=== PATIENT | female | born 1955 | race Caucasian/White ===

== ENCOUNTER 2022-03-02 09:44 | Outpatient (REF) | payer MEDICARE, OTHER, SELFPAY ==
--- NOTE | ~2022-03-02 | FL_ITS ---
EXAMINATION: FL BARIUM SWALLOW CLINICAL INFORMATION: Dysphagia COMPARISON: None TECHNIQUE: Barium swallow examination is performed using fluoroscopic evaluation in addition to multiple fluoroscopic spot views. The patient is imaged both upright and prone and using both thick and thin sulfate along with effervescent granules. Barium tablet was also administered. Fluoroscopy time: 1.5 minutes DAP: 5.7 Gycm2 Images: 81 saved fluoroscopic images FINDINGS: The swallowing mechanism is normal. No aspiration or penetration is seen. The barium tablet got stock in the proximal cervical esophagus. On air contrast images there are small retained pockets of oral contrast suggestive of small ulcers or erosions. No mass or stricture is seen. No gastroesophageal reflux. No hernia. Normal esophageal motility. There is question of prominent folds in the stomach and duodenum. FL/FL barium swallow IMPRESSION: Barium tablet got stock in the proximal cervical esophagus. On the air-contrast images there are round foci of retained contrast suggestive of small ulcers or erosions. Findings are suggestive of esophagitis. Endoscopic correlation recommended. Prominent folds in the stomach and proximal duodenum questionable for hypertrophic gastritis or hyperacidity. 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
== END 2022-03-02 09:45 | disposition home or self-care (01) ==
LOC: HO.XRAY 09:44
PROVIDERS: PCP Nurse Practitioner Family; Visit Provider Internal Medicine Gastroenterology
DX: R13.10 Dysphagia, unspecified (principal)
CPT/HCPCS: 74220

== ENCOUNTER 2022-04-19 07:05 | Day surgery (SDC) | payer MEDICARE, OTHER, SELFPAY ==
--- NOTE | 2022-03-10 15:07 | HP_ITS ---
DATE OF SERVICE: 03/15/2022 HISTORY OF PRESENT ILLNESS: Dolores is a pleasant 66-year-old woman, who presents today for upper endoscopy because of an abnormal upper GI series and symptoms of hoarseness, as well as dysphagia to pills. She underwent a barium swallow on March 02, which showed a barium tablet impacted in the proximal cervical esophagus and abnormal imaging suggestive of esophagitis. Prominent folds were noted in the stomach and proximal duodenum, questionable for hypertrophic gastritis. She had her medication increased and presents for upper endoscopy. She has a prior history of Lares esophagus and last underwent upper endoscopy in August 2018, which showed no esophagitis and an irregular EG junction. Biopsies showed intestinal metaplasia, but no dysplasia. PAST MEDICAL HISTORY: 1. Gastroesophageal reflux disease with Lares's esophagus and dysphagia as above. 2. Irritable bowel syndrome. 3. Fibromyalgia. 4. Carotid aneurysm with endovascular therapy with coils. 5. Hypertension. 6. Migraines. 7. COPD. 8. Back pain. 9. Reflex sympathetic dystrophy. PAST SURGICAL HISTORY: Includes bowel obstruction, appendectomy, ankle surgery, deviated septum repair, and carpal tunnel surgery. CURRENT MEDICATIONS: Her current medication list is reviewed in the chart. ALLERGIES: CECLOR, PENICILLIN, AND BUSPAR. FAMILY HISTORY: Noncontributory. SOCIAL HISTORY: There is no current tobacco, alcohol, or substance abuse. REVIEW OF SYSTEMS: SKIN: No pruritus. HEENT: Negative. CARDIOPULMONARY: No shortness of breath or chest pain. GASTROINTESTINAL: As above. GENITOURINARY: Negative. NEUROPSYCHIATRIC: Negative. PHYSICAL EXAMINATION: GENERAL: Shows a pleasant female in no acute distress. VITAL SIGNS: Reviewed in electronic medical record and are stable. SKIN: Anicteric. HEENT: Shows no scleral icterus. NECK: Without lymphadenopathy or thyromegaly. LUNGS: Clear. HEART: Shows a regular rate and rhythm. S1, S2. No murmur. ABDOMEN: Soft without focal masses or tenderness. Bowel sounds are present. No organomegaly is noted. EXTREMITIES: Without edema. IMPRESSION: Abnormal barium swallow with dysphagia. PLAN: Upper endoscopy with balloon dilation and biopsy. Risks and benefits of the procedure have been discussed with the patient who understands and agrees to proceed. MD FLORY Pineda/ISIDORO / [id number]
--- NOTE | 2022-04-18 13:29 | P.CONAN_ITS ---
Documented by User: Yuli Oconnell NP 04/18/22 13:30 HPI - Anesthesia Eval Consult details Narrative: 66yo F for Upper Endoscopy [facility] Past Medical History Medical History (Updated 04/19/22 @ 08:43 by Shi Hercules MD) Back pain Lares esophagus Bowel obstruction Carotid artery aneurysm COPD (chronic obstructive pulmonary disease) Fibromyalgia GERD (gastroesophageal reflux disease) HTN (hypertension) IBS (irritable bowel syndrome) Migraine Reflex sympathetic dystrophy Surgical History Surgical History H/O carpal tunnel repair History of ankle surgery History of appendectomy S/P surgery on nasal septum Social History Social History Patient Tobacco Use Status: Former Tobacco user Use of substances other than those prescribed or required for medical reasons: No Are you DNR?: No Advance Directives: No Advance Directives Information Provided: Yes Meds Allergies Allergy/AdvReac Type Severity Reaction Status Date / Time cefaclor [From CECLOR] Allergy Severe RASH,THROAT Unverified 12/26/19 17:56 SWELLING Penicillins Allergy Mild MASSIVE Unverified 12/26/19 17:56 WHELTS From BuSpar Allergy Intermediate CONFUSION, Uncoded 12/26/19 17:56 HALLUCINATIONS Home Medications Medication Instructions Recorded Confirmed Last Taken Type metoprolol succinate 25 mg 1 tab PO DAILY 04/19/22 04/19/22 04/19/22 History tablet,extended release 24 hr oseltamivir 75 mg capsule mg 04/19/22 04/19/22 Unknown History pantoprazole 40 mg tablet,delayed 1 tab PO BID 04/19/22 04/19/22 04/19/22 History release spironolactone 25 mg tablet 25 mg PO DAILY 04/19/22 04/19/22 04/19/22 History Exam Exam Date and Time: April 18, [id number] Assessment and Plan Assessment Anesthesia Assessment: Chart Reviewed Documented by User: Shi Hercules MD 04/19/22 08:51 [facility] Active Problems Active Problems: Former smoker Past Medical History Medical History (Updated 04/19/22 @ 08:43 by Shi Hercules MD) Back pain Lares esophagus Bowel obstruction Carotid artery aneurysm COPD (chronic obstructive pulmonary disease) Fibromyalgia GERD (gastroesophageal reflux disease) HTN (hypertension) IBS (irritable bowel syndrome) Migraine Reflex sympathetic dystrophy Family History Family history of problems with anesthesia: Yes (PONV) Surgical History Surgical History H/O carpal tunnel repair History of ankle surgery History of appendectomy S/P surgery on nasal septum History of Problems with Anesthesia: Yes (PONV even with endoscopies) Social History Social History Patient Tobacco Use Status: Former Tobacco user Use of substances other than those prescribed or required for medical reasons: No Are you DNR?: No Advance Directives: No Advance Directives Information Provided: Yes Meds Allergies Allergy/AdvReac Type Severity Reaction Status Date / Time cefaclor [From CECLOR] Allergy Severe RASH,THROAT Unverified 12/26/19 17:56 SWELLING Penicillins Allergy Mild MASSIVE Unverified 12/26/19 17:56 WHELTS From BuSpar Allergy Intermediate CONFUSION, Uncoded 12/26/19 17:56 HALLUCINATIONS Home Medications Medication Instructions Recorded Confirmed Last Taken Type metoprolol succinate 25 mg 1 tab PO DAILY 04/19/22 04/19/22 04/19/22 History tablet,extended release 24 hr oseltamivir 75 mg capsule mg 04/19/22 04/19/22 Unknown History pantoprazole 40 mg tablet,delayed 1 tab PO BID 04/19/22 04/19/22 04/19/22 History release spironolactone 25 mg tablet 25 mg PO DAILY 04/19/22 04/19/22 04/19/22 History Exam Height,Weight and Vital Signs: Height 5 ft 6 in Weight 63.503 kg Vital Signs Temp Pulse Resp BP 04/19/22 07:36 98.2 F 81 18 147/85 H Airway Mallampati Class: II TM Dist: >3cm Neck ROM: Full Denture: Upper Partial: Lower Heart: RRR Lungs: CTAB Assessment and Plan Assessment Anesthesia Assessment: Anesthesia Plan Discussed Final Anesthetic Review Family History of Problems with Anesthesia: Yes (PONV) History of Problems with Anesthesia: Yes (PONV even with endoscopies) NPO: Yes ASA Class: II Final Preanesthetic Review: No Changes in Pt Med Stat, Meds/Allgs Chart Reviewed, Consent Obtained/Reviewed and Anes Risks/Benef Reviewed Patient Risk: Low Procedure Risk: Low Assessment/Block/Sedation in SS: Assess/Block/Sedation-SS Anesthetic Plan Anesthetic Plan: MAC: Disposition: Standard PACU
[2022-04-19 07:36] VITALS: BP 147/85; PULSE 81; RESP 18; TEMP 36.8
[2022-04-19] MEDS: Lactated Ringers 1,000 ML 100 ML IVCONT (07:55)
--- NOTE | 2022-04-19 08:22 | P.HPSUR_ITS ---
Pre-Procedural Eval Section A Date of Service: 04/19/22 Section B Chief Complaint: Dysphagia, abnormal findings Details of Present Illness: see H&P no changes Relevant Family History (Specify if Yes): No Relevant Social History: None Present Medications: see Short Stay [facility] assessment Medical History: No relevant PMH History of Previous Operations: No relevant previous surgery Allergies: Allergies Allergy/AdvReac Type Severity Reaction Status Date / Time cefaclor [From CECLOR] Allergy Severe RASH,THROAT Unverified 12/26/19 17:56 SWELLING Penicillins Allergy Mild MASSIVE Unverified 12/26/19 17:56 WHELTS From BuSpar Allergy Intermediate CONFUSION, Uncoded 12/26/19 17:56 HALLUCINATIONS Review of Systems Sugical H&P ROS: Negative: Constitution, Cardiovascular, Respiratory, Neurological, Psychiatric, Hem-Onc, Allergic/Immunologic, Gastrointestinal, Genitourinary, Musculoskeletal, Integumentary, Endocrine and Eyes/Ears/Nose/Throat Exam Surgical H&P Exam: Normal: HEENT, Normal: Heart, Normal: Lungs, Normal: Extremities, Normal: Abdomen, Normal: Skin and Normal: Neurological Plan Diagnosis/Plan: Unchanged I have reviewed the history and physical and performed a pertinent physical examination on my patient. No changes have occurred unless specified. Time Spent With Patient Time: Total time managing care of this patient today ____ minutes.
--- NOTE | 2022-04-19 08:51 | P.BOP_ITS ---
Brief Operative Note Date of Service: 04/19/22 Pre-op diagnosis: dysphagia Post-op diagnosis: same Procedure: egd Surgeon: Lonnie Arenas Anesthesia: MAC Was an Dispatcher Clerk used for this Procedure?: No Estimated blood loss (mL): 2 Pathology: other Condition: stable Disposition: PACU
[2022-04-19 08:57] VITALS: BP 124/64; PULSE 67; RESP 18; TEMP 36.8; O2SAT 98
[2022-04-19 09:15] VITALS: BP 132/72; PULSE 63; RESP 18; TEMP 36.8; O2SAT 96
--- NOTE | 2022-04-19 09:44 | OP_ITS ---
SURGEON: Lonnie Arenas MD INDICATIONS: Dysphagia and abnormal barium swallow. PREOPERATIVE DIAGNOSIS: POSTOPERATIVE DIAGNOSIS: PROCEDURE PERFORMED: ESTIMATED BLOOD LOSS: COMPLICATIONS: ANESTHESIA: ASSISTANTS: SPECIMENS: PROCEDURE: Upper endoscopy with balloon dilation and biopsy. MEDICATIONS: Monitored anesthesia care. DESCRIPTION OF PROCEDURE: History and physical performed. The risks and benefits of the procedure were explained to the patient. Informed consent was obtained. The patient was placed in the left lateral decubitus position. The Olympus video gastroscope was introduced into the esophagus, stomach, and duodenum. Examination was performed. The scope was removed. She tolerated the procedure well and was taken to recovery in stable condition. FINDINGS: 1. Esophagus: The esophagus showed no stricture. There was an irregular EG junction with no raised lesions or ulcerated areas. Balloon dilation of the upper esophageal sphincter to 18 mm was performed with a balloon passed through the scope and inflated to its recommended pressure for 60 seconds. Following dilation, there was mild minor superficial mucosal laceration consistent with therapeutic dilation. Biopsies were obtained from the EG junction because of the patient's history of Lares esophagus. 2. Stomach: The stomach showed no evidence of masses or ulcers. There was focal gastritis in the body. Multiple benign-appearing less than 10 mm gastric polyps were identified in the fundus and body consistent with fundic gland polyps. Antral biopsies were obtained. 3. Duodenum: The bulb and second portion were normal. IMPRESSION: 1. Lares esophagus. 2. Dysphagia. 3. Gastric polyps/gastritis. RECOMMENDATION: Follow up the biopsy results. MD FLORY Pineda/ISIDORO / [id number]
== END 2022-04-19 09:40 | disposition home or self-care (01) ==
PROVIDERS: PCP Nurse Practitioner Family; Visit Provider Internal Medicine Gastroenterology
PROC: 0DJ08ZZ Inspection of Upper Intestinal Tract, Via Natural or Artificial Opening Endoscopic (ICD-10-PCS; CPT 43235; principal; 2022-04-19 08:00)
DX: R13.10 Dysphagia, unspecified (principal); R49.0 Dysphonia; K22.70 Barrett's esophagus without dysplasia; K29.50 Unspecified chronic gastritis without bleeding; K31.7 Polyp of stomach and duodenum; I10 Essential (primary) hypertension; G90.50 Complex regional pain syndrome I, unspecified; M79.7 Fibromyalgia; G43.909 Migraine, unspecified, not intractable, without status migrainosus; J44.9 Chronic obstructive pulmonary disease, unspecified; Z88.0 Allergy status to penicillin; Z88.8 Allergy status to other drugs, medicaments and biological substances
CPT/HCPCS: 43249; 43239; 88305; 88342; C1726; J1100; J2405

== ENCOUNTER 2023-03-01 08:47 | Outpatient (AMB) | payer MEDICARE, OTHER, SELFPAY ==
--- NOTE | 2023-03-01 09:09 | A.SPINEOV_ITS ---
Intake Intake Visit Reasons: Disorder of sacrum Intake Note: Mrs. Pham is here today c/o left-sided low back pain. MRI done @ [facility]/brought disc. Allergies cefaclor [From CECLOR] Allergy (Severe, Unverified 12/26/19 17:56) RASH,THROAT SWELLING Penicillins Allergy (Mild, Unverified 12/26/19 17:56) MASSIVE WHELTS From BuSpar Allergy (Intermediate, Uncoded 12/26/19 17:56) CONFUSION, HALLUCINATIONS Assessment & Plan Assessment & Plan (1) SI (sacroiliac) joint dysfunction: Code(s): M53.3 - Sacrococcygeal disorders, not elsewhere classified (2) Spondylolisthesis of lumbar region: Code(s): M43.16 - Spondylolisthesis, lumbar region Plan Dear colleague Thank you for referring Dolores Pham to the office today with a chief complaint of predominantly left SI joint pain. HPI: This 67-year-old female developed gradually, progressive, severe pain in the left SI joint area and to a lesser extent on the right side. She denies significant pain down her legs. She does have occasional numbness of her whole left leg. The pain increases with prolonged sitting. Getting in and out of a car is very painful. She can not sleep on her side. Bending forward is very painful. The pain is varying between 7 and 10/10 depending on the activity. A left SI joint injection provided more than 70% relief. An SI joint belt also relieves her symptoms. Oxycodone p.r.n. is not alleviating the pain. In the past she was also diagnosed with an L5-S1 spondylolisthesis for which she was offered surgery. The following conservative treatment options were tried without success antiinflammatories, tylenol, physical therapy, chiropractic therapy and cortisone shots PMH: Hypertension, Lares's syndrome, migraine, C6-C7 fusion, coiling of 2 carotid aneurysms in 1994, LASIK surgery Medications: Oxycodone p.r.n., amlodipine, spironolactone, pantoprazole, aspirin 81 mg, ipratropium p.r.n. Allergies: NKDA Social history: . Physical Exam: Pleasant female who is in obvious agony. She prefers standing in the office due to pain in the left SI joint area. This pain on palpation. Provocative SI joint tests are positive. Straight leg raise produces pain in the SI joint area. No motor or sensory deficits. Radiological Studies: MRI of the lumbar spine done at [facility] on 01/21/2022 shows a grade 2 L5-S1 spondylolisthesis with severe bilateral L5 foraminal stenosis. In addition there is degenerative disc disease L2-3, L3-4, L4-5 . Impression/Plan: This 67-year-old female is suffering from left SI joint pathology based on the clinical findings and response to an SI joint injection. I discussed an SI joint with the patient. I discussed a lateral approach and a medial to lateral approach. We decided on the medial to lateral approach which will was leaves the option open for a lateral approach if there is a nonfusion. There is a remote possibility that the L5-S1 spondylolisthesis is involved in her symptomatology. She is scheduled to undergo a left SI joint fusion on 05/09/2022 Thank you for allowing me to participate in your patients care. total time spent was 50 minutes in counseling ,coordination of plan, personal review of imaging, surgical decision making and subsequent plan Rufus Kent MD, PhD Spine Fellowship Trained Neurosurgeon Director, [facility] Coding Level of Care Code New Pt Level 4 (04273) Diagnoses SI (sacroiliac) joint dysfunction M53.3 Spondylolisthesis of lumbar region M43.16
== END 2023-03-01 10:11 | disposition home or self-care (01) ==
PROVIDERS: PCP Nurse Practitioner Family; Referring Provider Physical Medicine & Rehabilitation; Visit Provider Neurological Surgery
DX: M53.3 Sacrococcygeal disorders, not elsewhere classified (principal); M43.16 Spondylolisthesis, lumbar region
CPT/HCPCS: 99204

== ENCOUNTER → 2023-03-01 08:47 | Outpatient (BNVA) | payer MEDICARE, OTHER, SELFPAY | PROVIDERS: PCP Nurse Practitioner Family; Referring Provider Physical Medicine & Rehabilitation; Visit Provider Neurological Surgery | DX: M53.3 Sacrococcygeal disorders, not elsewhere classified (principal); M43.16 Spondylolisthesis, lumbar region | CPT/HCPCS: 99202 ==

== ENCOUNTER 2023-05-09 08:03 | Day surgery (SDC) | payer MEDICARE, OTHER, SELFPAY ==
[2023-05-09] VITALS (9 sets, daily range): BP systolic 122–153; BP diastolic 63–79; PULSE 67–84; RESP 12–17; TEMP 36.2–37.1; O2SAT 98–100; BMI 21.8
--- NOTE | ~2023-05-09 | FL_ITS ---
CLINICAL INDICATION: SI joint fusion. FINDINGS: Technical assistance and equipment were provided by the Department of Radiology during intraoperative fluoroscopy for reported SI joint fusion. 3, limited fluoroscopic spot images are submitted. A radiologist was not present during the procedure. Initial lateral image demonstrates grade 1 anterolisthesis and moderate to severe disc degenerative change with possible spondylolysis at L5-S1. The aorta is atherosclerotic. Hardware projects over the upper sacrum. Subsequent images demonstrate the left SI joint. One of these images demonstrates a metallic screw to project over the iliac side of the SI joint. The images are available for review on PACS. TOTAL FLUOROSCOPY TIME: 0.4 minutes. DOSE AREA PRODUCT: 4.9 Gy-cm2 (pa-centimeter squared) FL/FL guidance in OR IMPRESSION: Technical assistance and equipment provided by the Department of Radiology during intraoperative fluoroscopy, as above. Please see operative report for further details.
--- NOTE | 2023-05-09 07:13 | P.HPSUR_ITS ---
Pre-Procedural Eval Section A - 24 Hr Update-Section A only Date of Service: 05/09/23 The patient is an INPATIENT: No Changes since office visit: No Cold of Flu in the past 2 weeks, No New Medical Problems, No Changes in Medication and No Patient answered all questions The patient has been examined within 24 hours of the surgical procedure. The History & Physical has been completed within 30 days and I have reviewed it.: No Section B - Complete if H&P > 30 days Chief Complaint: Sacrococcygeal disorders,Spondylolisthesis, lumbar Allergies: Allergies Allergy/AdvReac Type Severity Reaction Status Date / Time cefaclor [From CECLOR] Allergy Severe RASH,THROAT Unverified 12/26/19 17:56 SWELLING Penicillins Allergy Mild MASSIVE Unverified 12/26/19 17:56 WHELTS From BuSpar Allergy Intermediate CONFUSION, Uncoded 12/26/19 17:56 HALLUCINATIONS Review of Systems Sugical H&P ROS: Negative: Constitution, Cardiovascular, Respiratory, Neurological, Psychiatric, Hem-Onc, Allergic/Immunologic, Gastrointestinal, Genitourinary, Musculoskeletal, Integumentary, Endocrine and Eyes/Ears/Nose/T hroat Exam Surgical H&P Exam: Not Evaluated: HEENT, Not Evaluated: Heart, Not Evaluated: Lungs, Not Evaluated: Extremities, Not Evaluated: Abdomen, Not Evaluated: Skin and Not Evaluated: Neurological Plan Diagnosis/Plan: Unchanged left SI joint fusion Time Spent With Patient Time: Total time managing care of this patient today _5___ minutes.
[2023-05-09] MEDS: vancomycin HCL 1,000 MG in 0.9 % Sodium Chloride 250 ML 270 MG IV (09:11)
[2023-05-09] MEDS: methocarbamoL 750 MG TABLET PO (09:12)
[2023-05-09] MEDS: Gabapentin 300 MG CAPSULE PO (09:12)
--- NOTE | 2023-05-09 10:25 | P.CONAN_ITS ---
HPI - Anesthesia Eval Consult details Narrative: 67 yo female patient for Left Sacroiliac Joint fusion PMFSH Active Problems Active Problems: All Active Problems (Updated 05/05/23 @ 08:03 by Gely Power RN) Spondylolisthesis of lumbar region (Acute) SI (sacroiliac) joint dysfunction (Acute) Cerebral aneurysms- 2 coiled in 1994. 1 behind Right eye - being watched. Yearly scans/ MRI in [place]. Last 2022 COPD. Does not use inhalers PONV HTN GERD Past Medical History Medical History Bowel obstruction Reflex sympathetic dystrophy Back pain COPD (chronic obstructive pulmonary disease) Migraine HTN (hypertension) Carotid artery aneurysm Fibromyalgia IBS (irritable bowel syndrome) Lares esophagus GERD (gastroesophageal reflux disease) Family History Family history of problems with anesthesia: Yes (PONV) Surgical History Surgical History Hx of fusion of cervical spine H/O carpal tunnel repair S/P surgery on nasal septum History of ankle surgery History of appendectomy History of Problems with Anesthesia: Yes (PONV even with endoscopies) Social History Social History Patient Tobacco Use Status: Former Tobacco user Use of substances other than those prescribed or required for medical reasons: No Are you DNR?: No Advance Directives: No Advance Directives Information Provided: Yes Meds Allergies Allergy/AdvReac Type Severity Reaction Status Date / Time cefaclor [From CECLOR] Allergy Severe RASH,THROAT Verified 05/09/23 08:21 SWELLING Penicillins Allergy Mild MASSIVE Verified 05/09/23 08:21 WHELTS From BuSpar Allergy Intermediate CONFUSION, Uncoded 12/26/19 17:56 HALLUCINATIONS Home Medications Medication Instructions Recorded Confirmed Last Taken Type pantoprazole 40 mg tablet,delayed 1 tab PO BID 04/19/22 05/09/23 04/19/22 History release spironolactone 25 mg tablet 25 mg PO DAILY 04/19/22 05/09/23 05/08/23 History amlodipine 2.5 mg tablet 2.5 mg PO DAILY 05/09/23 05/09/23 05/09/23 History Exam Height,Weight and Vital Signs: Height 5 ft 6 in Weight 61.235 kg Last Vital Signs Temp 98.7 F 05/09/23 08:48 Pulse 80 05/09/23 08:48 Resp 16 05/09/23 08:48 BP 130/75 05/09/23 08:48 Pulse Ox 98 05/09/23 08:48 O2 Del Method Room Air 05/09/23 08:48 Airway Mallampati Class: Patient Non-Cooperative TM Dist: >3cm Neck ROM: Full Denture: Upper Partial: Lower Loose/Missing/Broken Teeth: Yes (Denies broken or loose teeth) Heart: RRR Lungs: CTAB Assessment and Plan Assessment Anesthesia Assessment: Anesthesia Plan Discussed and Chart Reviewed Final Anesthetic Review Family History of Problems with Anesthesia: Yes (PONV) History of Problems with Anesthesia: Yes (PONV even with endoscopies) NPO: Yes ASA Class: III Final Preanesthetic Review: No Changes in Pt Med Stat, Meds/Allgs Chart Reviewed, Consent Obtained/Reviewed and Anes Risks/Benef Reviewed Patient Risk: Intermediate Procedure Risk: Intermediate Assessment/Block/Sedation in SS: Assess/Block/Sedation-SS Anesthetic Plan Anesthetic Plan: GA Disposition: Standard PACU
--- NOTE | 2023-05-09 11:36 | PM.DS ---
DS: Providers Provider Date of Service: 05/09/23 Date of discharge: 05/09/23 Primary care physician: Claudia Gamez NP Admitting clinician: Rufus Kent DS: Diagnosis Discharge Diagnosis (1) SI (sacroiliac) joint dysfunction: Status: Acute DS: Summary Time Attestation Discharge coordination time: Less than 30 minutes Quality: Safe Use of Opioids Does Pt have an Active Cancer Diagnosis on the Problem List?: No Quality: Stroke Does the patient have a stroke diagnosis?: No Physical Exam Vital Signs: Vital Signs: Last Vital Signs Temp 98.7 F 05/09/23 08:48 Pulse 80 05/09/23 08:48 Resp 16 05/09/23 08:48 BP 130/75 05/09/23 08:48 Pulse Ox 98 05/09/23 08:48 O2 Del Method Room Air 05/09/23 08:48 BMI result Body Mass Index 21.8 Discharge Plan Discharge Patient Disposition: Home, Self-Care Referrals: Claudia Gamez NP [Primary Care Provider] - 1 Week Discharge Medications: New oxycodone 5 mg tablet 5 mg PO Q4H PRN (Reason: pain) Qty: 20 0RF Rx Instructions: Partial Fill upon patient request. Continued pantoprazole 40 mg tablet,delayed release (DR/EC) 1 tab PO BID spironolactone 25 mg Tablet 25 mg PO DAILY amlodipine 2.5 mg tablet 2.5 mg PO DAILY Discharge Orders: Discharge Order (Routine); Ordered 05/09/23 Ordered By: Rhett Greene Diet: Advance to usual diet Activity on Discharge: As tolerated Activity Restrictions/Additional Instructions: After your SI joint fusion surgery we ask you to observe the following restrictions/guidelines: Activity: It is normal to feel some discomfort as you increase your activity, but that will improve with time. We ask you avoid heavy lifting or acitivities that cause pain. As a general rule, 8lbs is a safe limit for lifting right after surgery. We ask you to stay off your left leg after surgery in order to help the SI joint fuse. Please use crutches or walker. You may return to driving when you are off narcotics (such as vicodin, oxycodone, dilaudid, etc), and you are back to normal functional capacity. If you have any concerns please check with office before driving. Return to work is specific to each patient and each surgery, so please speak with your doctor/PA at first follow up. Please bring paperwork such as FMLA at that time if you need it filled out. Follow up: Please call the office, , after surgery to arrange a 3 week follow up for wound check. Wound Care: Your wound was closed with glue, there are no sutures to remove. You may shower on post op day # 1. We ask that you do not let the water soak the wound. If it does get wet, just towel dry lightly. Please do not scrub your incision or place any type of chemical/ointment on the wound. No tub baths, pools or jacuzzis for one month. If you have any leaking or redness from your wound, or fevers, please call office Medications: We will give you a short supply of narcotics after surgery (usually one weeks worth). If you need more please call the office but do not use more than prescribed. You will need to give our office 48 hours notice if you need narcotics refilled and we do not fill narcotics on weekends or evenings. If you are on a narcotic, it is a good idea to take a stool softener such as colace or senna to avoid constipation If you take blood thinner such as aspirin, Plavix, Coumadin, Effient, Eliquis etc for conditions such as Afib, DVT, Pulmonary embolus, coronary disease, stents etc please speak with your surgeon about specific details as to when you can resume these medications. You can resume NSAIDs on post op day 1 (eg: Motrin, Naproxen, etc).
--- NOTE | 2023-05-09 11:43 | P.OP_ITS ---
Operative Note Operative Note Date of Service: 05/09/23 Narrative: Preoperative diagnosis: Bilateral sacroiliac joint dysfunction Postoperative diagnosis: Same Operative procedure: Left sacroiliac joint fusion with 1 allograft implant Surgeon: Rufus Kent MD, PhD Manager Of Creative Services: Rhett Greene PA-C Anesthesia: General Description of procedure: The patient is suffering from bilateral SI joint dysfunction refractory to nonoperative management. The patient has tried and fa iled all forms of conservative manage med except for an excellent short-term response to a sacroiliac joint injection. The sacroiliac joint was confirmed to be the pain generator after repeated pain blocks. The patient was offered surgical treatment with fixation and arthrodesis of the left SI joint. The patient was brought to the operating room and endotracheally intubated. The patient was turned in a prone position on Raghu spine table. Prepping and draping was done followed by a time-out. A C-arm was alternately positioned for lateral, oblique oblique and pelvic inlet and outlet projections througout the procedure. Skin markings were made for the anticipated position of the implant. A 2.5 cm longitudinal skin incision was made. A guide pin was inserted in an outlet oblique image for guidance follow-up insertion of dilator and working cannula. This was secured by placing an anchor pin into the ilium. Consideration was taken to cut channels utilizing a series of drills for decortication and internal fixation device placement. The implant was inserted such that it passed through the ilium, across the sacroiliac joint and into the sacrum, thus transfixing the sacroiliac joint. Proper positioning was confirmed on lateral fluoroscopy. The implant was packed with autologous bone collected from remain of the sacrum and ilium. Additional graft material was inserted into the channel void following the implant. The instruments were withdrawn. Upon completion, final images were obtained that showed a satisfactory position of the implant. Hemostasis was done. The incision was closed with an 0 Vicryl to fashion a 3-0 Vicryl subdermal layer after injecting Marcaine. Dermabond was used to approximate the surgeon. All sponge and needle counts were correct. Patient was extubated and transported in a stable condition to recovery room. Estimated blood loss: 10 Complications: None Disposition: Discharge to home
[2023-05-09] MEDS: fentaNYL citrate/PF 100 MCG/2 ML VIAL 50 MCG IVPUSH (12:22)
[2023-05-09] MEDS: oxyCODONE HCl Immed Release 5 MG TABLET PO (13:12)
== END 2023-05-09 13:41 | disposition home or self-care (01) ==
PROVIDERS: PCP Nurse Practitioner Family; Visit Provider Neurological Surgery
PROC: (CPT 27278; principal; 2023-05-09 10:10)
DX: M53.3 Sacrococcygeal disorders, not elsewhere classified (principal); M43.16 Spondylolisthesis, lumbar region; R20.0 Anesthesia of skin; Z98.1 Arthrodesis status; I10 Essential (primary) hypertension; G43.909 Migraine, unspecified, not intractable, without status migrainosus; Z79.82 Long term (current) use of aspirin; Z79.899 Other long term (current) drug therapy; Z88.0 Allergy status to penicillin; Z88.1 Allergy status to other antibiotic agents; Z87.891 Personal history of nicotine dependence
CPT/HCPCS: 27278; C1713; J0131; J1100; J1200; J1885; J2250; J2405; J2704; J3010; J3370; L8699

== ENCOUNTER → 2023-05-09 08:03 | Outpatient (BNV) | payer MEDICARE, OTHER, SELFPAY | PROVIDERS: PCP Nurse Practitioner Family; Visit Provider Physician Assistant | DX: M53.3 Sacrococcygeal disorders, not elsewhere classified (principal) | CPT/HCPCS: 27278; 99499 ==

== ENCOUNTER 2023-06-01 10:57 | Outpatient (REF) | payer MEDICARE, OTHER, SELFPAY | END 2023-06-01 10:58 | disposition home or self-care (01) | LOC: HO.HOSX 10:57 | PROVIDERS: PCP Physician Assistant Medical; Visit Provider Physician Assistant | DX: Z09 Encounter for follow-up examination after completed treatment for conditions other than malignant neoplasm (principal); M53.3 Sacrococcygeal disorders, not elsewhere classified | CPT/HCPCS: 99212 ==

== ENCOUNTER 2023-06-01 10:57 | Outpatient (AMB) | payer MEDICARE, OTHER, SELFPAY ==
--- NOTE | 2023-06-01 11:04 | HO.SPINEOV ---
Intake Intake Visit Reasons: 1st post-op visit Intake Note: Ms redd is here today for 1st post op visit. Computed Tomography Technician Required: No Allergies cefaclor [From CECLOR] Allergy (Severe, Verified 05/09/23 08:21) RASH,THROAT SWELLING Penicillins Allergy (Mild, Verified 05/09/23 08:21) MASSIVE WHELTS From BuSpar Allergy (Intermediate, Uncoded 12/26/19 17:56) CONFUSION, HALLUCINATIONS Assessment & Plan Assessment & Plan (1) SI (sacroiliac) joint dysfunction: Code(s): M53.3 - Sacrococcygeal disorders, not elsewhere classified Plan Procedure: Left SI joint fusion Crystal comes in today for her 1st postoperative visit. She reports she is very satisfied with the surgery and feels much better than she did preoperatively. The patient reports she is up walking around with her crutches and completing the majority of her ADLs. She inquired about returning to activity without the use of crutches. She is encouraged to begin ambulating without her crutches but informed that she will need to be conservative regarding weight-bearing. No neurological deficits. Patient is able to ambulate well, rises from a seated position without difficulty. Incision site is closed, well healing, with no signs of drainage. We will follow-up with the patient in 6 weeks for her 2nd postoperative visit. At that time we will get x-rays to review with the patient. Kirby Kent MD,PhD [facility] Orders: Orders XR hip LT min 2V Today Coding Level of Care Code Global (08718) Diagnoses SI (sacroiliac) joint dysfunction M53.3
== END 2023-06-01 11:23 | disposition home or self-care (01) ==
PROVIDERS: PCP Physician Assistant Medical; Visit Provider Physician Assistant
DX: M53.3 Sacrococcygeal disorders, not elsewhere classified (principal)
CPT/HCPCS: 99024

== ENCOUNTER 2023-07-13 10:16 | Outpatient (AMB) | payer MEDICARE, OTHER, SELFPAY ==
--- NOTE | 2023-07-13 10:39 | HO.SPINEOV ---
Intake Intake Visit Reasons: 2nd post op with xrays Intake Note: is here for 2nd post-op with xrays Maintenance Leader Required: No Allergies cefaclor [From CECLOR] Allergy (Severe, Verified 05/09/23 08:21) RASH,THROAT SWELLING Penicillins Allergy (Mild, Verified 05/09/23 08:21) MASSIVE WHELTS From BuSpar Allergy (Intermediate, Uncoded 12/26/19 17:56) CONFUSION, HALLUCINATIONS Assessment & Plan Assessment & Plan (1) SI (sacroiliac) joint dysfunction: Code(s): M53.3 - Sacrococcygeal disorders, not elsewhere classified Plan Procedure: Left SI joint fusion Dolores comes in today for her 2nd postoperative visit. She reports she is very satisfied with the surgery and feels much better than she did pre-operatively. She reports she has been successfully ambulating around her home without the use of crutches. She has no significant pain with ambulation, and has been returning to regular activities. She discussed the possibility of addressing a ?slipped disc? in her low back that she had discussed with Dr. Kent during their initial consult visit. She does feel her symptoms are better but not all of her back pain has been resolved. No neurological deficits. Patient is able to ambulate well, rises from a seated position without difficulty. Incision site is closed, well healing, with no signs of drainage. There is no need for continued routine follow-up with Dolores. She may make an established patient new complaint appointment with Dr. Kent to follow-up regarding her subsequent issues. Kirby Kent MD,PhD [facility] Coding Level of Care Code Global (73808) Diagnoses SI (sacroiliac) joint dysfunction M53.3
== END 2023-07-13 11:16 | disposition home or self-care (01) ==
PROVIDERS: PCP Physician Assistant Medical; Visit Provider Physician Assistant
DX: M53.3 Sacrococcygeal disorders, not elsewhere classified (principal)
CPT/HCPCS: 99024

== ENCOUNTER 2023-07-13 10:16 | Outpatient (REF) | payer MEDICARE, OTHER, SELFPAY | END 2023-07-13 10:17 | disposition home or self-care (01) | LOC: CF 10:16 | PROVIDERS: PCP Physician Assistant Medical; Visit Provider Physician Assistant | DX: Z13.89 Encounter for screening for other disorder (principal) | CPT/HCPCS: 99212 ==

== ENCOUNTER 2023-07-13 11:17 | Outpatient (REF) | payer MEDICARE, OTHER, SELFPAY ==
--- NOTE | ~2023-07-13 | XR_ITS ---
EXAMINATION: XR HIP, LEFT CLINICAL INFORMATION: Evaluate left sacroiliac joint COMPARISON: None available. TECHNIQUE: Two views of the left hip. FINDINGS: No acute fracture or dislocation. Mild osteoarthritis of left hip with small collar osteophytes. Calcified phleboliths in the pelvis. This could stool in the rectum. Sclerosis along the left aspect of the sacroiliac joint which may represent sequelae of degenerative change, sacroiliitis or osteitis condensans ilii and could be better assessed with sacroiliac radiograph. XR/XR hip LT min 2V IMPRESSION: 1. Mild osteoarthritis of the left hip. 2. Sclerosis along the left aspect of the sacroiliac joint which may represent sequelae of degenerative change, sacroiliitis or osteitis condensans ilii and could be better assessed with sacroiliac radiograph.
== END 2023-07-13 11:18 | disposition home or self-care (01) ==
LOC: HO.HOSX 11:17
PROVIDERS: Visit Provider Physician Assistant
DX: M53.3 Sacrococcygeal disorders, not elsewhere classified (principal)
CPT/HCPCS: 73502; 99212

== ENCOUNTER 2023-08-04 08:54 | Outpatient (AMB) | payer MEDICARE, OTHER, SELFPAY ==
--- NOTE | 2023-08-04 08:54 | MHC.PC.OV ---
Vital Signs 08/04/23 09:08 08/04/23 09:15 Height 5 ft 6 in Weight 134 lb 6 oz BMI 21.7 BP 150/76 H 118/70 Blood Pressure Location Rt brachial Lt brachial Position Sitting Sitting Respiration 14 Pulse 64 Pulse Source Pulse Oximeter Temp 98.4 F Temp Source Oral Pulse Oximetry (%) 98 Oxygen Delivery Method Room Air Intake Visit Reasons: Est. Care Intake Note: New patient visit. Worsening muscle cramps Rat Exterminator Required: No Allergies cefaclor [From CECLOR] Allergy (Severe, Verified 08/04/23 08:59) RASH,THROAT SWELLING Penicillins Allergy (Mild, Verified 08/04/23 08:59) MASSIVE WHELTS From BuSpar Allergy (Intermediate, Uncoded 08/04/23 08:59) CONFUSION, HALLUCINATIONS Tobacco use date assessed: 08/04/23 Fall risk assessment: 2 + Falls in past year Last assessed Fall Risk: 08/04/23 Dental Screening Dental Screen Date: 08/04/23 Did you have a dental visit in the last 12 months?: Yes Did you have a dental problem in the last 6 months where you did not have access to dental care?: No Was dental information given to patient?: Patient has dentist HPI HPI Comments History of Present Illness Details This is a 67 year old female with a past medical history of chronic low back pain, hypertension, GERD, barretts, migraines presenting to [facility] CV: on amlodipine, spironolactone. BP 118/17. Following with nephrology for BP management. Denies chest pain, exertional dyspnea. MSK: On oxycodone, xtampza. s/p SI joint fusion with Dr Kent 04/2023. Active caring for her grandchild. Over the past 6 months to a year has been having considerable muscle cramping. Says labs so far normal. Neuro: Follows with Dr Elder, neurology for migraines. On ubrelvy. stable GI: Follows with Dr Arenas. Danii. UTD with upper and lower endoscopy Mammo: due October DXA is scheduled [facility] Medical History (Updated 08/04/23 @ 09:48 by Jacey Lora MD) Bowel obstruction Reflex sympathetic dystrophy Back pain COPD (chronic obstructive pulmonary disease) Migraine HTN (hypertension) Carotid artery aneurysm Fibromyalgia IBS (irritable bowel syndrome) Lares esophagus GERD (gastroesophageal reflux disease) Surgical History Hx of fusion of cervical spine H/O carpal tunnel repair S/P surgery on nasal septum History of ankle surgery History of appendectomy Family History (Updated 08/04/23 @ 09:42 by Dolores Tyler CMA) Sister Alcoholism Mother Breast cancer HTN (hypertension) Hypercholesteremia Maternal Aunt Breast cancer Maternal Uncle Colon cancer Father HTN (hypertension) Asthma Hypercholesteremia Maternal Grandfather Pacemaker Other Substance use Social History Housing: House Patient Tobacco Use Status: Never used Tobacco Tobacco use type: Cigarette Cigarettes Per Day: 10 Years Smoked: 50 e-Cigarette/Vaping Use: Never Used Second Hand Smoke Exposure: No service: No Current occupational status: retired Cognitive needs: No Hearing needs: No Vision needs: Yes (floater in eyes, and possible glaucoma) Questionnaire PHQ-9 Over the last 2 weeks, how often have you been bothered by any of the following problems? 1. Little interest or pleasure in doing things: not at all 2. Feeling down, depressed, or hopeless: not at all 3. Trouble falling or staying asleep, or sleeping too much: nearly every day 4. Feeling tired or having little energy: more than half the days 5. Poor appetite or overeating: not at all 6. Feeling bad about yourself - or that you are a failure or have let yourself or your family down: not at all 7. Trouble concentrating on things, such as reading the newspaper or watching television: not at all 8. Moving or speaking so slowly that other people could have noticed. Or the opposite - being so fidgety or restless that you have been moving around a lot more than usual: not at all 9. Thoughts that you would be better off or of hurting yourself in some way: not at all Total score: 5 Depression Screening Interpretation: Positive Depression Screening Follow-up: Declines treatment Depression Screening Done: Yes 97489 - PHQ-9 Billing: Yes Source: Developed by Drs. Gabriel Amaya, Anni Campbell, Franco Solano and colleagues, with an educational alyce from [employer]. Thrive Questionnaire Date Thrive assessed: 08/04/23 I am a: Patient What is your living situation today?: I have a steady place to live Within the past 12 months, did the food you bought not last and you didn't have the money to get more?: Never true Within the past 12 months, did you worry whether your food would run out before you got money to buy more?: Never true Do you have trouble paying for medicines?: No Do you have trouble getting transportation to medical appointments?: No Do you have trouble paying your heating and electricity bill?: No Do you have trouble taking care of your child, family member or friend?: No Do you have trouble with day-to-day activities such as bathing, preparing meals, shopping, managing finances, etc.?: No Are you currently unemployed and looking for a job?: No Are you interested in more education?: No Please select the resources that you would like help with: None Currently or been in a relationship where the following occur: no concerns reported THRIVE Score: 0 AUDIT C Alcohol Use Questionnaire (AUDIT-C) 1. How often do you have a drink containing alcohol?: Never 3. How often do you have six or more drinks on one occasion?: Never Total Score: 0 SISSY-7 AMB Questionnaire SISSY-7 Date SISSY - 7 assessed: 08/04/23 Feeling nervous, anxious, or on edge: 0 = Not at all Not being able to stop or control worryin = Not at all Worrying too much about different things: 1 = Several days Trouble relaxin = Several days Being so restless that it is hard to sit still: 1 = Several days Becoming easily annoyed or irritable: 0 = Not at all Feeling afraid as if something awful might happen: 0 = Not at all Total SISSY-7 score (0-4 normal; 5-9 mild; 10-14 moderate; 15-21 severe): 3 Source: Developed by Drs. Gabriel Amaya, Anni Campbell, Franco Solano and colleagues, with an educational alyce from [employer]. SISSY-7 Assessment Billing SISSY-7 Assessment Tool: SISSY-7 Assessment 81593 Review of Systems Const Details: ROS CONSTITUTIONAL: Denies weight loss, fever and chills. HEENT: Denies changes in vision and hearing. RESPIRATORY: Denies SOB and cough. CV: Denies palpitations and CP GI: Denies abdominal pain, nausea, vomiting and diarrhea. : Denies dysuria and urinary frequency. MSK: see HPI SKIN: Denies rash and pruritus. NEUROLOGICAL: Denies headache PSYCHIATRIC: Denies recent changes in mood. Physical exam (Primary Care) Vital Signs: Last Vital Signs Temp 98.4 F 08/04/23 09:08 Pulse 64 08/04/23 09:08 Resp 14 08/04/23 09:08 BP 118/70 08/04/23 09:15 Pulse Ox 98 08/04/23 09:08 Oxygen Delivery Method Room Air 08/04/23 09:08 BMI result Body Mass Index 21.7 Tobacco/Smoking Status: Tobacco use Status Tobacco use date assessed 08/04/23 08/04/23 09:10 Patient Tobacco Use Status Never used Tobacco 08/04/23 09:11 Tobacco use type Cigarette 08/04/23 09:11 e-Cigarette/Vaping Use Never Used 08/04/23 09:11 PHQ-9: PHQ-9 Score PHQ-9: Total score 5 08/04/23 09:17 Depression Screening Interpretation: Positive Depression Screening Follow-up: Declines treatment Thrive Assessment: Date of Thrive Assessment Date Thrive assessed 08/04/23 08/04/23 09:17 Currently or been in a relationship where the following occur: no concerns reported Const Other: PHYSICAL EXAM: GENERAL: Alert and oriented x 3. NAD EYES: EOMI. Anicteric. HENT: Moist mucous membranes. No scleral icterus. No cervical lymphadenopathy. LUNGS: Clear to auscultation bilaterally. CARDIOVASCULAR: Regular rate and rhythm. No murmur. No JVD. ABDOMEN: Soft, non-tender +bs EXTREMITIES: No edema. Non-tender. SKIN: No rashes or lesions. Warm. NEUROLOGIC: No focal neurological deficits. CN II-XII grossly intact PSYCHIATRIC: Cooperative. Appropriate mood and affect Assessment and Plan Assessment & Plan (1) Encounter to establish care: Comment: 67 y/o female to establish care. past medical, surgical, social and family history reviewed. Code(s): Z76.89 - Persons encountering health services in other specified circumstances (2) HTN (hypertension): Comment: controlled on current medication Code(s): I10 - Essential (primary) hypertension Qualifiers: Hypertension type: primary hypertension Qualified Code(s): I10 - Essential (primary) hypertension (3) COPD (chronic obstructive pulmonary disease): Code(s): J44.9 - Chronic obstructive pulmonary disease, unspecified Qualifiers: COPD type: unspecified COPD Qualified Code(s): J44.9 - Chronic obstructive pulmonary disease, unspecified (4) Lares esophagus: Comment: Follows with GI Code(s): K22.70 - Lares's esophagus without dysplasia Qualifiers: Lares's esophagus type: without dysplasia Qualified Code(s): K22.70 - Lares's esophagus without dysplasia (5) GERD (gastroesophageal reflux disease): Code(s): K21.9 - Gastro-esophageal reflux disease without esophagitis Qualifiers: Esophagitis presence: esophagitis presence not specified Qualified Code(s): K21.9 - Gastro-esophageal reflux disease without esophagitis (6) SI (sacroiliac) joint dysfunction: Comment: continue f/up neurosurgery. stable on opioid therapy Code(s): M53.3 - Sacrococcygeal disorders, not elsewhere classified (7) Muscle cramps: Code(s): R25.2 - Cramp and spasm Orders: Orders Comprehensive Met. Panel Today I10 - Essential (primary) hypertension, K21.9 - Gastro-esophageal reflux disease without esophagitis, R25.2 - Cramp and spasm CK, Total+Isoenzymes, Serum Today I10 - Essential (primary) hypertension, K21.9 - Gastro-esophageal reflux disease without esophagitis, R25.2 - Cramp and spasm Lactic Acid Today I10 - Essential (primary) hypertension, K21.9 - Gastro-esophageal reflux disease without esophagitis, R25.2 - Cramp and spasm Erythrocyte Sedimentation Rate Today I10 - Essential (primary) hypertension, K21.9 - Gastro-esophageal reflux disease without esophagitis, R25.2 - Cramp and spasm IRON PROFILE Today K21.9 - Gastro-esophageal reflux disease without esophagitis, R25.2 - Cramp and spasm Magnesium Today I10 - Essential (primary) hypertension, K21.9 - Gastro-esophageal reflux disease without esophagitis, R25.2 - Cramp and spasm Lyme IgG/IgM w/reflex to WB Today I10 - Essential (primary) hypertension, K21.9 - Gastro-esophageal reflux disease without esophagitis, R25.2 - Cramp and spasm Cyclic Citrullinated Peptide Today I10 - Essential (primary) hypertension, K21.9 - Gastro-esophageal reflux disease without esophagitis, R25.2 - Cramp and spasm Complete Blood Count Auto Diff Today K21.9 - Gastro-esophageal reflux disease without esophagitis, R25.2 - Cramp and spasm FREDY Reflex Titer and Pattern Today R25.2 - Cramp and spasm Rheumatoid Factor Today R25.2 - Cramp and spasm Medications: New baclofen 10 mg PO BEDTIME 90 tabs 3RF Discontinued oxycodone Partial Fill upon patient request. Discontinued Reason: Patient no longer taking 5 mg PO Q4H PRN 20 tabs 0RF pain Coding Level of Care Code Est Pt Level 5 (46461) Complex EM visit Add On G2211 Diagnoses Encounter to establish care Z76.89 Primary hypertension I10 Hypertension type: primary hypertension Chronic obstructive pulmonary disease, unspecified COPD type J44.9 COPD type: unspecified COPD Lares's esophagus without dysplasia K22.70 Lares's esophagus type: without dysplasia Gastroesophageal reflux disease, unspecified whether esophagitis present K21.9 Esophagitis presence: esophagitis presence not specified SI (sacroiliac) joint dysfunction M53.3 Muscle cramps R25.2 Additional Codes SISSY-7 Assessment Billing - SISSY-7 Assessment Tool: SISSY-7 Assessment 15761 ([id number]) Time Spent (min) 47
[2023-08-04 09:08] VITALS: BP 150/76; PULSE 64; RESP 14; TEMP 36.9; O2SAT 98; BMI 21.7
[2023-08-04 09:15] VITALS: BP 118/70
== END 2023-08-04 11:00 | disposition home or self-care (01) ==
PROVIDERS: PCP Physician Assistant Medical; Visit Provider Internal Medicine
DX: Z76.89 Persons encountering health services in other specified circumstances (principal); I10 Essential (primary) hypertension; J44.9 Chronic obstructive pulmonary disease, unspecified; K22.70 Barrett's esophagus without dysplasia; K21.9 Gastro-esophageal reflux disease without esophagitis; M53.3 Sacrococcygeal disorders, not elsewhere classified; R25.2 Cramp and spasm
CPT/HCPCS: 99215; G2211

== ENCOUNTER 2023-08-18 11:42 | Outpatient (AMB) | payer MEDICARE, OTHER, SELFPAY ==
--- NOTE | 2023-08-18 11:52 | HO.SPINEOV ---
Intake Visit Reasons: Discuss slip disc Intake Note: Ms. Pham is here today to discuss slip disc. 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 stable on opioid therapy Code(s): M53.3 - Sacrococcygeal disorders, not elsewhere classified Category: Medical Plan Dear colleague, On 08/18/2023, I saw for follow-up Dolores Pham. She is status post left SI joint fusion from which she had a good recovery. She wants to discuss her slipped disc. I explained to the patient that she has an L5-S1 grade 2 spondylolisthesis that causes a bilateral L5 foraminal stenosis. However, she denies painful radiation down her legs in an L5 distribution. She does have ongoing back pain particularly with repetitive movements. This could be related to the L5-S1 spondylolisthesis. I would not recommend a surgical correction of the spondylolisthesis SI can absolutely not guarantee an improvement in her symptoms. In fact, I may make her symptoms worse. I recommended to return to my clinic if bilateral or unilateral radicular symptoms occur related to the spondylolisthesis. I spent 25 minutes in this consult answering questions. Rufus Kent MD, PhD Spine Fellowship Trained Neurosurgeon Director, [facility] Coding Level of Care Code Est Pt Level 2 (49458) Diagnoses Spondylolisthesis of lumbar region M43.16 SI (sacroiliac) joint dysfunction M53.3
== END 2023-08-18 12:45 | disposition home or self-care (01) ==
PROVIDERS: PCP Physician Assistant Medical; Visit Provider Neurological Surgery
DX: M43.16 Spondylolisthesis, lumbar region (principal); M53.3 Sacrococcygeal disorders, not elsewhere classified
CPT/HCPCS: 99212

== ENCOUNTER → 2023-08-18 11:42 | Outpatient (BNVA) | payer MEDICARE, OTHER, SELFPAY | PROVIDERS: PCP Physician Assistant Medical; Visit Provider Neurological Surgery | DX: M43.16 Spondylolisthesis, lumbar region (principal); M53.3 Sacrococcygeal disorders, not elsewhere classified; Z98.1 Arthrodesis status | CPT/HCPCS: 99212 ==

== ENCOUNTER 2023-08-23 08:55 | Outpatient (AMB) | payer MEDICARE, OTHER, SELFPAY ==
--- NOTE | 2023-08-23 08:59 | MHC.PC.OV ---
Vital Signs 08/23/23 09:01 Height 5 ft 6 in Weight 136 lb 2 oz BMI 22.0 BP 138/80 Blood Pressure Location Lt brachial Position Sitting Respiration 16 Pulse 75 Pulse Source Pulse Oximeter Pulse Oximetry (%) 97 Oxygen Delivery Method Room Air Intake Visit Reasons: 2 Week follow up Intake Note: Follow up, lab results. Experience Design Director Required: No Allergies cefaclor [From CECLOR] Allergy (Severe, Verified 08/23/23 08:59) RASH,THROAT SWELLING Penicillins Allergy (Mild, Verified 08/04/23 08:59) MASSIVE WHELTS From BuSpar Allergy (Intermediate, Uncoded 08/04/23 08:59) CONFUSION, HALLUCINATIONS Medication List - Last Reconciled 08/23/23 by Jacey Lora MD amlodipine 2.5 mg PO BID baclofen 20 mg PO BEDTIME 90 days oxycodone 10 mg PO TID PRN oxycodone myristate CR-ER (Xtampza ER) 9 mg PO BID pantoprazole 1 tab PO BID spironolactone 50 mg PO DAILY trazodone 50 mg PO BEDTIME ubrogepant (Ubrelvy) mg PO Tobacco use date assessed: 08/04/23 Dental Screening Dental Screen Date: 08/04/23 HPI HPI Comments History of Present Illness Details This is a 67 year old female with a past medical history of chronic low back pain, hypertension, GERD, barretts, migraines presenting to establish care Here recently with c/o continued myalgia-diffuse. Has flares at times. Baclofen has helped at night. Lab results went to [facility]. She was called and told her CK and CCP were abnormal. She was referred to rheumatology CV: on amlodipine, spironolactone. BP 118/17. Following with nephrology for BP management. Denies chest pain, exertional dyspnea. MSK: On oxycodone, xtampza. s/p SI joint fusion with Dr Kent 04/2023. Active caring for her grandchild. Over the past 6 months to a year has been having considerable muscle cramping. Neuro: Follows with Dr Elder, neurology for migraines. On ubrelvy. stable GI: Follows with Dr Arenas. Danii. UTD with upper and lower endoscopy Mammo: due October [facility] is scheduled [facility] Medical History (Updated 08/23/23 @ 14:02 by Jacey Lora MD) Bowel obstruction Reflex sympathetic dystrophy Back pain COPD (chronic obstructive pulmonary disease) Migraine HTN (hypertension) Carotid artery aneurysm Fibromyalgia IBS (irritable bowel syndrome) Lares esophagus GERD (gastroesophageal reflux disease) Surgical History Hx of fusion of cervical spine H/O carpal tunnel repair S/P surgery on nasal septum History of ankle surgery History of appendectomy Family History (Updated 08/04/23 @ 09:42 by Dolores Tyler CMA) Sister Alcoholism Mother Breast cancer HTN (hypertension) Hypercholesteremia Maternal Aunt Breast cancer Maternal Uncle Colon cancer Father HTN (hypertension) Asthma Hypercholesteremia Maternal Grandfather Pacemaker Other Substance use Social History (Updated 08/04/23 @ 09:11 by Dolores Tyler CMA) Housing: House Patient Tobacco Use Status: Never used Tobacco Tobacco use type: Cigarette Cigarettes Per Day: 10 Years Smoked: 50 e-Cigarette/Vaping Use: Never Used Second Hand Smoke Exposure: No service: No Current occupational status: retired Cognitive needs: No Hearing needs: No Vision needs: Yes (floater in eyes, and possible glaucoma) Questionnaire Thrive Questionnaire Date Thrive assessed: 08/04/23 SISSY-7 AMB Questionnaire SISSY-7 Date SISSY - 7 assessed: 08/04/23 Source: Developed by Drs. Gabriel Amaya, Anni Campbell, Franco Solano and colleagues, with an educational alyce from [employer] Review of Systems Const Details: see HPI Physical exam (Primary Care) Vital Signs: Last Vital Signs Pulse 75 08/23/23 09:01 Resp 16 08/23/23 09:01 BP 138/80 08/23/23 09:01 Pulse Ox 97 08/23/23 09:01 Oxygen Delivery Method Room Air 08/23/23 09:01 BMI result Body Mass Index 22.0 Tobacco/Smoking Status: Tobacco use Status Tobacco use date assessed 08/04/23 08/23/23 09:03 Patient Tobacco Use Status Never used Tobacco 08/23/23 09:03 Tobacco use type Cigarette 08/23/23 09:03 e-Cigarette/Vaping Use Never Used 08/23/23 09:03 PHYSICAL EXAM: GENERAL: Alert and oriented x 3. NAD EYES: EOMI. Anicteric. HENT: Moist mucous membranes. LUNGS: Clear to auscultation bilaterally. CARDIOVASCULAR: Regular rate and rhythm. ABDOMEN: Soft, non-tender +bs EXTREMITIES: No edema. Non-tender. SKIN: No rashes or lesions. Warm. NEUROLOGIC: No focal neurological deficits. PSYCHIATRIC: Cooperative. Appropriate mood and affect Thrive Assessment: Date of Thrive Assessment Date Thrive assessed 08/04/23 08/23/23 09:03 Assessment and Plan Assessment & Plan (1) Muscle cramps: Comment: increase baclofen to 20mg before bed. can try 10mg in am. Declines steroid therapy. Pending rheumatology appt. labs requested Code(s): R25.2 - Cramp and spasm (2) Elevated CK: Code(s): R74.8 - Abnormal levels of other serum enzymes (3) SI (sacroiliac) joint dysfunction: Comment: continue f/up neurosurgery. stable on opioid therapy Code(s): M53.3 - Sacrococcygeal disorders, not elsewhere classified (4) Spondylolisthesis of lumbar region: Code(s): M43.16 - Spondylolisthesis, lumbar region Medications: New oxycodone myristate CR-ER (Xtampza ER) must administer with a meal/food; Partial Fill upon patient request. 18 mg PO BID 60 caps 0RF baclofen 20 mg PO BEDTIME 90 days 90 tabs 3RF Changed From oxycodone 10 mg PO TID PRN 0RF To oxycodone 10 mg PO TID 30 days PRN 90 tabs 0RF pain Discontinued baclofen Discontinued Reason: Doctor's Order 10 mg PO BEDTIME 90 tabs 3RF Coding Level of Care Code Est Pt Level 4 (69876) Complex EM visit Add On G2211 Diagnoses Muscle cramps R25.2 Elevated CK R74.8 SI (sacroiliac) joint dysfunction M53.3 Spondylolisthesis of lumbar region M43.16
[2023-08-23 09:01] VITALS: BP 138/80; PULSE 75; RESP 16; O2SAT 97; BMI 22.0
== END 2023-08-23 09:35 | disposition home or self-care (01) ==
PROVIDERS: PCP Physician Assistant Medical; Visit Provider Internal Medicine
DX: R25.2 Cramp and spasm (principal); R74.8 Abnormal levels of other serum enzymes; M53.3 Sacrococcygeal disorders, not elsewhere classified; M43.16 Spondylolisthesis, lumbar region
CPT/HCPCS: 99214; G2211

== ENCOUNTER 2023-09-01 09:14 | Outpatient (REF) | payer MEDICARE, OTHER, SELFPAY ==
--- NOTE | ~2023-09-01 | US_ITS ---
EXAMINATION: US ABDOMEN COMPLETE CLINICAL INFORMATION: Nausea. COMPARISON: Abdominal ultrasound 02/22/2011 CT scan abdomen and pelvis 03/24/2011 TECHNIQUE: Real-time imaging of the abdominal viscera. Technically limited study due to overlying bowel gas. Patient has history of IBS. FINDINGS: PANCREAS: Normal head and body, the tail is obscured by bowel gas. ABDOMINAL AORTA: The proximal, mid, and distal segments are normal in caliber. Atherosclerotic calcification is seen within the mid and distal abdominal aorta. INFERIOR VENA CAVA: Visualized portions are normal. LIVER: The liver is normal in size. The liver contour is normal. There is mild diffuse increased liver parenchymal echogenicity, consistent with mild hepatic steatosis. 0.7 x 1.2 x 1.0 cm septated cyst is seen in the left lobe. There is no intrahepatic biliary duct dilatation seen. GALLBLADDER: 0.3 x 0.2 x 0.2 cm polyp is noted. The gallbladder is physiologically distended without evidence of stones, sludge, polyps, wall thickening or pericholecystic fluid. COMMON BILE DUCT: Normal in caliber measuring 0.7 cm in diameter. RIGHT KIDNEY: Normal. No hydronephrosis. No renal calculi or focal parenchymal lesions. The kidney measures 9.3 cm in maximum dimension. LEFT KIDNEY: 2.7 x 3.2 x 2.6 cm cyst with a thin septum is seen within the mid kidney, no imaging follow-up recommended. No hydronephrosis. No renal calculi. The kidney measures 9.5 cm in maximum dimension. SPLEEN: Not seen. FREE FLUID: None. US/US abdomen complete IMPRESSION: 1. Mild hepatic steatosis. 2. 1.2 cm septated cyst in the left lobe of the liver. 3. 0.3 cm gallbladder polyp.
== END 2023-09-01 09:15 | disposition home or self-care (01) ==
LOC: HO.US 09:14
PROVIDERS: PCP Internal Medicine; Visit Provider Internal Medicine Gastroenterology
DX: R11.0 Nausea (principal)
CPT/HCPCS: 76700

== ENCOUNTER 2023-09-15 13:37 | Outpatient (AMB) | payer MEDICARE, OTHER, SELFPAY ==
--- NOTE | 2023-09-15 13:42 | A.OFFPC_ITS ---
Vital Signs 09/15/23 13:45 Height 5 ft 6 in Weight 136 lb 2 oz BMI 22.0 BP 144/66 H Blood Pressure Location Lt brachial Position Sitting Respiration 14 Pulse 74 Pulse Source Pulse Oximeter Temp 98.3 F Temp Source Oral Pulse Oximetry (%) 97 Oxygen Delivery Method Room Air Intake Visit Reasons: Test results follow up from other 2 doctors & naus Intake Note: F/U on test results. Allergies cefaclor [From CECLOR] Allergy (Severe, Verified 09/15/23 13:43) RASH,THROAT SWELLING Penicillins Allergy (Mild, Verified 09/15/23 13:43) MASSIVE WHELTS From BuSpar Allergy (Intermediate, Uncoded 08/04/23 08:59) CONFUSION, HALLUCINATIONS Tobacco use date assessed: 09/15/23 Fall risk assessment: No Falls in past year Dental Screening Dental Screen Date: 09/15/23 Did you have a dental visit in the last 12 months?: Yes Did you have a dental problem in the last 6 months where you did not have access to dental care?: No Was dental information given to patient?: Patient has dentist HPI HPI Comments History of Present Illness Details This is a 67 year old female with a past medical history of chronic low back pain, hypertension, GERD, barretts, migraines presenting for follow up Chronic polymyalgia, polyarthralgia-diffuse. Performed labs at [facility]. CCP elevated. CK slight elevation. Has flares at times. Baclofen has helped at night.Referral placed to rheumatology-she has not heard. CV: on amlodipine, spironolactone. BP 118/17. Following with nephrology for BP management. Denies chest pain, exertional dyspnea. MSK: On oxycodone, xtampza. s/p SI joint fusion with Dr Kent 04/2023. Active caring for her grandchild. Over the past 6 months to a year has been having considerable muscle cramping. Neuro: Follows with Dr Elder, neurology for migraines. On ubrelvy. stable GI: Follows with Dr Arenas. Danii. UTD with upper and lower endoscopy She was seen by Dr Mcgovern-lucia for multidrug resistant UTI Mammo: due October DXA is scheduled [facility] Medical History (Updated 09/17/23 @ 10:16 by Jacey Lora MD) Bowel obstruction Reflex sympathetic dystrophy Back pain COPD (chronic obstructive pulmonary disease) Migraine HTN (hypertension) Carotid artery aneurysm Fibromyalgia IBS (irritable bowel syndrome) Lares esophagus GERD (gastroesophageal reflux disease) Surgical History Hx of fusion of cervical spine H/O carpal tunnel repair S/P surgery on nasal septum History of ankle surgery History of appendectomy Family History (Updated 08/04/23 @ 09:42 by Dolores Tyler CMA) Sister Alcoholism Mother Breast cancer HTN (hypertension) Hypercholesteremia Maternal Aunt Breast cancer Maternal Uncle Colon cancer Father HTN (hypertension) Asthma Hypercholesteremia Maternal Grandfather Pacemaker Other Substance use Social History (Updated 08/04/23 @ 09:11 by Dolores Tyler CMA) Housing: House Patient Tobacco Use Status: Former Tobacco user Tobacco use type: Cigarette Cigarettes Per Day: 10 Years Smoked: 50 Packs per year/per ci.00 e-Cigarette/Vaping Use: Never Used Second Hand Smoke Exposure: No service: No Current occupational status: retired Cognitive needs: No Hearing needs: No Vision needs: Yes (floater in eyes, and possible glaucoma) Questionnaire Thrive Questionnaire Date Thrive assessed: 08/04/23 AUDIT C Alcohol Use Questionnaire (AUDIT-C) 1. How often do you have a drink containing alcohol?: Never 3. How often do you have six or more drinks on one occasion?: Never Total Score: 0 SISSY-7 AMB Questionnaire SISSY-7 Date SISSY - 7 assessed: 08/04/23 Source: Developed by Drs. Gabriel Amaya, Anni Campbell, Franco Solano and colleagues, with an educational alyce from [employer]. Review of Systems Const Details: see HPI Physical exam (Primary Care) Vital Signs: Last Vital Signs Temp 98.3 F 09/15/23 13:45 Pulse 74 09/15/23 13:45 Resp 14 09/15/23 13:45 BP 144/66 H 09/15/23 13:45 Pulse Ox 97 09/15/23 13:45 Oxygen Delivery Method Room Air 09/15/23 13:45 PHYSICAL EXAM: GENERAL: Alert and oriented x 3. NAD EYES: EOMI. Anicteric. HENT: Moist mucous membranes. No scleral icterus. No cervical lymphadenopathy. LUNGS: Clear to auscultation bilaterally. CARDIOVASCULAR: Regular rate and rhythm. ABDOMEN: Soft, non-tender +bs EXTREMITIES: No edema. Non-tender. MSK: Inflammation of small and large hand joints SKIN: Wrinkled NEUROLOGIC: No focal neurological deficits. CN II-XII grossly intact PSYCHIATRIC: Cooperative. Appropriate mood and affect BMI result Body Mass Index 22.0 Tobacco/Smoking Status: Tobacco use Status Tobacco use date assessed 09/15/23 09/15/23 13:48 Patient Tobacco Use Status Former Tobacco user 09/15/23 13:48 Tobacco use type Cigarette 09/15/23 13:43 e-Cigarette/Vaping Use Never Used 09/15/23 13:43 Thrive Assessment: Date of Thrive Assessment Date Thrive assessed 08/04/23 09/15/23 13:43 Assessment and Plan Assessment & Plan (1) Elevated CK: Code(s): R74.8 - Abnormal levels of other serum enzymes (2) Positive anti-CCP test: Comment: with polyarthralgia, myalgia. referred to rheumatology. additional labs ordered Code(s): R76.8 - Other specified abnormal immunological findings in serum (3) Polyarthralgia: Code(s): M25.50 - Pain in unspecified joint (4) Elevated CK: Code(s): R74.8 - Abnormal levels of other serum enzymes (5) Positive anti-CCP test: Comment: with polyarthralgia, myalgia. referred to rheumatology. additional labs ordered Code(s): R76.8 - Other specified abnormal immunological findings in serum (6) Muscle cramps: Code(s): R25.2 - Cramp and spasm Orders: Orders Myositis Assess JO1 Ab 09/15/23 M25.50 - Pain in unspecified joint, R25.2 - Cramp and spasm, R74.8 - Abnormal levels of other serum enzymes, R76.8 - Other specified abnormal immunological findings in serum Anti DNA DS Antibody 09/15/23 M25.50 - Pain in unspecified joint, R25.2 - Cramp and spasm, R74.8 - Abnormal levels of other serum enzymes, R76.8 - Other specified abnormal immunological findings in serum Scleroderma 70 Antibody 09/15/23 M25.50 - Pain in unspecified joint, R25.2 - Cramp and spasm, R74.8 - Abnormal levels of other serum enzymes, R76.8 - Other specified abnormal immunological findings in serum ANCA Vasculitides 09/15/23 M25.50 - Pain in unspecified joint, R25.2 - Cramp and spasm, R74.8 - Abnormal levels of other serum enzymes, R76.8 - Other specified abnormal immunological findings in serum Sjogren's Antibodies 09/15/23 M25.50 - Pain in unspecified joint, R25.2 - Cramp and spasm, R74.8 - Abnormal levels of other serum enzymes, R76.8 - Other specified abnormal immunological findings in serum Referrals Rheumatology Referral M25.50 - Pain in unspecified joint, R74.8 - Abnormal levels of other serum enzymes, R76.8 - Other specified abnormal immunological findings in serum Medications: New metoclopramide HCl (Reglan) 5 mg PO QIDACHS PRN 60 tabs 0RF nausea and vomiting 30 days Coding Level of Care Code Tele Est Pt Level 5 (22914) Diagnoses Elevated CK R74.8 Positive anti-CCP test R76.8 Polyarthralgia M25.50 Muscle cramps R25.2
[2023-09-15 13:45] VITALS: BP 144/66; PULSE 74; RESP 14; TEMP 36.8; O2SAT 97; BMI 22.0
== END 2023-09-15 15:07 | disposition home or self-care (01) ==
PROVIDERS: PCP Internal Medicine; Visit Provider Internal Medicine
DX: R74.8 Abnormal levels of other serum enzymes (principal); R76.8 Other specified abnormal immunological findings in serum; M25.50 Pain in unspecified joint; R25.2 Cramp and spasm
CPT/HCPCS: 99214

== ENCOUNTER 2023-09-18 10:12 | Outpatient (REF) | payer MEDICARE, OTHER, SELFPAY ==
[2023-09-18 11:31] LABS: MANUAL DIFF FLAG NO
[2023-09-18 11:34] LABS: Basophils Absolute Auto 0.1 X10*3/uL (0.0-0.2); Basophils Percent Auto 1.5 % (0-2); Eosinophils Absolute Auto 0.1 X10*3/uL (0.0-0.4); Eosinophils Percent Auto 2.2 % (0-4); Hemoglobin 14.2 g/dl (12.0-16.0); Imm Gran Abs Auto 0.06 X10*3/uL (0.00-0.03); Imm Gran Pct Auto 0.9 % (0.0-0.4); Lymphocytes Absolute Auto 2.1 X10*3/uL (1.2-4.9); Mean Corpuscular Hemoglobin 31.6 pg (27.0-33.0); Mean Corpuscular Volume 95.6 fL (80.0-98.0); Mean Platelet Volume 9.5 fL (9.4-12.3); Monocytes Absolute Auto 0.6 X10*3/uL (0.1-1.2); Monocytes Percent Auto 8.8 % (2-11); Neutrophils Absolute Auto 3.5 x10*3/uL (2.0-8.3); Neutrophils Percent Auto 53.6 % (45-73); Platelet Count 356 X10*3/uL (160-400); Red Cell Distribution Width 13.6 % (11.0-16.0); White Blood Count 6.5 X10*3/uL (4.8-10.8)
[2023-09-18 12:16] LABS: Erythrocyte Sedimentation Rate 20 MM/HR (0-20)
[2023-09-18 12:19] LABS: Alanine Aminotransferase 18 U/L (0-31); Albumin Level 4.2 g/dL (3.5-5.0); Alkaline Phosphatase 82 U/L (39-117); Anion Gap 12 (12-20); Aspartate Amino Transferase 24 U/L (5-31); Bilirubin Total 0.4 mg/dL (0.0-1.0); Blood Urea Nitrogen 5 mg/dL (9-16); Carbon Dioxide 26 mmol/L (22-29); Chloride 106 mmol/L (96-108); Estimated Glomerular Filt Rate > 60; Glucose Random 100 mg/dL (60-115); Iron 90 mcg/dL (30-160); Magnesium 1.9 mg/dL (1.6-2.6); Percent Iron Saturation 33 % (15-50); Potassium 3.8 mmol/L (3.3-5.1); Sodium 140 mmol/L (135-145); Total Iron Binding Capacity 272 mcg/dL (228-428); Total Protein 7.5 g/dL (6.5-8.0); Unsaturated Iron Binding 182 ug/dL
[2023-09-18 12:20] LABS: Rheumatoid Factor < 13.0 IU/mL (<15.0)
[2023-09-21 12:33] LABS: ANA Titer 2 1:40 titer; Anti Nuclear Antibody Pattern Nuclear, Homogeneous; Anti Nuclear Antibody Screen POSITIVE (NEGATIVE)
[2023-09-21 17:07] LABS: Anti DNA DS Antibody <1 IU/mL; Antibody to SS-A Antigen <1.0 NEG AI (<1.0 NEG); Antibody to SS-B Antigen <1.0 NEG AI (<1.0 NEG); Myeloperoxidase Antibody <1.0 AI; Proteinase 3 PR3 Antibodies <1.0 AI; Scleroderma 70 Antibody <1.0 NEG AI (<1.0 NEG)
== END 2023-09-18 10:13 | disposition home or self-care (01) ==
LOC: HO.WFDLDS 10:12
PROVIDERS: Visit Provider Internal Medicine
DX: R25.2 Cramp and spasm (principal); K21.9 Gastro-esophageal reflux disease without esophagitis; I10 Essential (primary) hypertension; R76.8 Other specified abnormal immunological findings in serum; R74.8 Abnormal levels of other serum enzymes; M25.50 Pain in unspecified joint
CPT/HCPCS: 36415; 80053; 83540; 83735; 85025; 85652; 86021; 86038; 86039; 86225; 86235; 86431

== ENCOUNTER 2023-10-17 08:56 | Outpatient (AMB) | payer MEDICARE, OTHER, SELFPAY ==
--- NOTE | 2023-10-17 08:59 | MHC.PC.OV ---
Vital Signs 10/17/23 09:02 Height 5 ft 6 in Weight 136 lb BMI 21.9 BP 136/64 Blood Pressure Location Lt brachial Position Sitting Pulse 82 Pulse Source Pulse Oximeter Pulse Oximetry (%) 96 Oxygen Delivery Method Room Air Intake Visit Reasons: Clearance for eye surgery Intake Note: Patient is here to have a pre-op completed prior to eye surgery. Patient states she is having the floaters taken out of her right eye. Patient reports she is having this procedure done a [facility]. Fly Raiser Lockstitch Required: No Accompanied by: Self / Same As Patient Allergies cefaclor [From CECLOR] Allergy (Severe, Verified 10/17/23 09:08) RASH,THROAT SWELLING Penicillins Allergy (Mild, Verified 10/17/23 09:08) MASSIVE WHELTS From BuSpar Allergy (Intermediate, Uncoded 10/17/23 09:08) CONFUSION, HALLUCINATIONS Tobacco use date assessed: 09/15/23 Fall risk assessment: No Falls in past year Last assessed Fall Risk: 10/17/23 Dental Screening Dental Screen Date: 09/15/23 HPI HPI Comments History of Present Illness Details This is a 67 year old female with a past medical history of chronic low back pain, hypertension, GERD, barretts, migraines presenting for preoperative cardiac assessment regarding upcoming eye surgery Patient has no known CAD, no asthma/copd or known MARIANA, no diabetes and no CKD. Blood pressure is adequately controlled. She has no chest pain, no exertional dyspnea. Chronic polymyalgia, polyarthralgia-diffuse. Performed labs at [facility]. CCP elevated. CK slight elevation. Has flares at times. Baclofen has helped at night.Referral placed to rheumatology-she has not heard. CV: on amlodipine, spironolactone. Following with nephrology for BP management. Denies chest pain, exertional dyspnea. MSK: On oxycodone, xtampza. s/p SI joint fusion with Dr Kent 04/2023. Active caring for her grandchild. Over the past 6 months to a year has been having considerable muscle cramping. Neuro: Follows with Dr Elder, neurology for migraines. On ubrelvy. stable GI: Follows with Dr Arenas. Danii. UTD with upper and lower endoscopy She was seen by Dr Mcgovern-uroadenike for multidrug resistant UTI Mammo: due October DXA is scheduled ROS CONSTITUTIONAL: Denies weight loss, fever and chills. HEENT: Denies changes in vision and hearing. RESPIRATORY: Denies SOB and cough. CV: Denies palpitations and CP GI: Denies abdominal pain, nausea, vomiting and diarrhea. : Denies dysuria and urinary frequency. MSK: Chronic myalgia, polyarthralgia SKIN: Denies rash and pruritus. NEUROLOGICAL: Denies headache PSYCHIATRIC: Denies recent changes in mood. PHYSICAL EXAM: GENERAL: Alert and oriented x 3. NAD EYES: EOMI. Anicteric. HENT: Moist mucous membranes. No scleral icterus. No cervical lymphadenopathy. LUNGS: Clear to auscultation bilaterally. CARDIOVASCULAR: Regular rate and rhythm. No murmur. No JVD. ABDOMEN: Soft, non-tender +bs EXTREMITIES: No edema. Non-tender. SKIN: No rashes or lesions. Warm. NEUROLOGIC: No focal neurological deficits. CN II-XII grossly intact PSYCHIATRIC: Cooperative. Appropriate mood and affect [facility] Medical History (Updated 10/17/23 @ 09:39 by Jacey Lora MD) Bowel obstruction Reflex sympathetic dystrophy Back pain COPD (chronic obstructive pulmonary disease) Migraine HTN (hypertension) Carotid artery aneurysm Fibromyalgia IBS (irritable bowel syndrome) Lares esophagus GERD (gastroesophageal reflux disease) Surgical History Hx of fusion of cervical spine H/O carpal tunnel repair S/P surgery on nasal septum History of ankle surgery History of appendectomy Family History (Updated 08/04/23 @ 09:42 by Dolores Tyler CMA) Sister Alcoholism Mother Breast cancer HTN (hypertension) Hypercholesteremia Maternal Aunt Breast cancer Maternal Uncle Colon cancer Father HTN (hypertension) Asthma Hypercholesteremia Maternal Grandfather Pacemaker Other Substance use Social History (Updated 08/04/23 @ 09:11 by Dolores Tyler CMA) Housing: House Patient Tobacco Use Status: Former Tobacco user Tobacco use type: Cigarette Cigarettes Per Day: 10 Years Smoked: 50 Packs per year/per ci.00 e-Cigarette/Vaping Use: Never Used Second Hand Smoke Exposure: No service: No Current occupational status: retired Cognitive needs: No Hearing needs: No Vision needs: Yes (floater in eyes, and possible glaucoma) Questionnaire Thrive Questionnaire Date Thrive assessed: 08/04/23 SISSY-7 AMB Questionnaire SISSY-7 Date SISSY - 7 assessed: 08/04/23 Source: Developed by Drs. Gabriel Amaya, Anni Campbell, Franco Solano and colleagues, with an educational alyce from [employer]. Physical exam (Primary Care) Vital Signs: Last Vital Signs Pulse 82 10/17/23 09:02 BP 136/64 10/17/23 09:02 Pulse Ox 96 10/17/23 09:02 Oxygen Delivery Method Room Air 10/17/23 09:02 BMI result Body Mass Index 21.9 Tobacco/Smoking Status: Tobacco use Status Tobacco use date assessed 09/15/23 10/17/23 09:01 Patient Tobacco Use Status Former Tobacco user 10/17/23 09:01 Tobacco use type Cigarette 10/17/23 09:01 e-Cigarette/Vaping Use Never Used 10/17/23 09:01 Thrive Assessment: Date of Thrive Assessment Date Thrive assessed 08/04/23 10/17/23 09:01 Assessment and Plan Assessment & Plan (1) Preop examination: Code(s): Z01.818 - Encounter for other preprocedural examination Plan: 68 y/o with pmhx noted above for preop cardiac risk assessment Patient without shortness of breath, chest pain. No issues with anesthesia in the pass. Allergies as listed EKG without relevant ischemic changes or LBBB She is average risk patient for low risk surgery, no further cardiac work up recommended She may continue medications as prescribed unless otherwise instructed by performed physician (2) Polyarthralgia: Code(s): M25.50 - Pain in unspecified joint (3) Floaters: Code(s): H43.399 - Other vitreous opacities, unspecified eye Orders: Orders AMB EKG-In Office 10/17/23 Z01.818 - Encounter for other preprocedural examination, M25.50 - Pain in unspecified joint, H43.399 - Other vitreous opacities, unspecified eye Medications: New duloxetine 20 mg PO DAILY 90 caps 3RF Coding Level of Care Code Est Pt Level 5 (40612) Diagnoses Preop examination Z01.818 Polyarthralgia M25.50 Floaters H43.399
[2023-10-17 09:02] VITALS: BP 136/64; PULSE 82; O2SAT 96; BMI 21.9
== END 2023-10-17 10:37 | disposition home or self-care (01) ==
PROVIDERS: PCP Internal Medicine; Visit Provider Internal Medicine
DX: M25.50 Pain in unspecified joint (principal); Z01.818 Encounter for other preprocedural examination; H43.391 Other vitreous opacities, right eye
CPT/HCPCS: 93000; 99214

== ENCOUNTER 2023-11-13 09:03 | Outpatient (AMB) | payer MEDICARE, OTHER, SELFPAY ==
--- NOTE | 2023-11-13 09:08 | A.OFFPC_ITS ---
Vital Signs 11/13/23 09:09 Height 5 ft 6 in Weight 139 lb BMI 22.4 BP 138/64 Blood Pressure Location Lt brachial Position Sitting Pulse 66 Pulse Source Pulse Oximeter Pulse Oximetry (%) 99 Oxygen Delivery Method Room Air Intake Visit Reasons: follow up Intake Note: Patient reports she would like to discuss pain medicine and possible memory concerns. 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 Accompanied by: Self / Same As Patient Allergies cefaclor [From CECLOR] Allergy (Severe, Verified 11/13/23 09:13) RASH,THROAT SWELLING Penicillins Allergy (Mild, Verified 11/13/23 09:13) MASSIVE WHELTS From BuSpar Allergy (Intermediate, Uncoded 11/13/23 09:13) CONFUSION, HALLUCINATIONS Tobacco use date assessed: 09/15/23 Dental Screening Dental Screen Date: 09/15/23 HPI HPI Comments History of Present Illness Details This is a 68 year old female with a past medical history of chronic low back pain, hypertension, GERD, barretts, migraines presenting for follow up Recently underwent uncomplicated eye surgery Chronic polymyalgia, polyarthralgia-diffuse. Rheumatology scheduled for Dec. Performed labs at [facility]. CCP elevated. CK slight elevation. Has flares at times. Baclofen has helped at night but sometimes makes her groggy in the morning. CV: on amlodipine, spironolactone. Following with nephrology for BP management. Denies chest pain, exertional dyspnea. MSK: On oxycodone, xtampza. s/p SI joint fusion with Dr Kent 04/2023. Active caring for her grandchild.Her oxycodone causes frequent nausea Neuro: Follows with Dr Elder, neurology for migraines. On ubrelvy. stable. Reports worsening memory issues over the past 1-2 years. Takes her up to 10 minutes to remember a name etc. GI: Follows with Dr Arenas. Danii. UTD with upper and lower endoscopy She was seen by Dr Mcgovern-uroadenike for multidrug resistant UTI Mammo: due October DXA is scheduled ROS see HPI PHYSICAL EXAM: GENERAL: Alert and oriented x 3. NAD EYES: EOMI. Anicteric. HENT: Moist mucous membranes. No scleral icterus. No cervical lymphadenopathy. LUNGS: Clear to auscultation bilaterally. CARDIOVASCULAR: Regular rate and rhythm. No murmur. No JVD. ABDOMEN: Soft, non-tender +bs EXTREMITIES: No edema. Non-tender. SKIN: No rashes or lesions. Warm. NEUROLOGIC: No focal neurological deficits. CN II-XII grossly intact PSYCHIATRIC: Cooperative. Appropriate mood and affect [facility] Medical History Bowel obstruction Reflex sympathetic dystrophy Back pain COPD (chronic obstructive pulmonary disease) Migraine HTN (hypertension) Carotid artery aneurysm Fibromyalgia IBS (irritable bowel syndrome) Lares esophagus GERD (gastroesophageal reflux disease) Surgical History Hx of fusion of cervical spine H/O carpal tunnel repair S/P surgery on nasal septum History of ankle surgery History of appendectomy Family History Sister Alcoholism Mother Breast cancer HTN (hypertension) Hypercholesteremia Maternal Aunt Breast cancer Maternal Uncle Colon cancer Father HTN (hypertension) Asthma Hypercholesteremia Maternal Grandfather Pacemaker Other Substance use Social History Housing: House Patient Tobacco Use Status: Former Tobacco user Tobacco use type: Cigarette Cigarettes Per Day: 10 Years Smoked: 50 e-Cigarette/Vaping Use: Never Used Second Hand Smoke Exposure: No service: No Current occupational status: retired Cognitive needs: No Hearing needs: No Vision needs: Yes (floater in eyes, and possible glaucoma) Questionnaire Thrive Questionnaire Date Thrive assessed: 08/04/23 SISSY-7 AMB Questionnaire SISSY-7 Date SISSY - 7 assessed: 08/04/23 Source: Developed by Drs. Gabriel Amaya, Anni Campbell, Franco Solano and colleagues, with an educational alyce from [employer]. Physical exam (Primary Care) Vital Signs: Last Vital Signs Pulse 66 11/13/23 09:09 BP 138/64 11/13/23 09:09 Pulse Ox 99 11/13/23 09:09 Oxygen Delivery Method Room Air 11/13/23 09:09 BMI result Body Mass Index 22.4 Tobacco/Smoking Status: Tobacco use Status Tobacco use date assessed 09/15/23 11/13/23 09:13 Patient Tobacco Use Status Former Tobacco user 11/13/23 09:13 Tobacco use type Cigarette 11/13/23 09:13 e-Cigarette/Vaping Use Never Used 11/13/23 09:13 Thrive Assessment: Date of Thrive Assessment Date Thrive assessed 08/04/23 11/13/23 09:13 Assessment and Plan Assessment & Plan (1) Polyarthralgia: Code(s): M25.50 - Pain in unspecified joint Plan: pending rheumatology consult (2) Positive anti-CCP test: Code(s): R76.8 - Other specified abnormal immunological findings in serum (3) SI (sacroiliac) joint dysfunction: Code(s): M53.3 - Sacrococcygeal disorders, not elsewhere classified Plan: stable continue current medications (4) Memory loss: Code(s): R41.3 - Other amnesia Plan: Memory loss-check labs. referral to memory clinic for evaluation Orders: Orders TSH reflex Free T4 Today R41.3 - Other amnesia Vitamin B12 and Folate Today R41.3 - Other amnesia Referrals Psychiatry Referral R41.3 - Other amnesia Medications: New ondansetron HCl 8 mg PO Q8H PRN 90 tabs 3RF nausea and vomiting Changed From amlodipine 2.5 mg PO ONCE To amlodipine and take one additional tab as needed for blood pressure >150/90 2.5 mg PO DAILY 120 tabs 3RF 90 days Coding Level of Care Code Est Pt Level 4 (25426) Diagnoses Polyarthralgia M25.50 Positive anti-CCP test R76.8 SI (sacroiliac) joint dysfunction M53.3 Memory loss R41.3
[2023-11-13 09:09] VITALS: BP 138/64; PULSE 66; O2SAT 99; BMI 22.4
== END 2023-11-13 10:11 | disposition home or self-care (01) ==
PROVIDERS: PCP Physician Assistant Medical; Visit Provider Internal Medicine
DX: M25.50 Pain in unspecified joint (principal); R76.8 Other specified abnormal immunological findings in serum; M53.3 Sacrococcygeal disorders, not elsewhere classified; R41.3 Other amnesia
CPT/HCPCS: 99214

== ENCOUNTER 2023-11-13 10:14 | Outpatient (REF) | payer MEDICARE, OTHER, SELFPAY ==
[2023-11-13 12:14] LABS: TSH reflex Free T4 3.15 uIU/mL (0.32-4.0)
[2023-11-13 12:30] LABS: Folate > 20.0 ng/mL (> or = 4.0); Vitamin B12 524 pg/mL (200-900)
== END 2023-11-13 10:15 | disposition home or self-care (01) ==
LOC: HO.WFDLDS 10:14
PROVIDERS: Visit Provider Internal Medicine
DX: R41.3 Other amnesia (principal); R76.8 Other specified abnormal immunological findings in serum; R74.8 Abnormal levels of other serum enzymes; M25.50 Pain in unspecified joint; R25.2 Cramp and spasm
CPT/HCPCS: 36415; 82607; 82746; 84443

== ENCOUNTER 2023-12-20 10:53 | Outpatient (AMB) | payer MEDICARE, OTHER, SELFPAY ==
[2023-12-20 10:55] VITALS: BP 124/78; PULSE 64; O2SAT 98; BMI 22.4
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
== END 2023-12-20 11:52 | disposition home or self-care (01) ==
PROVIDERS: PCP Internal Medicine; Visit Provider Student in an Organized Health Care Education/Training Program
DX: R76.8 Other specified abnormal immunological findings in serum (principal)
CPT/HCPCS: 99204

== ENCOUNTER → 2023-12-20 10:53 | Outpatient (BNVA) | payer MEDICARE, OTHER, SELFPAY | PROVIDERS: PCP Internal Medicine; Visit Provider Student in an Organized Health Care Education/Training Program | DX: R76.8 Other specified abnormal immunological findings in serum (principal) | CPT/HCPCS: 99202 ==

== ENCOUNTER 2024-01-01 10:39 | Outpatient (AMB) | payer MEDICARE, OTHER, SELFPAY ==
--- NOTE | 2024-01-01 10:35 | A.OFFPC_ITS ---
Intake Visit Reasons: Med Review Intake Note: Patient is requesting a medication discussion. Patient has rheumatology questions. 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 Specialist Required: No Accompanied by: Self / Same As Patient Allergies cefaclor [From CECLOR] Allergy (Severe, Verified 01/01/24 10:37) RASH,THROAT SWELLING Penicillins Allergy (Mild, Verified 01/01/24 10:37) MASSIVE WHELTS From BuSpar Allergy (Intermediate, Uncoded 01/01/24 10:37) CONFUSION, HALLUCINATIONS Tobacco use date assessed: 09/15/23 Dental Screening Dental Screen Date: 09/15/23 HPI HPI Comments History of Present Illness Details This is a 68 year old female with a past medical history of OA, chronic low back pain, muscle pain, hypertension, GERD, barretts, migraines presenting for follow up Chronic pain - CCP elevated. CK slight elevation. Has severe flares of deep muscle and bone pain every 2-3 months, lasts 1-3 weeks. Says severe flare starting last week some interval decrease in pain levels. Feet, Legs, arms, hands, tips of the fingers. Says joints themselves not hurting. Saw rheumatology recently-clinical exam with osteoarthritic changes without evidence of autoimmune rheumatologic disease -OA: On oxycodone, xtampza. s/p SI joint fusion with Dr Kent 04/2023. Active caring for her grandchild.Her oxycodone causes frequent nausea. Insurance will no longer be covering xtampza CV: on amlodipine, spironolactone. Following with nephrology for BP management. Denies chest pain, exertional dyspnea. MSK: On oxycodone, xtampza. s/p SI joint fusion with Dr Kent 04/2023. Active caring for her grandchild.Her oxycodone causes frequent nausea. Insurance will no longer be covering xtampza Neuro: Follows with Dr Elder, neurology for migraines. On ubrelvy. stable. Reports worsening memory issues over the past 1-2 years. Takes her up to 10 minutes to remember a name etc. GI: Follows with Dr Clifford. Foy. UTD with upper and lower endoscopy She was seen by Dr Mcgovern-lucia for multidrug resistant UTI ROS see HPI PHYSICAL EXAM: Telehealth [facility] Medical History Bowel obstruction Reflex sympathetic dystrophy Back pain COPD (chronic obstructive pulmonary disease) Migraine HTN (hypertension) Carotid artery aneurysm Fibromyalgia IBS (irritable bowel syndrome) Lares esophagus GERD (gastroesophageal reflux disease) Surgical History Hx of fusion of cervical spine H/O carpal tunnel repair S/P surgery on nasal septum History of ankle surgery History of appendectomy Family History Sister Alcoholism Mother Breast cancer HTN (hypertension) Hypercholesteremia Maternal Aunt Breast cancer Maternal Uncle Colon cancer Father HTN (hypertension) Asthma Hypercholesteremia Maternal Grandfather Pacemaker Other Substance use Social History Housing: House Patient Tobacco Use Status: Former Tobacco user Tobacco use type: Cigarette Cigarettes Per Day: 10 Years Smoked: 50 Packs per year/per ci.00 e-Cigarette/Vaping Use: Never Used Second Hand Smoke Exposure: No service: No Current occupational status: retired Cognitive needs: No Hearing needs: No Vision needs: Yes (floater in eyes, and possible glaucoma) Questionnaire Thrive Questionnaire Date Thrive assessed: 08/04/23 AUDIT C Alcohol Use Questionnaire (AUDIT-C) 3. How often do you have six or more drinks on one occasion?: Never Total Score: 0 SISSY-7 AMB Questionnaire SISSY-7 Date SISSY - 7 assessed: 08/04/23 Source: Developed by Drs. Gabriel Amaya, Anni Campbell, Franco Solano and colleagues, with an educational alyce from [employer]. Physical exam (Primary Care) Tobacco/Smoking Status: Tobacco use Status Tobacco use date assessed 09/15/23 01/01/24 10:37 Patient Tobacco Use Status Former Tobacco user 01/01/24 10:37 Tobacco use type Cigarette 01/01/24 10:37 e-Cigarette/Vaping Use Never Used 01/01/24 10:37 Thrive Assessment: Date of Thrive Assessment Date Thrive assessed 08/04/23 01/01/24 10:37 Telehealth Telehealth Telehealth Platform: [facility] Location of provider rendering services: practice address Location of patient: address on file Patient Identification confirmed using: Name, : Yes Telehealth method: voice only Patient verbally consented to treatment: Yes Patient verbally consented to billing insurance company: Yes Patient informed of any privacy concerns related to visit: Yes Minutes spent on Phone/Video with Pt.: 35 Coding Level of Care Code Tele Est Pt Level 4 (63754) Complex EM visit Add On G2211 Diagnoses Polymyalgia M35.3 Elevated CK R74.8
== END 2024-01-01 17:03 | disposition home or self-care (01) ==
LOC: HO.HMCFM 10:39
PROVIDERS: PCP Internal Medicine; Visit Provider Internal Medicine
DX: M35.3 Polymyalgia rheumatica (principal); R74.8 Abnormal levels of other serum enzymes

== ENCOUNTER → 2024-01-01 10:39 | Outpatient (BNVA) | payer MEDICARE, OTHER, SELFPAY | PROVIDERS: PCP Internal Medicine; Visit Provider Internal Medicine ==

== ENCOUNTER 2024-02-13 09:12 | Outpatient (AMB) | payer MEDICARE, OTHER, SELFPAY ==
--- NOTE | 2024-02-13 09:32 | A.OFFPC_ITS ---
Vital Signs 02/13/24 09:35 Height 5 ft 6 in Weight 140 lb 6 oz BMI 22.7 BP 126/76 Blood Pressure Location Lt brachial Position Sitting Pulse 89 Pulse Source Pulse Oximeter Pulse Oximetry (%) 96 Oxygen Delivery Method Room Air Intake Visit Reasons: f/up meds Intake Note: Follow up Allergies cefaclor [From CECLOR] Allergy (Severe, Verified 02/13/24 09:32) RASH,THROAT SWELLING Penicillins Allergy (Mild, Verified 02/13/24 09:32) MASSIVE WHELTS From BuSpar Allergy (Intermediate, Uncoded 02/13/24 09:32) CONFUSION, HALLUCINATIONS Tobacco use date assessed: 09/15/23 Dental Screening Dental Screen Date: 09/15/23 HPI HPI Comments History of Present Illness Details This is a 68 year old female with a past medical history of OA, chronic low back pain, muscle pain, hypertension, GERD, barretts, migraines presenting for follow up Chronic pain - CCP elevated. CK slight elevation. Has severe flares of deep muscle and bone p ain every 2-3 months, lasts 1-3 weeks. Says severe flare starting last week some interval decrease in pain levels. Feet, Legs, arms, hands, tips of the fingers. Says joints themselves not hurting. Saw rheumatology recently-clinical exam with osteoarthritic changes without evidence of autoimmune rheumatologic disease -OA: On oxycodone, xtampza. s/p SI joint fusion with Dr Kent 04/2023. Active caring for her grandchild.Her oxycodone causes frequent nausea. Insurance will no longer be covering xtampza CV: on amlodipine, spironolactone. Following with nephrology for BP management. Denies chest pain, exertional dyspnea. MSK: On oxycodone, xtampza. s/p SI joint fusion with Dr Kent 04/2023. Active caring for her grandchild.Her oxycodone causes frequent nausea. Insurance will no longer be covering xtampza Neuro: Follows with Dr Elder, neurology for migraines. On ubrelvy. stable. Reports worsening memory issues over the past 1-2 years. Takes her up to 10 minutes to remember a name etc. GI: Follows with Dr Arenas. Danii. UTD with upper and lower endoscopy She was seen by Dr Mcgovern-urogyn for multidrug resistant UTI. She recently had another UTI last week. Was treated with fosfomycin ROS see HPI PHYSICAL EXAM: Telehealth [facility] Medical History Bowel obstruction Reflex sympathetic dystrophy Back pain COPD (chronic obstructive pulmonary disease) Migraine HTN (hypertension) Carotid artery aneurysm Fibromyalgia IBS (irritable bowel syndrome) Lares esophagus GERD (gastroesophageal reflux disease) Surgical History Hx of fusion of cervical spine H/O carpal tunnel repair S/P surgery on nasal septum History of ankle surgery History of appendectomy Family History Sister Alcoholism Mother Breast cancer HTN (hypertension) Hypercholesteremia Maternal Aunt Breast cancer Maternal Uncle Colon cancer Father HTN (hypertension) Asthma Hypercholesteremia Maternal Grandfather Pacemaker Other Substance use Social History Housing: House Patient Tobacco Use Status: Former Tobacco user Tobacco use type: Cigarette Cigarettes Per Day: 10 Years Smoked: 50 e-Cigarette/Vaping Use: Never Used Second Hand Smoke Exposure: No service: No Current occupational status: retired Cognitive needs: No Hearing needs: No Vision needs: Yes (floater in eyes, and possible glaucoma) Questionnaire PHQ-9 Over the last 2 weeks, how often have you been bothered by any of the following problems? 1. Little interest or pleasure in doing things: not at all 2. Feeling down, depressed, or hopeless: not at all 3. Trouble falling or staying asleep, or sleeping too much: nearly every day 4. Feeling tired or having little energy: not at all 5. Poor appetite or overeating: not at all 6. Feeling bad about yourself - or that you are a failure or have let yourself or your family down: not at all 7. Trouble concentrating on things, such as reading the newspaper or watching television: not at all 8. Moving or speaking so slowly that other people could have noticed. Or the opposite - being so fidgety or restless that you have been moving around a lot more than usual: not at all 9. Thoughts that you would be better off or of hurting yourself in some way: not at all Total score: 3 Depression Screening Interpretation: Negative (neg) Depression Screening Done: Yes 09282 - PHQ-9 Billing: Yes Source: Developed by Drs. Gabriel Amaya, Anni Campbell, Franco Solano and colleagues, with an educational alyce from [employer]. Thrive Questionnaire Date Thrive assessed: 02/06/24 I am a: Patient What is your living situation today?: I have a steady place to live Within the past 12 months, did the food you bought not last and you didn't have the money to get more?: Never true Within the past 12 months, did you worry whether your food would run out before you got money to buy more?: Never true Do you have trouble paying for medicines?: No Do you have trouble getting transportation to medical appointments?: No Do you have trouble paying your heating and electricity bill?: No Do you have trouble taking care of your child, family member or friend?: No Do you have trouble with day-to-day activities such as bathing, preparing meals, shopping, managing finances, etc.?: No Are you currently unemployed and looking for a job?: No Are you interested in more education?: No Please select the resources that you would like help with: None Currently or been in a relationship where the following occur: No concerns reported THRIVE Score: 0 AUDIT C Alcohol Use Questionnaire (AUDIT-C) 1. How often do you have a drink containing alcohol?: Never 2. How many drinks containing alcohol do you have on a typical day when you are drinking?: 1 or 2 Total Score: 0 SISSY-7 AMB Questionnaire SISSY-7 Date SISSY - 7 assessed: 08/04/23 Feeling nervous, anxious, or on edge: 0 = Not at all Not being able to stop or control worryin = Not at all Worrying too much about different things: 0 = Not at all Trouble relaxin = Not at all Being so restless that it is hard to sit still: 0 = Not at all Becoming easily annoyed or irritable: 0 = Not at all Feeling afraid as if something awful might happen: 0 = Not at all Total SISSY-7 score (0-4 normal; 5-9 mild; 10-14 moderate; 15-21 severe): 0 Source: Developed by Drs. Gabriel Amaya, Anni Campbell, Franco Solano and colleagues, with an educational alyce from [employer]. Physical exam (Primary Care) Vital Signs: Last Vital Signs Pulse 89 02/13/24 09:35 BP 126/76 02/13/24 09:35 Pulse Ox 96 02/13/24 09:35 Oxygen Delivery Method Room Air 02/13/24 09:35 BMI result Body Mass Index 22.7 Tobacco/Smoking Status: Tobacco use Status Tobacco use date assessed 09/15/23 02/13/24 09:38 Patient Tobacco Use Status Former Tobacco user 02/13/24 09:38 Tobacco use type Cigarette 02/13/24 09:38 e-Cigarette/Vaping Use Never Used 02/13/24 09:38 PHQ-9: PHQ-9 Score PHQ-9: Total score 3 02/13/24 09:53 Depression Screening Interpretation: Negative (neg) Thrive Assessment: Date of Thrive Assessment Date Thrive assessed 02/06/24 02/13/24 09:38 Currently or been in a relationship where the following occur: No concerns reported Coding Level of Care Code Est Pt Level 4 (48590) Diagnoses Polymyalgia M35.3 Lares's esophagus without dysplasia K22.70 Lares's esophagus type: without dysplasia Primary hypertension I10 Hypertension type: primary hypertension Assessment & Plan Assessment & Plan (1) Polymyalgia: Code(s): M35.3 - Polymyalgia rheumatica Category: Medical Plan: Stable on current medications (2) Lares esophagus: Comment: Follows with GI Code(s): K22.70 - Lares's esophagus without dysplasia Category: Medical Qualifiers: Lares's esophagus type: without dysplasia Qualified Code(s): K22.70 - Lares's esophagus without dysplasia Plan: Continue GI follow up (3) HTN (hypertension): Comment: controlled on current medication Code(s): I10 - Essential (primary) hypertension Category: Medical Qualifiers: Hypertension type: primary hypertension Qualified Code(s): I10 - Essential (primary) hypertension Plan: controlled on current medications Orders: Orders Urine Culture Today N39.0 - Urinary tract infection, site not specified Medications: Refilled oxycodone 10 mg PO TID PRN 90 tabs 0RF pain 30 days morphine ER Partial Fill upon patient request. Patients insurance no longer covering xtampza 30 mg PO Q12H 60 tabs 0RF 30 days
[2024-02-13 09:35] VITALS: BP 126/76; PULSE 89; O2SAT 96; BMI 22.7
== END 2024-02-13 10:21 | disposition home or self-care (01) ==
LOC: HO.HMCFM 09:12
PROVIDERS: PCP Internal Medicine; Visit Provider Internal Medicine
DX: M35.3 Polymyalgia rheumatica (principal); K22.70 Barrett's esophagus without dysplasia; I10 Essential (primary) hypertension

== ENCOUNTER → 2024-02-13 09:12 | Outpatient (BNVA) | payer MEDICARE, OTHER, SELFPAY | PROVIDERS: PCP Internal Medicine; Visit Provider Internal Medicine ==

== ENCOUNTER 2024-02-13 10:14 | Outpatient (REF) | payer MEDICARE, OTHER, SELFPAY | END 2024-02-13 10:15 | disposition home or self-care (01) | LOC: HO.WFDLDS 10:14 | PROVIDERS: Visit Provider Internal Medicine | DX: I10 Essential (primary) hypertension (principal); M35.3 Polymyalgia rheumatica; K22.70 Barrett's esophagus without dysplasia; G89.29 Other chronic pain; M54.50 Low back pain, unspecified; Z79.891 Long term (current) use of opiate analgesic; N39.0 Urinary tract infection, site not specified | CPT/HCPCS: 87086; 96127; 99212 ==

== ENCOUNTER 2024-04-05 08:52 | Outpatient (AMB) | payer MEDICARE, OTHER, SELFPAY ==
--- NOTE | 2024-04-05 08:56 | MHC.PC.OV ---
Vital Signs 04/05/24 09:02 Height 5 ft 6 in Weight 142 lb BMI 22.9 BP 124/70 Blood Pressure Location Lt brachial Position Sitting Respiration 12 Pulse 68 Pulse Source Pulse Oximeter Pulse Oximetry (%) 98 Oxygen Delivery Method Room Air Intake Visit Reasons: F/U derm and right ear check Intake Note: follow up on right ear Train Operations Manager Required: No Allergies cefaclor [From CECLOR] Allergy (Severe, Verified 04/05/24 08:58) RASH,THROAT SWELLING Penicillins Allergy (Mild, Verified 04/05/24 08:58) MASSIVE WHELTS From BuSpar Allergy (Intermediate, Uncoded 02/13/24 09:32) CONFUSION, HALLUCINATIONS Tobacco use date assessed: 09/15/23 Dental Screening Dental Screen Date: 09/15/23 HPI HPI Comments History of Present Illness Details This is a 68 year old female with a past medical history of OA, chronic low back pain, muscle pain, hypertension, GERD, barretts, migraines presenting for follow up Chronic pain - CCP elevated. CK slight elevation. Has severe flares of deep muscle and bone pain every 2-3 months, lasts 1-3 weeks. Says severe flare starting last week some interval decrease in pain levels. Feet, Legs, arms, hands, tips of the fingers. Says joints themselves not hurting. Saw rheumatology recently-clinical exam with osteoarthritic changes without evidence of autoimmune rheumatologic disease -OA: On oxycodone, xtampza. s/p SI joint fusion with Dr Kent 04/2023. Active caring for her grandchild.Her oxycodone causes frequent nausea. CV: on amlodipine, spironolactone. Following with nephrology for BP management. Denies chest pain, exertional dyspnea. MSK: On oxycodone, xtampza. s/p SI joint fusion with Dr Kent 04/2023. Active caring for her grandchild.Her oxycodone causes frequent nausea. Insurance will no longer be covering xtampza Neuro: Follows with Dr Elder, neurology for migraines. On ubrelvy. stable. Reports worsening memory issues over the past 1-2 years. Takes her up to 10 minutes to remember a name etc. GI: Follows with Dr Arenas. Danii. UTD with upper and lower endoscopy She was seen by Dr Mcgovern-urogyn for multidrug resistant UTI. ROS see HPI PHYSICAL EXAM: GENERAL: Alert and oriented x 3. NAD EYES: EOMI. Anicteric. HENT: Moist mucous membranes. No scleral icterus. No cervical lymphadenopathy. LUNGS: Clear to auscultation bilaterally. CARDIOVASCULAR: Regular rate and rhythm. No murmur. No JVD. ABDOMEN: Soft, non-tender +bs EXTREMITIES: No edema. Non-tender. SKIN: No rashes or lesions. Warm. NEUROLOGIC: No focal neurological deficits. CN II-XII grossly intact PSYCHIATRIC: Cooperative. Appropriate mood and affect [facility] Medical History Bowel obstruction Reflex sympathetic dystrophy Back pain COPD (chronic obstructive pulmonary disease) Migraine HTN (hypertension) Carotid artery aneurysm Fibromyalgia IBS (irritable bowel syndrome) Lares esophagus GERD (gastroesophageal reflux disease) Surgical History Hx of fusion of cervical spine H/O carpal tunnel repair S/P surgery on nasal septum History of ankle surgery History of appendectomy Family History Sister Alcoholism Mother Breast cancer HTN (hypertension) Hypercholesteremia Maternal Aunt Breast cancer Maternal Uncle Colon cancer Father HTN (hypertension) Asthma Hypercholesteremia Maternal Grandfather Pacemaker Other Substance use Social History Housing: House Patient Tobacco Use Status: Former Tobacco user Tobacco use type: Cigarette Cigarettes Per Day: 10 Years Smoked: 50 Packs per year/per ci.00 e-Cigarette/Vaping Use: Never Used Second Hand Smoke Exposure: No service: No Current occupational status: retired Cognitive needs: No Hearing needs: No Vision needs: Yes (floater in eyes, and possible glaucoma) Questionnaire PHQ-9 Over the last 2 weeks, how often have you been bothered by any of the following problems? 06013 - PHQ-9 Billing: Patient declined-do not bill Source: Developed by Drs. Gabriel Amaya, Anni Campbell, Franco Solano and colleagues, with an educational alyce from [employer]. Thrive Questionnaire Date Thrive assessed: 04/05/24 I am a: Patient What is your living situation today?: I have a steady place to live Within the past 12 months, did the food you bought not last and you didn't have the money to get more?: Never true Within the past 12 months, did you worry whether your food would run out before you got money to buy more?: Never true Do you have trouble paying for medicines?: No Do you have trouble getting transportation to medical appointments?: No Do you have trouble paying your heating and electricity bill?: No Do you have trouble taking care of your child, family member or friend?: No Do you have trouble with day-to-day activities such as bathing, preparing meals, shopping, managing finances, etc.?: No Are you currently unemployed and looking for a job?: No Are you interested in more education?: No Please select the resources that you would like help with: None Currently or been in a relationship where the following occur: No concerns reported THRIVE Score: 0 SISSY-7 AMB Questionnaire SISSY-7 Date SISSY - 7 assessed: 08/04/23 Source: Developed by Drs. Gabriel Amaya, Anni Campbell, Franco Solano and colleagues, with an educational alyce from [employer]. Physical exam (Primary Care) Vital Signs: Last Vital Signs Pulse 68 04/05/24 09:02 Resp 12 04/05/24 09:02 BP 124/70 04/05/24 09:02 Pulse Ox 98 04/05/24 09:02 Oxygen Delivery Method Room Air 04/05/24 09:02 BMI result Body Mass Index 22.9 Tobacco/Smoking Status: Tobacco use Status Tobacco use date assessed 09/15/23 04/05/24 08:57 Patient Tobacco Use Status Former Tobacco user 04/05/24 08:57 Tobacco use type Cigarette 04/05/24 08:57 e-Cigarette/Vaping Use Never Used 04/05/24 08:57 Thrive Assessment: Date of Thrive Assessment Date Thrive assessed 04/05/24 04/05/24 09:00 Currently or been in a relationship where the following occur: No concerns reported Coding Level of Care Code Est Pt Level 4 (17483) Diagnoses Polymyalgia M35.3 Chronic obstructive pulmonary disease, unspecified COPD type J44.9 COPD type: unspecified COPD Assessment & Plan Assessment & Plan (1) Polymyalgia: Code(s): M35.3 - Polymyalgia rheumatica Category: Medical Plan: continue follow up rheumatology (2) COPD (chronic obstructive pulmonary disease): Code(s): J44.9 - Chronic obstructive pulmonary disease, unspecified Category: Medical Qualifiers: COPD type: unspecified COPD Qualified Code(s): J44.9 - Chronic obstructive pulmonary disease, unspecified Plan: stable on current medication.
[2024-04-05 09:02] VITALS: BP 124/70; PULSE 68; RESP 12; O2SAT 98; BMI 22.9
--- OUTSIDE RECORDS SUMMARY | 2024-04-05 09:07 | XMS_ITS ---
Author Organization [facility] Address [address] [place] [id number] Care Team Providers Care Marketing Teacher Name Role Phone Jacey Lora M.D. Primary Care Provider iDonte Arenas Jr, Lonnie Blake [phone] REASON FOR VISIT refills MEDICATIONS Medication SIG (Take, Route, Frequency, Duration) Notes Start Date End Date Status Linzess 290 MCG 1 capsule at least 3 0 minutes before the first meal of the day on an empty stomach Orally Once a day for 90 days 02/07/2023 Active Pantoprazole Sodium 40 MG TAKE 1 TABLET BY MOUTH EVERY DAY for 90 days Active Encounters Encounter Location Date Provider Diagnosis [facility] [address] [place] [id number] 10/09/2023 Lonnie Arenas Jr PLAN OF TREATMENT Medication Medication Name Sig Start Date Stop Date Notes Linzess 290 MCG 1 capsule at least 3 0 minutes before the first meal of the day on an empty stomach Orally Once a day for 90 days 02/07/2023 Pantoprazole Sodium 40 MG TAKE 1 TABLET BY MOUTH EVERY DAY for 90 days Next Appt Details Provider Name:Lonnie rossi Jr, 07/17/2024 09:20:00 AM, [address] [place] [address], [address], [place], [address],
--- OUTSIDE RECORDS SUMMARY | 2024-04-05 09:08 | XMS_ITS ---
Author Organization [facility] Address [address] [place] [address] Care Team Providers Care Vascular Specialists Name Role Phone Jacey Lora M.D. Primary Care Provider Dionte Arenas Jr, Lonnie Blake [phone] REASON FOR VISIT Pt had labs order faxed to [facility] Encounters Encounter Location Date Provider Diagnosis [facility] [address] [place] [address] 08/24/2023 Lonnie Arenas Jr PLAN OF TREATMENT Next Appt Details Provider Name:Lonnie rossi Jr, 07/17/2024 09:20:00 AM, [address] [place] [address], [address], [place], [phone],
--- OUTSIDE RECORDS SUMMARY | 2024-04-05 09:08 | XMS_ITS | Patient Health Record ---
Author Organization [facility] Address [address] [place] [address] Care Team Providers Care Steel Finisher Name Role Phone Jacey Lora M.D. Primary Care Provider Unavail able Lonnie Arenas Jr Unavailable [phone] ALLERGIES Allergen (clinical drug ingredient) Drug/Non Drug Allergy documented on EMR Reaction Allergy Type Onset Date Status Penicillin Unknown Drug Allergy Active diphenhydramine Benadryl Unknown Drug Allergy A ctive cefaclor ceclor (uncoded) Unknown Allergy Act louis RESULTS Component Value Reference Range Notes US abdomen complete Reviewed date:09/14/2023 10:10:19 AM Interpretation: Performing Lab: Notes/Report: [address] [address] Ultrasound Report Signed Patient: Dolores Pham MR#: [id number] : 1955 Acct:[id number] Age/Sex: 67 / F ADM Date: 09/01/23 Loc: HO.US Attending Dr: Lonnie Arenas MD Ordering Physician: Lonnie Arenas MD Date of Service: 09/01/23 Procedure(s): US abdomen complete Accession Number(s): [id number] cc: Lonnie Arenas MD; Jacey Lora MD EXAMINATION: US ABDOMEN COMPLETE CLINICAL INFORMATION: Nausea. COMPARISON: Abdominal ultrasound 02/22/2011 CT scan abdomen and pelvis 03/24/2011 TECHNIQUE: Real-time imaging of the abdominal viscera. Technically limited study due to overlying bowel gas. Patient has history of IBS. FINDINGS: PANCREAS: Normal head and body, the tail is obscured by bowel gas. ABDOMINAL AORTA: The proximal, mid, and distal segments are normal in caliber. Atherosclerotic calcification is seen within the mid and distal abdominal aorta. INFERIOR VENA CAVA: Visualized portions are normal. LIVER: The liver is normal in size. The liver contour is normal. There is mild diffuse increased liver parenchymal echogenicity, consistent with mild hepatic steatosis. 0.7 x 1.2 x 1.0 cm septated cyst is seen in the left lobe. There is no intrahepatic biliary duct dilatation seen. GALLBLADDER: 0.3 x 0.2 x 0.2 cm polyp is noted. The gallbladder is physiologically distended without evidence of stones, sludge, polyps, wall thickening or pericholecystic fluid. COMMON BILE DUCT: Normal in caliber measuring 0.7 cm in diameter. RIGHT KIDNEY: Normal. No hydronephrosis. No renal calculi or focal parenchymal lesions. The kidney measures 9.3 cm in maximum dimension. LEFT KIDNEY: 2.7 x 3.2 x 2.6 cm cyst with a thin septum is seen within the mid kidney, no imaging follow-up recommended. No hydronephrosis. No renal calculi. The kidney measures 9.5 cm in maximum dimension. SPLEEN: Not seen. FREE FLUID: None. US/US abdomen complete IMPRESSION: 1. Mild hepatic steatosis. 2. 1.2 cm septated cyst in the left lobe of the liver. 3. 0.3 cm gallbladder polyp. Dictated By: Nicole Hinton MD Signed By: <Electronically signed by Nicole Hinton MD in OV> 09/14/23 0933 DD/ 1015 TD/TT: Neurosurgery Physician: REASON FOR REFERRAL No Information MEDICATIONS Medication SIG (Take, Route, Frequency, Duration) Notes Start Date End Date Status oxyCODONE HCl 15 MG 1 tablet Orally 2-3 times a day/prn Active Methocarbamol 500 MG TAKE 1 TABLET BY MOUTH AT BEDTIME Oral for 30 Unknown Amphetamine-Dextroamphetamin e 30 MG 1 tablet Orally once a day Active Osphena 60 MG TAKE 1 TABLET BY MOUTH DAILY WITH FOOD Oral Once a day Active Linzess 290 MCG 1 capsule at least 3 0 minutes before the first meal of the day on an empty stomach Orally Once a day for 90 days 02/07/2023 Active Linzess 145 MCG TAKE 1 CAPSULE BY MOUTH AT LEAST 30 MIN BEFORE THE FIRST MEAL OF THE DAY ON AN EMPTY STOMACH. for 30 Active Nitroglycerin 0.3 MG as directed Sublingual for cjest pain, may repeat X1 in 5 min if no relief for 30 days 06/07/2019 Active Levsin 0.125 MG 1 tablet as needed Orally three x a day 08/10/2016 Active Pantoprazole Sodium 40 MG TAKE 1 TABLET BY MOUTH EVERY DAY for 90 days Active hydroCHLOROthiazide 50 MG TAKE 1 TABLET BY MOUTH EVERY DAY Oral Once a day Active OsmoPrep 1.102-0.398 GM 32 tablets Orall y over two days as directed for 2 day(s) 05/25/2018 Active Multi Vitamin/Minerals - as directed Ora lly once a day Active IMMUNIZATIONS Vaccine Route Administration Date Status Comme nts Influenza Unknown 01/23/2018 Administered Influenza Unknown 01/31/2023 Administered SOCIAL HISTORY Tobacco Use: Social History Observation Description Date Details (start date - stop date) Former Smoker NA - NA Sex Assigned At : Social History Observation Description Sex Assigned At Unknown Tobacco Use/Smoking Question Answer Notes Patient is a former smoker PROBLEMS Problem Type ICD Code Onset Dates Problem Status W/U Status Risk SNOMED Code Notes Problem Lares's esophagus without dysplasia (K22.70) Active confirmed 186320266 Problem Nausea (R11.0) Active confirmed 0898645 07 Problem Dysphagia (R13.10) Active confirmed Dys phagia (92257310) Problem Diverticulitis (K57.92) Active confirmed 665889435 Problem Esophageal spasm (K22.4) Active confirmed 278100509 Problem Dysphagia, unspecified type (R13.10) Active confirmed 21413954 Problem Lares esophagus (K22.70) Active confirmed Lares esophagus (776827062) Problem Abnormal barium swallow (R93.3) Active confirmed 240161943 Problem Irritable bowel syndrome with constipation (K58.1) Active confirmed 352343248 VITAL SIGNS Temperature 98.0 degrees Fahrenheit 07/17/2023 Blood pressure diastolic 00 mm Hg 07/17/2023 Height 65.5 in 07/17/2023 Blood pressure systolic 000 mm Hg 07/17/2023 Weight 137 lb 4 oz lbs 07/17/2023 BMI 22.49 kg/m2 07/17/2023 Encounters Encounter Location Date Provider Diagnosis [facility] [address] [place] [address] 07/17/2023 Lonnie Arenas Jr Dysphagia, unspecified type R13.10 ; Lares esophagus K22.70 and Irritable bowel syndrome with constipation K58.1 [facility] [address] [place] [address] 08/17/2023 Lonnie Arenas Jr Nausea R11.0 [facility] [address] [place] [phone] 08/24/2023 Lonnie Arenas Jr [facility] [address] [place] [phone] 09/14/2023 Lonnie Arenas Jr [facility] [address] [place] [phone] 10/09/2023 Lonnie Arenas Jr ASSESSMENTS Encounter Date Diagnosis Assessment Notes Treatment Notes Treatment Clinical Notes 07/17/2023 Dysphagia, unspecified type (ICD-10 - R13.10) 07/17/2023 Lares esophagus (ICD-10 - K22.70) Lares esophagus material was printed 08/17/2023 Nausea (ICD-10 - R11.0) 07/17/2023 Irritable bowel syndrome with constipation (ICD-10 - K58.1) PLAN OF TREATMENT Pending Test Test Name Order Date LIVER PROFILE 08/17/2023 LIPASE 08/17/2023 CBC w/o DIFF 08/17/2023 XR BARIUM SWALLOW-ESOPHAGUS 02/14/2022 US ABD 08/17/2023 Future Test Test Name Order Date UPPER GI ENDOSCOPY 12/28/2012 UPPER GI ENDOSCOPY BALLOOON DILATION OF ESOPH 08/10/2016 COLONOSCOPY 05/25/2018 UPPER GI ENDOSCOPY 03/02/2022 Next Appt Details Provider Name:Lonnie rossi Jr, 07/17/2024 09:20:00 AM, [address] [place] [address], [address], [place], [address], Insurance Providers Payer Name Payer Address Payer Phone Subscriber Number Group Number Insured Name Patient Relationship to Insured Coverage Start Date Coverage End Date MEDICARE OF [place] [address] [place] [address] [place] [id number] JUDD, CRYSTAL Self - patient is the insured [facility] [address] [place] [address] [id number] DOLORES PHAM Self - patient is the insured MEDICAL (GENERAL) HISTORY Medical History History ICD Code Colonoscopy 09/07/18, normal, ten-year fo llowup EGD 04/19/22, Lares's esophagus, stable , three-year recall. irritable bowel syndrome fibromyalgia (unspecified autoimmune dis order per patient) carotid aneurysm status post treatment w ith coils hypertension migraine COPD chronic back pain, and history of RSD Surgical History Surgery Date(Month/Year) bowel obstruction at age 17 requiring resection of some small intestine appendectomy ankle surgery x2 deviated septum repair carpal tunnel surgery SI joint on left side.
--- OUTSIDE RECORDS SUMMARY | 2024-04-05 09:08 | XMS_ITS ---
Author Organization [facility] Address [address] [place] [address] [address] [place] [address] Care Team Providers Care Publications Inspector Name Role Phone Jacey Lora M.D. Primary Care Provider Dionte Arenas Jr, Lonnie Blake [phone] REASON FOR VISIT ultrasound Encounters Encounter Location Date Provider Diagnosis [facility] [address] [place] [address] [address] [place] [address] 09/14/2023 Lonnie Arenas Jr PLAN OF TREATMENT Next Appt Details Provider Name:Lonnie rossi Jr, 07/17/2024 09:20:00 AM, [address] [place] [address], [address], [place], [address],
== END 2024-04-05 11:13 | disposition home or self-care (01) ==
PROVIDERS: PCP Internal Medicine; Visit Provider Internal Medicine
DX: M35.3 Polymyalgia rheumatica (principal); J44.9 Chronic obstructive pulmonary disease, unspecified

== ENCOUNTER → 2024-04-05 08:52 | Outpatient (BNVA) | payer MEDICARE, OTHER, SELFPAY | PROVIDERS: PCP Internal Medicine; Visit Provider Internal Medicine | DX: M35.3 Polymyalgia rheumatica (principal); J44.9 Chronic obstructive pulmonary disease, unspecified; M19.90 Unspecified osteoarthritis, unspecified site; G89.29 Other chronic pain; M54.50 Low back pain, unspecified; I10 Essential (primary) hypertension; Z79.891 Long term (current) use of opiate analgesic; Z79.899 Other long term (current) drug therapy | CPT/HCPCS: 99212 ==

== ENCOUNTER 2024-06-04 11:09 | Outpatient (AMB) | payer MEDICARE, OTHER, SELFPAY ==
--- NOTE | 2024-06-04 11:27 | MHC.PC.OV ---
Vital Signs 06/04/24 11:29 Height 5 ft 6 in Weight 138 lb 4 oz BMI 22.3 BP 130/74 Blood Pressure Location Lt brachial Position Sitting Pulse 59 Pulse Source Pulse Oximeter Pulse Oximetry (%) 97 Oxygen Delivery Method Room Air Intake Visit Reasons: Pre op cataract right eye Intake Note: Preop for cataracts right eye. [facility] in [place]. Allergies cefaclor [From CECLOR] Allergy (Severe, Verified 06/04/24 11:29) RASH,THROAT SWELLING Penicillins Allergy (Mild, Verified 06/04/24 11:29) MASSIVE WHELTS From BuSpar Allergy (Intermediate, Uncoded 06/04/24 11:29) CONFUSION, HALLUCINATIONS Tobacco use date assessed: 09/15/23 Dental Screening Dental Screen Date: 09/15/23 HPI HPI Comments History of Present Illness Details This is a 68 year old female with a past medical history of OA, chronic low back pain, muscle pain, hypertension, GERD, barretts, migraines presenting for preoperative cardiac assessment. She has right cataract surgery scheduled with Dr Baker for June 14 Patient denies CP, dyspnea. No DM. Gets nauseous with anesthesia but otherwise no h/o issues. EKG normal today. Chronic pain - CCP elevated. CK slight elevation. Has severe flares of deep muscle and bone pain every 2-3 months, lasts 1-3 weeks. Says severe flare starting last week some interval decrease in pain levels. Feet, Legs, arms, hands, tips of the fingers. Says joints themselves not hurting. Saw rheumatology -clinical exam with osteoarthritic changes without evidence of autoimmune rheumatologic disease -OA: On oxycodone, morphine ER. s/p SI joint fusion with Dr Kent 04/2023. Active caring for her grandchild. CV: on amlodipine, spironolactone. Following with nephrology for BP management. Denies chest pain, exertional dyspnea. MSK: On oxycodone, morphine ER-transitioned from xtampza. s/p SI joint fusion with Dr Kent 04/2023. Active caring for her grandchild.Her oxycodone causes frequent nausea. Neuro: Follows with Dr Elder, neurology for migraines. On ubrelvy. stable. History of aneurysm repair. Upcoming MRA head/neck GI: Follows with Dr Arenas. Danii. UTD with upper and lower endoscopy She was seen by Dr Bass for multidrug resistant UTI. ROS see HPI PHYSICAL EXAM: GENERAL: Alert and oriented x 3. NAD EYES: EOMI. Anicteric. HENT: Moist mucous membranes. No scleral icterus. No cervical lymphadenopathy. LUNGS: Clear to auscultation bilaterally. CARDIOVASCULAR: Regular rate and rhythm. No murmur. No JVD. ABDOMEN: Soft, non-tender +bs EXTREMITIES: No edema. Non-tender. SKIN: No rashes or lesions. Warm. NEUROLOGIC: No focal neurological deficits. CN II-XII grossly intact PSYCHIATRIC: Cooperative. Appropriate mood and affect [facility] Medical History Bowel obstruction Reflex sympathetic dystrophy Back pain COPD (chronic obstructive pulmonary disease) Migraine HTN (hypertension) Carotid artery aneurysm Fibromyalgia IBS (irritable bowel syndrome) Lares esophagus GERD (gastroesophageal reflux disease) Surgical History Hx of fusion of cervical spine H/O carpal tunnel repair S/P surgery on nasal septum History of ankle surgery History of appendectomy Family History Sister Alcoholism Mother Breast cancer HTN (hypertension) Hypercholesteremia Maternal Aunt Breast cancer Maternal Uncle Colon cancer Father HTN (hypertension) Asthma Hypercholesteremia Maternal Grandfather Pacemaker Other Substance use Social History Housing: House Alcohol intake: current Patient Tobacco Use Status: Former Tobacco user Tobacco use type: Cigarette Cigarettes Per Day: 10 Years Smoked: 50 e-Cigarette/Vaping Use: Never Used Second Hand Smoke Exposure: No service: No Current occupational status: retired Cognitive needs: No Hearing needs: No Vision needs: Yes (floater in eyes, and possible glaucoma) Questionnaire PHQ-9 Over the last 2 weeks, how often have you been bothered by any of the following problems? 1. Little interest or pleasure in doing things: not at all 2. Feeling down, depressed, or hopeless: not at all 3. Trouble falling or staying asleep, or sleeping too much: not at all 4. Feeling tired or having little energy: not at all 5. Poor appetite or overeating: not at all 6. Feeling bad about yourself - or that you are a failure or have let yourself or your family down: not at all 7. Trouble concentrating on things, such as reading the newspaper or watching television: not at all 8. Moving or speaking so slowly that other people could have noticed. Or the opposite - being so fidgety or restless that you have been moving around a lot more than usual: not at all 9. Thoughts that you would be better off or of hurting yourself in some way: not at all Total score: 0 Depression Screening Interpretation: Negative Depression Screening Done: Yes 67926 - PHQ-9 Billing: Yes Source: Developed by Drs. Gabriel Amaya, Anni Campbell, Franco Solano and colleagues, with an educational alyce from [employer]. Thrive Questionnaire Date Thrive assessed: 06/04/24 I am a: Patient What is your living situation today?: I have a steady place to live Within the past 12 months, did the food you bought not last and you didn't have the money to get more?: Never true Within the past 12 months, did you worry whether your food would run out before you got money to buy more?: Never true Do you have trouble paying for medicines?: No Do you have trouble getting transportation to medical appointments?: No Do you have trouble paying your heating and electricity bill?: No Do you have trouble taking care of your child, family member or friend?: No Do you have trouble with day-to-day activities such as bathing, preparing meals, shopping, managing finances, etc.?: No Are you currently unemployed and looking for a job?: No Are you interested in more education?: No Please select the resources that you would like help with: None Currently or been in a relationship where the following occur: No concerns reported THRIVE Score: 0 AUDIT C Alcohol Use Questionnaire (AUDIT-C) 3. How often do you have six or more drinks on one occasion?: Never Total Score: 0 SISSY-7 AMB Questionnaire SISSY-7 Date SISSY - 7 assessed: 06/04/24 Feeling nervous, anxious, or on edge: 0 = Not at all Not being able to stop or control worryin = Not at all Worrying too much about different things: 0 = Not at all Trouble relaxin = Not at all Being so restless that it is hard to sit still: 0 = Not at all Becoming easily annoyed or irritable: 0 = Not at all Feeling afraid as if something awful might happen: 0 = Not at all Total SISSY-7 score (0-4 normal; 5-9 mild; 10-14 moderate; 15-21 severe): 0 Source: Developed by Drs. Gabriel Amaya, Anni Campbell, Franco Solano and colleagues, with an educational alyce from [employer]. SISSY-7 Assessment Billing SISSY-7 Assessment Tool: SISSY-7 Assessment 90968 Physical exam (Primary Care) Vital Signs: Last Vital Signs Pulse 59 06/04/24 11:29 BP 130/74 06/04/24 11:29 Pulse Ox 97 06/04/24 11:29 Oxygen Delivery Method Room Air 06/04/24 11:29 BMI result Body Mass Index 22.3 Tobacco/Smoking Status: Tobacco use Status Tobacco use date assessed 09/15/23 06/04/24 11:28 Patient Tobacco Use Status Former Tobacco user 06/04/24 11:32 Tobacco use type Cigarette 06/04/24 11:32 e-Cigarette/Vaping Use Never Used 06/04/24 11:32 PHQ-9: PHQ-9 Score PHQ-9: Total score 0 06/04/24 11:32 Depression Screening Interpretation: Negative Thrive Assessment: Date of Thrive Assessment Date Thrive assessed 06/04/24 06/04/24 11:32 Currently or been in a relationship where the following occur: No concerns reported Coding Level of Care Code Est Pt Level 4 (78273) Diagnoses Preop examination Z01.818 Cataract of right eye, unspecified cataract type H26.9 Cataract type: unspecified Laterality: right Additional Codes SISSY-7 Assessment Billing - SISSY-7 Assessment Tool: SISSY-7 Assessment 28982 ([id number]) PHQ-9 - 31915 - PHQ-9 Billing: Yes ([id number]) Assessment & Plan Assessment & Plan (1) Preop examination: Code(s): Z01.818 - Encounter for other preprocedural examination Category: Medical Plan: She is average risk for low risk surgery EKG reviewed. METS>/= 4 She is able to proceed with planned procedure without further cardiac testing (2) Cataract: Code(s): H26.9 - Unspecified cataract Category: Medical Qualifiers: Cataract type: unspecified Laterality: right Qualified Code(s): H26.9 - Unspecified cataract Plan: proceed with planned procedure Orders: Orders Comprehensive Met. Panel Today M35.3 - Polymyalgia rheumatica UA CC w/rflx Micro + Cult Today N39.0 - Urinary tract infection, site not specified Referrals Oral Surgery Referal K13.70 - Unspecified lesions of oral mucosa Medications: New metoclopramide HCl (Reglan) 5 mg PO QIDACHS 120 tabs 3RF lidocaine HCl 2% (Lidocaine Viscous) 1 appl mucous membrane TID PRN 300 mL 3RF pain Refilled morphine ER Partial Fill upon patient request. Patients insurance no longer covering xtampza 30 mg PO Q12H 30 days 60 tabs 0RF oxycodone 10 mg PO TID 30 days PRN 90 tabs 0RF pain
[2024-06-04 11:29] VITALS: BP 130/74; PULSE 59; O2SAT 97; BMI 22.3
--- OUTSIDE RECORDS SUMMARY | 2024-06-04 13:37 | XMS_ITS | Clinical Summary ---
Author Organization [facility] Address [address] [place] [address] Care Team Providers Care Division Superintendent Name Role Phone Vitor Angel MD Primary Care Provider [phone] Allergies Active Allergy Reactions Criticality Noted Date Comments Buspirone Unknown/Patient and Family Unable to Define Medium 02/15/2022 Cefaclor Hives Medium 01/05/2018 Codeine GI Intolerance/Nausea/Vomiting Low 05/16 Diphenhydramine Itching Medium 01/07/2013 Penicillins Hives,Itching High 01/07/2013 Medications Medication Sig Dispensed Refills Start Date End Date Status Calcium Carbonate-Vitamin D (CALCIUM 500/D PO) Take by mouth. Active Ascorbic Acid (VITAMIN C) 1000 MG tablet Active b complex vitamins tablet Active butalbital-acetami nophen-caffeine (FioriCET) 50-300-40 mg Cap capsule as needed. Active Cholecalciferol 25 MCG (1000 UT) tablet Take 1,000 Units by mouth. Active clobetasol (TEMOVATE) 0.05 % ointment Apply topically. Active eletriptan (RELPAX) 20 MG tablet Take 20 mg by mouth Once before discharge. Activ e medroxyPROGESTERon e (PROVERA) 10 MG tablet Take 10 mg by mouth daily. 3 11/09/2018 Active metoPROLOL SUCCINATE (TOPROL-XL) 25 MG 24 hr tablet Take 25 mg by mouth. Ac tive OSPHENA 60 MG Tab Take 1 tablet by mouth daily. with food 0 12/30/2018 Active oxyCODONE (OxyCONTIN) 20 MG ER (extended release) tablet Take 20 mg by mouth 2 times daily (every 12 hours) as needed. Active PANTOprazole (PROTONIX) 40 MG EC tablet Take 40 mg by mouth daily. 1 12/06/2018 Active proMETHAZINE (PHENERGAN) 25 MG tablet Take 25 mg by mouth 2 (two) times a day as needed. 2 01/16/2019 Active traZODone (DESYREL) 50 MG tablet Take 50 mg by mouth nightly as needed. 1 12/24/2018 Active vitamin E 1000 UNIT capsule Active chlorthalidone (HYGROTON) 25 MG tablet Take 25 mg by mouth daily. Active ubrogepant (Ubrelvy) 100 MG tablet Ubrelvy 100 mg tablet PLEASE SEE ATTACHED FOR DETAILED DIRECTIONS Active estradiol-norethin drone (CombiPatch) 0.05-0.14 MG/DAY external patch CombiPatch 0.05 mg-0.14 mg/24 hr transdermal PLEASE SEE ATTACHED FOR DETAILED DIRECTIONS Active albuterol (PROVENTIL HFA; VENTOLIN HFA) 108 (90 Base) MCG/ACT inhaler albuterol sulfate HFA 90 mcg/actuation aerosol inhaler INHALE 2 PUFFS EVERY 6 HOURS Active aspirin 81 MG chewable tablet aspirin 81 mg chewable tablet TAKE 1 TABLET BY MOUTH EVERY DAY Active Azelastine HCl 137 MCG/SPRAY nasal spray 1 SPRAY TO EACH NOSTRIL TWICE A DAY 11/10/2021 Active fluocinonide (LIDEX) 0.05 % gel fluocinonide 0.05 % topical gel PLEASE SEE ATTACHED FOR DETAILED DIRECTIONS Active fluticasone (FloNASE) 50 mcg/spray nasal spray INHALE 1 SPRAY IN EACH NOSTRIL TWICE DAILY 11/10/2021 Active latanoprost (XALATAN) 0.005 % ophthalmic solution latanoprost 0.005 % eye drops INSTILL 1 DROP INTO BOTH EYES EVERY DAY AT NIGHT Active meclizine (ANTIVERT) 25 MG tablet meclizine 25 mg tablet TAKE 1 TABLET BY MOUTH EVERY 8 HOURS NEEDED Active spironolactone (ALDACTONE) 25 MG tablet spironolactone 25 mg tablet TAKE 1 TABLET BY MOUTH EVERY DAY Active Family History Medical History Relation Name Comments Cancer Father Heart disease Father Hypertension Father Lung disease Father Heart disease Maternal Grandmother Cancer Mother Hypertension Mother Relation Name Status Comments Father Maternal Grandmother Mother Social History Tobacco Use Types Packs/Day Years Used Date Smoking Tobacco: Some Days Smokeless Tobacco: Never Tobacco Cessation:Ready to Q uit: Not Asked; Counseling Given: Not Answered Alcohol Use Standard Drinks/Week Comments Never 0 (1 standard drink = 0.6 oz pur e alcohol) AUDIT-C Answer Date Recorded Frequency of Alcohol Consumption Never 01/24/2019 Average Number of Drinks Not on file 019 Frequency of Binge Drinking Not on file 01/08 Sex and Gender Information Value Date Recorded Sex Assigned at Not on file Gender Identity Not on file Sexual Orientation Not on file Last Filed Vital Signs Vital Sign Reading Time Taken Comments Blood Pressure 160/94 02/15/2022 12:53 PM EST Pulse 61 02/15/2022 12:53 PM EST Temperature 36.4 ??C (97.5 ??F) 02/15/2022 12:[address] Respiratory Rate - - Oxygen Saturation 98% 02/15/2022 12:53 PM EST Inhaled Oxygen Concentration - - Weight 58.1 kg (128 lb) 01/24/2019 11:01 AM EDT Height 167.6 cm (5' 6 ) 01/24/2019 11:01 AM EDT Body Mass Index 20.66 01/24/2019 11:01 AM EDT Plan of Treatment Health Maintenance Due Date Last Done Comments Hepatitis C Virus Screening 1955 DTaP/Tdap/Td Vaccines (1 - Tdap) 1973 Pneumococcal Vaccines 50+ (1 of 2 - PCV) 1973 Mammogram 1994 Colonoscopy 09/26/1999 Zoster (Shingles) Vaccine (1 of 2) 2004 DXA Bone Density (Females,Ages 65 and older) 09/26/2019 Influenza Vaccine 11/09/2023 01/14/2019, 01/23/2018 COVID-19 Vaccine ( - 2023-2 5 season) 2023 RSV Vaccine 60 years and older and Patients (1 - 1-dose 75+ series) 2029 Hepatitis B Vaccines Aged Out No long er eligible based on patient's age to complete this topic Care Teams Division Superintendent Relationship Specialty Start Date End Date Vitor Angel MD [address] [place] [address] [phone] PCP - General Psychiatry, General 12/26/18
--- OUTSIDE RECORDS SUMMARY | 2024-06-04 13:37 | XMS_ITS | Encounter Summary ---
Author Organization [facility] Address [address] [place] [address] Care Team Providers Care Instructional Services Librarian Name Role Phone Vitor Angel MD Primary Care Provider [phone] Encounter Details Date Type Department Care Team (Late st Contact Info) Description 12/17/2021 Telephone [facility] Neurosurgery [address] [phone] Trino Humphrey MD [address] [place] [address] [address] [place] [address] Social History Tobacco Use Types Packs/Day Years Used Date Smoking Tobacco: Some Days Smokeless Tobacco: Never Alcohol Use Standard Drinks/Week Comments Never 0 [...] on file Sexual Orientation Not on file documented as of this encounter Miscellaneous Notes * Telephone Encounter - Ayde Mendez MA - 12/17/2021 3:57 PM EDT Do you need me to put in an order for an MRI of the lumbar or cervical? documented in this encounter Plan of Treatment Not on file documented as of this encounter Visit Diagnoses Not on filedocumented in this encounter Care Teams Instructional Services Librarian Relationship Specialty Start Date End Date Vitor Angel MD [address] [place], [place] [id number] PCP - General Psychiatry, General 12/26/18 documented as of this encounter
--- OUTSIDE RECORDS SUMMARY | 2024-06-04 13:37 | XMS_ITS | Encounter Summary ---
Author Organization [facility] Address [address] [place] [address] Care Team Providers Care Project Development Director Name Role Phone Vitor Angel MD Primary Care Provider [phone] Encounter Details Date Type Department Care Team (Late st Contact Info) Description 04/13/2022 Scanned Document [facility] Neurosurgery [address] [phone] Neurosurgery, Scan Social History Tobacco Use Types Packs/Day Years [...] on file documented as of this encounter Plan of Treatment Not on file documented as of this encounter Visit Diagnoses Not on filedocumented in this encounter Care Teams Project Development Director Relationship Specialty Start Date End Date Vitor Angel MD [address] [place] [address] PCP - General Psychiatry, General 12/26/18 documented as of this encounter
--- OUTSIDE RECORDS SUMMARY | 2024-06-04 13:37 | XMS_ITS | Encounter Summary ---
Author Organization [facility] Address [address] [place] [address] Care Team Providers Care Assurance Assistant Name Role Phone Vitor Angel MD Primary Care Provider [phone] Encounter Details Date Type Department Care Team (Late st Contact Info) Description 02/15/2022 Scanned Document [facility] Neurosurgery [address] [phone] Neurosurgery, Scan Social History Tobacco Use Types [...] on file Sexual Orientation Not on file COVID-19 Exposure Response Date Recorded In the last 10 days, have yo u been in contact with someone who was confirmed or suspected to have Coronavirus/COVID-19? No / Unsure 02/15/2022 12:42 PM EST documented as of this encounter Plan of Treatment Not on file documented as of this encounter Visit Diagnoses Not on filedocumented in this encounter Care Teams Assurance Assistant Relationship Specialty Start Date End Date Vitor Angel MD [address] [place] [address] PCP - General Psychiatry, General 12/26/18 documented as of this encounter
--- OUTSIDE RECORDS SUMMARY | 2024-06-04 13:37 | XMS_ITS | Encounter Summary ---
Author Organization [facility] Address [address] [place] [address] Care Team Providers Care Clinical Data Management Director Name Role Phone Vitor Angel MD Primary Care Provider [phone] Encounter Details Date Type Department Care Team (Late st Contact Info) Description 01/21/2022 Scanned Document [facility] Neurosurgery [address] [phone] Social History Tobacco Use Types Packs/Day Years [...] on filedocumented in this encounter Care Teams Clinical Data Management Director Relationship Specialty Start Date End Date Vitor Angel MD [address] [place] [address] PCP - General Psychiatry, General 12/26/18 documented as of this encounter
--- OUTSIDE RECORDS SUMMARY | 2024-06-04 13:37 | XMS_ITS | Encounter Summary ---
Author Organization [employer] [facility] Address [address] [place] [address] 7 [place] [address] Care Team Providers Care Car Dumper Name Role Phone Lucila Cannon LCSW Unavailable [phone] Claudia Gamez CNP Primary Care Provider [phone] Encounter Details Date Type Department Care Team (Late st Contact Info) Description 04/27/2022 Abstract [place] [facility] MEDICAL [address] [place] [address] Claudia Gamez CNP [address] [place] [address] Social History Tobacco Use Types Packs/Day Years Used Date Smoking Tobacco: Never Assessed Comments Unknown Sex and Gender Information Value Date Recorded Sex Assigned at Female 03/14/2022 8:57 AM EST Legal Sex Female 8:34 PM EDT Gender Identity Female 03/14/2022 8:57 AM EST Sexual Orientation Straight 04/15/2022 10 :01 AM EST documented as of this encounter Plan of Treatment Not on file documented as of this encounter Visit Diagnoses Not on filedocumented in this encounter Care Teams Car Dumper Relationship Specialty Start Date End Date Claudia Gamez CNP [address] [place] [address] PCP - General Family Medicine 05/03/22 02/01/23 Lucila Cannon LCSW [address] [place] [address] Photographic Equipment Inspector Behavioral Health 03/14/22 provider unknown Primary Care Provider 02/02/23 documented as of this encounter
--- OUTSIDE RECORDS SUMMARY | 2024-06-04 13:37 | XMS_ITS | Encounter Summary ---
Author Organization [employer] Address [address] [place] [address] 7 [place] [address] Care Team Providers Care Light Bulb Assembler Name Role Phone Lucila Cannon CONVALESCENT SITTER Unavailable [phone] Claudia Gamez CNP Primary Care Provider [phone] Reason for Visit * Reason Comments Med Refill Encounter Details Date Type Department Care Team (Late st Contact Info) Description 09/07/2022 Refill [facility] MEDICAL [address] [place], [place] [phone] Cassandra Long FNP [address] [place] [address] Primary insomnia Social History Tobacco Use Types Packs/Day Years Used Date Smoking Tobacco: Never Assessed Comments Unknown Sex and Gender Information Value Date Recorded Sex Assigned at Female 03/14/2022 8:57 AM EST Legal Sex Female 8:34 PM EDT Gender Identity Female 03/14/2022 8:57 AM EST Sexual Orientation Straight 04/15/2022 10 :01 AM EST documented as of this encounter Miscellaneous Notes * Telephone Encounter - Claudia Gamez CNP - 09/07/2022 2:52 PM EDT Denied I believe she is seeing anew PCP in [place] documented in this encounter Plan of Treatment Not on file documented as of this encounter Visit Diagnoses Diagnosis Primary insomnia Persistent disorder of initiating or maintaining sleep documented in this encounter Care Teams Light Bulb Assembler Relationship Specialty Start Date End Date Claudia Gamez CNP [address] [place] [address] PCP - General Family Medicine 05/03/22 02/01/23 Lucila Cannon LCSW [address] [place] [address] Labor Contractor Behavioral Health 03/14/22 provider unknown Primary Care Provider 02/02/23 documented as of this encounter
--- OUTSIDE RECORDS SUMMARY | 2024-06-04 13:37 | XMS_ITS | Encounter Summary ---
Author Organization [facility] Address [address] [place] [address] Care Team Providers Care Desktop Specialist Name Role Phone Vitor Angel MD Primary Care Provider [phone] Reason for Visit * Reason Comments Advice Only Encounter Details Date Type Department Care Team (Late st Contact Info) Description 05/11/2022 Telephone [facility] Neurosurgery [address] [phone] Nestor Cummings PA-C [address] [place] [address] Advice Only Social History Tobacco Use Types Packs/Day Years [...] encounter Miscellaneous Notes * Telephone Encounter - Nestor Cummings PA-C - 05/11/2022 11:51 AM EST I appreciate the patient letting us know. documented in this encounter Plan of Treatment Not on file documented as of this encounter Visit Diagnoses Not on filedocumented in this encounter Care Teams Desktop Specialist Relationship Specialty Start Date End Date Vitor Angel MD [address] [place], [place] [id number] PCP - General Psychiatry, General 12/26/18 documented as of this encounter
--- OUTSIDE RECORDS SUMMARY | 2024-06-04 13:37 | XMS_ITS | Clinical Summary ---
Author Organization [employer] Address [address] [facility] 7t [place] [address] Care Team Providers Care Senior Auditor Name Role Phone Lucila Cannon CHIEF RISK OFFICER Unavailable [phone] Allergies Active Allergy Reactions Criticality Noted Date Comments Aripiprazole 05/03/2022 Other reaction(s): mood disorder Bupropion 05/03/2022 Other reaction(s): mood disorder Buspirone Medium 02/15/2022 Other reaction(s): hives, Unknown/Patient and Family Unable to Define Cefaclor Hives Medium 01/05/2018 Other reaction(s): hives Clarithromycin 05/03/2022 Other reaction(s): diarrhea GI issues Clindamycin 05/03/2022 Other reaction(s): burned inside of mouth, Burning mouth syndrome Codeine Nausea And Vomiting Low 05/16/2018 Other reaction(s): palpitations, nausea Diphenhydramine Itching Medium 01/07/2013 Other reaction(s): itching and rash Doxycycline Diarrhea 05/03/2022 Duloxetine Hcl 05/03/2022 Other reaction(s): nausea diarrhea insomnia weird feeling in head Hydrocodone-Acetaminoph en 05/03/2022 Other reaction(s): dizziness, oversedation Morphine 05/03/2022 Other reaction(s): dizzyness, hallucinations Nifedipine 05/03/2022 Other reaction(s): swelling Nortriptyline 05/03/2022 Other reaction(s): mood disorder Paroxetine 05/03/2022 Other reaction(s): vertigo Penicillins Hives,Itching High 01/07/2013 Other reaction(s): hives Sertraline 05/03/2022 Other reaction(s): oversedation Topiramate 05/03/2022 Other reaction(s): abdominal pain Tramadol 05/03/2022 Other reaction(s): HAUSER, sweating, nasuea Medications * This document contains information received from the source organization and may not represent a complete record from that organization. cetirizine-pseudo ephedrine (ZyrTEC-D ALLERGY & CONGESTION) 5-120 MG 12 hr tablet 1 tablet in the morning. 1 Active fluticasone (Flonase) 50 MCG/ACT nasal spray INHALE 1 SPRAY IN EACH NOSTRIL TWICE DAILY 9 Active docusate sodium (Colace) 100 MG tablet 1 tablet. Active betamethasone dipropionate 0.05 % cream 1 application. 0 Active diclofenac (Voltaren) 75 MG EC tablet 1 tablet. Active alpha tocopherol (Vitamin E) 400 units capsule Orally Active beta carotene (vitamin A) 3 MG (85497 UT) capsule daily. Active Specialty Vitamins Products (ADVANCED COLLAGEN PO) Advanced Collagen Active cyanocobalamin (Vitamin B-12) 1000 MCG tablet 1 tablet in the morning. Active Apoaequorin (Prevagen Extra Strength) 20 MG capsule Prevagen Extra Strength Active Magnesium 500 MG capsule 1 tablet in the morning. Active ipratropium (Atrovent) 0.03 % nasal spray 2 sprays. Active Calcium Carb-Cholecalcife rol (Calcium+D3) 500-10 MG-MCG tablet Calcium + D3 Active ascorbic acid (Vitamin C) 1000 MG tablet Active Bacillus Coagulans-Inulin (Probiotic) 1-250 BILLION-MG capsule daily. 2 Active pantoprazole (ProtoNix) 40 MG EC tablet Take 40 mg by mouth in the morning. 2 Active butalbital-acetam inophen-caffeine (Fioricet) 50-300-40 MG capsule as needed. Active meclizine (Antivert) 25 MG tablet Take 25 mg by mouth every 8 (eight) hours if needed. 2 Active Multiple Vitamins-Minerals (Womens Multi Gummies) chewable tablet as directed Orally Active metoprolol succinate XL (Toprol-XL) 25 MG 24 hr tablet Take 25 mg by mouth in the morning. 2 Active promethazine (Phenergan) 25 MG tablet Take 25 mg by mouth if needed in the morning and at bedtime. 2 Active clobetasol (Temovate) 0.05 % ointment APPLY TO AFFECTED AREA EXTERNALLY TWICE A DAY NEEDED 2 Active spironolactone (Aldactone) 25 MG tablet 2 Active albuterol 108 (90 Base) MCG/ACT inhaler Inhale 2 puffs every 6 (six) hours. 2 Active Aspirin Low Dose 81 MG chewable tablet Chew 81 mg in the morning. 2 Active Azelastine HCl 137 MCG/SPRAY solution 1 SPRAY TO EACH NOSTRIL TWICE A DAY 2 Active estradiol (Vivelle-DOT) 0.05 MG/24HR APPLY 1 PATCH TOPICALLY EVERY MONDAY AND Monday 2 Active CombiPatch 0.05-0.14 MG/DAY APPLY 1 PATCH TOPICALLY EVERY MONDAY AND MONDAY. STOP MEDICATION IF SMOKING STARTS 2 Active latanoprost (Xalatan) 0.005 % ophthalmic solution INSTILL 1 DROP INTO BOTH EYES EVERY DAY AT NIGHT 3 Active Linzess 145 MCG capsule TAKE 1 CAPSULE BY MOUTH AT LEAST 30 MIN BEFORE THE FIRST MEAL OF THE DAY ON AN EMPTY STOMACH. 3 Active megestrol (Megace) 20 MG tablet Take 40 mg by mouth in the morning. 2 Active medroxyPROGESTERo ne (Provera) 10 MG tablet Take 10 mg by mouth 2 times daily. 2 Active Ospemifene (Osphena) 60 MG tablet Take 1 tablet by mouth in the morning. 9 Active Ubrelvy 100 MG tablet PLEASE SEE ATTACHED FOR DETAILED DIRECTIONS 2 Active varenicline (Chantix CINDY) 0.5 MG X 11 & 1 MG X 42 tablet TAKE DIRECTED 2 Active nystatin-triamcin olone (Mycolog II) ointment APPLY TWICE DAILY TO CORNER OF MOUTH UP TO 2 WEEKS ON, 1 WEEK OFF USE VASELINE DURING WEEK OFF 2 Active chlorthalidone (Hygroton) 25 MG tablet TAKE 1 TABLET BY MOUTH EVERY DAY IN THE MORNING WITH FOOD 2 Active cholecalciferol (Vitamin D-3) 25 MCG (1000 UT) tablet Take 1,000 Units by mouth. 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 84 tablet 3 Active ondansetron (Zofran) 4 MG tabletIndications :Nausea TAKE 1 TABLET BY MOUTH EVERY DAY NEEDED FOR NAUSEA 30 tablet 3 Active traZODone (Desyrel) 50 MG tabletIndications :Primary insomnia Take 1 tablet (50 mg) by mouth if needed at bedtime for sleep. 30 tablet 3 Active Active Problems Problem Noted Date Diagnosed Date PTSD (post-traumatic stress disorder) 10/10/2022 Primary insomnia 05/16/2022 Nausea 05/16/2022 Resolved Problems Problem Noted Date Diagnosed Date Resolved Date Moderate episode of recurren t major depressive disorder 03/14/2022 10/10/2022 Immunizations Name Administration Dates Next Due Influenza Quadrivalent Adjuvanted 03/09/2022 Influenza injectable quadriv alent preservative free 01/14/2019,01/23/2018 Influenza, IIV3, injectable 01/04/2021,1 ,01/18/2017,03/10,03/07/2014 Influenza, Split (incl. elenita fied surface antigen) 02/16/2015,01/17/2013,02/01/2012,01/24,12/09/2010,01/25/2010,02/08/2008 MMR 02/12/2007 Moderna Covid-19 Vaccine 12+ 10/22/2021 Moderna Covid-19 Vaccine 6+ Bivalent 10/22/2021 Pfizer Covid-19 Vaccine 12+ Bivalent 04/12/2022 Pneumococcal Polysaccharide PPSV23 03/09/2022,,03/10/2016 TD (adult), 2 Lf tetanus tox oid, preservative free, adsorbed 04/21/2021,04/22/2003 Tdap 04/15/2011 Zoster, Recombinant 12/06/2017,07/28/2017 Social History Tobacco Use Types Packs/Day Years Used Date Smoking Tobacco: Never Assessed Comments Unknown Sex and Gender Information Value Date Recorded Sex Assigned at Female 03/14/2022 8:57 AM EST Legal Sex Female 8:34 PM EDT Gender Identity Female 03/14/2022 8:57 AM EST Sexual Orientation Straight 04/15/2022 10 :01 AM EST Last Filed Vital Signs Vital Sign Reading Time Taken Comments Blood Pressure 142/102 12/22/2021 10:00 AM EDT Pulse 80 12/22/2021 10:00 AM EDT Temperature - - Respiratory Rate - - Oxygen Saturation 99% 12/22/2021 10:00 AM EDT Inhaled Oxygen Concentration - - Weight 60.1 kg (132 lb 9.6 oz) 12/22/2021 10:00 AM EDT Height 168.9 cm (5' 6.5 ) 12/22/2021 10:00 AM ED T Body Mass Index 21.08 12/22/2021 10:00 AM EDT Plan of Treatment Health Maintenance Due Date Last Done Comments CT Colonography 1954 Depression Screening 1954 FIT DNA/Cologuard 1954 FIT 1954 FOBT 1954 SDOH Screening 1954 Sigmoidoscopy 1954 Alcohol/Substance Use Screening 1966 Tobacco Screening 1966 Hepatitis C Screening 1972 RSV Patients and Patients Aged 60 years or older (1 - Risk 60-74 years 1-dose series) 2014 Colonoscopy 10/15/2019 10/14/2009 Colorectal Cancer Screening 10/15/2019 Mammogram 01/19/2023 01/19/2021, 01/08, 01/11/2021, Additional history exists COVID-19 Vaccine ( season) 2023 03/17/2023, 04/12/2022, 10/22/2021, Additional history exists Lipid Panel 07/23/2026 07/23/2021, 04/10, 01/31/2020 DTaP/Tdap/Td Vaccines (4 - Td or Tdap) 10/12/2032 10/12/2022, 04/21/2021, 04/21/2021, Additional history exists Zoster Vaccines Completed 12/06/2017, 07/28/2017 Influenza Vaccine Completed 01/01/2024, , 12/14/2022, Additional history exists Pneumococcal Vaccine: 50+ Years Completed 01/19/2024, 03/09/2022, 01/04/2021, Additional history exists HIB Vaccines Aged Out No longer eligi ble based on patient's age to complete this topic HPV Vaccines Aged Out No longer eligi ble based on patient's age to complete this topic Hepatitis A Vaccines Aged Out No long er eligible based on patient's age to complete this topic Hepatitis B Vaccines Aged Out No long er eligible based on patient's age to complete this topic IPV Vaccines Aged Out No longer eligi ble based on patient's age to complete this topic Meningococcal Vaccine Aged Out No ena ambar eligible based on patient's age to complete this topic RSV under 20 months Aged Out No longe r eligible based on patient's age to complete this topic Rotavirus Vaccines Aged Out No longer eligible based on patient's age to complete this topic Procedures Procedure Name Priority Date/Time Associated Diagnosis Comments LIPID PANEL, STANDARD Routine 07/23/2021 9:06 AM EDT MAMMOGRAPHY Routine 01/19/2021 COLONOSCOPY Routine 10/14/2009 from Last 3 Months or Most Recently Relevant to Health Maintenance Results * -Lipid Panel (07/23/2021 9:06 AM EDT) LDL CHOLESTEROL, CALCULATED 112 (0-130) MG/DL [facility] CHOLESTEROL, TOTAL 186 (<200) MG/DL [facility] HDL CHOL 63 (>39) MG/DL [facility] NON HDL CHOLESTEROL (CALC) 123 (<160) MG/DL [facility] TRIGLYCERIDE 54 (<150) MG/DL [facility] 07/23/2021 9:06 AM EDT us Claudia Gamez DENTAL TREATMENT COORDINATOR LAB BLOOD ORDERABLES Final Re sult [facility] [address] * Mammography (01/19/2021) Mammogram BI RADS one negative Anatomical Region Laterality Modality Other us Historical Provider HEALTH MAINTENANCE Final Result * Colonoscopy (10/14/2009) Colonoscopy Diverticulosis of the sigmoid colon, internal and external hemrrhoids. follow up the biopsy results us Historical Provider HEALTH MAINTENANCE Final Result from Last 3 Months or Most Recently Relevant to Health Maintenance Insurance MEDICARE UNICARE MEDICARE EXTENSION Care Teams Senior Auditor Relationship Specialty Start Date End Date Lucila Cannon LCSW [address] [place] [address] Tank Charger Behavioral Health 03/14/22 provider unknown Primary Care Provider 02/02/23
--- OUTSIDE RECORDS SUMMARY | 2024-06-04 13:37 | XMS_ITS | Encounter Summary ---
Author Organization [employer] [facility] Address [address] [place] [address] 7 [place] [address] Care Team Providers Care Loop Puller Name Role Phone Lucila Cannon LCSW Unavailable [phone] Claudia Gamez CNP Primary Care Provider [phone] Encounter Details Date Type Department Care Team (Late st Contact Info) Description 04/28/2022 Abstract [place] [facility] MED[facility] [address] [place] [address] Provider, Chris, Social History Tobacco Use Types Packs/Day Years [...] on filedocumented in this encounter Care Teams Loop Puller Relationship Specialty Start Date End Date Claudia Gamez CNP [address] [place] [address] PCP - General Family Medicine 05/03/22 02/01/23 Lucila Cannon LCSW [address] [place] [address] Drywall Worker Behavioral Health 03/14/22 provider unknown Primary Care Provider 02/02/23 documented as of this encounter
--- OUTSIDE RECORDS SUMMARY | 2024-06-04 13:37 | XMS_ITS | Encounter Summary ---
Author Organization [employer] Address [address] [place] [address] 7 [place] [address] Care Team Providers Care Brand Planner Name Role Phone Lucila Cannon ADVANCED NURSING PROFESSOR Unavailable [phone] Claudia Gamez CNP Primary Care Provider [phone] Reason for Visit * Reason Comments Med Refill Encounter Details Date Type Department Care Team (Late st Contact Info) Description 05/16/2022 Refill [facility] MEDICAL [address] [place] [address] Claudia Gamez CNP [address] [place] [address] Primary insomnia (Primary Dx) Social History Tobacco Use Types Packs/Day Years Used Date Smoking Tobacco: Never Assessed Comments Unknown Sex and Gender Information Value Date Recorded Sex Assigned at Female 03/14/2022 8:57 AM EST Legal Sex Female 8:34 PM EDT Gender Identity Female 03/14/2022 8:57 AM EST Sexual Orientation Straight 04/15/2022 10 :01 AM EST documented as of this encounter Miscellaneous Notes * Telephone Encounter - Milli Larson - 05/19/2022 2:45 PM EST Scheduled [id number] w/BC OV * Telephone Encounter - Claudia Gamez CNP - 05/16/2022 4:28 PM EST Due OV; please coordinate with pt; thanks documented in this encounter Plan of Treatment Not on file documented as of this encounter Visit Diagnoses Diagnosis Primary insomnia- Primary Persistent disorder of initiating or maintaining sleep documented in this encounter Care Teams Brand Planner Relationship Specialty Start Date End Date Claudia Gamez CNP [address] [facility] [place] [address] PCP - General Family Medicine 05/03/22 02/01/23 Lucila Cannon LCSW 9 [facility] [place] [address] Line Maintainer Behavioral Health 03/14/22 provider unknown Primary Care Provider 02/02/23 documented as of this encounter
--- OUTSIDE RECORDS SUMMARY | 2024-06-04 13:37 | XMS_ITS | Encounter Summary ---
Author Organization [facility] Address [address] [place] [address] Care Team Providers Care Recruiting Specialist Name Role Phone Vitor Angel MD Primary Care Provider [phone] Reason for Visit * Reason Comments Referral Pain Management Encounter Details Date Type Department Care Team (Late st Contact Info) Description 04/05/2022 Telephone [facility] Neurosurgery [address] [phone] Nestor Cummings PA-C [address] [place] [address] Referral (Pain Management) Social History Tobacco Use Types Packs/Day Years [...] Telephone Encounter - Nestor Cummings PA-C - 04/06/2022 8:11 AM EST Referral placed in patient chart. documented in this encounter Plan of Treatment Not on file documented as of this encounter Visit Diagnoses Not on filedocumented in this encounter Care Teams Recruiting Specialist Relationship Specialty Start Date End Date Vitor Angel MD [address] [place], [place] [id number] PCP - General Psychiatry, General 12/26/18 documented as of this encounter
--- OUTSIDE RECORDS SUMMARY | 2024-06-04 13:38 | XMS_ITS | Clinical Summary ---
Author Organization [facility] Address [address] [facility] [address] [place] [address] Phone Care Team Providers Care Optoelectronics Engineer Name Role Phone Jacey Lora MD Primary Care Provider [phone] Allergies Active Allergy Reactions Criticality Noted Date Comments Aripiprazole 05/03/2022 Other reaction(s): mood disorder Bupropion 05/03/2022 Other reaction(s): mood disorder Buspirone Other (see comments) Medium 02/15/2022 Other reaction(s): hives, Unknown/Patient and Family Unable to Define Cefaclor Hives,Other (see comments) Medium 01/05/2018 Other reaction(s): hives Clarithromycin 05/03/2022 Other reaction(s): diarrhea GI issues Clindamycin Other (see comments) 05/03/2022 Other reaction(s): burned inside of mouth, Burning mouth syndrome Codeine Nausea And Vomiting Low 05/16/2018 Other reaction(s): palpitations, nausea Diphenhydramine Itching,Other (see comments) Medium 01/07/2013 Other reaction(s): itching and rash Doxycycline Diarrhea 05/03/2022 Duloxetine Hcl 05/03/2022 Other reaction(s): nausea diarrhea insomnia weird feeling in head Hydrocodone-Acetaminoph en 05/03/2022 Other reaction(s): dizziness, oversedation Morphine 05/03/2022 Other reaction(s): dizzyness, hallucinations Nifedipine 05/03/2022 Other reaction(s): swelling Nortriptyline 05/03/2022 Other reaction(s): mood disorder Paroxetine 05/03/2022 Other reaction(s): vertigo Penicillins Hives,Itching,Oth er (see comments) High 01/07/2013 Other reaction(s): hives Sertraline 05/03/2022 Other reaction(s): oversedation Topiramate 05/03/2022 Other reaction(s): abdominal pain Tramadol 05/03/2022 Other reaction(s): HAUSER, sweating, nasuea Medications amLODIPine (NORVASC) 5 MG tablet Take 5 mg by mouth 1 (one) time each day 3 Active Apoaequorin (Prevagen Extra Strength) 20 MG capsule Take 20 mg by mouth if needed Active ascorbic acid (VITAMIN C) 1000 MG tablet Take 1,000 mg by mouth 1 (one) time each day Active Azelastine HCl 137 MCG/SPRAY solution Administer 1 spray into each nostril in the morning and 1 spray in the evening. 2 Active Bacillus Coagulans-Inuli n (Probiotic) 1-250 BILLION-MG capsule Take 1 capsule by mouth in the morning. 2 Active baclofen (LIORESAL) 20 MG tablet Take 20 mg by mouth at bed time 4 Active baclofen (LIORESAL) 10 MG tablet Take 10 mg by mouth at bed time 4 Active clobetasol (TEMOVATE) 0.05 % ointment Apply 1 application. topically in the morning and 1 application. in the evening. Active cyanocobalamin (VITAMIN B-12) 1000 MCG tablet Take 1,000 mcg by mouth 1 (one) time each day Active estradiol (ESTRACE) 0.1 MG/GM vaginal cream Insert 1 g into the vagina every 7 (seven) days Active latanoprost (XALATAN) 0.005 % ophthalmic solution Administer 1 drop into both eyes at bed time Active Ubrelvy 100 MG tablet 1 (one) time each day if needed (migraine) Active spironolactone (ALDACTONE) 25 MG tablet Take 25 mg by mouth 1 (one) time each day Active Xtampza ER 18 MG capsule extended-releas e 12 hour Take 18 mg by mouth in the morning and 18 mg in the evening. Active Multiple Vitamins-Minera ls (Womens Multi Gummies) chewable tablet Chew 1 (one) time each day Active methocarbamol (ROBAXIN) 500 MG tablet Take 500 mg by mouth every night Active oxyCODONE (ROXICODONE) 10 MG immediate release tablet Take 10 mg by mouth every 6 (six) hours if needed Active oxyCODONE (OxyCONTIN) 20 MG 12 hr abuse-deterrent tablet Take 20 mg by mouth every 12 (twelve) hours if needed Active Active Problems Problem Noted Date Diagnosed Date Complex regional pain syndrome type I 10/03/2023 Hypertension 10/03/2023 Labile hypertension due to being in a clinical e nvironment 10/03/2023 Chronic pain 10/03/2023 Anxiety, not otherwise specified 10/03/2023 Endometriosis 09/21/2018 Overview (10/03/2023): 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 Family History Medical History Relation Comments Emphysema Father Hypertension Father Cancer Mother Breast Hypertension Mother Relation Status Comments Father Mother Social History Tobacco Use Types Packs/Day Years Used Date Smoking Tobacco: Former Cigarettes Q uit: 12/2022 Smokeless Tobacco: Never Comments Unknown Sex and Gender Information Value Date Recorded Sex Assigned at Not on file Legal Sex Female 10:31 AM EST Gender Identity Not on file Sexual Orientation Not on file Last Filed Vital Signs Vital Sign Reading Time Taken Comments Blood Pressure 143/83 10/03/2023 9:41 AM EDT Pulse 70 10/03/2023 9:41 AM EDT Temperature - - Respiratory Rate - - Oxygen Saturation 99% 10/03/2023 9:41 AM EDT Inhaled Oxygen Concentration - - Weight 60.9 kg (134 lb 3.2 oz) 10/03/2023 9:41 A M EDT Height 167.6 cm (5' 6 ) 10/03/2023 9:41 AM EDT Body Mass Index 21.66 10/03/2023 9:41 AM EDT Plan of Treatment Health Maintenance Due Date Last Done Comments Breast Cancer Screening 1955 Colorectal Cancer Screening: Annual FOBT 09/26/2003 Colorectal Cancer Screening: Colonoscopy 09/26/2003 Colorectal Cancer Screening: Sigmoidoscopy 09/26/2003 Pneumococcal Vaccine: 65+ Years (2 of 2 - PCV) 03/09/2023 03/09/2022, 01/04/2021, 03/10/2016 Influenza Vaccine (#1) 2023 , 01/14/2019, 01/23/2018, Additional history exists Hepatitis B Vaccine Aged Out No longe r eligible based on patient's age to complete this topic Insurance MEDICARE [facility] MEDICARE UN[employer]ARE Care Teams Optoelectronics Engineer Relationship Specialty Start Date End Date Jacey Lora MD [address] [place] [address], [address] [place] [address] PCP - General Internal Medicine 10/03/23
--- OUTSIDE RECORDS SUMMARY | 2024-06-04 13:38 | XMS_ITS | Encounter Summary ---
Author Organization [facility] Address [address] [place] [address] Care Team Providers Care Insurance Customer Service Specialist Name Role Phone Vitor Angel MD Primary Care Provider [phone] Encounter Details Date Type Department Care Team (Late st Contact Info) Description 05/21/2019 Scanned Document [facility] Neurosurgery [address] [phone] Social History Tobacco Use Types Packs/Day Years [...] on filedocumented in this encounter Care Teams Insurance Customer Service Specialist Relationship Specialty Start Date End Date Vitor Angel MD [address] [place] [address] PCP - General Psychiatry, General 12/26/18 documented as of this encounter
== END 2024-06-04 12:26 | disposition home or self-care (01) ==
PROVIDERS: PCP Internal Medicine; Visit Provider Internal Medicine
DX: Z01.818 Encounter for other preprocedural examination (principal); H26.9 Unspecified cataract

== ENCOUNTER → 2024-06-04 11:09 | Outpatient (BNVA) | payer MEDICARE, OTHER, SELFPAY | PROVIDERS: PCP Internal Medicine; Visit Provider Internal Medicine | DX: Z01.810 Encounter for preprocedural cardiovascular examination (principal); I10 Essential (primary) hypertension; H26.9 Unspecified cataract; N39.0 Urinary tract infection, site not specified; K13.70 Unspecified lesions of oral mucosa; M35.3 Polymyalgia rheumatica; Z87.891 Personal history of nicotine dependence | CPT/HCPCS: 96127; 99212 ==

== ENCOUNTER 2024-06-07 11:31 | Outpatient (REF) | payer MEDICARE, OTHER, SELFPAY ==
--- OUTSIDE RECORDS SUMMARY | 2024-06-07 13:48 | XMS_ITS | Continuity of Care Document ---
Author Organization [facility] Address [address] [facility], [address] d Floor, [address] [place] [address]- Care Team Providers Care Metal Coater Name Role Phone Not on Staff, PCP Primary Care Physician Unavail able Encounter [facility] Date(s): 05/07/24 - 06/06/24 [facility] [address], [address] [place] [id number] Encounter Type: Triage Allergies, Adverse Reactions, Alerts Substance Criticality Severity Reaction Reaction Severity Status codeine Active doxycycline Diarrhea Active clindamycin Burning mouth syndrome Active penicillins Active Zoloft Active Wellbutrin Active Ultram Active Topamax Active Ceclor Active Benadryl Active BuSpar Active Immunizations Given and Recorded Vaccine Date Status Refusal Reason SARS-CoV-2(COVID-19)mRNA-LNP vac([id number]) 03/17/23 Recorded RSV vaccine preF3, recombinant 12/14/22 Recorded influenza virus vaccine, inactivated 12/14/22 Homar rded influenza virus vaccine, inactivated 03/09/22 Homar rded influenza virus vaccine, inactivated 01/04/21 Homar rded influenza virus vaccine, inactivated 01/28/20 Homar rded influenza virus vaccine, inactivated 01/14/19 Homar rded influenza virus vaccine, inactivated 01/23/18 Homar rded tetanus/diphtheria/pertussis, acel(Tdap) 10/12/22 Recorded tetanus/diphtheria/pertussis, acel(Tdap) 04/15/11 Recorded [id number] 12y+ bivalent booster vax 04/12/22 Recorded pneumococcal 23-valent vaccine 03/09/22 Recorded pneumococcal 23-valent vaccine 01/04/21 Recorded pneumococcal 23-valent vaccine 03/10/16 Recorded SARS-CoV-2 (COVID-19) mRNA-1273 vaccine 10/22/21 R ecorded SARS-CoV-2 (COVID-19) mRNA-1273 vaccine 07/09/20 R ecorded SARS-CoV-2 (COVID-19) mRNA-1273 vaccine 06/11/20 R ecorded tetanus-diphtheria toxoids (Td) 04/21/21 Recorded tetanus-diphtheria toxoids (Td) 04/22/03 Recorded SARS-CoV-2 (COVID-19) mRNA BNT-162b2 vac 02/04/21 Recorded zoster vaccine, inactivated 12/06/17 Recorded zoster vaccine, inactivated 07/28/17 Recorded Measles/Mumps/Rubella Virus Vaccine 02/12/07 Recor ded Medications amLODIPine 5 mg oral tablet 1 tablet, By Mouth, Daily, # 90 tablet, 1 Refills, Maintenance, 08/14/23 2:42:00 AM EDT, [facility], 165, cm, 06/21/23 12:27:00 EDT, Height, 62, kg, 02/28/23 9:04:00 EST, Dry Weight Start Date: 08/14/23 Status: Ordered Quantity: 90.0 Unit: tablet Repeat number: 2 BACLOFEN 10MG TAB BACLOFEN 10MG TAB, 0 Refills, Maintenance, 08/07/23 8:22:00 AM EDT Start Date: 08/07/23 Status: Ordered Repeat number: 1 calcium (as carbonate)-vitamin D 500 mg-400 intl units oral tablet 1 tablet, By Mouth, 2 times a day, # 300 tablet, 3 Refills, Maintenance, 10/09/23 7:16:00 AM EDT, Tablet, [facility], Partial fill upon patient request if the prescription is for a schedule II opioid drug., 1 tablet By Mouth 2 times a day, 168, cm, 09/07/23 22:51:00 EDT, Height, 60, kg, 09/07/23 22:51:00 EDT, Dry Weight Start Date: 10/09/23 Status: Ordered Quantity: 300.0 Unit: tablet Repeat number: 4 clobetasol 0.05% topical ointment 1 application, Topically, 2 times a day, # 30 Gm, 0 Refills, Maintenance, 07/10/23 8:35:00 AM EDT, [facility], 30, APPLY 1 APPLICATION TOPICALLY 2 TIMES A DAY FOR 10 DAYS, 165, cm, 06/21/23 12:27:00 EDT, Height, 62, kg, 02/28/23 9:04:00 EST, Dry Weight Start Date: 07/10/23 Stop Date: 07/20/23 Status: Ordered Quantity: 30.0 Unit: g Repeat number: 1 cyclobenzaprine 5 mg oral tablet 1 tablet, By Mouth, Every 8 hours, PRN NEEDED FOR PAIN/SPASM X, # 90 tablet, 0 Refills, Maintenance, 05/30/23 8:29:00 AM EST, [id number], 165, cm, 04/06/23 14:54:00 EST, Height, 62, kg, 02/28/23 9:04:00 EST, Dry Weight Start Date: 05/30/23 Stop Date: 06/29/23 Status: Ordered Quantity: 90.0 Unit: tablet Repeat number: 1 estradiol 0.1 mg/g vaginal cream See Instructions, USE 1 GM VAGINALLY DAILY AT BEDTIME TAKE EVERY NIGHT FOR TWO WEEKS THEN TWICE WEEKLY, # 42.5 Gm, 11 Refills, Maintenance, 04/02/24 8:54:00 AM EST, [facility], 168, cm, 02/06/2411:35:00 EDT, Height, 63.5, kg, 02/07/24 11:04:00 EDT, Dry Weight Start Date: 04/02/24 Status: Ordered Quantity: 42.5 Unit: g Repeat number: 1 fosfomycin 3 g oral granule for reconstitution 1 each = 3 Gm, By Mouth, Once, # 1 pack/packet, 0 Refills, Soft Stop, 02/08/24 10:03:00 AM EDT, Granule, [facility]1234, Partial fill upon patient request if the prescription is for a schedule IIopioid drug., 168, cm, 02/07/24 11:35:00 EDT, Height, 63.5, kg, 02/07/24 11:04:00 EDT, Dry Weight Start Date: 02/08/24 Status: Ordered Quantity: 1.0 Unit: pack/packet Repeat number: 1 Ipratropium 2, sprays, Nares, Both, 2 times a day, Refills 0, Maintenance, 06/03/22 9:48:00 AM EST Start Date: 06/03/22 Status: Ordered Repeat number: 1 latanoprost 0.005% ophthalmic solution 1 drops, Eyes, Both, Daily at bedtime, # 3 mL, 0 Refills, Maintenance, 06/03/22 10:10:00 PM EST, [facility], Partial fill upon patient request if the prescription is for a schedule II opioid drug. Start Date: 06/03/22 Status: Ordered Quantity: 3.0 Unit: mL Repeat number: 1 Linzess 145 mcg oral capsule 1 capsule = 145 mcg, By Mouth, Daily, 0 Refills, Maintenance, 06/03/22 9:48:00 AM EST, Partial fill upon patient request if the prescription is for a schedule II opioid drug. Start Date: 06/03/22 Status: Ordered Repeat number: 1 morphine sulfate morphine sulfate, Refills 0, Maintenance, 01/16/24 2:05:00 PM EDT, Supply Start Date: 01/16/24 Status: Ordered Repeat number: 1 Narcan 4 mg/0.1 mL nasal spray = 4 mg, Naris, Right, Once, PRN overdose, may repeat every 2 to 3 minutes until patient responds, #2 each, 0 Refills, Soft Stop, 11/17/22 9:50:00 AM EDT, [facility]1234, Partial fill upon patientrequest if the prescription is for a schedule II opioid drug., 168, cm, 11/15/22 14:33:00 EDT, Height, 61, kg, 08/31/22 18:14:00 EDT, Dry Weight Start Date: 11/17/22 Status: Ordered Quantity: 2.0 Unit: each Repeat number: 1 ondansetron 4 mg oral tablet 1 tablet, By Mouth, Every 8 hours, PRN NEEDED FOR NAUSEA AND VOMITING, # 60 tablet, 1 Refills, Maintenance, 06/14/23 4:00:00 PM EST, [facility], 165, cm, 04/06/23 14:54:00 EST, Height, 62, kg, 02/28/23 9:04:00 EST, Dry Weight Start Date: 06/14/23 Status: Ordered Quantity: 60.0 Unit: tablet Repeat number: 1 oxyCODONE 10 mg oral tablet See Instructions, TAKE 1 TABLET BY MOUTH EVERY 8 HOURS NEEDED FOR SEVERE PAIN FOR 28 DAYS, # 84 tablet, 0 Refills, Maintenance, 07/24/23 10:13:00 AM EDT, [facility]1234, 165, cm, 06/21/23 12:27:00 EDT, Height, 62, kg, 02/28/23 9:04:00 EST, Dry Weight Start Date: 07/24/23 Status: Ordered Quantity: 84.0 Unit: tablet Repeat number: 1 pantoprazole 40 mg oral delayed release tablet 1 tablet = 40 mg, By Mouth, 2 times a day, # 30 tablet, 0 Refills, Maintenance, 08/17/17 11:01:53 AMEDT, [facility] Tablet Start Date: 08/17/17 Status: Ordered Quantity: 30.0 Unit: tablet Repeat number: 1 spironolactone 50 mg oral tablet 1 tablet, By Mouth, Daily, # 90 tablet, 1 Refills, Maintenance, 12/09/22 11:02:00 AM EDT, [facility], 168, cm, 11/23/22 10:58:00 EDT, Height, 61, kg, 08/31/22 18:14:00 EDT, Dry Weight Start Date: 12/09/22 Status: Ordered Quantity: 90.0 Unit: tablet Repeat number: 1 Ubrelvy 100 mg oral tablet 1 tablet, By Mouth, Daily, PRN NEEDED FOR MIGRAINE MAY REPEAT IN 2 HOURS, MAX 2 DOSES IN, # 10 tablet, 5 Refills, Maintenance, 04/02/24 10:44:00 AM EST, [facility], 168, cm, 02/07/24 11:35:00EDT, Height, 63.5, kg, 02/07/24 11:04:00 EDT, Dry Weight Start Date: 04/02/24 Stop Date: 04/03/24 Status: Ordered Quantity: 10.0 Unit: tablet Repeat number: 1 vitamin d vitamin d, Refills 0, Maintenance, 01/16/24 2:06:00 PM EDT, Supply Start Date: 01/16/24 Status: Ordered Repeat number: 1 Xtampza ER 9 mg oral capsule, extended release 1 capsule = 9 mg, By Mouth, Every 12 hours, with food, # 56 capsule, 0 Refills, Maintenance, 07/21/23 12:56:00 PM EDT, ER Capsule, [facility], Partial fill upon patient request if the prescription is for a schedule II opioid drug., 165, cm, 06/21/23 12:27:00 EDT, Height, 62, kg, 02/28/23 9:04:00 EST, Dry Weight Start Date: 07/21/23 Stop Date: 08/18/23 Status: Ordered Quantity: 56.0 Unit: capsule Repeat number: 1 Problem List Condition Confirmation Course Effective Dates Status H ealth Status Informant Atrophic vaginitis Confirmed Active Lares's esophagus Confirmed Active Bradycardia Confirmed Active Last pap smear 02/04/2020 negative with negative HPV. Patient denies any history of abnormal paps. Age > 65 years. No further paps needed Confirmed Active Back pain, chronic Confirmed Active Chronic SI joint pain Confirmed Active RSD (reflex sympathetic dystrophy) Confirmed Active Muscle cramps Confirmed Active Dizziness Confirmed Active History of endometriosis Confirmed Active Family history of colon cancer in maternal uncle Confirmed Active Family history of breast cancer in her mother and maternal aunt Confirmed Active GERD (gastroesophageal reflux disease) Confirmed Active Preglaucoma Confirmed Active Hypertension Confirmed Active Colonization with drug-resistant bacteria Confirmed Active History of cerebral aneurysms Confirmed Active IBS (irritable bowel syndrome) Confirmed Active Lichen sclerosus et atrophicus of the vulva - uses clobetasol Confirmed Active Lumbosacral radiculopathy Confirmed Active Menopausal state Confirmed Active Migraines (WITH aura per her neurologist Dr. Elder) Confirmed Active COPD, mild Confirmed Active Near syncope Confirmed Active Night sweats Confirmed Active Osteoporosis Confirmed Active Dyspareunia, female - thought to be secondary to atrophic vaginitis Confirmed Active Palpitations Confirmed Active Screening for cardiovascular condition Confirmed Active Well woman exam Confirmed Active Emphysema of lung Confirmed Active Former smoker, quit December 2021 Confirmed Active History of tobacco use Confirmed Active Vertigo Confirmed Active Social History Social History Type Response Smoking Status Former smoker, quit more than 30 days ago; Other: quit smoking 8/1/23; entered on: 02/28/23 Sex Sex Representation Female (finding) Patient Care team information Care Team Personnel Name: Chris Glover MD Position: [facility] Renal MD Member Role: Lifetime Consulting Physician Address: [address] [facility] [address] [facility] [address] Telecom: Name: Orlando Walter Position: [facility] Outreach Member Role: Lifetime Consulting Physician Name: Delon Martel Position: [facility] Outreach Member Role: Lifetime Consulting Physician Name: Not on Staff, PCP Position: [facility] Physician (General Medicine) Member Role: PCP Name: Cholo Rosales MA Position: [facility] Outreach Member Role: Lifetime Consulting Physician Name: Radha Glynn Position: [facility] KIM Office Staff Member Role: Lifetime Consulting Physician Care Team Related Persons Name: AMRITA WHALEY Name: MANDO WHALEY Name: AMRITA OWUSU Name: YAW LYNN Insurance Providers Guarantor name: RAMON WHALEY Health Plan Information #: 1 Payer: MEDICARE PART B OUTPT Member Number: NA Policy Number: NA Group Number: NA Health Plan Information #: 2 [facility] Member Number: NA Policy Number: NA Group Number: NA
--- OUTSIDE RECORDS SUMMARY | 2024-06-07 13:48 | XMS_ITS ---
Author Organization [facility] Address [address] [place] [address] Care Team Providers Care Commercial Lending Assistant Name Role Phone Jacey Lora M.D. Primary Care Provider Dionte Arenas Jr, Lonnie Blake [phone] REASON FOR VISIT Pt had labs order faxed to [facility] Encounters Encounter Location Date Provider Diagnosis [facility] [address] [place] [address] 08/24/2023 Lonnie Arenas Jr PLAN OF TREATMENT Next Appt Details Provider Name:Lonnie rossi Jr, 07/17/2024 09:20:00 AM, [address] [place] [address], [address], [place], [address],
--- OUTSIDE RECORDS SUMMARY | 2024-06-07 13:48 | XMS_ITS | Patient Health Record ---
Author Organization [facility] Address [address] [place] [address] Care Team Providers Care Chain Sales Consultant Name Role Phone Jacey Lora M.D. Primary Care Provider Unavail able Lonnie Arenas Jr Unavailable ALLERGIES Allergen (clinical drug ingredient) Drug/Non Drug Allergy documented on EMR Reaction Allergy Type Onset Date Status Penicillin Unknown Drug Allergy Active diphenhydramine Benadryl Unknown Drug Allergy A ctive cefaclor ceclor (uncoded) Unknown Allergy Act louis RESULTS Component Value Reference Range Notes US abdomen complete Reviewed date:09/14/2023 10:10:19 AM Interpretation: Performing Lab: Notes/Report: [address] [address] Ultrasound Report Signed Patient: Dolores Pham MR#: [id number] : 1955 Acct:[id number] Age/Sex: 67 / F ADM Date: 09/01/23 Loc: HO.US Attending Dr: Lonnie Arenas MD Ordering Physician: Lonnie Arenas MD Date of Service: 09/01/23 Procedure(s): US abdomen complete Accession Number(s): [id number] cc: Lonnie Arenas MD; Jacey Lora MD [...] in OV> 09/14/23 0933 DD/ 1015 TD/TT: Sales Promotion Representative: REASON FOR REFERRAL No Information MEDICATIONS Medication [...] Lares's esophagus without dysplasia (K22.70) Active confirmed 592946073 Problem Nausea (R11.0) Active confirmed 8218737 07 Problem Dysphagia (R13.10) Active confirmed Dys phagia (33701751) Problem Diverticulitis (K57.92) Active confirmed 893769758 Problem Esophageal spasm (K22.4) Active confirmed 665195100 Problem Dysphagia, unspecified type (R13.10) Active confirmed 74402294 Problem Lares esophagus (K22.70) Active confirmed Lares esophagus (990936877) Problem Abnormal barium swallow (R93.3) Active confirmed 390858225 Problem Irritable bowel syndrome with constipation (K58.1) Active confirmed 406537304 VITAL SIGNS Temperature 98.0 degrees Fahrenheit 07/17/2023 Blood pressure diastolic 00 mm Hg 07/17/2023 Height 65.5 in 07/17/2023 Blood pressure systolic 000 mm Hg 07/17/2023 Weight 137 lb 4 oz lbs 07/17/2023 BMI 22.49 kg/m2 07/17/2023 Encounters Encounter Location Date Provider [facility] [address] [place] [address] 07/17/2023 Lonnie Arenas Jr Dysphagia, unspecified type R13.10 ; Lares esophagus K22.70 and Irritable bowel syndrome with constipation K58.1 [facility] [address] [place] [address] 08/17/2023 Lonnie Arenas Jr Nausea R11.0 [facility] [address] [place] [phone] 08/24/2023 Lonnie Arenas Jr [facility] [address] [place] [phone] 09/14/2023 Lonnie Arenas Jr [facility] [address] [place] [phone] 10/09/2023 Lonnie Arenas Jr ASSESSMENTS Encounter Date [...] Provider Name:Lonnie rossi Jr, 07/17/2024 09:20:00 AM, [address] [place] [address], [address], [place], [address], Insurance Providers Payer Name Payer Address Payer Phone Subscriber Number Group Number Insured Name Patient Relationship to Insured Coverage Start Date Coverage End Date MEDICARE OF [place] [address] [place] [address] [place] [address] [id number] JUDD, CRYSTAL Self - patient is the insured PENDING SALE TO [facility] [employer] [address] [place] [address] [id number] DOLORES PHAM Self - patient is [...]
--- OUTSIDE RECORDS SUMMARY | 2024-06-07 13:49 | XMS_ITS | Encounter Summary ---
Author Organization [facility] Address [address] [place] [address] Care Team Providers Care Director Of Orthopedics Name Role Phone Vitor Angel MD Primary Care Provider [phone] Encounter Details Date Type Department Care Team (Late st Contact Info) Description 01/21/2022 Scanned Document [facility] Neurosurgery [address] [phone] Social History Tobacco Use Types Packs/Day Years [...] on filedocumented in this encounter Care Teams Director Of Orthopedics Relationship Specialty Start Date End Date Vitor Angel MD [address] [place] [id number] PCP - General Psychiatry, General 12/26/18 documented as of this encounter
--- OUTSIDE RECORDS SUMMARY | 2024-06-07 13:49 | XMS_ITS ---
Author Organization [facility] Address [address] [facility] [address] [place] [address] Care Team Providers Care Chief Of Internal Medicine Name Role Phone Jacey Lora M.D. Primary Care Provider Dionte Arenas Jr, Lonnie Blake REASON FOR VISIT refills MEDICATIONS Medication SIG [...] Active Encounters Encounter Location Date Provider Diagnosis [facility] [address] [place] [phone] 10/09/2023 Lonnie Arenas Jr PLAN OF TREATMENT [...] Provider Name:Lonnie rossi Jr, 07/17/2024 09:20:00 AM, [address] [place] [address], [address], [place], [address],
--- OUTSIDE RECORDS SUMMARY | 2024-06-07 13:49 | XMS_ITS | Encounter Summary ---
Author Organization [employer] [facility] Address [address] [place] [address] 7 [place] [address] Care Team Providers Care Public Relations Specialist Name Role Phone Lucila Cannon LCSW Unavailable Claudia Gamez CNP Primary Care Provider [phone] Encounter Details Date Type Department Care Team (Late st Contact Info) Description 04/27/2022 Abstract [place] [facility] MEDICAL [address] [place] [address] Claudia Gamez CNP 73 [place] [address] Social History Tobacco Use Types Packs/Day Years [...] on filedocumented in this encounter Care Teams Public Relations Specialist Relationship Specialty Start Date End Date Claudia Gamez CNP 73 [place] [address] PCP - General Family Medicine 05/03/22 02/01/23 Lucila Cannon LCSW 9 [place] [address] [employer] Teammate Behavioral Health 03/14/22 provider unknown Primary Care Provider 02/02/23 documented as of this encounter
--- OUTSIDE RECORDS SUMMARY | 2024-06-07 13:49 | XMS_ITS | Encounter Summary ---
Author Organization [employer] [facility] Address [address] [place] [address] 7 [place] [address] Care Team Providers Care Pourer Off Name Role Phone Lucila Cannon LCSW Unavailable [phone] Claudia Gamez CNP Primary Care Provider [phone] Encounter Details Date Type Department Care Team (Late st Contact Info) Description 04/28/2022 Abstract [place] [facility] MED[facility] 73 [place] [address] Provider, Chris, Social History Tobacco Use Types [...] on filedocumented in this encounter Care Teams Pourer Off Relationship Specialty Start Date End Date Claudia Gamez CNP 73 [place] [address] PCP - General Family Medicine 05/03/22 02/01/23 Lucila Cannon LCSW 9 [place] [address] Summer School Coordinator Behavioral Health 03/14/22 provider unknown Primary Care Provider 02/02/23 documented as of this encounter
--- OUTSIDE RECORDS SUMMARY | 2024-06-07 13:49 | XMS_ITS | Clinical Summary ---
Author Organization [employer] Address 75 [facility] 7t [place] [address] Care Team Providers Care Trade Sales Assistant Name Role Phone Lucila Cannon WAITER/WAITRESS COUNTER Unavailable [phone] Allergies Active Allergy Reactions Criticality Noted Date [...] Active beta carotene (vitamin A) 3 MG (31292 UT) capsule daily. Active Specialty Vitamins Products [...] LAB SYSTEM CHOLESTEROL, TOTAL 186 (<200) MG/DL [facility] HDL CHOL 63 (>39) MG/DL [facility] NON HDL CHOLESTEROL (CALC) 123 (<160) MG/DL [facility] TRIGLYCERIDE 54 (<150) MG/DL [facility] 07/23/2021 9:06 AM EDT us Claudia Gamez CORPORATE TRAVEL COORDINATOR LAB BLOOD ORDERABLES Final Re sult [facility] [address] * Mammography (01/19/2021) Mammogram BI RADS [...] Insurance MEDICARE UNICARE MEDICARE EXTENSION Care Teams Trade Sales Assistant Relationship Specialty Start Date End Date Lucila Cannon LCSW 9 [place] [address] Diet Counselor Behavioral Health 03/14/22 provider unknown Primary Care Provider 02/02/23
--- OUTSIDE RECORDS SUMMARY | 2024-06-07 13:49 | XMS_ITS | Encounter Summary ---
Author Organization [facility] Address [address] [place] [address] Care Team Providers Care Partner Manager Name Role Phone Vitor Angel MD Primary Care Provider Reason for Visit * Reason Comments Referral Pain Management Encounter Details Date Type Department Care Team (Late st Contact Info) Description 04/05/2022 Telephone [facility] Neurosurgery [address] [phone] Nestor Cummings PA-C [address] [place] [address] Referral (Pain Management) Social History Tobacco [...] on filedocumented in this encounter Care Teams Partner Manager Relationship Specialty Start Date End Date Vitor Angel MD [address] [place], [place] [phone] PCP - General Psychiatry, General 12/26/18 documented as of this encounter
--- OUTSIDE RECORDS SUMMARY | 2024-06-07 13:49 | XMS_ITS | Clinical Summary ---
Author Organization [facility] Address 100 [facility] 20 0 [place] [address] Phone Care Team Providers Care Booster Operator Name Role Phone Jacey Lora MD Primary Care Provider Allergies Active Allergy Reactions Criticality Noted Date [...] otherwise specified 10/03/2023 Endometriosis 09/21/2018 Overview (10/03/2023): SPRING COILER HAND: DR Ceasar Hutchison rx- Adderall for endometriosis... [...] age to complete this topic Insurance MEDICARE [facility] MEDICARE UNICARE Care Teams Booster Operator Relationship Specialty Start Date End Date Jacey Lora MD [address] [place] [address], [address] [place] [address] PCP - General Internal Medicine 10/03/23
--- OUTSIDE RECORDS SUMMARY | 2024-06-07 13:49 | XMS_ITS | Encounter Summary ---
Author Organization [facility] Address [address] [place] [address] Care Team Providers Care Sports Betting Manager Name Role Phone Vitor Angel MD Primary Care Provider [phone] Encounter Details Date Type Department Care Team (Late st Contact Info) Description 04/13/[address] [facility] Neurosurgery [address] [address] Neurosurgery, Scan Social History Tobacco Use Types [...] on filedocumented in this encounter Care Teams Sports Betting Manager Relationship Specialty Start Date End Date Vitor Angel MD [address] [place] [address] PCP - General Psychiatry, General 12/26/18 documented as of this encounter
--- OUTSIDE RECORDS SUMMARY | 2024-06-07 13:49 | XMS_ITS | Clinical Summary ---
Author Organization [facility] Address [address] [place] [address] Care Team Providers Care Enterprise Account Executive Name Role Phone Vitor Angel MD Primary Care Provider [phone] Allergies Active Allergy Reactions Criticality Noted Date [...] age to complete this topic Care Teams Enterprise Account Executive Relationship Specialty Start Date End Date Vitor Angel MD [address] [place] [id number] PCP - General Psychiatry, General 12/26/18
--- OUTSIDE RECORDS SUMMARY | 2024-06-07 13:49 | XMS_ITS | Encounter Summary ---
Author Organization [facility] Address [address] [place] [address] Care Team Providers Care Medical Laboratory Technologist Name Role Phone Vitor Angel MD Primary Care Provider [phone] Encounter Details Date Type Department Care Team (Late st Contact Info) Description 12/17/2021 Telephone [facility] Neurosurgery [address] [address] Trino Humphrey MD [address] [place] [address] 5 [place] [address] Social History Tobacco Use Types Packs/Day Years [...] on filedocumented in this encounter Care Teams Medical Laboratory Technologist Relationship Specialty Start Date End Date Vitor Angel MD [address] [place], [place] [phone] PCP - General Psychiatry, General 12/26/18 documented as of this encounter
--- OUTSIDE RECORDS SUMMARY | 2024-06-07 13:49 | XMS_ITS | Encounter Summary ---
Author Organization [employer] Address [address] [place] [address] 7 [place] [address] Care Team Providers Care Cook Starch Name Role Phone Lucila Cannon INSOLE DEPARTMENT WORKER Unavailable [phone] Claudia Gamez CNP Primary Care Provider [phone] Reason for Visit * Reason Comments Med Refill Encounter Details Date Type Department Care Team (Late st Contact Info) Description 05/16/2022 Refill [facility] MEDICAL [address] [place] [address] Claudia Gamez CNP 73 [place] [address] Primary insomnia (Primary Dx) Social History Tobacco [...] Larson - 05/19/2022 2:45 PM EST Scheduled [id number] w/BC OV * Telephone Encounter - Claudia Gamez CNP - 05/16/2022 4:28 PM EST Due OV; please coordinate with pt; thanks documented in this encounter Plan of Treatment Not on file documented as of this encounter Visit Diagnoses Diagnosis Primary insomnia- Primary Persistent disorder of initiating or maintaining sleep documented in this encounter Care Teams Cook Starch Relationship Specialty Start Date End Date Claudia Gamez CNP 73 [facility] [place] [address] PCP - General Family Medicine 05/03/22 02/01/23 Lucila Cannon LCSW 9 [facility] [place] [address] Offset Duplicating Machine Operator Behavioral Health 03/14/22 provider unknown Primary Care Provider 02/02/23 documented as of this encounter
--- OUTSIDE RECORDS SUMMARY | 2024-06-07 13:49 | XMS_ITS ---
Author Organization [facility] Address [address] [place] [address] [address] [place] [address] Care Team Providers Care Restaurant Management Internship Name Role Phone Jacey Lora M.D. Primary Care Provider Dionte Arenas Jr, Lonnie Blake REASON FOR VISIT ultrasound Encounters Encounter Location Date Provider Diagnosis [facility] [address] [place] [address] [address] [place] [address] 09/14/2023 Lonnie Arenas Jr PLAN OF TREATMENT Next Appt Details Provider Name:Lonnie rossi Jr, 07/17/2024 09:20:00 AM, [address] [place] [address], [address], [place], [address],
--- OUTSIDE RECORDS SUMMARY | 2024-06-07 13:49 | XMS_ITS | Encounter Summary ---
Author Organization [facility] Address [address] [place] [address] Care Team Providers Care Blasting Worker Name Role Phone Vitor Angel MD Primary Care Provider [phone] Encounter Details Date Type Department Care Team (Late st Contact Info) Description 05/21/2019 Scanned Document [facility] Neurosurgery [address] [phone] Social History Tobacco Use Types Packs/Day Years [...] on filedocumented in this encounter Care Teams Blasting Worker Relationship Specialty Start Date End Date Vitor Angel MD [address] [place] [address] PCP - General Psychiatry, General 12/26/18 documented as of this encounter
--- OUTSIDE RECORDS SUMMARY | 2024-06-07 13:49 | XMS_ITS | Encounter Summary ---
Author Organization [employer] Address [address] [place] [address] 7 [place] [address] Care Team Providers Care Decision Unit Rn Name Role Phone Lucila Cannon ALLIANCES CONSULTANT Unavailable [phone] Claudia Gamez CNP Primary Care Provider [phone] Reason for Visit * Reason Comments Med Refill Encounter Details Date Type Department Care Team (Late st Contact Info) Description 09/07/2022 Refill [place] [facility] [address] [place], [place] [phone] Cassandra Long FNP [address] [place] [address] Primary insomnia Social History Tobacco Use Types [...] believe she is seeing anew PCP in [place] documented in this encounter Plan of Treatment Not on file documented as of this encounter Visit Diagnoses Diagnosis Primary insomnia Persistent disorder of initiating or maintaining sleep documented in this encounter Care Teams Decision Unit Rn Relationship Specialty Start Date End Date Claudia Gamez CNP [address] [place] [address] PCP - General Family Medicine 05/03/22 02/01/23 Lucila Cannon LCSW 9 [place] [address] Superintendent Warehouse Behavioral Health 03/14/22 provider unknown Primary Care Provider 02/02/23 documented as of this encounter
--- OUTSIDE RECORDS SUMMARY | 2024-06-07 13:49 | XMS_ITS | Encounter Summary ---
Author Organization [facility] Address [address] [place] [address] Care Team Providers Care Sustainability Manager Name Role Phone Vitor Angel MD Primary Care Provider Encounter Details Date Type Department Care Team (Late st Contact Info) Description 02/15/2022 Scanned Document [facility] Neurosurgery [address] [phone] Neurosurgery, Scan Social History Tobacco Use Types [...] on filedocumented in this encounter Care Teams Sustainability Manager Relationship Specialty Start Date End Date Vitor Angel MD [address] [place] [address] PCP - General Psychiatry, General 12/26/18 documented as of this encounter
--- OUTSIDE RECORDS SUMMARY | 2024-06-07 13:49 | XMS_ITS | Encounter Summary ---
Author Organization [facility] Address [address] [place] [address] Care Team Providers Care Strip Stamp Straightener Name Role Phone Vitor Angel MD Primary Care Provider [phone] Reason for Visit * Reason Comments Advice Only Encounter Details Date Type Department Care Team (Late st Contact Info) Description 05/11/2022 Telephone [facility] Neurosurgery [address] [phone] Nsetor Cummings PA-C [address] [place] [address] Advice Only Social History Tobacco Use [...] on filedocumented in this encounter Care Teams Strip Stamp Straightener Relationship Specialty Start Date End Date Vitor Angel MD [address] [place], [place] [phone] PCP - General Psychiatry, General 12/26/18 documented as of this encounter
[2024-06-07 14:44] LABS: Appearance Urine Turbid; Color Urine Dark Yellow; Glucose Urine UA Negative (Negative); Leukocyte Esterase Urine Negative (Negative); Nitrite Urine Negative (Negative); PH 5.5 (5.0-9.0); Urine Blood Negative (Negative); Urine Ketones Negative (Negative); Urine Protein Negative (Neg-Trace)
[2024-06-07 15:29] LABS: Erythrocyte Sedimentation Rate 10 MM/HR (0-20)
[2024-06-07 16:32] LABS: Alanine Aminotransferase 22 U/L (0-31); Albumin Level 3.8 g/dL (3.5-5.0); Anion Gap 12 (12-20); Aspartate Amino Transferase 27 U/L (5-31); Bilirubin Total 0.3 mg/dL (0.0-1.0); Blood Urea Nitrogen 8 mg/dL (9-16); Calcium 9.2 mg/dL (8.4-10.2); Carbon Dioxide 25 mmol/L (22-29); Chloride 107 mmol/L (96-108); Estimated Glomerular Filt Rate > 60; Glucose Random 106 mg/dL (60-115); Potassium 3.9 mmol/L (3.3-5.1); Sodium 140 mmol/L (135-145); Total Protein 7.2 g/dL (6.5-8.0)
[2024-06-07 17:53] LABS: Alkaline Phosphatase 60 U/L (39-117)
[2024-06-10 08:14] LABS: CRP High Sensitivity 5.1 mg/L
== END 2024-06-07 11:32 | disposition home or self-care (01) ==
LOC: HO.WFDLDS 11:31
PROVIDERS: Visit Provider Internal Medicine
DX: R25.2 Cramp and spasm (principal); R76.8 Other specified abnormal immunological findings in serum; R74.8 Abnormal levels of other serum enzymes; M25.50 Pain in unspecified joint; N39.0 Urinary tract infection, site not specified; M35.3 Polymyalgia rheumatica
CPT/HCPCS: 36415; 80053; 81003; 82550; 85652; 86141

== ENCOUNTER → 2024-06-14 09:49 | Outpatient (BNV) | payer MEDICARE, OTHER, SELFPAY | PROVIDERS: PCP Internal Medicine; Referring Provider Psychiatry & Neurology Neurology; Visit Provider Radiology Diagnostic Radiology | DX: G43.909 Migraine, unspecified, not intractable, without status migrainosus (principal) | CPT/HCPCS: 70551 ==

== ENCOUNTER 2024-06-14 09:51 | Outpatient (REF) | payer MEDICARE, OTHER, SELFPAY ==
--- NOTE | ~2024-06-14 | MR_ITS ---
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 COMPARISON: None available. TECHNIQUE: MRA of the neck was obtained using routine sequences without and with contrast. Intravenous contrast: (Gadavist) 10.0 mL. 3-D [id number]. 2-D euvb-[id number]-gqwygj. Maximum intensity projections. Coronal 3-D post images. Degree of stenosis determined by criteria similar to NASCET. No reported immediate complications. FINDINGS: Thoracic aortic arch demonstrates normal diameter enhancement pattern without intimal flap or focal stenosis. Right CCA: Normal patency. No focal stenosis. No intimal flap. Right ICA: Normal patency. No focal stenosis. No intimal flap. Left CCA: Normal patency. Coordinates with a common trunk with the brachiocephalic trunk. No focal stenosis. No intimal flap. Left ICA: Normal patency. No focal stenosis. No intimal flap. V1/V2 segments are patent and originates from the subclavian arteries without focal stenosis or intimal flap. Codominant vertebral arteries.. MR/MR angio neck wo/w con IMPRESSION: No high degree stenosis or dissection. Electronically signed by: Bryant Bonilla MD 06/17/2024 02:46 PM EDT
--- NOTE | ~2024-06-14 | MR_ITS ---
EXAMINATION: MR BRAIN WITHOUT CONTRAST CLINICAL INFORMATION: Migraines. Cerebral aneurysm. COMPARISON: Correlated to outside examination dated April 24, 2021. TECHNIQUE: MRI of the brain was obtained using routine sequences without contrast. FINDINGS: No restricted diffusion. No acute intracranial hemorrhage, mass effect, midline shift, hydrocephalus or herniation. Perez-white matter differentiation is normal. Bilateral multifocal patchy and punctate deep periventricular white matter and subcortical white matter hyperintense T2 FLAIR signal involving mostly centrum semiovale and holm radiata both hemispheres. Posterior cranial fossa contents demonstrated no acute hemorrhage or mass effect. Probably prominent perivascular spaces in the midbrain. Flow-void signal within the main cerebral vessels is normal demonstrated a robust posterior communicating arteries bilaterally. The cerebral aneurysm in the right ICA is not fully depicted on this examination. Sellar/suprasellar region demonstrated no gross masses or signal abnormality. Craniocervical junction is intact and normal. MR/MR head/brain wo con IMPRESSION: No acute stroke/nonhemorrhagic ischemia. White matter disease likely related to small vessel occlusive disease. Please refer to the MRA brain report and exam. Electronically signed by: Bryant Bonilla MD 06/17/2024 02:14 PM EDT
[2024-06-14] MEDS: gadobutroL 10 ML VIAL IVPUSH (11:08)
--- OUTSIDE RECORDS SUMMARY | 2024-06-14 11:08 | XMS_ITS | Encounter Summary ---
Author Organization [employer] Address [address] [place] [address] 7 [place] [address] Care Team Providers Care Metal Weigher Name Role Phone Lucila Cannon PULLER MACHINE Unavailable [phone] Claudia Gamez CNP Primary Care Provider [phone] Reason for Visit * Reason Comments Med Refill Encounter Details Date Type Department Care Team (Late st Contact Info) Description 05/16/2022 Refill [facility] MEDICAL [address] [place] [address] Claudia Gamez CNP 73 [place] [address] Primary insomnia (Primary Dx) Social History Tobacco [...] Larson - 05/19/2022 2:45 PM EST Scheduled [id number] w/BC OV * Telephone Encounter - Claudia Gamez CNP - 05/16/2022 4:28 PM EST Due OV; please coordinate with pt; thanks documented in this encounter Plan of Treatment Not on file documented as of this encounter Visit Diagnoses Diagnosis Primary insomnia- Primary Persistent disorder of initiating or maintaining sleep documented in this encounter Care Teams Metal Weigher Relationship Specialty Start Date End Date Claudia Gamez CNP 73 [facility] [place] [address] PCP - General Family Medicine 05/03/22 02/01/23 Lucila Cannon LCSW 9 [facility] [place] [address] Physically Impaired Teacher Behavioral Health 03/14/22 provider unknown Primary Care Provider 02/02/23 documented as of this encounter
--- OUTSIDE RECORDS SUMMARY | 2024-06-14 11:08 | XMS_ITS ---
Author Organization [facility] Address [address] [facility] [address] [place] [address] Care Team Providers Care Vulcanizer Operator Name Role Phone Jacey Lora M.D. Primary Care Provider Dionte Arenas Jr, Lonnie Blake REASON FOR VISIT Pt had labs order faxed to [place] Encounters Encounter Location Date Provider Diagnosis [facility] [address] [facility] [address] [place] [address] 08/24/2023 Lonnie Arenas Jr Plan Of Treatment Next Appt Details Provider Name:Lonnie rossi Jr, 07/17/2024 09:20:00 AM, [address] [place] [address], [address], [place], [address], Progress Notes * RAMON WHALEYDOB:[birth year] (67 yo F)Acc No.[id number]:08/24/2023 Patient:?RAMON WHALEY :1955???Age:67 Y???Sex:Female Address:[address] [place] [address] * true * Date:? Generated for Printi ng/Faolegg/eTransmitting on:?06/14/2024 11:08 AM EST
--- OUTSIDE RECORDS SUMMARY | 2024-06-14 11:08 | XMS_ITS ---
Author Organization [facility] Address [address] [place] [address] [address] [place] [address] Care Team Providers Care Junior Buyer Name Role Phone Jacey Lora M.D. Primary Care Provider Dionte Arenas Jr, Lonnie Blake REASON FOR VISIT ultrasound Encounters Encounter Location Date Provider Diagnosis [facility] [address] [place] [address] [place] [phone] 09/14/2023 Lonnie Arenas Jr Plan Of Treatment Next Appt Details Provider Name:Lonnie rossi Jr, 07/17/2024 09:20:00 AM, [address] [place] [address], [address], [place], [address], Progress Notes * RAMON WHALEYDOB:[birth year] (67 yo F)Acc No.[id number]:09/14/2023 Patient:?RAMON WHALEY :1955???Age:67 Y???Sex:Female Address:[address] [place] [address] * true * Date:? Generated for Matthew kendrick/Josh/eTransmitting on:?06/14/2024 11:08 AM EST
--- OUTSIDE RECORDS SUMMARY | 2024-06-14 11:08 | XMS_ITS | Patient Health Record ---
Author Organization [facility] Address [address] [place] [address] Care Team Providers Care House Steward/Stewardess Name Role Phone Jacey Lora M.D. Primary Care Provider Unavail able Lonnie Arenas Jr Unavailable Allergies Allergen (clinical drug ingredient) Drug/Non Drug Allergy documented on EMR Reaction Allergy Type Onset Date Status Penicillin Unknown Drug Allergy Active diphenhydramine Benadryl Unknown Drug Allergy A ctive cefaclor ceclor (uncoded) Unknown Allergy Act louis Results Component Value Reference Range Notes US abdomen complete Reviewed date:09/14/2023 10:10:19 AM Interpretation: Performing Lab: Notes/Report: [address] [address] Ultrasound Report Signed Patient: Dolores Pham MR#: [id number] : 1955 Acct:[id number] Age/Sex: 67 / F ADM Date: 09/01/23 Loc: HO.US Attending Dr: Lonnie Arenas MD Ordering Physician: Lonnie Arenas MD Date of Service: 09/01/23 Procedure(s): US abdomen complete Accession Number(s): [id number] cc: Lonnie Arenas MD; Jacey Lora MD [...] in OV> 09/14/23 0933 DD/ 1015 TD/TT: Acetylene Torch Solderer: [address] [address] Ultrasound Report Signed Patient: Sara Pham MR#: [id number] : 1955 Acct:[id number] Age/Sex: 67 / F ADM Date: 09/01/23 Loc: HO.US Attending Dr: Edilma Arenas MD Ordering Physician: Lonnie Arenas MD Date of Service: 09/01/23 Procedure(s): US abd omen complete Accession Number(s): [id number] cc: Lonnie Arenas MD; Jacey Lora MD EXAMINATION: US ABDOMEN COMPLETE CLINICAL INFORMATION: Nausea. COMPARISON: Abdominal ultrasound 02/22/2011 CT scan abdomen and pelvis 03/24/2011 TECHNIQUE: Real-time imaging of the abdominal viscera. Technically limited study due to overlying bow el gas. Patient has history of IBS. FINDINGS: PANCREAS: Normal hea d and body, the tail is obscured by bowel gas. ABDOMINAL AORTA: The proximal, mid, and distal segments are normal in caliber. Atheroscler otic calcification is seen within the mid and distal abdominal aorta. INFERIOR VENA CAVA: Visualized portions are normal. LIVER: The liver is normal in size. The liver contour is normal. There is mild diffuse incr eased liver parenchymal echogenicity, consistent with mild hepatic st eatosis. 0.7 x 1.2 x 1.0 cm septated cyst is seen in the left lobe. Th ere is no intrahepatic biliary duct dilatation seen. GALLBLADDER: 0.3 x 0 .2 x 0.2 cm polyp is noted. The gallbladder is physiologically dist ended without evidence of stones, sludge, polyps, wall thickening or pericholecystic fluid. COMMON BILE DUCT: No rmal in caliber measuring 0.7 cm in diameter. RIGHT KIDNEY: Normal . No hydronephrosis. No renal calculi or focal parenchymal lesions. The kidney measures 9.3 cm in maximum dimension. LEFT KIDNEY: 2.7 x 3 .2 x 2.6 cm cyst with a thin septum is seen within the mid kidney, no i maging follow-up recommended. No hydronephrosis. No renal calculi. The k idney measures 9.5 cm in maximum dimension. SPLEEN: Not seen. FREE FLUID: None. U S/US abdomen complete IMPRESSION: 1. Mild hepatic steatosis. 2. 1.2 cm septated c yst in the left lobe of the liver. 3. 0.3 cm gallbladder polyp. Dictated By: Nicole Hinton MD Signed By: <Electro nically signed by Nicole Hinton MD in OV> 09/14/23 0933 DD/ 1015 TD/TT: Acetylene Torch Solderer: Reason For Referral No Information Medications Medication SIG (Take, Route, Frequency, Duration) Notes [...] directed Ora lly once a day Active Immunizations Vaccine Route Administration Date Status Comme nts Influenza Unknown 01/23/2018 Administered Influenza Unknown 01/31/2023 Administered Social History Tobacco Use: Social History Observation Description Date Details (start date - stop date) Former Smoker NA - NA Tobacco Use/Smoking Question Answer Notes Patient is a former smoker Problems Problem Type SNOMED Code ICD Code Onset Dates Problem Status W/U Status Risk Notes Problem 173550585 Lares's esophagus without dysplasia (K22.70) Active confirmed Problem 067383287 Nausea (R11.0) Active confirmed Problem Dysphagia (03659619) Dysphagia (R13.10) Active confirmed Problem 819998433 Diverticulitis (K57.92) Active confirmed Problem 689669097 Esophageal spasm (K22.4) Active confirmed Problem 66473748 Dysphagia, unspecified type (R13.10) Active confirmed Problem Lares esophagus (362891693) Lares esophagus (K22.70) Active confirmed Problem 270797122 Abnormal barium swallow (R93.3) Active confirmed Problem 046387435 Irritable bowel syndrome with constipation (K58.1) Active confirmed Vital Signs Temperature 98.0 degrees Fahrenheit 07/17/2023 Blood pressure diastolic 00 mm Hg 07/17/2023 Height 65.5 in 07/17/2023 Blood pressure systolic 000 mm Hg 07/17/2023 Weight 137 lb 4 oz lbs 07/17/2023 BMI 22.49 kg/m2 07/17/2023 Encounters Encounter Location Date Provider Diagnosis [facility] [address] [place] [phone] 07/17/2023 Lonnie Arenas Jr Dysphagia, unspecified type R13.10 ; Lares esophagus K22.70 and Irritable bowel syndrome with constipation K58.1 [facility] [address] [place] [address], [place] [address] 08/17/2023 Lonnie Arenas Jr Nausea R11.0 [facility] [address] [place] [address], [place] [address] 08/24/2023 Lonnie Arenas Jr [facility] [address] [place] [phone] 09/14/2023 Lonnie Arenas Jr [facility] [address] [place] [phone] 10/09/2023 Lonnie Arenas Jr Assessments Encounter Date Diagnosis (ICD Code) Assessment Notes Treatment Notes Treatment Clinical Notes Section Notes 07/17/2023 Dysphagia, unspecified type (ICD-10 - R13.10) Overall, Callie is doing well. We discussed diet, lifestyle modifications, and weight management regarding the treatment of reflux. She will continue pantoprazole. Larse's esophagus is stable, and she is up-to-date on surveillance. We discussed using Benefiber to increase amount of fiber in her diet. Followup will be in one year. 07/17/2023 Lares esophagus (ICD-10 - K22.70) Lares esophagus material was printed Overall, Callie is doing well. We discussed diet, lifestyle modifications, and weight management regarding the treatment of reflux. She will continue pantoprazole. Lares's esophagus is stable, and she is up-to-date on surveillance. We discussed using Benefiber to increase amount of fiber in her diet. Followup will be in one year. 08/17/2023 Nausea (ICD-10 - R11.0) 07/17/2023 Irritable bowel syndrome with constipation (ICD-10 - K58.1) Overall, Callie is doing well. We discussed diet, lifestyle modifications, and weight management regarding the treatment of reflux. She will continue pantoprazole. Laers's esophagus is stable, and she is up-to-date on surveillance. We discussed using Benefiber to increase amount of fiber in her diet. Followup will be in one year. Plan Of Treatment Pending Test Test Name Order Date LIVER PROFILE 08/17/2023 LIPASE 08/17/2023 CBC w/o DIFF 08/17/2023 XR BARIUM SWALLOW-ESOPHAGUS 02/14/2022 US ABD 08/17/2023 Future Test Test Name Order Date UPPER GI ENDOSCOPY 12/28/2012 UPPER GI ENDOSCOPY BALLOOON DILATION OF ESOPH 08/10/2016 COLONOSCOPY 05/25/2018 UPPER GI ENDOSCOPY 03/02/2022 Next Appt Details Provider Name:Lonnie rossi Jr, 07/17/2024 09:20:00 AM, [address] [facility], [address], [place], [address], Insurance Providers Payer Name Payer Address Payer Phone Subscriber Number Group Number Insured Name Patient Relationship to Insured Coverage Start Date Coverage End Date MEDICARE OF [place] [address] [place] [address] [id number] DOLORES PHAM Self - patient is the insured [employer] [address] [place] [address] [id number] DOLORES PHAM Self - patient is the insured Medical (General) History Medical History History ICD Code Colonoscopy 09/07/18, [...]
--- OUTSIDE RECORDS SUMMARY | 2024-06-14 11:09 | XMS_ITS | Encounter Summary ---
Author Organization [facility] Address [address] [place] [address] Care Team Providers Care Light Rail Transit Operator Name Role Phone Vitor Angel MD Primary Care Provider [phone] Encounter Details Date Type Department Care Team (Late st Contact Info) Description 05/21/2019 Scanned Document [facility] Neurosurgery [address] [phone] Social History Tobacco Use Types Packs/Day Years [...] on filedocumented in this encounter Care Teams Light Rail Transit Operator Relationship Specialty Start Date End Date Vitor Angel MD [address] [place] [address] PCP - General Psychiatry, General 12/26/18 documented as of this encounter
--- OUTSIDE RECORDS SUMMARY | 2024-06-14 11:09 | XMS_ITS | Encounter Summary ---
Author Organization [facility] Address [address] [place] [address] Care Team Providers Care Pharmacist Manager Name Role Phone Vitor Angel MD Primary Care Provider [phone] Reason for Visit * Reason Comments Advice Only Encounter Details Date Type Department Care Team (Late st Contact Info) Description 05/11/2022 Telephone [facility] Neurosurgery [address] [phone] Nestor Cummings PA-C [address] [place] [address] Advice Only Social History Tobacco Use [...] on filedocumented in this encounter Care Teams Pharmacist Manager Relationship Specialty Start Date End Date Vitor Angel MD [address] [place], [place] [id number] PCP - General Psychiatry, General 12/26/18 documented as of this encounter
--- OUTSIDE RECORDS SUMMARY | 2024-06-14 11:09 | XMS_ITS | Encounter Summary ---
Author Organization [facility] Address [address] [place] [address] Care Team Providers Care Food And Beverage Outlets Manager Name Role Phone Vitor Angel MD Primary Care Provider [phone] Encounter Details Date Type Department Care Team (Late st Contact Info) Description 01/21/2022 Scanned Document [facility] Neurosurgery [address] [phone] Social History Tobacco Use Types Packs/Day Years [...] on filedocumented in this encounter Care Teams Food And Beverage Outlets Manager Relationship Specialty Start Date End Date Vitor Angel MD [address] [place] [address] PCP - General Psychiatry, General 12/26/18 documented as of this encounter
--- OUTSIDE RECORDS SUMMARY | 2024-06-14 11:09 | XMS_ITS | Encounter Summary ---
Author Organization [employer] [facility] Address [address] [place] [address] 7 [place] [address] Care Team Providers Care Hide Sorter Name Role Phone Lucila Cannon LCSW Unavailable [phone] Claudia Gamez CNP Primary Care Provider [phone] Encounter Details Date Type Department Care Team (Late st Contact Info) Description 04/27/2022 Abstract [place] [facility] MED[facility] [address] [place] [address] Claudia Gamez CNP [address] [place] [address] Social History Tobacco Use Types Packs/Day Years [...] on filedocumented in this encounter Care Teams Hide Sorter Relationship Specialty Start Date End Date Claudia Gamez CNP [address] [place] [address] PCP - General Family Medicine 05/03/22 02/01/23 Lucila Cannon LCSW [address] [place] [address] Unload Associate Behavioral Health 03/14/22 provider unknown Primary Care Provider 02/02/23 documented as of this encounter
--- OUTSIDE RECORDS SUMMARY | 2024-06-14 11:09 | XMS_ITS | Encounter Summary ---
Author Organization [employer] Address [address] [place] [address] 7 [place] [address] Care Team Providers Care Die Stamper Name Role Phone Lucila Cannon SEAT TRIMMER Unavailable [phone] Claudia Gamez CNP Primary Care Provider [phone] Reason for Visit * Reason Comments Med Refill Encounter Details Date Type Department Care Team (Late st Contact Info) Description 09/07/2022 Refill [place] [facility] [address] [place], [place] [phone] Cassandra Long FNP [address] [place] [address] Primary insomnia Social History Tobacco Use Types [...] believe she is seeing anew PCP in [place] documented in this encounter Plan of Treatment Not on file documented as of this encounter Visit Diagnoses Diagnosis Primary insomnia Persistent disorder of initiating or maintaining sleep documented in this encounter Care Teams Die Stamper Relationship Specialty Start Date End Date Claudia Gamez CNP [address] [place] [address] PCP - General Family Medicine 05/03/22 02/01/23 Lucila Cannon LCSW [address] [place] [address] Chair Mechanic Behavioral Health 03/14/22 provider unknown Primary Care Provider 02/02/23 documented as of this encounter
--- OUTSIDE RECORDS SUMMARY | 2024-06-14 11:09 | XMS_ITS | Encounter Summary ---
Author Organization [employer] [facility] Address [address] [place] [address] 7 [place] [address] Care Team Providers Care Core Cutter Name Role Phone Lucila Cannon LCSW Unavailable [phone] Claudia Gamez CNP Primary Care Provider [phone] Encounter Details Date Type Department Care Team (Late st Contact Info) Description 04/28/2022 Abstract [place] [facility] [address] [place] [address] Provider, Chris, Social History Tobacco Use Types [...] on filedocumented in this encounter Care Teams Core Cutter Relationship Specialty Start Date End Date Claudia Gamez CNP [address] [place] [address] PCP - General Family Medicine 05/03/22 02/01/23 Lucila Cannon LCSW [address] [place] [address] [facility] 03/14/22 provider unknown Primary Care Provider 02/02/23 documented as of this encounter
--- OUTSIDE RECORDS SUMMARY | 2024-06-14 11:09 | XMS_ITS | Encounter Summary ---
Author Organization [facility] Address [address] [place] [address] Care Team Providers Care Manager Licensing Name Role Phone Vitor Angel MD Primary Care Provider [phone] Reason for Visit * Reason Comments Referral Pain Management Encounter Details Date Type Department Care Team (Late st Contact Info) Description 04/05/2022 Telephone [facility] Neurosurgery [address] [phone] Nestor Cummings PA-C [address] [place] [address] Referral (Pain Management) Social History Tobacco [...] on filedocumented in this encounter Care Teams Manager Licensing Relationship Specialty Start Date End Date Vitor Angel MD [address] [place], [place] [phone] PCP - General Psychiatry, General 12/26/18 documented as of this encounter
--- OUTSIDE RECORDS SUMMARY | 2024-06-14 11:09 | XMS_ITS | Encounter Summary ---
Author Organization [facility] Address [address] [place] [address] Care Team Providers Care Telecom Manager Name Role Phone Vitor Angel MD Primary Care Provider [phone] Encounter Details Date Type Department Care Team (Late st Contact Info) Description 02/15/2022 Scanned Document [facility] Neurosurgery [address] [phone] Neurosurgery, Scan Social History Tobacco Use Types [...] on filedocumented in this encounter Care Teams Telecom Manager Relationship Specialty Start Date End Date Vitor Angel MD [address] [place] [address] PCP - General Psychiatry, General 12/26/18 documented as of this encounter
--- OUTSIDE RECORDS SUMMARY | 2024-06-14 11:09 | XMS_ITS | Encounter Summary ---
Author Organization [facility] Address [address] [place] [address] Care Team Providers Care Superintendent Quarry Name Role Phone Vitor Angel MD Primary Care Provider [phone] Encounter Details Date Type Department Care Team (Late st Contact Info) Description 12/17/2021 Telephone [facility] Neurosurgery [address] [phone] Trino Humphrey MD [address] [place] [address] [address] [place] [address] Social History Tobacco Use Types Packs/Day Years [...] on filedocumented in this encounter Care Teams Superintendent Quarry Relationship Specialty Start Date End Date Vitor Angel MD [address] [place], [place] [phone] PCP - General Psychiatry, General 12/26/18 documented as of this encounter
--- OUTSIDE RECORDS SUMMARY | 2024-06-14 11:09 | XMS_ITS | Clinical Summary ---
Author Organization [facility] Address [address] [place] [address] Care Team Providers Care Egg Grader Name Role Phone Vitor Angel MD Primary Care Provider [phone] Allergies Active Allergy Reactions Criticality Noted Date [...] age to complete this topic Care Teams Egg Grader Relationship Specialty Start Date End Date Vitor Angel MD [address] [place] [phone] PCP - General Psychiatry, General 12/26/18
--- OUTSIDE RECORDS SUMMARY | 2024-06-14 11:09 | XMS_ITS ---
Author Organization [facility] Address [address] [facility] [address] [place] [address] Care Team Providers Care Cardiac Care Nurse Name Role Phone Jacey Lora M.D. Primary Care Provider Dionte Arenas Jr, Lonnie Blake [phone] REASON FOR VISIT refills Medications Medication SIG (Take, Route, Frequency, Duration) [...] Active Encounters Encounter Location Date Provider Diagnosis [facility] [address] [facility] [address] [place] [phone] 10/09/2023 Lonnie Arenas Jr Plan Of Treatment Medication Medication Name Sig Start Date Stop Date Notes Linzess 290 MCG 1 capsule at least 3 0 minutes before the first meal of the day on an empty stomach Orally Once a day for 90 days 02/07/2023 Pantoprazole Sodium 40 MG TAKE 1 TABLET BY MOUTH EVERY DAY for 90 days Next Appt Details Provider Name:Lonnie rossi Jr, 07/17/2024 09:20:00 AM, [address] [facility] [address], [address], [place], [address], Progress Notes * RAMON WHALEYDOB:[birth year] (68 yo F)Acc No.[id number]:10/09/2023 Patient:?RAMON WHALEY :1955???Age:68 Y???Sex:Female Address:[address] [place] [address] * Refills? Refill Linzess Capsule, 290 MCG, Orally, 90, 1 capsule at least 30 minutes before the first meal of the day on an empty stomach, Once a day, 90 days, Refills=3 Refill Pantoprazole Sodium Tablet Delayed Release, 40 MG, 90 Tablet, TAKE 1 TABLET BY MOUTH EVERY DAY, 90 days, Refills=3 * true * Date:? Generated for Matthew kendrick/Josh/eTransmitting on:?06/14/2024 11:08 AM EST
--- OUTSIDE RECORDS SUMMARY | 2024-06-14 11:09 | XMS_ITS | Clinical Summary ---
Author Organization [facility] Address [address] [facility] [address] [place] [address] Phone Care Team Providers Care Roofing Subcontractor Name Role Phone Jacey Lora MD Primary Care Provider [phone] Allergies Active Allergy Reactions Criticality Noted Date [...] otherwise specified 10/03/2023 Endometriosis 09/21/2018 Overview (10/03/2023): ROLLER ENGRAVER: DR Ceasar Hutchison rx- Adderall for endometriosis... [...] age to complete this topic Insurance MEDICARE [facility] MEDICARE UNICARE Care Teams Roofing Subcontractor Relationship Specialty Start Date End Date Jacey Lora MD [address] [place] [address], [address] [place] [address] PCP - General Internal Medicine 10/03/23
--- OUTSIDE RECORDS SUMMARY | 2024-06-14 11:09 | XMS_ITS | Clinical Summary ---
Author Organization [employer] Address [address] [facility] 7t [place] [address] Care Team Providers Care Research Animal Attendant Name Role Phone Lucila Cannon SUBEDITOR Unavailable Allergies Active Allergy Reactions Criticality Noted Date [...] Active beta carotene (vitamin A) 3 MG (19485 UT) capsule daily. Active Specialty Vitamins Products [...] 01/19/2023 01/19/2021, 01/08, 01/11/2021, Additional history exists Lipid Panel 07/23/2026 07/23/2021, 04/10, 01/31/2020 DTaP/Tdap/Td Vaccines (4 - Td or Tdap) 10/12/2032 10/12/2022, 04/21/2021, 04/21/2021, Additional history exists Zoster Vaccines Completed 12/06/2017, 07/28/2017 Influenza Vaccine Completed 01/01/2024, , 12/14/2022, Additional history exists Pneumococcal Vaccine: 50+ Years Completed 01/19/2024, 03/09/2022, 01/04/2021, Additional history exists COVID-19 Vaccine Completed 05/30/2024, 11/2022, 04/12/2022, Additional history exists HIB Vaccines Aged Out [...] EDT) LDL CHOLESTEROL, CALCULATED 112 (0-130) MG/DL [facility] CHOLESTEROL, TOTAL 186 (<200) MG/DL [facility] HDL CHOL 63 (>39) MG/DL [facility] NON HDL CHOLESTEROL (CALC) 123 (<160) MG/DL [facility] TRIGLYCERIDE 54 (<150) MG/DL [facility] 07/23/2021 9:06 AM EDT us Claudia Gamez PHLEBOTOMY TECHNOLOGIST LAB BLOOD ORDERABLES Final Re sult [facility] [address] * Mammography (01/19/2021) Mammogram BI RADS one negative Anatomical Region Laterality Modality Other us Historical Provider HEALTH MAINTENANCE Final Result * Colonoscopy (10/14/2009) Colonoscopy Diverticulosis of the sigmoid colon, internal and external hemrrhoids. follow up the biopsy results us Historical Provider HEALTH MAINTENANCE Final Result from Last 3 Months or Most Recently Relevant to Health Maintenance Insurance [place] [id number] [employer] [place] [id number] Care Teams Research Animal Attendant Relationship Specialty Start Date End Date Lucila Cannon LCSW [address] [place] [address] Press Washer Behavioral Health 03/14/22 provider unknown Primary Care Provider 02/02/23
--- OUTSIDE RECORDS SUMMARY | 2024-06-14 11:09 | XMS_ITS | Encounter Summary ---
Author Organization [facility] Address [address] [place] [address] Care Team Providers Care Gang Mower Operator Name Role Phone Vitor Angel MD Primary Care Provider [phone] Encounter Details Date Type Department Care Team (Late st Contact Info) Description 04/13/2022 Scanned Document [facility] Neurosurgery [address] [phone] Neurosurgery, Scan Social History Tobacco Use Types [...] on filedocumented in this encounter Care Teams Gang Mower Operator Relationship Specialty Start Date End Date Vitor Angel MD [address] [place] [address] PCP - General Psychiatry, General 12/26/18 documented as of this encounter
== END 2024-06-14 09:52 | disposition home or self-care (01) ==
LOC: HO.MRI 09:51
PROVIDERS: PCP Internal Medicine; Referring Provider Psychiatry & Neurology Neurology; Visit Provider Internal Medicine
DX: G43.909 Migraine, unspecified, not intractable, without status migrainosus (principal); R41.3 Other amnesia; I72.0 Aneurysm of carotid artery
CPT/HCPCS: 70549; 70551; A9585

== ENCOUNTER 2024-09-03 16:30 | Outpatient (AMB) | payer MEDICARE, OTHER, SELFPAY ==
--- NOTE | 2024-09-03 16:25 | MHC.PC.OV ---
Intake Visit Reasons: med f/up phone Intake Note: Medication follow up Civil Transportation Engineer Required: No Allergies cefaclor [From CECLOR] Allergy (Severe, Verified 06/04/24 11:29) RASH,THROAT SWELLING Penicillins Allergy (Mild, Verified 06/04/24 11:29) MASSIVE WHELTS From BuSpar Allergy (Intermediate, Uncoded 06/04/24 11:29) CONFUSION, HALLUCINATIONS Medication List - Last Reconciled 09/03/24 by Jacey Lora MD amlodipine 2.5 mg PO DAILY 90 days baclofen 20 mg PO BEDTIME 90 days metoclopramide HCl (Reglan) 10 mg PO QIDACHS morphine ER 30 mg PO Q12H 30 days oxycodone 10 mg PO TID PRN 30 days pantoprazole 1 tab PO BID spironolactone 25 mg PO DAILY trazodone 50 mg PO BEDTIME ubrogepant (Ubrelvy) mg PO Tobacco use date assessed: 09/03/24 Fall risk assessment: No Falls in past year Last assessed Fall Risk: 09/03/24 Dental Screening Dental Screen Date: 09/03/24 Did you have a dental visit in the last 12 months?: Yes Did you have a dental problem in the last 6 months where you did not have access to dental care?: No Was dental information given to patient?: Patient has dentist HPI HPI Comments History of Present Illness Details This is a 68 year old female with a past medical history of OA, chronic low back pain, muscle pain, hypertension, GERD, barretts, migraines presenting for follow up Patient denies CP, dyspnea. No DM. Gets nauseous with anesthesia but otherwise no h/o issues. EKG normal today. Chronic pain - CCP elevated. CK slight elevation. Has severe flares of deep muscle and bone pain every 2-3 months, lasts 1-3 weeks. Says severe flare starting last week some interval decrease in pain levels. Feet, Legs, arms, hands, tips of the fingers. Says joints themselves not hurting. Saw rheumatology -clinical exam with osteoarthritic changes without evidence of autoimmune rheumatologic disease -OA: On oxycodone, morphine ER. s/p SI joint fusion with Dr Kent 04/2023. Active caring for her grandchild. CV: on amlodipine, spironolactone. Following with nephrology for BP management. Denies chest pain, exertional dyspnea. MSK: On oxycodone, morphine ER-transitioned from xtampza. s/p SI joint fusion with Dr Kent 04/2023. Active caring for her grandchild.Her oxycodone causes frequent nausea. Neuro: Follows with Dr Elder, neurology for migraines. On ubrelvy. stable. History of aneurysm repair. Upcoming MRA head/neck GI: Follows with Dr Arenas. Danii. UTD with upper and lower endoscopy She was seen by Dr Melendezuroadenike for multidrug resistant UTI. ROS see HPI PHYSICAL EXAM: Telehealth [facility] Medical History Bowel obstruction Reflex sympathetic dystrophy Back pain COPD (chronic obstructive pulmonary disease) Migraine HTN (hypertension) Carotid artery aneurysm Fibromyalgia IBS (irritable bowel syndrome) Lares esophagus GERD (gastroesophageal reflux disease) Surgical History Hx of fusion of cervical spine H/O carpal tunnel repair S/P surgery on nasal septum History of ankle surgery History of appendectomy Family History Sister Alcoholism Mother Breast cancer HTN (hypertension) Hypercholesteremia Maternal Aunt Breast cancer Maternal Uncle Colon cancer Father HTN (hypertension) Asthma Hypercholesteremia Maternal Grandfather Pacemaker Other Substance use Social History Housing: House Alcohol intake: current Patient Tobacco Use Status: Former Tobacco user Tobacco use type: Cigarette Cigarettes Per Day: 10 Years Smoked: 50 e-Cigarette/Vaping Use: Never Used Second Hand Smoke Exposure: No service: No Current occupational status: retired Cognitive needs: No Hearing needs: No Vision needs: Yes (floater in eyes, and possible glaucoma) Questionnaire Thrive Questionnaire Date Thrive assessed: 05/29/24 I am a: Patient What is your living situation today?: I have a steady place to live Within the past 12 months, did the food you bought not last and you didn't have the money to get more?: Never true Within the past 12 months, did you worry whether your food would run out before you got money to buy more?: Never true Do you have trouble paying for medicines?: No Do you have trouble getting transportation to medical appointments?: No Do you have trouble paying your heating and electricity bill?: No Do you have trouble taking care of your child, family member or friend?: No Do you have trouble with day-to-day activities such as bathing, preparing meals, shopping, managing finances, etc.?: No Are you currently unemployed and looking for a job?: No Are you interested in more education?: No Please select the resources that you would like help with: None Currently or been in a relationship where the following occur: No concerns reported THRIVE Score: 0 SISSY-7 AMB Questionnaire SISSY-7 Date SISSY - 7 assessed: 06/04/24 Source: Developed by Drs. Gabriel Amaya, Anni Campbell, Franco Solano and colleagues, with an educational alyce from [employer]. Physical exam (Primary Care) Tobacco/Smoking Status: Tobacco use Status Tobacco use date assessed 09/03/24 09/03/24 16:29 Patient Tobacco Use Status Former Tobacco user 09/03/24 16:29 Tobacco use type Cigarette 09/03/24 16:29 e-Cigarette/Vaping Use Never Used 09/03/24 16:29 Thrive Assessment: Date of Thrive Assessment Date Thrive assessed 05/29/24 09/03/24 16:29 Currently or been in a relationship where the following occur: No concerns reported Telehealth Telehealth Telehealth Platform: [facility] Location of provider rendering services: practice address Location of patient: address on file Patient Identification confirmed using: Name, : Yes Telehealth method: voice only Patient verbally consented to treatment: Yes Patient verbally consented to billing insurance company: Yes Patient informed of any privacy concerns related to visit: Yes Minutes spent on Phone/Video with Pt.: 32 Coding Level of Care Code Tele Est Pt Level 3 (98807) Diagnoses Nausea R11.0 Polyarthralgia M25.50 Primary hypertension I10 Hypertension type: primary hypertension Spondylolisthesis of lumbar region M43.16 Assessment & Plan Assessment & Plan (1) Nausea: Code(s): R11.0 - Nausea Category: Medical (2) Polyarthralgia: Code(s): M25.50 - Pain in unspecified joint Category: Medical (3) HTN (hypertension): Comment: controlled on current medication Code(s): I10 - Essential (primary) hypertension Category: Medical Qualifiers: Hypertension type: primary hypertension Qualified Code(s): I10 - Essential (primary) hypertension (4) Spondylolisthesis of lumbar region: Code(s): M43.16 - Spondylolisthesis, lumbar region Category: Medical Plan Chronic pain generally adequately controlled, unfortunately all narcotics cause her fairly signficant nausea Insomnia-continue trazodone, increase dosing Metoclopramide for medication induced nausea Medications: New metoclopramide HCl (Reglan) 10 mg PO Q6H PRN 360 tabs 3RF nausea and vomiting Changed From trazodone 50 mg PO BEDTIME To trazodone 50 - 100 mg (1 - 2 x 50 mg) PO BEDTIME 180 tabs 3RF Refilled morphine ER Partial Fill upon patient request. Patients insurance no longer covering xtampza 30 mg PO Q12H 60 tabs 0RF 30 days oxycodone 10 mg PO TID PRN 90 tabs 0RF pain 30 days
== END 2024-09-03 17:05 | disposition home or self-care (01) ==
LOC: HO.HMCFM 16:30
PROVIDERS: PCP Internal Medicine; Visit Provider Internal Medicine
DX: R11.0 Nausea (principal); M25.50 Pain in unspecified joint; I10 Essential (primary) hypertension; M43.16 Spondylolisthesis, lumbar region

== ENCOUNTER → 2024-09-03 16:30 | Outpatient (BNVA) | payer MEDICARE, OTHER, SELFPAY | PROVIDERS: PCP Internal Medicine; Visit Provider Internal Medicine ==

== ENCOUNTER 2024-10-29 15:21 | Outpatient (AMB) | payer MEDICARE, OTHER, SELFPAY ==
--- NOTE | 2024-10-29 15:28 | A.OFFPC_ITS ---
Vital Signs 10/29/24 15:29 10/29/24 15:38 Height 5 ft 6 in Weight 143 lb 4 oz BMI 23.1 BP 162/94 H 144/84 H Blood Pressure Location Lt brachial Lt brachial Position Sitting Sitting Pulse 64 Pulse Source Pulse Oximeter Temp 98.5 F Temp Source Oral Pulse Oximetry (%) 98 Intake Visit Reasons: low heart rate, leg cramps Intake Note: Low heart and bilateral leg cramps and swelling both sides. Symptoms for a few months. Agricultural Mechanic Required: No Allergies cefaclor (From CECLOR) Allergy (Severe, Verified 10/29/24 15:29) RASH,THROAT SWELLING Penicillins Allergy (Mild, Verified 10/29/24 15:29) MASSIVE WHELTS From BuSpar Allergy (Intermediate, Uncoded 10/29/24 15:29) CONFUSION, HALLUCINATIONS Tobacco use date assessed: 09/03/24 Dental Screening Dental Screen Date: 09/03/24 HPI HPI Comments History of Present Illness Details This is a 68 year old female with a past medical history of OA, chronic low back pain, muscle pain, hypertension, GERD, barretts, migraines presenting for follow up First new concern is that she has noticed that her heart rate has been dropping low recently. It will drop down to 40s 50s mostly while sleeping and she will awaken startled with then fluttering/palpitations. Patient is not sleeping well. She has more fatigue. Trouble maintaining sleep. She had a flare of her muscular cramps for the past 3 weeks which has returned to baseline in the last few days. Chronic pain - CCP elevated. CK slight elevation. Has severe flares of deep muscle and bone pain every 2-3 months, lasts 1-3 weeks. Says severe flare starting last week some interval decrease in pain levels. Feet, Legs, arms, hands, tips of the fingers. Says joints themselves not hurting. Saw rheumatology -clinical exam with osteoarthritic changes without evidence of autoimmune rheumatologic disease -OA: On oxycodone, morphine ER. s/p SI j oint fusion with Dr Kent 04/2023. Active caring for her grandchild. CV: on amlodipine, spironolactone. Following with nephrology for BP management. Denies chest pain, exertional dyspnea. MSK: On oxycodone, morphine ER-transitioned from xtampza. s/p SI joint fusion with Dr Kent 04/2023. Active caring for her grandchild.Her oxycodone causes frequent nausea. Neuro: Follows with Dr Elder, neurology for migraines. On ubrelvy. stable. History of aneurysm repair. Had MRA head/neck GI: Follows with Dr Arenas. Danii. UTD with upper and lower endoscopy She was seen by Dr Mcgovern-uroadenike for multidrug resistant UTI. ROS see HPI PHYSICAL EXAM: GENERAL: Alert and oriented x 3. NAD EYES: EOMI. Anicteric. HENT: Moist mucous membranes. No scleral icterus. No cervical lymphadenopathy. LUNGS: Clear to auscultation bilaterally. CARDIOVASCULAR: Regular rate and rhythm. No murmur. No JVD. ABDOMEN: Soft, non-tender +bs EXTREMITIES: No edema. Non-tender. SKIN: No rashes or lesions. Warm. NEUROLOGIC: No focal neurological deficits. CN II-XII grossly intact PSYCHIATRIC: Cooperative. Appropriate mood and affect COUNTS INCLUDE 234 BEDS AT [facility] Medical History Bowel obstruction Reflex sympathetic dystrophy Back pain COPD (chronic obstructive pulmonary disease) Migraine HTN (hypertension) Carotid artery aneurysm Fibromyalgia IBS (irritable bowel syndrome) Lares esophagus GERD (gastroesophageal reflux disease) Surgical History Hx of fusion of cervical spine H/O carpal tunnel repair S/P surgery on nasal septum History of ankle surgery History of appendectomy Family History Sister Alcoholism Mother Breast cancer HTN (hypertension) Hypercholesteremia Maternal Aunt Breast cancer Maternal Uncle Colon cancer Father HTN (hypertension) Asthma Hypercholesteremia Maternal Grandfather Pacemaker Other Substance use Social History Housing: House Alcohol intake: current Patient Tobacco Use Status: Former Tobacco user Tobacco use type: Cigarette Cigarettes Per Day: 10 Years Smoked: 50 e-Cigarette/Vaping Use: Never Used Second Hand Smoke Exposure: No service: No Current occupational status: retired Cognitive needs: No Hearing needs: No Vision needs: Yes (floater in eyes, and possible glaucoma) Questionnaire Thrive Questionnaire Date Thrive assessed: 05/29/24 I am a: Patient What is your living situation today?: I have a steady place to live Within the past 12 months, did the food you bought not last and you didn't have the money to get more?: Never true Within the past 12 months, did you worry whether your food would run out before you got money to buy more?: Never true Do you have trouble paying for medicines?: No Do you have trouble getting transportation to medical appointments?: No Do you have trouble paying your heating and electricity bill?: No Do you have trouble taking care of your child, family member or friend?: No Do you have trouble with day-to-day activities such as bathing, preparing meals, shopping, managing finances, etc.?: No Are you currently unemployed and looking for a job?: No Are you interested in more education?: No Please select the resources that you would like help with: None Currently or been in a relationship where the following occur: No concerns reported THRIVE Score: 0 SISSY-7 AMB Questionnaire SISSY-7 Date SISSY - 7 assessed: 06/04/24 Source: Developed by Drs. Gabriel Amaya, Anni Campbell, Franco Solano and colleagues, with an educational alyce from [employer]. Physical exam (Primary Care) Vital Signs: Last Vital Signs Temp 98.5 F 10/29/24 15:29 Pulse 64 10/29/24 15:29 BP 144/84 H 10/29/24 15:38 Pulse Ox 98 10/29/24 15:29 BMI result Body Mass Index 23.1 Tobacco/Smoking Status: Tobacco use Status Tobacco use date assessed 09/03/24 10/29/24 15:34 Patient Tobacco Use Status Former Tobacco user 10/29/24 15:34 Tobacco use type Cigarette 10/29/24 15:34 e-Cigarette/Vaping Use Never Used 10/29/24 15:34 Thrive Assessment: Date of Thrive Assessment Date Thrive assessed 05/29/24 10/29/24 15:34 Currently or been in a relationship where the following occur: No concerns reported Coding Level of Care Code Est Pt Level 4 (41193) Complex EM visit Add On G2211 Diagnoses Bradycardia R00.1 Palpitations R00.2 Primary hypertension I10 Hypertension type: primary hypertension Polymyalgia M35.3 Assessment & Plan Assessment & Plan (1) Bradycardia: Code(s): R00.1 - Bradycardia, unspecified Category: Medical (2) Palpitations: Code(s): R00.2 - Palpitations Category: Medical (3) HTN (hypertension): Comment: controlled on current medication Code(s): I10 - Essential (primary) hypertension Category: Medical Qualifiers: Hypertension type: primary hypertension Qualified Code(s): I10 - Essential (primary) hypertension (4) Polymyalgia: Code(s): M35.3 - Polymyalgia rheumatica Category: Medical Plan Bradycardia, palpitations-patients apple watch has picked up bradycardia, she has noted bradycardia which is followed by palpitations and shortness of breath. EKG is normal. Will have her see cardiology, get heart monitor. Labs ordered. Patient continues to have flares of polymyalgia. robaxin ordered. She can call for prednisone as needed Orders: Orders Magnesium Today R25.2 - Cramp and spasm IRON PROFILE Today R25.2 - Cramp and spasm Lyme IgG/IgM w/reflex to WB Today R00.1 - Bradycardia, unspecified Comprehensive Met. Panel Today R25.2 - Cramp and spasm ECG 14 day holter monitor 10/29/24 R00.1 - Bradycardia, unspecified Referrals Cardiology Referral R00.1 - Bradycardia, unspecified, R00.2 - Palpitations Medications: New zolpidem (Ambien) 5 mg PO BEDTIME PRN 30 tabs 3RF sleep methocarbamol 500 mg PO TID PRN 90 tabs 0RF muscle cramp
[2024-10-29 15:29] VITALS: BP 162/94; PULSE 64; TEMP 36.9; O2SAT 98; BMI 23.1
[2024-10-29 15:38] VITALS: BP 144/84
--- OUTSIDE RECORDS SUMMARY | 2024-10-29 16:16 | XMS_ITS | Encounter Summary ---
Author Organization [employer] Address [address] [facility] [address] [place] [address] Care Team Providers Care Morning Nanny Name Role Phone Lucila CannonSW Unavailable [phone] Claudia Gamez CNP Primary Care Provider [phone] Reason for Visit * Reason Comments Med Refill Encounter Details Date Type Department Care Team (Late st Contact Info) Description 05/16/2022 Refill [facility] MEDICAL [address] [place] [address] Claudia Gamez CNP [address] [place] [address] Primary insomnia (Primary Dx) Social History Tobacco [...] Larson - 05/19/2022 2:45 PM EST Scheduled [id number] w/BC OV * Telephone Encounter - Claudia Gamez CNP - 05/16/2022 4:28 PM EST Due OV; please coordinate with pt; thanks documented in this encounter Plan of Treatment Not on file documented as of this encounter Visit Diagnoses Diagnosis Primary insomnia- Primary Persistent disorder of initiating or maintaining sleep documented in this encounter Care Teams Morning Nanny Relationship Specialty Start Date End Date Claudia Gamez CNP [address] [place] [address] PCP - General Family Medicine 05/03/22 02/01/23 Lucila Cannon LICSW [address] [place] [address] [facility] 03/14/22 provider unknown Primary Care Provider 02/02/23 documented as of this encounter
--- OUTSIDE RECORDS SUMMARY | 2024-10-29 16:16 | XMS_ITS | Patient Health Record ---
Author Organization [facility] Address [address] [place] [id number] Care Team Providers Care Insurance Risk Analyst Name Role Phone Jacey Lora M.D. Primary Care Provider Unavail Lonnie Treviño Jr Unavailable Allergies Allergen (clinical drug ingredient) Drug/Non Drug Allergy documented on EMR Reaction Allergy Type Onset Date Status Penicillin Unknown Drug Allergy Active diphenhydramine Benadryl Unknown Drug Allergy A ctive cefaclor ceclor (uncoded) Unknown Allergy Act [place] Reason For Referral No Information Medications Medication SIG (Take, Route, Frequency, Duration) Notes Start Date End Date Status Methocarbamol 500 MG TAKE 1 TABLET BY MOUTH AT BEDTIME Oral for 30 Unknown Pantoprazole Sodium 40 MG TAKE 1 TABLET BY MOUTH EVERY DAY for 90 days Active amLODIPine Besylate 5 MG TAKE 1 TABLET B Y MOUTH EVERY DAY Oral for 90 Days Active Linzess 290 MCG 1 capsule at least 3 0 minutes before the first meal of the day on an empty stomach Orally Once a day for 90 days 02/07/2023 Active Baclofen 20 MG Oral for 90 Days Active Spironolactone 25 MG TAKE 1 TABLET BY MOUTH EVERY DAY Oral for 90 Days Active Chlorhexidine Gluconate 0.12 % RINSE CALISTA TH WITH 1/2 OUNCE TWICE A DAY SPIT DO NOT SWALLOW Mouth/Throat for 30 Days Active hydroCHLOROthiazide 50 MG TAKE 1 TABLET BY MOUTH EVERY DAY Oral Once a day Active Metoclopramide HCl 5 MG TAKE 1 TABLET BY MOUTH FOUR TIMES A DAY BEFORE EACH MEAL AND BED Oral for 30 Days Active Morphine Sulfate ER 30 MG Oral for 30 Days Active oxyCODONE HCl 10 MG Oral for 30 Days Active Latanoprost 0.005 % INSTILL 1 DROP INTO BOTH EYES AT BEDTIME Ophthalmic for 90 Days Active Estradiol 0.1 MG/GM Vaginal for 90 Days Active Multi Vitamin/Minerals - as directed Ora lly once a day Active Albuterol Sulfate HFA 108 (9 0 Base) MCG/ACT INHALE 2 PUFFS BY MOUTH EVERY 4 HOURS NEEDED Inhalation for 25 Days Active Immunizations Vaccine Route Administration Date Status Comme nts Influenza Unknown 01/23/2018 Administered Influenza Unknown 01/31/2023 Administered Influenza Unknown 01/24/2024 Administered Social History Tobacco Use: Social History Observation Description Date Details (start date - stop date) Former Smoker NA - NA Tobacco Use/Smoking Question Answer Notes Patient is a former smoker Problems Problem Type SNOMED Code ICD Code Onset Dates Problem Status W/U Status Risk Notes Problem 626190684 Colon cancer screening (Z12.11) Active confirmed Problem 802997621 Lares's esophagus without dysplasia (K22.70) Active confirmed Problem 672530889 Nausea (R11.0) Active confirmed Problem Dysphagia (04306132) Dysphagia (R13.10) Active confirmed Problem 779725135 Diverticulitis (K57.92) Active confirmed Problem 515803153 Esophageal spasm (K22.4) Active confirmed Problem 90134022 Dysphagia, unspecified type (R13.10) Active confirmed Problem Lares esophagus (207629431) Lares esophagus (K22.70) Active confirmed Problem 797862426 Abnormal barium swallow (R93.3) Active confirmed Problem 113247221 Irritable bowel syndrome with constipation (K58.1) Active confirmed Vital Signs Temperature 97.5 degrees Fahrenheit 07/17/2024 Blood pressure diastolic 01 mm Hg 07/17/2024 Height 65.5 in 07/17/2024 Blood pressure systolic 001 mm Hg 07/17/2024 Weight 138.2 lbs 07/17/2024 BMI 22.65 kg/m2 07/17/2024 Encounters Encounter Location Date Provider Diagnosis [facility] [address] [place] [address] 07/17/2024 Lonnie Arenas Jr Lares's esophagus without dysplasia K22.70 and Colon cancer screening Z12.11 Assessments Encounter Date Diagnosis (ICD Code) Assessment Notes Treatment Notes Treatment Clinical Notes Section Notes 07/17/2024 Colon cancer screening (ICD-10 - Z12.11) Endoscopy material was printed We discussed her symptoms today. We discussed further evaluation with upper endoscopy because of her persistent upper GI symptoms and her history of Lares's esophagus. We discussed risks and benefits of endoscopy today. She understands these and agrees to proceed. This will be scheduled at her convenience. 07/17/2024 Lares's esophagus without dysplasia (ICD-10 - K22.70) We discussed her symptoms today. We discussed further evaluation with upper endoscopy because of her persistent upper GI symptoms and her history of Lares's esophagus. We discussed risks and benefits of endoscopy today. She understands these and agrees to proceed. This will be scheduled at her convenience. Plan Of Treatment Pending Test Test Name Order Date LIVER PROFILE 08/17/2023 LIPASE 08/17/2023 CBC w/o DIFF 08/17/2023 XR BARIUM SWALLOW-ESOPHAGUS 02/14/2022 US ABD 08/17/2023 Future Test Test Name Order Date UPPER GI ENDOSCOPY 12/28/2012 UPPER GI ENDOSCOPY [place] DILATION OF ESOPH 08/10/2016 COLONOSCOPY 05/25/2018 UPPER GI ENDOSCOPY 03/02/2022 UPPER GI ENDOSCOPY 07/17/2024 Insurance Providers Payer Name Payer Address Payer Phone Subscriber Number Group Number Insured Name Patient Relationship to Insured Coverage Start Date Coverage End Date MEDICARE OF [place] [address] [place] [address] [id number] RAMON WHALEY Self - patient is the insured [employer] ([employer]) [address] [place] [address] [id number] RAMON WHALEY Self - patient is the insured Medical (General) History Medical History History ICD Code Colonoscopy 09/07/18, normal, ten-year fo llowup EGD 04/19/22, Lares's esophagus, stable , three-year recall. irritable bowel syndrome fibromyalgia (unspecified autoimmune dis order per patient) carotid aneurysm status post treatment w ith coils hypertension migraine COPD chronic back pain, and history of RSD Surgical History Surgery Date(Month/Year) SI joint on left side. carpal tunnel surgery deviated septum repair ankle surgery x2 appendectomy bowel obstruction at age 17 requiring resection of some small intestine
--- OUTSIDE RECORDS SUMMARY | 2024-10-29 16:16 | XMS_ITS | Encounter Summary ---
Author Organization [facility] Address [address] [place] [address] Phone Care Team Providers Care Clinical Document Improvement Educator Name Role Phone Dorene June MD Unavailable [phone] Vitor Angel MD Unavailable [phone] Enrike Vela MD Unavailable Deysi Nuñez MD Unavailable + [phone] Luz Osman Primary Care Provider [phone] Jeremy Torres MD Primary Care Provider [phone] Victoria Alvarado Primary Care Provider [phone] Carolina Garcia MD Primary Care Provider [phone] Lisa Padilla Primary Care Provide r Encounter Details Date Type Department Care Team (Late st Contact Info) Description 05/16/2018 Procedure Pass [facility], [address] [address] Social History Tobacco Use Types Packs/Day Years Used Date Smoking Tobacco: Some Days Cigarettes Smokeless Tobacco: Never Comments:started when she wa s 13 Alcohol Use Standard Drinks/Week Comments No 0 (1 standard drink = 0.6 oz pur e alcohol) Comments Unknown Sex and Gender Information Value Date Recorded Sex Assigned at Female 09/30/2018 4:40 PM EDT Legal Sex Female 7:19 PM EST Gender Identity Female 09/30/2018 4:40 PM EDT Sexual Orientation Not on file documented as of this encounter Plan of Treatment Not on file documented as of this encounter Visit Diagnoses Not on filedocumented in this encounter Care Teams Clinical Document Improvement Educator Relationship Specialty Start Date End Date Luz Osman PA [address] [place] [address] [place] [address] PCP - General Unknown Provider Specialty 01/08/18 09/20/18 Jeremy Torres MD [address] [place] [address], [address] [place] [address] PCP - General Internal Medicine 09/21/18 09/30/[address] [address] PCP - General 10/01/18 04/24/19 Carolina Garcai MD [address] [place] [address] PCP - General Internal Medicine 04/25/19 12/18/22 Lisa Padilla PA [address] [place] [address] PCP - General Physician Service Desk Specialist 12/19/22 Dorene June MD [address] [place] [address] Historical LMR Provider 01/23/1709/20 Vitor Angel MD [address] [place] [address] Historical LMR Provider 01/23/17 Enrike Vela MD [address] [place] [address], [facility] [address] [place] [address] [email or web address] Historical LMR Provider 01/23/17 04/17/21 Deysi Nuñez MD [address] [place] [address] [email or web address] Historical LMR Provider 01/23/1704/17 documented as of this encounter Additional Source Comments The information contained in this document represents components of the legal health record. It is not the complete legal health record.[facility]
--- OUTSIDE RECORDS SUMMARY | 2024-10-29 16:16 | XMS_ITS | Clinical Summary ---
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 [...] Colorectal Cancer Screening: Sigmoidoscopy 09/26/2003 Pneumococcal Vaccine: 50+ Years (2 of 2 - PCV) 03/09/2023 03/09/2022, 01/04/2021, 03/10/2016 Influenza Vaccine (#1) 2024 , 01/14/2019, 01/23/2018, Additional history exists Hepatitis B Vaccine Aged Out No longe r eligible based on patient's age to complete this topic Insurance Medicare [facility] Medicare Unicare Care Teams Oil And Gas Drafter Relationship Specialty Start Date End Date Jacey Lora MD [address] [place] [address], [address] [place] [address] PCP - General Internal Medicine 10/03/23
--- OUTSIDE RECORDS SUMMARY | 2024-10-29 16:16 | XMS_ITS | Encounter Summary ---
Author Organization [facility] Address [address] [place] [address] Care Team Providers Care Construction Sales Representative Name Role Phone Vitor Angel MD Primary Care Provider [phone] Encounter Details Date Type Department Care Team (Late st Contact Info) Description 12/17/2021 Telephone [facility] Medical [facility] Neurosurgery [address] [address] Trino Humphrey MD [address] [place] [address] 5 [place] [address] Social History Tobacco Use Types Packs/Day Years Used Date Smoking Tobacco: Some Days Smokeless Tobacco: Never Alcohol Use Standard Drinks/Week Comments Never 0 (1 standard drink = 0.6 oz pur e alcohol) AUDIT-C Answer Date Recorded Frequency of Alcohol Consumption Never 01/24/2019 Average Number of Drinks Not on file 019 Frequency of Binge Drinking Not on file 01/08 Comments Unknown Sex and Gender Information Value Date Recorded Sex Assigned at Not on file Legal Sex Female 7:09 PM EST Gender Identity Not on file Sexual [...] on filedocumented in this encounter Care Teams Construction Sales Representative Relationship Specialty Start Date End Date Vitor Angel MD [address] [place] [address] PCP - General Psychiatry, General 12/26/18 documented as of this encounter
--- OUTSIDE RECORDS SUMMARY | 2024-10-29 16:16 | XMS_ITS ---
Author Name [facility] ([place] [place]) Organization Unknown History of Medication Use Medication Directions Dispensed Refills Start Date End Date Stat us fluticasone (FloNASE) 50 mcg/spray nasal spray INHALE 1 SPRAY IN EACH NOSTRIL TWICE DAILY 11/10/2021 active proMETHAZINE (PHENERGAN) 25 MG tablet Take 25 mg by mouth 2 (two) times a day as needed. 01/16/2019 active traZODone (DESYREL) 50 MG tablet Take 50 mg by mouth nightly as needed. 12/24/2018 active medroxyPROGESTERone (PROVERA) 10 MG tablet Take 10 mg by mouth daily. 11/09/2018 active Ascorbic Acid (VITAMIN C) 1000 MG tablet active butalbital-acetaminophen -caffeine (FioriCET) 50-300-40 mg Cap capsule as needed. active chlorthalidone (HYGROTON) 25 MG tablet Take 25 mg by mouth daily. active Cholecalciferol 25 MCG (1000 UT) tablet Take 1,000 Units by mouth. active clobetasol (TEMOVATE) 0.05 % ointment Apply topically. act louis fluocinonide (LIDEX) 0.05 % gel fluocinonide 0.05 % topical gel PLEASE SEE ATTACHED FOR DETAILED DIRECTIONS active metoPROLOL SUCCINATE (TOPROL-XL) 25 MG 24 hr tablet Take 25 mg by mouth. active oxyCODONE (OxyCONTIN) 20 MG ER (extended release) tablet Take 20 mg by mouth 2 times daily (every 12 hours) as needed. active ubrogepant (Ubrelvy) 100 MG tablet Ubrelvy 100 mg tablet PLEASE SEE ATTACHED FOR DETAILED DIRECTIONS active Allergies Allergen Reaction Severity Comment Documented Date Source Statu s BUSPIRONE UNKNOWN/PATIENT AND FAMILY UNABLE TO DEFINE Moderate 02/15/2022 [facility] active CODEINE GI INTOLERANCE/NAUSEA/VOM ITING Mild 05/16/2018 [facility] active CEFACLOR HIVES Moderate 01/05/2018 [facility] active PENICILLINS ITCHING Severe 01/07/2013 [facility] active DIPHENHYDRAMINE ITCHING Moderate [facility] Encounters Encounter Type Encounter Reason Primary Diagnosis Location Date Ambulatory [facility] 02/15/2022 Ambulatory [facility] 02/15/2022 Ambulatory Spinal stenosis, lumbar region with neurogenic claudication [facility] 02/15/2022 Care Team Organization Name Specialty Phone Email Start Date End Da te [facility] Primary Care 02/15/2022 022 [facility] Primary Care 02/15/2022
== END 2024-10-29 15:51 | disposition home or self-care (01) ==
LOC: HO.HMCFM 15:21
PROVIDERS: PCP Internal Medicine; Visit Provider Internal Medicine
DX: R00.1 Bradycardia, unspecified (principal); R00.2 Palpitations; I10 Essential (primary) hypertension; M35.3 Polymyalgia rheumatica

== ENCOUNTER → 2024-10-29 15:21 | Outpatient (BNVA) | payer MEDICARE, OTHER, SELFPAY | PROVIDERS: PCP Internal Medicine; Visit Provider Internal Medicine | DX: R00.1 Bradycardia, unspecified (principal); R00.2 Palpitations; I10 Essential (primary) hypertension; M35.3 Polymyalgia rheumatica | CPT/HCPCS: 99212 ==

== ENCOUNTER 2024-10-30 09:06 | Outpatient (REF) | payer MEDICARE, OTHER, SELFPAY ==
--- OUTSIDE RECORDS SUMMARY | 2024-10-30 09:35 | XMS_ITS | Encounter Summary ---
Author Organization [facility] Address [address] [place] [address] Care Team Providers Care Professor Of Latin American Studies Name Role Phone Vitor Angel MD Primary Care Provider Encounter Details Date Type Department Care Team (Late st Contact Info) Description 12/17/2021 Telephone [facility] Medical [facility] Neurosurgery [address] [address] Trino Humphrey MD [address] [place] [address] 5 [place] [address] Social History Tobacco Use Types Packs/Day Years [...] on filedocumented in this encounter Care Teams Professor Of Latin American Studies Relationship Specialty Start Date End Date Vitor Angel MD [address] [place] [address] PCP - General Psychiatry, General 12/26/18 documented as of this encounter
--- OUTSIDE RECORDS SUMMARY | 2024-10-30 09:35 | XMS_ITS | Encounter Summary ---
Author Organization [facility] Address [address] [place] [address] Phone Care Team Providers Care Metal Cutter Name Role Phone Dorene June MD Unavailable [phone] Vitor Angel MD Unavailable [phone] Enrike Vela MD Unavailable Deysi Nuñez MD Unavailable + [phone] Luz Osman Primary Care Provider Jeremy Torres MD Primary Care Provider [phone] Victoria Alvarado Primary Care Provider Carolina Garcia MD Primary Care Provider [phone] Lisa Padilla Primary Care Provide r Encounter Details Date Type Department Care Team (Late st Contact Info) Description 05/16/2018 Procedure Pass [facility], [address] [address] Social History Tobacco Use Types Packs/Day Years [...] on filedocumented in this encounter Care Teams Metal Cutter Relationship Specialty Start Date End Date Luz Osman PA [address] [place] [address] [place] [address] PCP - General Unknown Provider Specialty 01/08/18 09/20/18 Jeremy Torres MD [address] [place] [address], [address] [place] [address] PCP - General Internal Medicine 09/21/18 09/30/[address] [address] PCP - General 10/01/18 04/24/19 Carolina Garcia MD [address] [place] [address] PCP - General Internal Medicine 04/25/19 12/18/22 Lisa Padilla PA [address] [place] [address] PCP - General Physician Air Crew Member 12/19/22 Dorene June MD [address] [place] [address] Historical LMR Provider 01/23/1709/20 Vitor Angel MD [address] [place] [address] Historical LMR Provider 01/23/17 Enrike Vela MD [address] [place] [address], [facility] [address] [place] [address] [email or web address] Historical LMR Provider 01/23/17 04/17/21 Deysi Nuñez MD [address] [place] [address] [email or web address] Historical LMR Provider 01/23/1704/17 documented as of this encounter Additional Source Comments The information contained in this document represents components of the legal health record. It is not the complete legal health record.[facility]
--- OUTSIDE RECORDS SUMMARY | 2024-10-30 09:35 | XMS_ITS | Clinical Summary ---
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 [...] age to complete this topic Insurance Medicare [facility] Medicare Unicare Care Teams Business Systems Advisor Relationship Specialty Start Date End Date Jacey Lora MD [address] [place] [address], [address] [place] [address] PCP - General Internal Medicine 10/03/23
--- OUTSIDE RECORDS SUMMARY | 2024-10-30 09:35 | XMS_ITS | Encounter Summary ---
Author Organization [employer] Address [address] [facility] 7 [place] [address] Care Team Providers Care Sleeping Bag Filler Name Role Phone Lucila CannonSW Unavailable [phone] Claudia Gamez CNP Primary Care Provider [phone] Reason for Visit * Reason Comments Med Refill Encounter Details Date Type Department Care Team (Late st Contact Info) Description 05/16/2022 Refill [facility] MEDICAL [address] [place] [address] Claudia Gamez CNP [address] [place] [address] Primary insomnia (Primary Dx) Social History Tobacco [...] Larson - 05/19/2022 2:45 PM EST Scheduled [id number] w/BC OV * Telephone Encounter - Claudia Gamez CNP - 05/16/2022 4:28 PM EST Due OV; please coordinate with pt; thanks documented in this encounter Plan of Treatment Not on file documented as of this encounter Visit Diagnoses Diagnosis Primary insomnia- Primary Persistent disorder of initiating or maintaining sleep documented in this encounter Care Teams Sleeping Bag Filler Relationship Specialty Start Date End Date Claudia Gamez CNP [address] [place] [address] PCP - General Family Medicine 05/03/22 02/01/23 Lucila Cannon LICSW 9 [place] [address] Zoology Teacher Behavioral Health 03/14/22 provider unknown Primary Care Provider 02/02/23 documented as of this encounter
--- OUTSIDE RECORDS SUMMARY | 2024-10-30 09:36 | XMS_ITS | Patient Health Record ---
Author Organization [facility] Address [address] [place] [address] Care Team Providers Care Media Services Director Name Role Phone Jacey Lora M.D. Primary [...] Problem Status W/U Status Risk Notes Problem 458868016 Colon cancer screening (Z12.11) Active confirmed Problem 084088341 Lares's esophagus without dysplasia (K22.70) Active confirmed Problem 182170866 Nausea (R11.0) Active confirmed Problem Dysphagia (46761845) Dysphagia (R13.10) Active confirmed Problem 999514217 Diverticulitis (K57.92) Active confirmed Problem 190849022 Esophageal spasm (K22.4) Active confirmed Problem 78679388 Dysphagia, unspecified type (R13.10) Active confirmed Problem Lares esophagus (413716623) Lares esophagus (K22.70) Active confirmed Problem 773727563 Abnormal barium swallow (R93.3) Active confirmed Problem 361178270 Irritable bowel syndrome with constipation (K58.1) Active confirmed Vital Signs Temperature 97.5 degrees Fahrenheit 07/17/2024 Blood pressure diastolic 01 mm Hg 07/17/2024 Height 65.5 in 07/17/2024 Blood pressure systolic 001 mm Hg 07/17/2024 Weight 138.2 lbs 07/17/2024 BMI 22.65 kg/m2 07/17/2024 Encounters Encounter Location Date Provider Diagnosis [facility] [address] [place] [address] 07/17/2024 Lonnie Arenas Jr Lares's esophagus without [...] Date MEDICARE OF [place] [address] [place] [address] [id number] RAMON WHALEY Self - patient is the insured [employer] ([employer]) [address] [place] [address] [phone] [id number] RAMON WHALEY Self - patient is [...]
[2024-10-30 11:47] LABS: Alanine Aminotransferase 22 U/L (0-31); Albumin Level 4.3 g/dL (3.5-5.0); Alkaline Phosphatase 53 U/L (39-117); Anion Gap 12 (12-20); Aspartate Amino Transferase 30 U/L (5-31); Blood Urea Nitrogen 7 mg/dL (9-16); Calcium 9.3 mg/dL (8.4-10.2); Carbon Dioxide 25 mmol/L (22-29); Chloride 107 mmol/L (96-108); Estimated Glomerular Filt Rate > 60; Iron 123 mcg/dL (30-160); Magnesium 1.9 mg/dL (1.6-2.6); Percent Iron Saturation 46 % (15-50); Potassium 3.9 mmol/L (3.3-5.1); Sodium 140 mmol/L (135-145); Total Iron Binding Capacity 267 mcg/dL (228-428); Total Protein 7.0 g/dL (6.5-8.0); Unsaturated Iron Binding 144 ug/dL
[2024-10-31 09:19] LABS: Lyme Abs Screen <0.90 index
== END 2024-10-30 09:07 | disposition home or self-care (01) ==
LOC: HO.WFDLDS 09:06
PROVIDERS: Visit Provider Internal Medicine
DX: R25.2 Cramp and spasm (principal); R00.1 Bradycardia, unspecified
CPT/HCPCS: 36415; 80053; 83540; 83735; 86617; 86618

== ENCOUNTER → 2024-11-15 10:54 | Outpatient (REF) | payer MEDICARE, OTHER, SELFPAY ==
--- NOTE | 2024-11-15 10:56 | HM_ITS ---
* Total monitoring time 14 days. * Underlying rhythm is sinus with an average rate of 70/Min. * Rare supraventricular ectopy. * Frequent ventricular ectopy with a burden of 3.4%. Rare couplets, triplets. No prolonged runs. * No significant pauses or high-grade AV blocks. * Patient markers correlate with ventricular ectopy. * No diary events. MTDD
--- OUTSIDE RECORDS SUMMARY | 2024-11-15 10:57 | XMS_ITS | Patient Health Record ---
Author Organization [facility] Address [address] [place] [address] Care Team Providers Care Asbestos Removal Worker Name Role Phone Jacey Lora M.D. Primary Care Provider Unavail Lonnie Treviño Jr Unavailable [phone] Allergies Allergen (clinical drug ingredient) Drug/Non Drug [...] Problem Status W/U Status Risk Notes Problem 022729320 Colon cancer screening (Z12.11) Active confirmed Problem 488517474 Lares's esophagus without dysplasia (K22.70) Active confirmed Problem 237388790 Nausea (R11.0) Active confirmed Problem Dysphagia (70514722) Dysphagia (R13.10) Active confirmed Problem 172845845 Diverticulitis (K57.92) Active confirmed Problem 502902725 Esophageal spasm (K22.4) Active confirmed Problem 88287379 Dysphagia, unspecified type (R13.10) Active confirmed Problem Lares esophagus (041641378) Lares esophagus (K22.70) Active confirmed Problem 266838462 Abnormal barium swallow (R93.3) Active confirmed Problem 766213230 Irritable bowel syndrome with constipation (K58.1) Active confirmed Vital Signs Temperature 97.5 degrees Fahrenheit 07/17/2024 Blood pressure diastolic 01 mm Hg 07/17/2024 Height 65.5 in 07/17/2024 Blood pressure systolic 001 mm Hg 07/17/2024 Weight 138.2 lbs 07/17/2024 BMI 22.65 kg/m2 07/17/2024 Encounters Encounter Location Date Provider Diagnosis [facility] [address] [place] [address] 07/17/2024 Lonnie Arenas Jr Lares's esophagus without [...] Date MEDICARE OF [place] [address] [place] [address] [id number] RAMON WHALEY Self - patient is the insured [employer] Insurance ([employer]) [address] [place] [address] [id number] RAMON WHALEY Self - patient is [...]
--- OUTSIDE RECORDS SUMMARY | 2024-11-15 10:57 | XMS_ITS | Clinical Summary ---
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 [...] age to complete this topic Insurance Medicare [facility] Medicare Unicare Care Teams Package Center Supervisor Relationship Specialty Start Date End Date Jacey Lora MD [address] [place] [address], [address] [place] [address] PCP - General Internal Medicine 10/03/23
--- OUTSIDE RECORDS SUMMARY | 2024-11-15 10:57 | XMS_ITS | Encounter Summary ---
Author Organization [facility] Address [address] [place] [address] Care Team Providers Care Manager Mortgage Name Role Phone Vitor Angel MD Primary Care Provider [phone] Encounter Details Date Type Department Care Team (Late st Contact Info) Description 12/17/2021 Telephone [facility] Medical [facility] Neurosurgery [address] [address] Trino Humphrey MD [address] [place] [address] 5 [place] [address] Social History Tobacco Use Types Packs/Day Years [...] filedocumented in this encounter Care Teams Manager Mortgage Relationship Specialty Start Date End Date Vitor Angel MD [address] [place] [address] PCP - General Psychiatry, General 12/26/18 documented as of this encounter
--- OUTSIDE RECORDS SUMMARY | 2024-11-15 10:57 | XMS_ITS | Clinical Summary ---
Author Organization [facility] Address [address] [place] [address] Phone Care Team Providers Care Printing Machine Operator Tape Rules Name Role Phone Vitor Angel MD Unavailable [phone] Lisa Padilla Primary Care Provide r Allergies Active Allergy Reactions Criticality Noted Date Comments Diphenhydramine Hcl 01/05/2018 Cefaclor 01/05/2018 Codeine 05/16/2018 Diphenhydramine Itching Medium 01/07/2013 Penicillins Hives,Itching High 01/07/2013 Medications ascorbic acid-vitamin E-biotin (HAIR, SKIN, NAILS WITH BIOTIN) 7.5-7.5-1,250 mg-unit-mcg Chew Active pantoprazole (PROTONIX) 40 MG tablet Active docusate (COLACE) 100 mg tablet Active b complex vitamins (VITAMINS B COMPLEX) tablet Active ascorbic acid, vitamin C, (VITAMIN C) 1000 MG tablet Activ e vitamin E 1000 UNIT capsuleIndicat ions:pt not taking Active promethazine (PHENERGAN) 25 MG tablet Take 1 tablet (25 mg total) by mouth every 8 (eight) hours as needed for nausea. 90 tablet 3 9 Active calcium carb,gluc/mag ox,gluc (CALCIUM MAGNESIUM ORAL) Take by mouth. Activ e traZODone (DESYREL) 50 MG tablet Take 50 mg by mouth nightly at bedtime as needed. 1 9 Active amLODIPine (NORVASC) 2.5 MG tablet Take 1 tablet by mouth every morning. 3 Active ondansetron (ZOFRAN) 4 MG tablet 3 Active oxyCODONE HCl 10 mg Tab TAKE 1 TABLET BY MOUTH EVERY 8 HOURS NEEDED FOR SEVERE PAIN 3 Active spironolactone (ALDACTONE) 50 MG tablet TAKE 1 TABLET BY MOUTH DAILY,X90 DAYS REPLACES SPIRONOLACTONE 25 MG DAILY. 3 Active UBRELVY 100 mg tablet PLEASE SEE ATTACHED FOR DETAILED DIRECTIONS 3 Active XTAMPZA ER 9 mg sprinkle ER 12 hr capsule TAKE 1 CAPSULE BY MOUTH EVERY 12 HOURS,X28 DAYS,INSTR:WITH FOOD 3 Active Active Problems Problem Noted Date Diagnosed Date Lumbar radiculopathy 05/02/2019 Trochanteric bursitis of left hip 10/04/2018 Sacroiliitis, not elsewhere classified 9 Cervical arthritis 09/21/2018 Lateral epicondylitis 09/21/2018 Neuropathy 09/21/2018 Carpal tunnel syndrome 09/21/2018 Breast mass 09/21/2018 Overview (09/21/2018): Followed at [facility] Rads Endometriosis 09/21/2018 Overview (09/21/2018): 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 Tobacco dependence 09/21/2018 Overview (09/21/2018): 1/2 ppd, no recent attempts to quit. The patient was counseled regarding tobacco cessation strategies. Medication management was also discussed, as well as risks of continued use. She feels she is not ready to consider quitting. Counseling time: 3 min Ophthalmoplegic migraine, not intractable 2018 Overview (09/21/2018): Worst in allergy season. Saw neuro at [facility]. She reports triptans and antidepressants had side effects. Sprain of sacroiliac ligament 07/23/2018 Myalgia 07/23/2018 Lumbosacral spondylosis without myelopathy 07/12 Overview (09/21/2018): Difficult management scenario, she's on Oxycodone, Gabapentin, and yet still smokes. Acquired trigger finger 10/30/2017 Immunizations Immunization Administration Dates Next Due Influenza Quadrivalent Preservative Free IM 10/2018,01/23/2018 Zoster recombinant 12/06/2017,07/28/2017 Family History Medical History Relation Comments Hypertension Father 2 Cancer Maternal Grandfather 2 Cancer Mother 2 Hypertension Mother 2 Stroke Mother 2 Relation Status Comments Father 1 Father 2 Maternal Grandfather 1 Maternal Grandfather 2 Mother 1 Mother 2 Social History Tobacco Use Types Packs/Day Years Used Date Smoking Tobacco: Some Days Cigarettes Smokeless Tobacco: Never Tobacco Cessation:Ready to Q uit: No; Counseling Given: No Comments:started when she was 13 Alcohol Use Standard Drinks/Week Comments No 0 (1 standard drink = 0.6 oz pur e alcohol) Education Answer Date Recorded Are you interested in more education? Not on demario e 08/04/2022 Are you concerned about learning? Not on file 08/04/2022 No 08/04/2022 No 08/04/2022 Digital Access Answer Date Recorded No 09/05/2022 No 09/05/2022 Reliable internet access at home? Not on file 09/05/2022 Device with a working camera? Not on file Comments Unknown Sex and Gender Information Value Date Recorded Sex Assigned at Female 09/30/2018 4:40 PM EDT Legal Sex Female 7:19 PM EST Gender Identity Female 09/30/2018 4:40 PM EDT Sexual Orientation Not on file Last Filed Vital Signs Vital Sign Reading Time Taken Comments Blood Pressure 152/84 11/09/2022 11:04 AM EDT Pulse 73 11/09/2022 11:04 AM EDT Temperature 36.8 C (98.3 F) 11/09/2022 11:04 AM EDT Respiratory Rate 20 09/30/2018 10:50 PM EDT Oxygen Saturation 99% 11/09/2022 11:04 AM EDT Inhaled Oxygen Concentration - - Weight 61.2 kg (135 lb) 05/07/2019 8:58 AM EST Height 167.6 cm (5' 5.98 ) 05/07/2019 8:58 AM ES T Body Mass Index 21.8 05/07/2019 8:58 AM EST Plan of Treatment Health Maintenance Due Date Last Done Comments LIPID PANEL 1955 SMOKING Hx and SMOKELESS TOBACCO SCREENING 09/26/1967 HEPATITIS C SCREENING 1972 COLOGUARD 09/26/1999 FIT TEST 09/26/1999 FOBT 09/26/1999 SIGMOIDOSCOPY 09/26/1999 VIRTUAL COLONOSCOPY 09/26/1999 DEPRESSION SCREENING 09/22/2019 09/21/2018 OSTEOPOROSIS SCREENING INITIAL (ONE-TIME) 09/26/2019 POTASSIUM LEVEL 10/01/2019 09/30/2018 MAMMOGRAM 12/29/2019 12/28/2017 PNEUMOCOCCAL VACCINES (50+ years) (2 of 2 - PCV) 03/09/2023 03/09/2022, 01/04/2021, 03/10/2016 COVID-19 VACCINE ( season) 2023 03/17/2023, 04/12/2022, 10/22/2021, Additional history exists COLONOSCOPY 09/07/2028 09/07/2018 COLORECTAL CANCER SCREENING 09/07/2028 Adult Td,Tdap Booster 10/12/2032 10/12/2022 , 04/21/2021, 04/21/2021, Additional history exists ZOSTER VACCINES Completed 12/06/2017, 07/28/2017 RSV VACCINE Completed 12/14/2022 HEPATITIS A VACCINES Aged Out No long er eligible based on patient's age to complete this topic HIB VACCINES Aged Out No longer eligi ble based on patient's age to complete this topic MENINGOCOCCAL VACCINES (ACWY) Aged Out No longer eligible based on patient's age to complete this topic MENINGOCOCCAL VACCINES (B) Aged Out N o longer eligible based on patient's age to complete this topic Medical Devices Not on file Procedures Procedure Name Priority Date/Time Associated Diagnosis Comments BASIC METABOLIC PANEL STAT 09/30/2018 6:28 PM EDT COLONOSCOPY FOR RESULT ENTRY ONLY Routine 09/07/2018 MAMMOGRAPHY Routine 12/28/2017 from Last 3 Months or Most Recently Relevant to Health Maintenance Results * (ABNORMAL) Basic metabolic panel (09/30/2018 6:28 PM EDT) SODIUM 140 133 - 146 mmol/L [facility] CHLORIDE 103 96 - 108 mmol/L [facility] POTASSIUM 3.3 3.3 - 5.1 mmol/L [facility] CO2 22 21 - 35 mmol/L [facility] BUN 9 6 - 19 mg/dL [facility] CREATININE 0.50 0.5 - 1.5 mg/dL [facility] GLUCOSE 100(H) 70 - 99 mg/dL [facility] CALCIUM 9.4 8.4 - 10.3 mg/dL [facility] EGFR 102 >59 mL/min/1.7 3m2 [facility] Comment:If patient is black, multiply result by 1.159. Estimated glomerular filtration rate calculated using the CKD-EPI equation. ANION GAP 18 10 - 20 mmol/L [facility] Blood 09/30/2018 6:28 PM EDT 09/30/2018 6:35 PM EDT [facility] BLOOD ORDERABLES Final Result Performing Organization Address City/State/[facility] Co de Phone Number [address] [address] * COLONOSCOPY FOR RESULT ENTRY ONLY (09/07/2018) [facility] Colonoscopy ..... Historical Provider HEALTH MAINTENANCE Final Result * MAMMOGRAPHY FOR RESULT ENTRY ONLY (12/28/2017) [facility] Mammogram .... Historical Provider HEALTH MAINTENANCE Final Result from Last 3 Months or Most Recently Relevant to Health Maintenance Insurance [facility] MEDICARE SUPPLEMENT MEDICARE PART A & B [facility] MEDICARE SUPPLEMENT MEDICARE PART A & B [facility] MEDICARE SUPPLEMENT [facility] MEDICARE SUPPLEMENT [facility] MEDICARE SUPPLEMENT MEDICARE PART A & B [facility] MEDICARE SUPPLEMENT MEDICARE PART A & B [employer] MEDICARE SUPPLEMENT MEDICARE PART A & B [employer] EXTENSION MEDICARE SUPPLEMENT [facility] [employer] MEDICARE SUPPLEMENT MEDICARE PART A & B Care Teams Printing Machine Operator Tape Rules Relationship Specialty Start Date End Date Lisa Padilla PA [address] [address] PCP - General Physician Acid Concentrator 12/19/22 Vitor Angel MD [address] [place] [address] Historical LMR Provider 01/23/17 Additional Source Comments The information contained in this document represents components of the legal health record. It is not the complete legal health record.[facility]
--- OUTSIDE RECORDS SUMMARY | 2024-11-15 10:57 | XMS_ITS | Encounter Summary ---
Author Organization [employer] Address [address] [facility] [address] [place] [address] Care Team Providers Care Safety Spec Name Role Phone Lucila CannonSW Unavailable [phone] Claudia Gamez CNP Primary Care Provider [phone] Reason for Visit * Reason Comments Med Refill Encounter Details Date Type Department Care Team (Late st Contact Info) Description 05/16/2022 Refill [facility] MEDICAL [address] [place] [address] Claudia Gamez CNP [address] [place] [address] Primary insomnia (Primary Dx) Social History Tobacco [...] Larson - 05/19/2022 2:45 PM EST Scheduled [id number] w/BC OV * Telephone Encounter - Claudia Gamez CNP - 05/16/2022 4:28 PM EST Due OV; please coordinate with pt; thanks documented in this encounter Plan of Treatment Not on file documented as of this encounter Visit Diagnoses Diagnosis Primary insomnia- Primary Persistent disorder of initiating or maintaining sleep documented in this encounter Care Teams Safety Spec Relationship Specialty Start Date End Date Claudia Gamez CNP [address] [place] [address] PCP - General Family Medicine 05/03/22 02/01/23 Lucila Cannon LICSW [address] [place] [address] [facility] [employer] 03/14/22 provider unknown Primary Care Provider 02/02/23 documented as of this encounter
== END ==
LOC: HO.CARD 10:54
PROVIDERS: Visit Provider Internal Medicine
DX: R00.1 Bradycardia, unspecified (principal)
CPT/HCPCS: 93246

== ENCOUNTER → 2024-11-15 10:56 | Outpatient (BNV) | payer MEDICARE, OTHER, SELFPAY | PROVIDERS: Visit Provider Internal Medicine | DX: I49.3 Ventricular premature depolarization (principal); I47.10 Supraventricular tachycardia, unspecified | CPT/HCPCS: 93248 ==

== ENCOUNTER 2024-11-29 09:57 | Outpatient (AMB) | payer MEDICARE, OTHER, SELFPAY ==
--- OUTSIDE RECORDS SUMMARY | 2024-11-27 23:59 | XMS_ITS | Continuity of Care Document ---
Author Organization [facility] Address [address] [place] [address]- Care Team Providers Care Liquor Store Manager Name Role Phone Geno POST, Jacey Phillips Primary Care Physician Encounter [facility] Date(s): 11/20/24 - 11/27/24 [facility] [address] [place] [address] Attending Physician: Enrike Cruz NP Referring Physician: Jacey Lora MD Encounter Type: Office Visit Allergies, Adverse Reactions, Alerts Substance Criticality Severity Reaction Reaction Severity Status codeine Active doxycycline Diarrhea Active clindamycin Burning mouth syndrome Active penicillins Active Zoloft Active Wellbutrin Active Ultram Active Topamax Active Ceclor Active Benadryl Active BuSpar Active Immunizations Given and Recorded Vaccine Date Status Refusal Reason SARS-CoV-2(COVID-19)mRNA-LNP vac([id number]) 03/17/23 Recorded RSV vaccine preF3, recombinant 12/14/22 Recorded influenza virus vaccine, inactivated 12/14/22 Homar rded influenza virus vaccine, inactivated 03/09/22 Homar rded influenza virus vaccine, inactivated 01/04/21 Homar rded influenza virus vaccine, inactivated 01/28/20 Homar rded influenza virus vaccine, inactivated 01/14/19 Hoamr rded influenza virus vaccine, inactivated 01/23/18 Homar rded tetanus/diphtheria/pertussis, acel(Tdap) 10/12/22 Recorded tetanus/diphtheria/pertussis, acel(Tdap) 04/15/11 Recorded [id number] 12y+ bivalent booster vax 04/12/22 Recorded pneumococcal [...] 0 Refills, Maintenance, 07/10/23 8:35:00 AM EDT, [id number], 30, APPLY 1 APPLICATION TOPICALLY 2 TIMES [...] 0 Refills, Maintenance, 05/30/23 8:29:00 AM EST, [facility], 165, cm, 04/06/23 14:54:00 EST, Height, 62, kg, 02/28/23 9:04:00 EST, Dry Weight Start Date: 05/30/23 Stop Date: 06/29/23 Status: Ordered Quantity: 90.0 Unit: tablet Repeat number: 1 estradiol 0.1 mg/g vaginal cream See Instructions, USE 1 GM VAGINALLY DAILY AT BEDTIME TAKE EVERY NIGHT FOR TWO WEEKS THEN TWICE WEEKLY, # 42.5 Gm, 11 Refills, Maintenance, 04/02/24 8:54:00 AM EST, [facility], 168, cm, 02/06/2411:35:00 EDT, Height, 63.5, kg, 02/07/24 11:04:00 EDT, Dry Weight Start Date: 04/02/24 Status: Ordered Quantity: 42.5 Unit: g Repeat number: 1 fosfomycin 3 g oral granule for reconstitution 1 each = 3 Gm, By Mouth, Once, # 1 pack/packet, 0 Refills, Soft Stop, 02/08/24 10:03:00 AM EDT, Granule, [facility]/pharmacy #[id number], Partial fill upon patient request if [...] Date: 06/03/22 Status: Ordered Repeat number: 1 methocarbamol 500 mg oral tablet 0 Refills, Maintenance, 11/20/24 8:51:00 AM EDT, Partial fill upon patient request if the prescription is for a schedule II opioid drug. Start Date: 11/20/24 Status: Ordered Repeat number: 1 morphine sulfate morphine sulfate, Refills 0, Maintenance, 01/16/24 2:05:00 PM EDT, Supply Start Date: 01/16/24 Status: Ordered Repeat number: 1 Narcan 4 mg/0.1 mL nasal spray = 4 mg, Naris, Right, Once, PRN overdose, may repeat every 2 to 3 minutes until patient responds, #2 each, 0 Refills, Soft Stop, 11/17/22 9:50:00 AM EDT, [facility]/pharmacy #[id number], Partial fill upon patientrequest if the prescription is for a schedule II opioid drug., 168, cm, 11/15/22 14:33:00 EDT, Height, 61, kg, 08/31/22 18:14:00 EDT, Dry Weight Start Date: 11/17/22 Status: Ordered Quantity: 2.0 Unit: each Repeat number: 1 pantoprazole 40 mg oral [...] 1 Refills, Maintenance, 12/09/22 11:02:00 AM EDT, [facility] STORE [facility]24, 168, cm, 11/23/22 10:58:00 EDT, Height, 61, kg, 08/31/22 18:14:00 EDT, Dry Weight Start Date: 12/09/22 Status: Ordered Quantity: 90.0 Unit: tablet Repeat number: 1 suvorexant 10 mg oral tablet 1 tablet = 10 mg, By Mouth, Daily at bedtime, # 30 tablet, 1 Refills, Maintenance, 11/20/24 10:21:00AM EDT, [facility]/pharmacy #[id number], Partial fill upon patient request if the prescription is for a scheduleII opioid drug., 168, cm, 11/20/24 8:52:00 EDT, Height, 63.5, kg, 02/07/24 11:04:00 EDT, Dry Weight Start Date: 11/20/24 Status: Ordered Quantity: 30.0 Unit: tablet Repeat number: 2 Ubrelvy 100 mg oral tablet 1 tablet, By Mouth, Daily, PRN NEEDED FOR MIGRAINE MAY REPEAT IN 2 HOURS, MAX 2 DOSES IN, # 10 tablet, 5 Refills, Maintenance, 04/02/24 10:44:00 AM EST, [facility], 168, cm, 02/07/24 11:35:00EDT, Height, 63.5, kg, [...] than 30 days ago; Other: quit smoking 11/08/22; entered on: 02/28/23 Sex Sex Representation Female (finding) Note * Rico , Anna: PERFORM Event Display: Patient Education/Instruction Authored Date: [id number] Ambulatory Adult Visit Summary [facility] [address] [place] [address] Name: RAMON WHALEY : 1955?? Visit: 11/20/2024 08:43?? Ambulatory Visit Instructions ?? Your Care Team Primary Care Provider Geno POST, Jacey Phillips? This Visit Provider Enrike Cruz NP Your Diagnosis Disturbance, sleep MCI (mild cognitive impairment) Vitals Signs Pulse Rate: 66 bpm Height: 168 cm Systolic Blood Pressure: 133 mm Hg Weight: 65.7 kg Diastolic Blood Pressure: 78 mm Hg Body Mass Index: 23.28 kg/m2 Oxygen Saturation: 99 % Body surface area: 1.75 What to do next Scheduled Follow-Up Appointments 2024 10:00 AM EDT ?? With: Karlee Min MD Where: [facility] 3rd Floor, [address] [place] [address]- Status: Pending Future Orders Creatinine - Routine, Once, 05/07/24 12:25:00 EST, Future Order, [facility], Blood?? Calcium Level - Routine, Once, 09/12/24 14:32:00 EDT, Future Order, [facility], Blood?? Medications The list below reflects the information in our records and provided by you today along with any changes made during this visit. Please continue your medications until treatment is completed or stopped by your provider. If this is different from the information you have or there are other questions,please contact the prescribing provider. What How Much When Instructions New suvorexant (suvorexant 10 mg oral tablet) 1 tab(s) Oral Daily at Bedtime Refills: 1 Pickup at [facility]/pharmacy #[id number] Unchanged Amlodipine (amLODIPine 5 mg oral tablet) 1 tab(s) Oral Daily Unchanged Calcium And Vitamin D Combination (calcium (as carbonate)-vitamin D 500 mg-400 intl unitsoral tablet) 1 tab(s) Oral Twice a day Unchanged Clobetasol Topical (clobetasol 0.05% topical ointment) 1 starla Topically Twice a day Duration: 10 Days Unchanged Cyclobenzaprine (cyclobenzaprine 5 mg oral tablet) 1 tab(s) Oral Every 8 hours as needed for NEEDED FOR PAIN/SPASM X Duration: 30 Days Unchanged Estradiol Topical (estradiol 0.1 mg/ g vaginal cream) See instructions USE 1 GM VAGINALLY DAILY AT BEDTIME TAKE EVERY NIGHT FOR TWO WEEKS THEN TWICE WEEKLY ?? Unchanged fosfomycin (fosfomycin 3 g oral granule for reconstitution) 1 Each Oral Once Unchanged Ipratropium 2 spray(s) Nares, Both Twice a day Unchanged Latanoprost Ophthalmic (latanoprost 0.005% ophthalmic solution) 1 Drops Both eyes Daily at Bedtime Unchanged linaclotide (Linzess 145 mcg oral capsule) 1 capsule Oral Daily Unchanged Methocarbamol (methocarbamol 500 mg oral tablet) Unchanged Miscellaneous Rx (BACLOFEN 10MG TAB) Unchanged Miscellaneous Rx (morphine sulfate) Unchanged Miscellaneous Rx (vitamin d) Unchanged nalOXONE (Narcan 4 mg/ 0.1 mL nasal spray) 4 Milligram Naris, Right Once as needed for overdose may repeat every 2 to 3 minutes until patient responds ?? Unchanged Oxycodone (Xtampza ER 9 mg oral capsule, extended release) 1 capsule Oral Every 12 hours Duration: 28 Days with food ?? Unchanged Pantoprazole (pantoprazole 40 mg oral delayed release tablet) 1 tab(s) Oral Twice a day Unchanged Spironolactone (spironolactone 50 mg oral tablet) 1 tab(s) Oral Daily Unchanged ubrogepant (Ubrelvy 100 mg oral tablet) 1 tab(s) Oral Daily as needed for NEEDED FOR MIGRAINE MAY REPEAT IN 2 HOURS, MAX 2 DOSES IN Duration: 24 hour Pharmacy Information [facility]/pharmacy #[id number]: [address] [place], [place] [id number] [phone] Medications and Immunizations Administered Medications Given During Visit No medications given during this visit.?? Allergies (NKA means No Known Allergies) Benadryl BuSpar Ceclor Topamax Ultram Wellbutrin Zoloft clindamycin??(Burning mouth syndrome) codeine doxycycline??(Diarrhea) penicillins Common Emergency Awareness Tips IS IT A STROKE? Act FAST and Check for these signs: FACE Does the face look uneven? ARM Does one arm drift down? SPEECH Does their speech sound strange? TIME Call at any sign of stroke ?? Heart Attack Signs Chest discomfort: Most heart attacks involve discomfort in the center of the chest and lasts more than a few minutes, or goes away and comes back. It can feel like uncomfortable pressure, squeezing, fullness or pain. Discomfort in upper body: Symptoms can include pain or discomfort in one or both arms, back, neck, jaw or stomach. Shortness of breath: With or without discomfort. Other signs: Breaking out in a cold sweat, nausea, or lightheaded. Remember, MINUTES DO MATTER. If you experience any of these heart attack warning signs, call to get immediate medical attention! ?? Smoking can increase your chances of developing chronic health problems and can cause harmful effects to other family members in your house. If you smoke, you are strongly encouraged to quit. Please call [employer] [facility] at [phone] or 7-742-433AccurIC ([phone]) or log in to [email or web address] for referrals to smoking cessation programs. ?? The National Suicide Prevention Hotline is available 31/10 if you or someone you know needs to find a reason to keep living. By calling 9-774-518-The Fred Rogers (3187) you'll be connected to a skilled, trained counselor at a crisis center in your area. [facility] You can view and manage your care through the patient portal or by using a health care starla of your choosing. [employer] is a website that allows you to securely view your medical information including your hospital discharge summary, office visit summaries, medications and follow-up visits. You can also request appointments, renew medications, and request access to your medical information using a health care starla of your choosing, or just ask a question. You can enroll at [email or web address] or register during your next office visit. [facility], in keeping with [facility] guidance, no longer requires face masks for staff, patientsor visitors in most situations. Similiar to time spent indoors at other locations, there is the chance that you were exposed to repiratory viruses during your time with us (such as flu or COVID-19). If you develop symptoms concerning for a viral respiratory infection, please seek testing (and treatment if indicated) from your medical provider or home test kit. ?? Disclaimer: The information provided is of a general nature and is intended to be used in conjunction with the recommendations and advice of your health care practitioner. Every effort has been made to ensure that the information provided is accurate and complete at the time it is provided to you however, as your needs change, or, as new information becomes available, different or additional instructions may be required. ?? If you have questions, please consult with your primary care provider or pharmacist, as appropriate. This information is not intended to serve as substitution for assessment and evaluation by a qualified health care provider. If you do not have a primary care provider, you may find a [facility] provider by calling [facility] at [phone]. Patient Care team information Care Team Personnel Name: Chris Glover MD Position: [facility] Renal MD Member Role: Lifetime Consulting Physician Address: [address] [facility] [address] [facility] [place] [address]- Telecom: Name: Orlando Walter Position: [facility] Outreach Member Role: Lifetime Consulting Physician Name: Delon Martel Position: [facility] Outreach Member Role: Lifetime Consulting Physician Name: Jacey Lora MD Position: Reference Physician Member Role: PCP Address: [address] [place] [address]- Telecom: Name: Cholo Rosales [place] Position: [facility] Outreach Member Role: Lifetime Consulting Physician Name: Radha Glynn Position: [facility] Office Staff Member Role: Lifetime Consulting Physician Care Team Related Persons Name: AMRITA WHALEY Name: MANDO WHALEY Name: AMRITA OUWSU Name: YAW LYNN Insurance Providers Guarantor name: RAMON WHALEY Health Plan Information #: 1 Payer: MEDICARE B Payer Identifier: Member Number: [id number] Group Number: Subscriber Identifier: [id number] Relationship to Subscriber: self Coverage Type: NA Coverage Verification Date: NA Telecom: NA Address: Health Plan Information #: 2 Payer: [facility] [employer] Payer Identifier: Member Number: [id number] Group Number: [id number] Subscriber Identifier: [id number] Relationship to Subscriber: Spouse Coverage Type: Commercial Indemnity Coverage Verification Date: Telecom: Address:
--- NOTE | 2024-11-29 10:01 | A.OFFPC_ITS ---
Vital Signs 11/29/24 10:06 Height 5 ft 6 in Weight 142 lb 4 oz BMI 23.0 BP 124/70 Blood Pressure Location Lt brachial Position Sitting Respiration 12 Pulse 66 Pulse Source Pulse Oximeter Temp 96.9 F Temp Source Oral Pulse Oximetry (%) 99 Oxygen Delivery Method Room Air Intake Visit Reasons: Vertigo, requesting prescription for meclizine Intake Note: Patient c/o vertigo and is requesting meclizine for it. Biodiesel Product Development Manager Required: No Allergies cefaclor (From CECLOR) Allergy (Severe, Verified 11/29/24 10:29) RASH,THROAT SWELLING Penicillins Allergy (Mild, Verified 11/29/24 10:29) MASSIVE WHELTS From BuSpar Allergy (Intermediate, Uncoded 11/29/24 10:29) CONFUSION, HALLUCINATIONS Medication List - Last Reconciled 11/29/24 by Michelle Rico, DOORS PREFITTER- amlodipine 2.5 mg PO DAILY 90 days baclofen 20 mg PO BEDTIME methocarbamol 500 mg PO TID PRN metoclopramide HCl (Reglan) 10 mg PO Q6H PRN morphine ER 30 mg PO Q12H 30 days oxycodone 10 mg PO TID PRN 30 days pantoprazole 1 tab PO BID spironolactone 25 mg PO DAILY trazodone 50 - 100 mg (1 - 2 x 50 mg) PO BEDTIME ubrogepant (Ubrelvy) mg PO zolpidem (Ambien) 5 mg PO BEDTIME PRN Tobacco use date assessed: 11/29/24 Fall risk assessment: No Falls in past year Last assessed Fall Risk: 11/29/24 Dental Screening Dental Screen Date: 11/29/24 Did you have a dental visit in the last 12 months?: Yes Did you have a dental problem in the last 6 months where you did not have access to dental care?: No Was dental information given to patient?: Patient has dentist HPI HPI Comments History of Present Illness Details History of Present Illness - The patient is a 69-year-old female pr esenting with vertigo & L ear pain - Episodes are recurrent with a history of fluid retention in the ears managed by diuretics & ENT in the past. - Symptoms include blocked sensation and drainage in the left ear after using debrox. - Exacerbated by head movements; sinuses involved without fever or head trauma. - + seasonal allergies, using nasal spra y and benadryl. - has used antivert in the past w/ effec t. Review of Systems - ENT: Reports vertigo, intermittent lef t ear blockage and drainage; Denies fever, chills, head trauma. - Sinuses: Reports increased symptoms re cently. Physical Exam General: Well developed, well nourished, in no acute distress. Appears stated age. Head: Normocephalic, atraumatic. Eyes: Pupils are equal, round and reactive to light and accommodation. Conjunctivae are clear. Vision grossly normal. Ears: TM intact and clear bilat; EAC clear on R, edematous, tender and pale on the L Nose: clear drainage, turbinates normal, no sinus tenderness Pharynx: clear Lungs: Clear to auscultation bilaterally. No rales, rhonchi or wheeze noted. Good air flow in all dunbar. Heart: Regular rate and rhythm. No murmurs, click, rubs or gallops are noted. Neuro: nonfocal Discussion Notes During the visit, I discussed the management of the patient?s vertigo and ear pain. The patient was advised that the ear pain might be due to irritation in the ear canal, potentially resulting in a condition similar to swimmer?s ear. To address this, I prescribed an ear drop formulation with a low-dose antibiotic and anti-inflammatory properties for the left ear. For symptomatic relief of vertigo, I recommended meclizine, cautioning that while it may not fully alleviate the episodes, it should provide some control. . I instructed the patient to follow up if symptoms persist or worsen, utilizing the patient portal for communication if needed. The importance of monitoring was stressed to prevent recurrence. Patient was given time to ask questions. All questions were answered to their satisfaction. Assessment and Plan - Prescribe meclizine for vertigo. - Use ear drops with antibiotic and anti -inflammatory properties. Patient Instructions - Use the prescribed ear drops in the le ft ear as directed. - Take meclizine as needed for vertigo. - Avoid penicillin, cefacor, and Benadry l due to allergies. - Follow home remedies for ear wax manag ement. - Contact us or visit if symptoms worsen or do not improve. Consent Patient was informed and verbally consented to the use of an ambient scribe for clinic note documentation during this visit. [facility] Medical History Bowel obstruction Reflex sympathetic dystrophy Back pain COPD (chronic obstructive pulmonary disease) Migraine HTN (hypertension) Carotid artery aneurysm Fibromyalgia IBS (irritable bowel syndrome) Lares esophagus GERD (gastroesophageal reflux disease) Surgical History Hx of fusion of cervical spine H/O carpal tunnel repair S/P surgery on nasal septum History of ankle surgery History of appendectomy Family History Sister Alcoholism Mother Breast cancer HTN (hypertension) Hypercholesteremia Maternal Aunt Breast cancer Maternal Uncle Colon cancer Father HTN (hypertension) Asthma Hypercholesteremia Maternal Grandfather Pacemaker Other Substance use Social History Housing: House Alcohol intake: current Patient Tobacco Use Status: Former Tobacco user Tobacco use type: Cigarette Cigarettes Per Day: 10 Years Smoked: 50 Packs per year/per ci.00 e-Cigarette/Vaping Use: Never Used Second Hand Smoke Exposure: No service: No Current occupational status: retired Cognitive needs: No Hearing needs: No Vision needs: Yes (floater in eyes, and possible glaucoma) Questionnaire Thrive Questionnaire Date Thrive assessed: 05/29/24 I am a: Patient What is your living situation today?: I have a steady place to live Within the past 12 months, did the food you bought not last and you didn't have the money to get more?: Never true Within the past 12 months, did you worry whether your food would run out before you got money to buy more?: Never true Do you have trouble paying for medicines?: No Do you have trouble getting transportation to medical appointments?: No Do you have trouble paying your heating and electricity bill?: No Do you have trouble taking care of your child, family member or friend?: No Do you have trouble with day-to-day activities such as bathing, preparing meals, shopping, managing finances, etc.?: No Are you currently unemployed and looking for a job?: No Are you interested in more education?: No Please select the resources that you would like help with: None Currently or been in a relationship where the following occur: No concerns repor miladys THRIVE Score: 0 SISSY-7 AMB Questionnaire SISSY-7 Date SISSY - 7 assessed: 06/04/24 Source: Developed by Drs. Gabriel Amaya, Anni Campbell, Franco Solano and colleagues, with an educational alyce from [employer]. Physical exam (Primary Care) Vital Signs: Last Vital Signs Temp 96.9 F 11/29/24 10:06 Pulse 66 11/29/24 10:06 Resp 12 11/29/24 10:06 BP 124/70 11/29/24 10:06 Pulse Ox 99 11/29/24 10:06 Oxygen Delivery Method Room Air 11/29/24 10:06 BMI result Body Mass Index 23.0 Tobacco/Smoking Status: Tobacco use Status Tobacco use date assessed 11/29/24 11/29/24 10:03 Patient Tobacco Use Status Former Tobacco user 11/29/24 10:01 Tobacco use type Cigarette 11/29/24 10:01 e-Cigarette/Vaping Use Never Used 11/29/24 10:01 Thrive Assessment: Date of Thrive Assessment Date Thrive assessed 05/29/24 11/29/24 10:01 Currently or been in a relationship where the following occur: No concerns reported Coding Level of Care Code Est Pt Level 3 (70269) Complex EM visit Add On G2211 Diagnoses Benign paroxysmal positional vertigo of left ear H81.12 Laterality: left Otitis externa H60.90 Noninfectious otitis externa type: reactive Chronicity: acute Laterality: left Assessment & Plan Assessment & Plan (1) BPPV (benign paroxysmal positional vertigo): Code(s): H81.10 - Benign paroxysmal vertigo, unspecified ear Category: Medical Qualifiers: Laterality: left Qualified Code(s): H81.12 - Benign paroxysmal vertigo, left ear (2) Otitis externa: Code(s): H60.90 - Unspecified otitis externa, unspecified ear Category: Medical Qualifiers: Noninfectious otitis externa type: reactive Chronicity: acute Laterality: left Plan / Medications: New ciprofloxacin-hydrocortisone 0.2-1 % 3 drps otic (ears) BID 10 mL 0RF 7 days meclizine 25 mg PO BID PRN 60 tabs 0RF dizziness Patient Instructions: - Use the prescribed ear drops in the left ear as directed. - Take meclizine as needed for vertigo. - Avoid penicillin, cefacor, and Benadryl due to allergies. - Follow home remedies for ear wax management. - Contact us or visit if symptoms worsen or do not improve.
--- OUTSIDE RECORDS SUMMARY | 2024-11-29 10:01 | XMS_ITS | Patient Health Record ---
Author Organization [facility] Address [address] [place] [address] Care Team Providers Care Ocean Freight Forwarder Name Role Phone Jacey Lora M.D. Primary [...] Problem Status W/U Status Risk Notes Problem 937033016 Colon cancer screening (Z12.11) Active confirmed Problem 309166520 Lares's esophagus without dysplasia (K22.70) Active confirmed Problem 240934554 Nausea (R11.0) Active confirmed Problem Dysphagia (46078429) Dysphagia (R13.10) Active confirmed Problem 144508787 Diverticulitis (K57.92) Active confirmed Problem 173278069 Esophageal spasm (K22.4) Active confirmed Problem 37246387 Dysphagia, unspecified type (R13.10) Active confirmed Problem Lares esophagus (005729338) Lares esophagus (K22.70) Active confirmed Problem 516662716 Abnormal barium swallow (R93.3) Active confirmed Problem 774954616 Irritable bowel syndrome with constipation (K58.1) Active confirmed Vital Signs Temperature 97.5 degrees Fahrenheit 07/17/2024 Blood pressure diastolic 01 mm Hg 07/17/2024 Height 65.5 in 07/17/2024 Blood pressure systolic 001 mm Hg 07/17/2024 Weight 138.2 lbs 07/17/2024 BMI 22.65 kg/m2 07/17/2024 Encounters Encounter Location Date Provider Diagnosis [facility] [address] [place] [address] 07/17/2024 Lonnie Arenas Jr Lares's esophagus without [...] Date MEDICARE OF [place] [address] [place] [address] [id number] RAMON WHALEY Self - patient is the insured [employer] ([employer]) [address] [place] [address] [phone] [id number] RAMON WHALEY Self - patient is [...]
--- OUTSIDE RECORDS SUMMARY | 2024-11-29 10:01 | XMS_ITS | Clinical Summary ---
Author Organization [facility] Address [address] [facility] [address] [place] [address] Phone Care Team Providers Care Burr Grinder Name Role Phone Jacey Lora MD Primary [...] otherwise specified 10/03/2023 Endometriosis 09/21/2018 Overview (10/03/2023): LEAF SIZE PICKER: DR Ceasar Htuchison rx- Adderall for endometriosis... Family History Medical [...] age to complete this topic Insurance Medicare [facility] Medicare Unicare Care Teams Burr Grinder Relationship Specialty Start Date End Date Jacey Lora MD [address] [place] [address], [address] [place] [address] PCP - General Internal Medicine 10/03/23
--- OUTSIDE RECORDS SUMMARY | 2024-11-29 10:01 | XMS_ITS | Encounter Summary ---
Author Organization [employer] Address [address] [facility] 7 [place] [address] Care Team Providers Care Glass Sagger Name Role Phone Lucila CannonSW Unavailable [phone] Claudia Gamez CNP Primary Care Provider [phone] Reason for Visit * Reason Comments Med Refill Encounter Details Date Type Department Care Team (Late st Contact Info) Description 05/16/[address] [facility] MEDICAL [address] [place] [address] Claudia Gamez CNP [address] [place] [address] Primary insomnia (Primary Dx) Social History Tobacco [...] Larson - 05/19/2022 2:45 PM EST Scheduled [id number] w/BC OV * Telephone Encounter - Claudia Gamez CNP - 05/16/2022 4:28 PM EST Due OV; please coordinate with pt; thanks documented in this encounter Plan of Treatment Not on file documented as of this encounter Visit Diagnoses Diagnosis Primary insomnia- Primary Persistent disorder of initiating or maintaining sleep documented in this encounter Care Teams Glass Sagger Relationship Specialty Start Date End Date Claudia Gamez CNP [address] [place] [address] PCP - General Family Medicine 05/03/22 02/01/23 Lucila Cannon LICSW [address] [place] [address] Gis Engineer Behavioral [facility] 03/14/22 provider unknown Primary Care Provider 02/02/23 documented as of this encounter
--- OUTSIDE RECORDS SUMMARY | 2024-11-29 10:01 | XMS_ITS | Encounter Summary ---
Author Organization [facility] Address [address] [place] [address] Care Team Providers Care Car Shagger Name Role Phone Vitor Angel MD Primary Care Provider [phone] Encounter Details Date Type Department Care Team (Late st Contact Info) Description 12/17/2021 Telephone [facility] Medical [facility] Neurosurgery [address] [address] Trino Humphrey MD [address] [place] [address] [address] [place] [address] Social History Tobacco Use Types Packs/Day Years [...] filedocumented in this encounter Care Teams Car Shagger Relationship Specialty Start Date End Date Vitor Angel MD [address] [place] [address] PCP - General Psychiatry, General 12/26/18 documented as of this encounter
[2024-11-29 10:06] VITALS: BP 124/70; PULSE 66; RESP 12; TEMP 36.1; O2SAT 99; BMI 23.0
== END 2024-11-29 13:15 | disposition home or self-care (01) ==
LOC: HO.HMCFM 09:58
PROVIDERS: Visit Provider Nurse Practitioner Family
DX: H81.12 Benign paroxysmal vertigo, left ear (principal); H60.92 Unspecified otitis externa, left ear

== ENCOUNTER → 2024-11-29 09:57 | Outpatient (BNVA) | payer MEDICARE, OTHER, SELFPAY | PROVIDERS: Visit Provider Nurse Practitioner Family | DX: H81.12 Benign paroxysmal vertigo, left ear (principal); H60.92 Unspecified otitis externa, left ear | CPT/HCPCS: 99212 ==

== ENCOUNTER 2024-12-13 11:11 | Outpatient (AMB) | payer MEDICARE, OTHER, SELFPAY ==
--- NOTE | 2024-12-13 11:22 | MHC.PC.OV ---
Vital Signs 12/13/24 11:27 Height 5 ft 6 in Weight 140 lb 6 oz BMI 22.7 BP 126/84 Blood Pressure Location Rt brachial Position Sitting Respiration 12 Pulse 59 Pulse Source Pulse Oximeter Temp 98.2 F Temp Source Oral Pulse Oximetry (%) 99 Oxygen Delivery Method Room Air Intake Visit Reasons: awv/cpe Intake Note: Physical. Wants left ear looked at, still bothering her from last issue. Bone pain worsening. Real Estate Coordinator Required: No Allergies cefaclor (From CECLOR) Allergy (Severe, Verified 12/13/24 11:23) RASH,THROAT SWELLING Penicillins Allergy (Mild, Verified 12/13/24 11:23) MASSIVE WHELTS From BuSpar Allergy (Intermediate, Uncoded 12/13/24 11:23) CONFUSION, HALLUCINATIONS Medication List - Last Reconciled 12/13/24 by Jacey Lora MD amlodipine 2.5 mg PO DAILY 90 days baclofen 20 mg PO BEDTIME PRN metoclopramide HCl (Reglan) 10 mg PO Q6H PRN morphine ER 30 mg PO Q12H 30 days oxycodone 10 mg PO TID PRN 30 days pantoprazole 1 tab PO BID spironolactone 25 mg PO DAILY temazepam 15 mg PO BEDTIME PRN trazodone 50 - 100 mg PO BEDTIME PRN ubrogepant (Ubrelvy) mg PO zolpidem (Ambien) 5 mg PO BEDTIME PRN Tobacco use date assessed: 11/29/24 Dental Screening Dental Screen Date: 11/29/24 HPI HPI Comments History of Present Illness Details This is a 68 year old female with a past medical history of OA, chronic low back pain, muscle pain, hypertension, GERD, barretts, migraines presenting for CPE Chronic pain - CCP elevated. CK slight elevation. Has severe flares of deep muscle and bone pain every 2-3 months, lasts 1-3 weeks. Feet, Legs, arms, hands, tips of the fingers. Muscles hurt and she has deep bone pain. Saw rheumatology -clinical exam with osteoarthritic changes without evidence of autoimmune rheumatologic disease -OA: On oxycodone, morphine ER. s/p SI joint fusion with Dr Kent 04/2023. Active caring for her grandchild. CV: on amlodipine, spironolactone. Following with nephrology for BP management. Denies chest pain, exertional dyspnea. Heart rate still dropping frequently into the low 50s mostly during sleep but she awakens with fluttering, palptiations MSK: On oxycodone, morphine ER-transitioned from xtampza. s/p SI joint fusion with Dr Kent 04/2023. Active caring for her grandchild. She continues to have suboptimal pain control Neuro: Follows with Dr Elder, neurology for migraines. On ubrelvy. stable. History of aneurysm repair. Had MRA head/neck. GI: Follows with Dr Arenas. Danii. UTD with upper and lower endoscopy BH: Insomnia. She continues to get very little deep sleep. She has tried trazodone, ambien, belsomra without good effect. She was seen by Dr Mcgovern-urogyn for multidrug resistant UTI. Mammo- ROS see HPI PHYSICAL EXAM: GENERAL: Alert and oriented x 3. NAD EYES: EOMI. Anicteric. HENT: Moist mucous membranes. No scleral icterus. No cervical lymphadenopathy. LUNGS: Clear to auscultation bilaterally. CARDIOVASCULAR: Regular rate and rhythm. No murmur. No JVD. ABDOMEN: Soft, non-tender +bs EXTREMITIES: No edema. Non-tender. SKIN: No rashes or lesions. Warm. NEUROLOGIC: No focal neurological deficits. CN II-XII grossly intact PSYCHIATRIC: Cooperative. Appropriate mood and affect [facility] Medical History Bowel obstruction Reflex sympathetic dystrophy Back pain COPD (chronic obstructive pulmonary disease) Migraine HTN (hypertension) Carotid artery aneurysm Fibromyalgia IBS (irritable bowel syndrome) Lares esophagus GERD (gastroesophageal reflux disease) Surgical History Hx of fusion of cervical spine H/O carpal tunnel repair S/P surgery on nasal septum History of ankle surgery History of appendectomy Family History Sister Alcoholism Mother Breast cancer HTN (hypertension) Hypercholesteremia Maternal Aunt Breast cancer Maternal Uncle Colon cancer Father HTN (hypertension) Asthma Hypercholesteremia Maternal Grandfather Pacemaker Other Substance use Social History Housing: House Alcohol intake: current Patient Tobacco Use Status: Former Tobacco user Tobacco use type: Cigarette Cigarettes Per Day: 10 Years Smoked: 50 e-Cigarette/Vaping Use: Never Used Second Hand Smoke Exposure: No service: No Current occupational status: retired Cognitive needs: No Hearing needs: No Vision needs: Yes (floater in eyes, and possible glaucoma) Questionnaire Thrive Questionnaire Date Thrive assessed: 05/29/24 I am a: Patient What is your living situation today?: I have a steady place to live Within the past 12 months, did the food you bought not last and you didn't have the money to get more?: Never true Within the past 12 months, did you worry whether your food would run out before you got money to buy more?: Never true Do you have trouble paying for medicines?: No Do you have trouble getting transportation to medical appointments?: No Do you have trouble paying your heating and electricity bill?: No Do you have trouble taking care of your child, family member or friend?: No Do you have trouble with day-to-day activities such as bathing, preparing meals, shopping, managing finances, etc.?: No Are you currently unemployed and looking for a job?: No Are you interested in more education?: No Please select the resources that you would like help with: None Currently or been in a relationship where the following occur: No concerns reported THRIVE Score: 0 SISSY-7 AMB Questionnaire SISSY-7 Date SISSY - 7 assessed: 06/04/24 Source: Developed by Drs. Gabriel Amaya, Anni Campbell, Franco Solano and colleagues, with an educational alyce from [employer]. Physical exam (Primary Care) Vital Signs: Last Vital Signs Temp 98.2 F 12/13/24 11:27 Pulse 59 12/13/24 11:27 Resp 12 12/13/24 11:27 BP 126/84 12/13/24 11:27 Pulse Ox 99 12/13/24 11:27 Oxygen Delivery Method Room Air 12/13/24 11:27 BMI result Body Mass Index 22.7 Tobacco/Smoking Status: Tobacco use Status Tobacco use date assessed 11/29/24 12/13/24 11:32 Patient Tobacco Use Status Former Tobacco user 12/13/24 11:32 Tobacco use type Cigarette 12/13/24 11:32 e-Cigarette/Vaping Use Never Used 12/13/24 11:32 Thrive Assessment: Date of Thrive Assessment Date Thrive assessed 05/29/24 12/13/24 11:32 Currently or been in a relationship where the following occur: No concerns reported Coding Level of Care Code Est Pt Prev Care >65y(36086) Diagnoses Physical exam Z00.00 Assessment & Plan Assessment & Plan (1) Physical exam: Code(s): Z00.00 - Encounter for general adult medical examination without abnormal findings Category: Medical Plan 69 year old female for physical exam Interval history reviewed Preventive measuresfor age discussed continues to have flares of muscle and bone pain. OA + ?EDS/NMD/fibromyalgia suboptimal pain control. Increase 30bid to 50 bid. Migraines stable Orders: Orders MM tomosynthesis screening BI Today Z12.31 - Encounter for screening mammogram for malignant neoplasm of breast Lipid Panel Today K21.9 - Gastro-esophageal reflux disease without esophagitis, K22.70 - Lares's esophagus without dysplasia, R74.8 - Abnormal levels of other serum enzymes Comprehensive Met. Panel Today K21.9 - Gastro-esophageal reflux disease without esophagitis, K22.70 - Lares's esophagus without dysplasia, R74.8 - Abnormal levels of other serum enzymes Creatine Kinase Total Today K21.9 - Gastro-esophageal reflux disease without esophagitis, K22.70 - Lares's esophagus without dysplasia, R74.8 - Abnormal levels of other serum enzymes Medications: New morphine ER Partial Fill upon patient request. 50 mg PO Q12H 60 caps 0RF M35.3 - Polymyalgia rheumatica Changed From baclofen 20 mg PO BEDTIME 90 tabs 3RF To baclofen 20 mg PO BEDTIME PRN From temazepam 15 mg PO BEDTIME PRN 30 caps 1RF sleep To temazepam [id number] [id number] Member [id number] 15 mg PO BEDTIME PRN 30 caps 1RF sleep From trazodone 50 - 100 mg (1 - 2 x 50 mg) PO BEDTIME 180 tabs 3RF To trazodone 50 - 100 mg PO BEDTIME PRN
[2024-12-13 11:27] VITALS: BP 126/84; PULSE 59; RESP 12; TEMP 36.8; O2SAT 99; BMI 22.7
--- OUTSIDE RECORDS SUMMARY | 2024-12-13 12:19 | XMS_ITS | Encounter Summary ---
Author Organization [facility] Address [address] [place] [address] Care Team Providers Care Scalp Specialist Name Role Phone Vitor Angel MD Primary Care Provider [phone] Encounter Details Date Type Department Care Team (Late st Contact Info) Description 12/17/2021 Telephone [facility] Medical [facility] Neurosurgery [address] [address] Trino Humphrey MD [address] [place] [address] Social History Tobacco Use Types Packs/Day Years [...] on filedocumented in this encounter Care Teams Scalp Specialist Relationship Specialty Start Date End Date Vitor Angel MD [address] [place] [address] PCP - General Psychiatry, General 12/26/18 documented as of this encounter
--- OUTSIDE RECORDS SUMMARY | 2024-12-13 12:19 | XMS_ITS | Clinical Summary ---
Author Organization [facility] Address [address] [facility] [address] [place] [address] Phone Care Team Providers Care Respiratory Care Specialist Name Role Phone Jacey Lora MD Primary Care Provider [phone] Allergies Active Allergy Reactions Criticality Noted Date [...] otherwise specified 10/03/2023 Endometriosis 09/21/2018 Overview (10/03/2023): SALES DEVELOPMENT REPRESENTATIVE: DR Ceasar Hutchison rx- Adderall for endometriosis... [...] age to complete this topic Insurance Medicare [facility] Medicare Unicare Care Teams Respiratory Care Specialist Relationship Specialty Start Date End Date Jacey Lora MD [address] [place] [address], [address] [place] [address] PCP - General Internal Medicine 10/03/23
--- OUTSIDE RECORDS SUMMARY | 2024-12-13 12:19 | XMS_ITS | Patient Health Record ---
Author Organization [facility] Address [address] [place] [address] Care Team Providers Care Outpatient Therapist Name Role Phone Jacey Lora M.D. Primary Care Provider Unavail Lonnie Treviño Jr Unavailable [phone] Allergies Allergen (clinical drug ingredient) Drug/Non [...] Problem Status W/U Status Risk Notes Problem 587853269 Colon cancer screening (Z12.11) Active confirmed Problem 514303404 Lares's esophagus without dysplasia (K22.70) Active confirmed Problem 759089567 Nausea (R11.0) Active confirmed Problem Dysphagia (99803013) Dysphagia (R13.10) Active confirmed Problem 353575326 Diverticulitis (K57.92) Active confirmed Problem 231572503 Esophageal spasm (K22.4) Active confirmed Problem 91163688 Dysphagia, unspecified type (R13.10) Active confirmed Problem Lares esophagus (488790018) Lares esophagus (K22.70) Active confirmed Problem 097689365 Abnormal barium swallow (R93.3) Active confirmed Problem 717946645 Irritable bowel syndrome with constipation (K58.1) Active confirmed Vital Signs Temperature 97.5 degrees Fahrenheit 07/17/2024 Blood pressure diastolic 01 mm Hg 07/17/2024 Height 65.5 in 07/17/2024 Blood pressure systolic 001 mm Hg 07/17/2024 Weight 138.2 lbs 07/17/2024 BMI 22.65 kg/m2 07/17/2024 Encounters Encounter Location Date Provider Diagnosis [facility] [address] [place] [address] 07/17/2024 Lonnie Arenas Jr Lares's esophagus without [...] Date MEDICARE OF [place] [address] [place] [address] [id number] RAMON WHALEY Self - patient is the insured [employer] [address] [place] [address] [id number] RAMON WHALEY Self - patient is [...]
--- OUTSIDE RECORDS SUMMARY | 2024-12-13 12:19 | XMS_ITS | Encounter Summary ---
Author Organization [employer] Address [address] [place] [address] 7 [place] [address] Care Team Providers Care Shoemaking Finisher Name Role Phone Lucila Cannon Unavailable [phone] Claudia Gamez CNP Primary Care Provider [phone] Encounter Details Date Type Department Care Team (Late st Contact Info) Description 04/27/2022 Abstract Carolin [facility] MEDICAL [address] [place] [address] Claudia Gamez CNP [address] [place] [address] Social History Tobacco Use Types Packs/Day Years [...] on filedocumented in this encounter Care Teams Shoemaking Finisher Relationship Specialty Start Date End Date Claudia Gamez CNP [address] [place] [address] PCP - General Family Medicine 05/03/22 02/01/23 Lucila Cannon LICSW 9 [place] [address] Assistant Dean Of Students Behavioral Health 03/14/22 provider unknown Primary Care Provider 02/02/23 documented as of this encounter
--- OUTSIDE RECORDS SUMMARY | 2024-12-13 12:19 | XMS_ITS | Encounter Summary ---
Author Organization [employer] Address [address] [facility] 7 [place] [address] Care Team Providers Care Residential Care Officer Name Role Phone Lucila CannonSW Unavailable [phone] Claudia Gamez CNP Primary Care Provider [phone] Reason for Visit * Reason Comments Med Refill Encounter Details Date Type Department Care Team (Late st Contact Info) Description 05/16/2022 Refill [facility] MEDICAL [address] [place] [address] Claudia Gamez CNP 73 [place] [address] Primary insomnia (Primary Dx) Social History Tobacco [...] Larson - 05/19/2022 2:45 PM EST Scheduled [id number] w/BC OV * Telephone Encounter - Claudia Gamez CNP - 05/16/2022 4:28 PM EST Due OV; please coordinate with pt; thanks documented in this encounter Plan of Treatment Not on file documented as of this encounter Visit Diagnoses Diagnosis Primary insomnia- Primary Persistent disorder of initiating or maintaining sleep documented in this encounter Care Teams Residential Care Officer Relationship Specialty Start Date End Date Claudia Gamez CNP 73 [place] [address] PCP - General Family Medicine 05/03/22 02/01/23 Lucila Cannon LICSW 9 [place] [address] Veneer Grader Behavioral Health 03/14/22 provider unknown Primary Care Provider 02/02/23 documented as of this encounter
--- OUTSIDE RECORDS SUMMARY | 2024-12-13 12:19 | XMS_ITS | Encounter Summary ---
Author Organization [employer] Address 75 [facility] 7t [place] [address] Care Team Providers Care Airport Operations Officer Name Role Phone Lucila Cannon Unavailable [phone] Claudia Gamez CNP Primary Care Provider [phone] Encounter Details Date Type Department Care Team (Late st Contact Info) Description 04/28/2022 Abstract Carolin [facility] MEDICAL [address] [place] [address] Provider, Chris, Social History Tobacco Use Types [...] on filedocumented in this encounter Care Teams Airport Operations Officer Relationship Specialty Start Date End Date Claudia Gamez CNP 73 [place] [address] PCP - General Family Medicine 05/03/22 02/01/23 Lucila Cannon LICSW 9 [place] [address] Electorate Officer Behavioral Health 03/14/22 provider unknown Primary Care Provider 02/02/23 documented as of this encounter
--- OUTSIDE RECORDS SUMMARY | 2024-12-13 12:19 | XMS_ITS | Encounter Summary ---
Author Organization [facility] Address [address] [place] [address] Care Team Providers Care Gas Main And Line Fitter Name Role Phone Vitor Angel MD Primary Care Provider [phone] Encounter Details Date Type Department Care Team (Late st Contact Info) Description 05/21/2019 Scanned Document [facility] Neurosurgery [address] [phone] Social History Tobacco Use Types Packs/Day Years [...] on filedocumented in this encounter Care Teams Gas Main And Line Fitter Relationship Specialty Start Date End Date Vitor Angel MD [address] [place] [address] PCP - General Psychiatry, General 12/26/18 documented as of this encounter
--- OUTSIDE RECORDS SUMMARY | 2024-12-13 12:19 | XMS_ITS | Encounter Summary ---
Author Organization [facility] Address [address] [place], [place] [id number] Care Team Providers Care Donor Processor Name Role Phone Vitor Angel MD Primary Care Provider [phone] Reason for Visit * Reason Comments Advice Only Encounter Details Date Type Department Care Team (Late st Contact Info) Description 05/11/2022 Telephone [facility] Neurosurgery [address] [phone] Nestor Cummings PA-C [address] [place] [address] Advice Only Social History Tobacco Use [...] on filedocumented in this encounter Care Teams Donor Processor Relationship Specialty Start Date End Date Vitor Angel MD [address] [place] [address] PCP - General Psychiatry, General 12/26/18 documented as of this encounter
--- OUTSIDE RECORDS SUMMARY | 2024-12-13 12:19 | XMS_ITS | Encounter Summary ---
Author Organization [facility] Address [address] [place] [address] Phone Care Team Providers Care Engine House Helper Name Role Phone Dorene June MD Unavailable [phone] Vitor Angel MD Unavailable [phone] Enrike Vela MD Unavailable Deysi Nuñez MD Unavailable [phone] Luz Osman Primary Care Provider Jeremy Torres MD Primary Care Provider [phone] Victoria Alvarado Primary Care Provider Carolina Garcia MD Primary Care Provider Lisa Padilla Primary Care Provide r Encounter Details Date Type Department Care Team (Late st Contact Info) Description 05/16/2018 Procedure Pass [facility], [address] [address] Social History Tobacco Use Types Packs/Day Years [...] on filedocumented in this encounter Care Teams Engine House Helper Relationship Specialty Start Date End Date Luz Osman PA [address] [place] [address] [place] [address] PCP - General Unknown Provider Specialty 01/08/18 09/20/18 Jeremy Torres MD [address] [place] [address], [address] [place] [address] PCP - General Internal Medicine 09/21/18 09/30/[address] [address] PCP - General 10/01/18 04/24/19 Carolina Garcia MD [address] [place] [address] PCP - General Internal Medicine 04/25/19 12/18/22 Lisa Padilla PA [address] [place] [address] PCP - General Physician Porcelain Waxer 12/19/22 Dorene June MD [address] [place] [address] Historical LMR Provider 01/23/1709/20 Vitor Angel MD [address] [place] [address] Historical LMR Provider 01/23/17 Enrike Vela MD [address] [place] [address], [facility] [address] [place] [address] [email or web address] Historical LMR Provider 01/23/17 04/17/21 Deysi Nuñez MD [address] [place] [address] [email or web address] Historical LMR Provider 01/23/1704/17 documented as of this encounter Additional Source Comments The information contained in this document represents components of the legal health record. It is not the complete legal health record.[facility]
--- OUTSIDE RECORDS SUMMARY | 2024-12-13 12:19 | XMS_ITS | Encounter Summary ---
Author Organization [employer] Address 75 [facility] 7t [place] [address] Care Team Providers Care Metal Pickling Equipment Operator Name Role Phone Lucila CannonSW Unavailable Claudia Gamez CNP Primary Care Provider [phone] Reason for Visit * Reason Comments Med Refill Encounter Details Date Type Department Care Team (Late st Contact Info) Description 09/07/2022 Refill Carolin [facility] MEDICAL [address] [place] [address] Cassandra Long FNP 73 [place] [address] Primary insomnia Social History Tobacco Use Types [...] believe she is seeing anew PCP in [place] documented in this encounter Plan of Treatment Not on file documented as of this encounter Visit Diagnoses Diagnosis Primary insomnia Persistent disorder of initiating or maintaining sleep documented in this encounter Care Teams Metal Pickling Equipment Operator Relationship Specialty Start Date End Date Claudia Gamez CNP 73 [facility] [place] [address] PCP - General Family Medicine 05/03/22 02/01/23 Lucila Cannon LICSW 9 [facility] [place] [address] Director Medical Science Behavioral Health 03/14/22 provider unknown Primary Care Provider 02/02/23 documented as of this encounter
--- OUTSIDE RECORDS SUMMARY | 2024-12-13 12:19 | XMS_ITS | Clinical Summary ---
Author Organization [facility] Address [address] [place] [address] Phone Care Team Providers Care Construction Scheduler Name Role Phone Vitor Angel MD Unavailable [phone] Lisa Padilla Primary Care Provide r Allergies [...] Breast mass 09/21/2018 Overview (09/21/2018): Followed at [facility] [place] Endometriosis 09/21/2018 Overview (09/21/2018): CORROSION PREVENTION METAL SPRAYER: DR Ceasar Hutchison rx- Adderall for endometriosis... [...] Worst in allergy season. Saw neuro at [facility]. She reports triptans and antidepressants had side [...] 2 - PCV) 03/09/2023 03/09/2022, 01/04/2021, 03/10/2016 INFLUENZA VACCINE (#1) 2024 , 03/09/2022, 01/04/2021, Additional history exists COVID-19 VACCINE ( season) 2024 03/17/2023, 04/12/2022, 10/22/2021, Additional history exists COLONOSCOPY [...] Basic metabolic panel (09/30/2018 6:28 PM EDT) [facility] SODIUM 140 133 - 146 mmol/L [facility] CHLORIDE 103 96 - 108 mmol/L [facility] POTASSIUM 3.3 3.3 - 5.1 mmol/L [facility] CO2 22 21 - 35 mmol/L [facility] BUN 9 6 - 19 mg/dL [facility] CREATININE 0.50 0.5 - 1.5 mg/dL [facility] GLUCOSE 100(H) 70 - 99 mg/dL [facility] CALCIUM 9.4 8.4 - 10.3 mg/dL [facility] EGFR 102 >59 mL/min/1.7 3m2 [facility] Comment:If patient is black, multiply result by 1.159. Estimated glomerular filtration rate calculated using the CKD-EPI equation. ANION GAP 18 10 - 20 mmol/L [facility] Blood 09/30/2018 6:28 PM EDT 09/30/2018 6:35 PM EDT Kim OWENS LAB BLOOD ORDERABLES Final Result Performing Organization Address City/State/[facility] Co de Phone Number [facility] [address] [place] [address] * COLONOSCOPY FOR RESULT ENTRY ONLY (09/07/2018) [facility] Colonoscopy ..... Historical Provider HEALTH MAINTENANCE Final Result * MAMMOGRAPHY FOR RESULT ENTRY ONLY (12/28/2017) [facility] Mammogram .... Historical Provider HEALTH MAINTENANCE Final Result from Last 3 Months or Most Recently Relevant to Health Maintenance [facility] MEDIC[facility] SUPPLEMENT MEDICARE PART A & B [facility] MEDICARE SUPPLEMENT MEDICARE PART A & B [employer] EXTENSION MEDICARE SUPPLEMENT [employer] EX[employer]ENSION MEDICARE SUPPLEMENT [employer] EXTENSION MEDICARE SUPPLEMENT MEDICARE PART A & B [facility] EXTENSION MEDICARE SUPPLEMENT MEDICARE PART A & B [employer]ION MEDICARE SUPPLEMENT MEDICARE PART A & B [employer] EX[employer]ENSION MEDICARE SUPPLEMENT [facility] EXTENSION MEDICARE SUPPLEMENT MEDICARE PART A & B Care Teams Construction Scheduler Relationship Specialty Start Date End Date Lisa Padilla PA [address] [place] [address] PCP - General Physician Revenue Cycle Specialist 12/19/22 Vitor Angel MD [address] [place] [address] [email or web address] Historical LMR Provider 01/23/17 Additional Source Comments The information contained in this document represents components of the legal health record. It is not the complete legal health record.[facility]
--- OUTSIDE RECORDS SUMMARY | 2024-12-13 12:19 | XMS_ITS | Encounter Summary ---
Author Organization [facility] Address [address] [place] [address] Care Team Providers Care Digital Printer Name Role Phone Vitor Angel MD Primary Care Provider [phone] Encounter Details Date Type Department Care Team (Late st Contact Info) Description 02/15/2022 Scanned Document [facility] [place] [facility] Neurosurgery [address] [phone] Neurosurgery, Scan Social History Tobacco Use Types [...] on filedocumented in this encounter Care Teams Digital Printer Relationship Specialty Start Date End Date Vitor Angel MD [address] [place] [address] PCP - General Psychiatry, General 12/26/18 documented as of this encounter
--- OUTSIDE RECORDS SUMMARY | 2024-12-13 12:19 | XMS_ITS | Encounter Summary ---
Author Organization [facility] Address [address] [place] [address] Care Team Providers Care Science Tutor Name Role Phone Vitor Angel MD Primary Care Provider [phone] Encounter Details Date Type Department Care Team (Late st Contact Info) Description 04/13/2022 Scanned Document [facility] Neurosurgery [address] [phone] Neurosurgery, Scan Social History Tobacco Use Types [...] on filedocumented in this encounter Care Teams Science Tutor Relationship Specialty Start Date End Date Vitor Angel MD [address] [place] [address] PCP - General Psychiatry, General 12/26/18 documented as of this encounter
--- OUTSIDE RECORDS SUMMARY | 2024-12-13 12:19 | XMS_ITS | Encounter Summary ---
Author Organization [facility] Address [address] [place], [place] [address] Care Team Providers Care Business Continuity Management Director Name Role Phone Vitor Angel MD Primary Care Provider [phone] Reason for Visit * Reason Comments Referral Pain Management Encounter Details Date Type Department Care Team (Late st Contact Info) Description 04/05/2022 Telephone [facility] Neurosurgery [address] [phone] Nestor Cummings PA-C [address] [place] [address] Referral (Pain Management) Social History Tobacco [...] on filedocumented in this encounter Care Teams Business Continuity Management Director Relationship Specialty Start Date End Date Vitor Angel MD [address] [place] [address] PCP - General Psychiatry, General 12/26/18 documented as of this encounter
--- OUTSIDE RECORDS SUMMARY | 2024-12-13 12:19 | XMS_ITS | Clinical Summary ---
Author Organization [facility] Address [address] [place] [address] Care Team Providers Care Customs Broker Name Role Phone Vitor Angel MD Primary Care Provider [phone] Allergies Active Allergy Reactions Criticality Noted Date Comments Buspirone Unknown/Patient and Family Unable to Define Medium 02/15/2022 Cefaclor Hives Medium 01/05/2018 Codeine GI Intolerance/Nausea/Vomiting Low 05/16 Diphenhydramine Itching Medium 01/07/2013 Penicillins Hives,Itching High 01/07/2013 Medications Calcium Carbonate-Paty min D (CALCIUM 500/D PO) Take by mouth. Activ e Ascorbic Acid (VITAMIN C) 1000 MG tablet Activ e b complex vitamins tablet Active butalbital-ale taminophen-caf feine (FioriCET) 50-300-40 mg Cap capsule as needed. Active Cholecalcifero l 25 MCG (1000 UT) tablet Take 1,000 Units by mouth. Active clobetasol (TEMOVATE) 0.05 % ointment Apply topically. Act louis eletriptan (RELPAX) 20 MG tablet Take 20 mg by mouth Once before discharge. Active medroxyPROGEST ERone (PROVERA) 10 MG tablet Take 10 mg by mouth daily. 3 9 Active metoPROLOL SUCCINATE (TOPROL-XL) 25 MG 24 hr tablet Take 25 mg by mouth. Active OSPHENA 60 MG Tab Take 1 tablet by mouth daily. with food 0 9 Active oxyCODONE (OxyCONTIN) 20 MG ER (extended release) tablet Take 20 mg by mouth 2 times daily (every 12 hours) as needed. Active PANTOprazole (PROTONIX) 40 MG EC tablet Take 40 mg by mouth daily. 1 9 Active proMETHAZINE (PHENERGAN) 25 MG tablet Take 25 mg by mouth 2 (two) times a day as needed. 2 9 Active traZODone (DESYREL) 50 MG tablet Take 50 mg by mouth nightly as needed. 1 9 Active vitamin E 1000 UNIT capsule Active chlorthalidone (HYGROTON) 25 MG tablet Take 25 mg by mouth daily. Active ubrogepant (Ubrelvy) 100 MG tablet Ubrelvy 100 mg tablet PLEASE SEE ATTACHED FOR DETAILED DIRECTIONS Active estradiol-nore thindrone (CombiPatch) 0.05-0.14 MG/DAY external patch CombiPatch 0.05 [...] EACH NOSTRIL TWICE A DAY 2 Active fluocinonide (LIDEX) 0.05 % gel fluocinonide 0.05 % topical gel PLEASE SEE ATTACHED FOR DETAILED DIRECTIONS Active fluticasone (FloNASE) 50 mcg/spray nasal spray INHALE 1 SPRAY IN EACH NOSTRIL TWICE DAILY 2 Active latanoprost (XALATAN) 0.005 % ophthalmic solution [...] 61 02/15/2022 12:53 PM EST Temperature 36.4 C (97.5 F) 02/15/2022 12:53 PM EST Respiratory Rate - - Oxygen Saturation 98% 02/15/2022 12:53 PM EST Inhaled Oxygen Concentration - - Weight 58.1 kg (128 lb) 01/24/2019 11:01 AM EDT Height 167.6 cm (5' 6 ) 01/24/2019 11:01 AM EDT Body Mass Index 20.66 01/24/2019 11:01 AM EDT Plan of Treatment Health Maintenance Due Date Last Done Comments Advance Care Planning 1955 Hepatitis C Virus Screening 1955 DTaP/Tdap/Td Vaccines (1 - Tdap) 1973 Pneumococcal Vaccines 50+ (1 of 2 - PCV) 1973 Mammogram 1994 Colonoscopy 09/26/1999 Zoster (Shingles) Vaccine (1 of 2) 2004 DXA Bone Density (Females,Ages 65 and older) 09/26/2019 COVID-19 Vaccine ( - 2023-2 5 season) 2023 Influenza Vaccine 11/08/2024 01/14/2019, 01/23/2018 RSV Vaccine 60 years and older and Patients (1 - 1-dose 75+ series) 2029 Hepatitis B Vaccines Aged Out No long er eligible based on patient's age to complete this topic Insurance [facility] COMMERCIAL MEDICARE PART A & B Care Teams Customs Broker Relationship Specialty Start Date End Date Vitor Angel MD [address] [place] [address] PCP - General Psychiatry, General 12/26/18
--- OUTSIDE RECORDS SUMMARY | 2024-12-13 12:19 | XMS_ITS | Clinical Summary ---
Author Organization [employer] Address [address] [place] [address] 7t [place] [address] Care Team Providers Care Fitness Leader Name Role Phone Lucila CannonSW Unavailable [phone] Allergies Active Allergy Reactions Criticality Noted Date [...] Active beta carotene (vitamin A) 3 MG (88410 UT) capsule daily. Active Specialty Vitamins Products [...] t major depressive disorder 03/14/2022 10/10/2022 Immunizations Immunization Administration Dates Next Due Influenza Quadrivalent Adjuvanted [...] Tobacco Screening 1966 Hepatitis C Screening 1972 Colonoscopy 10/15/2019 10/14/2009 Colorectal Cancer Screening 10/15/2019 Mammogram 01/19/2023 01/19/2021, 01/08, 01/11/2021, Additional history exists COVID-19 Vaccine ( season) 2024 05/30/2024, 03/17/2023, 04/12/2022, Additional history exists Influenza Vaccine (#1) 2024 , 01/01/2024, 01/31/2023, Additional history exists Lipid Panel 07/23/2026 07/23/2021, 04/10, 01/31/2020 DTaP/Tdap/Td Vaccines (4 - Td or Tdap) 10/12/2032 10/12/2022, 04/21/2021, 04/21/2021, Additional history exists Zoster Vaccines Completed 12/06/2017, 07/28/2017 RSV Patients and Patients Aged 60 years or older Completed 01/01/2024, 12/14/2022 Pneumococcal Vaccine: 50+ Years Completed 01/19/2024, 03/09/2022, [...] patient's age to complete this topic Meningococcal B Vaccine Aged Out No l onger eligible based on patient's age to complete [...] LAB SYSTEM CHOLESTEROL, TOTAL 186 (<200) MG/DL [facility] HDL CHOL 63 (>39) MG/DL [facility] NON HDL CHOLESTEROL (CALC) 123 (<160) MG/DL [facility] TRIGLYCERIDE 54 (<150) MG/DL [facility] 07/23/2021 9:06 AM EDT Claudia Gamez REGASIFICATION PLANT OPERATOR LAB BLOOD ORDERABLES Final Re sult [facility] [address] * Mammography (01/19/2021) Mammogram BI RADS one negative Anatomical Region Laterality Modality Other Historical Provider HEALTH MAINTENANCE Final Result * Colonoscopy (10/14/2009) Colonoscopy Diverticulosis of the sigmoid colon, internal and external hemrrhoids. follow up the biopsy results Historical Provider HEALTH MAINTENANCE Final Result from Last 3 Months or Most Recently Relevant to Health Maintenance Insurance MEDICARE Member Subscriber Plan / Payer (Ef fective 2022-Present) Name:Dolores Pham Member ID:[id number] Relation to Subscriber:Self Name:Dolores Pham Subscriber ID:[id number] Payer ID:[facility] Group ID:Not on file Type:Medicare Address: [facility].[address] [address] UNICARE MEDICARE EXTENSION Care Teams Fitness Leader Relationship Specialty Start Date End Date Lucila Cannon LICSW [address] [place] [address] [facility] 03/14/22 provider unknown Primary Care Provider 02/02/23
--- OUTSIDE RECORDS SUMMARY | 2024-12-13 12:19 | XMS_ITS | Encounter Summary ---
Author Organization [facility] Address [address] [place] [address] Care Team Providers Care Leather Leveler Name Role Phone Vitor Angel MD Primary Care Provider [phone] Encounter Details Date Type Department Care Team (Late st Contact Info) Description 01/21/2022 Scanned Document [facility] Neurosurgery [address] [phone] Social History Tobacco Use Types Packs/Day Years [...] on filedocumented in this encounter Care Teams Leather Leveler Relationship Specialty Start Date End Date Vitor Angel MD [address] [place] [address] PCP - General Psychiatry, General 12/26/18 documented as of this encounter
== END 2024-12-13 12:08 | disposition home or self-care (01) ==
LOC: HO.HMCFM 11:12
PROVIDERS: PCP Internal Medicine; Visit Provider Internal Medicine
DX: Z00.00 Encounter for general adult medical examination without abnormal findings (principal)

== ENCOUNTER → 2024-12-13 11:11 | Outpatient (BNVA) | payer MEDICARE, OTHER, SELFPAY | PROVIDERS: PCP Internal Medicine; Visit Provider Internal Medicine | DX: Z00.00 Encounter for general adult medical examination without abnormal findings (principal); I10 Essential (primary) hypertension; G47.00 Insomnia, unspecified; G89.29 Other chronic pain; M54.50 Low back pain, unspecified; K21.9 Gastro-esophageal reflux disease without esophagitis; Z79.891 Long term (current) use of opiate analgesic; Z79.899 Other long term (current) drug therapy | CPT/HCPCS: 99397 ==

== ENCOUNTER 2025-01-03 08:07 | Outpatient (REF) | payer MEDICARE, OTHER, SELFPAY ==
--- OUTSIDE RECORDS SUMMARY | 2025-01-03 08:17 | XMS_ITS | Encounter Summary ---
Author Organization [facility] Address [address] [place] [address] Care Team Providers Care Payer Specialist Name Role Phone Vitor Angel MD Primary Care Provider [phone] Encounter Details Date Type Department Care Team (Late st Contact Info) Description 01/21/[address] [facility] Neurosurgery [address] [phone] Social History Tobacco Use Types Packs/Day Years [...] on filedocumented in this encounter Care Teams Payer Specialist Relationship Specialty Start Date End Date Vitor Angel MD [address] [place] [address] PCP - General Psychiatry, General 12/26/18 documented as of this encounter
--- OUTSIDE RECORDS SUMMARY | 2025-01-03 08:17 | XMS_ITS | Encounter Summary ---
Author Organization [facility] Address [address] [place] [address] Care Team Providers Care Tractor Drill Operator Name Role Phone Vitor Angel MD Primary Care Provider [phone] Encounter Details Date Type Department Care Team (Late st Contact Info) Description 04/13/2022 Scanned Document [facility] Neurosurgery [address] [address] Neurosurgery, Scan Social History Tobacco Use Types [...] on filedocumented in this encounter Care Teams Tractor Drill Operator Relationship Specialty Start Date End Date Vitor Angel MD [address] [place] [address] PCP - General Psychiatry, General 12/26/18 documented as of this encounter
--- OUTSIDE RECORDS SUMMARY | 2025-01-03 08:17 | XMS_ITS | Patient Health Record ---
Author Organization [facility] Address [address] [place] [address] Care Team Providers Care Second Hand Name Role Phone Jacey Lora M.D. Primary [...] Problem Status W/U Status Risk Notes Problem [id number] Colon cancer screening (Z12.11) Active confirmed Problem 225095717 Lares's esophagus without dysplasia (K22.70) Active confirmed Problem 889491133 Nausea (R11.0) Active confirmed Problem Dysphagia (29172987) Dysphagia (R13.10) Active confirmed Problem 955906622 Diverticulitis (K57.92) Active confirmed Problem 590353511 Esophageal spasm (K22.4) Active confirmed Problem 92109688 Dysphagia, unspecified type (R13.10) Active confirmed Problem Lares esophagus (388324238) Lares esophagus (K22.70) Active confirmed Problem 379972006 Abnormal barium swallow (R93.3) Active confirmed Problem 868806952 Irritable bowel syndrome with constipation (K58.1) Active confirmed Vital Signs Temperature 97.5 degrees Fahrenheit 07/17/2024 Blood pressure diastolic 01 mm Hg 07/17/2024 Height 65.5 in 07/17/2024 Blood pressure systolic 001 mm Hg 07/17/2024 Weight 138.2 lbs 07/17/2024 BMI 22.65 kg/m2 07/17/2024 Encounters Encounter Location Date Provider Diagnosis [facility] [address] [place] [address] 07/17/2024 Lonnie Arenas Jr Lares's esophagus without [...] Date MEDICARE OF [place] [address] [place] [address] [id number] RAMON WHALEY Self - patient is the insured [employer] ([employer]) [address] [place] [address] [id number] RAMON WHALEY Self - patient is [...]
--- OUTSIDE RECORDS SUMMARY | 2025-01-03 08:17 | XMS_ITS | Encounter Summary ---
Author Organization [facility] Address [address] [place] [address] Care Team Providers Care Communications Equipment Installer Name Role Phone Vitor Angel MD Primary Care Provider [phone] Encounter Details Date Type Department Care Team (Late st Contact Info) Description 12/17/2021 Telephone [facility] Neurosurgery [address] [phone] Trino Humphrey MD [address] [place] [address] [address] [place] [address] Social History Tobacco Use Types Packs/Day Years [...] on filedocumented in this encounter Care Teams Communications Equipment Installer Relationship Specialty Start Date End Date Vitor Angel MD [address] [place] [address] PCP - General Psychiatry, General 12/26/18 documented as of this encounter
--- OUTSIDE RECORDS SUMMARY | 2025-01-03 08:18 | XMS_ITS | Clinical Summary ---
Author Organization [facility] Address [address] [place] [address] Phone Care Team Providers Care Tax Analyst Name Role Phone Vitor Angel MD Unavailable [phone] Lisa Padilla Primary Care Provide r Allergies [...] Breast mass 09/21/2018 Overview (09/21/2018): Followed at [facility] Rads Endometriosis 09/21/2018 Overview (09/21/2018): LOG HOOKER: DR Ceasar Hutchison rx- Adderall for endometriosis... [...] Worst in allergy season. Saw neuro at [facility]. She reports triptans and antidepressants had [...] Basic metabolic panel (09/30/2018 6:28 PM EDT) [facility] SODIUM 140 133 - 146 mmol/L [facility] CHLORIDE 103 96 - 108 mmol/L [facility] POTASSIUM 3.3 3.3 - 5.1 mmol/L [facility] CO2 22 21 - 35 mmol/L [facility] BUN 9 6 - 19 mg/dL [facility] CREATININE 0.50 0.5 - 1.5 mg/dL [facility] GLUCOSE 100(H) 70 - 99 mg/dL [facility] CALCIUM 9.4 8.4 - 10.3 mg/dL [facility] EGFR 102 >59 mL/min/1.7 3m2 [facility] Comment:If patient is black, multiply result by 1.159. Estimated glomerular filtration rate calculated using the CKD-EPI equation. ANION GAP 18 10 - 20 mmol/L [facility] Blood 09/30/2018 6:28 PM EDT 09/30/2018 6:35 PM EDT Kim [facility] BLOOD ORDERABLES Final Result Performing Organization Address City/State/RUST Co de Phone Number [facility] [address] [place] [address] * COLONOSCOPY FOR RESULT ENTRY ONLY (09/07/2018) [facility] Colonoscopy ..... Historical Provider HEALTH MAINTENANCE Final Result * MAMMOGRAPHY FOR RESULT ENTRY ONLY (12/28/2017) [facility] Mammogram .... Historical Provider HEALTH MAINTENANCE Final Result from Last 3 Months or Most Recently Relevant to Health Maintenance Insurance [facility] SUPPLEMENT MEDICARE PART A & B [facility] MEDICARE SUPPLEMENT MEDICARE PART A & B [employer] MED[employer] SUPPLEMENT [employer] MEDICARE SUPPLEMENT [employer] MEDICARE SUPPLEMENT MEDICARE PART A & B [facility] MEDICARE SUPPLEMENT MEDICARE PART A & B [employer] MEDICARE SUPPLEMENT MEDICARE PART A & B [employer] MEDICARE SUPPLEMENT [facility] MEDICARE SUPPLEMENT MEDICARE PART A & B Care Teams Tax Analyst Relationship Specialty Start Date End Date Lisa Padilla PA [address] [place] [address] PCP - General Physician Transition Program Manager 12/19/22 Vitor Angel MD [address] [place] [address] [email or web address] Historical LMR Provider 01/23/17 Additional Source Comments The information contained in this document represents components of the legal health record. It is not the complete legal health record.[facility]
--- OUTSIDE RECORDS SUMMARY | 2025-01-03 08:18 | XMS_ITS | Clinical Summary ---
Author Organization [facility] Address [address] [facility] [address] [place] [address] Phone Care Team Providers Care Roller Presser Operator Name Role Phone Jacey Lora MD Primary Care Provider [phone] Allergies Active Allergy Reactions Criticality Noted Date [...] otherwise specified 10/03/2023 Endometriosis 09/21/2018 Overview (10/03/2023): VISITOR SERVICES COORDINATOR: DR Ceasar Hutchison rx- Adderall for endometriosis... [...] age to complete this topic Insurance Medicare [facility] Medicare Unicare Care Teams Roller Presser Operator Relationship Specialty Start Date End Date Jacey Lora MD [address] [place] [address], [address] [place] [address] PCP - General Internal Medicine 10/03/23
--- OUTSIDE RECORDS SUMMARY | 2025-01-03 08:18 | XMS_ITS | Encounter Summary ---
Author Organization [facility] Address [address] [place], [place] [address] Care Team Providers Care Wealth Management Manager Name Role Phone Vitor Angel MD Primary Care Provider [phone] Reason for Visit * Reason Comments Referral Pain Management Encounter Details Date Type Department Care Team (Late st Contact Info) Description 04/05/2022 Telephone [facility] Neurosurgery [address] [phone] Nestor Cummings PA-C [address] [place] [address] Referral (Pain Management) Social History Tobacco [...] on filedocumented in this encounter Care Teams Wealth Management Manager Relationship Specialty Start Date End Date Vitor Angel MD [address] [place] [address] PCP - General Psychiatry, General 12/26/18 documented as of this encounter
--- OUTSIDE RECORDS SUMMARY | 2025-01-03 08:18 | XMS_ITS | Encounter Summary ---
Author Organization [facility] Address [address] [place], [place] [address] Care Team Providers Care Resource Protection Specialist Name Role Phone Vitor Angel MD Primary Care Provider [phone] Reason for Visit * Reason Comments Advice Only Encounter Details Date Type Department Care Team (Late st Contact Info) Description 05/11/2022 Telephone [facility] Neurosurgery [address] [phone] Nestor Cummings PA-C [address] [place] [address] Advice Only Social History Tobacco Use [...] on filedocumented in this encounter Care Teams Resource Protection Specialist Relationship Specialty Start Date End Date Vitor Angel MD [address] [place] [address] PCP - General Psychiatry, General 12/26/18 documented as of this encounter
--- OUTSIDE RECORDS SUMMARY | 2025-01-03 08:18 | XMS_ITS | Clinical Summary ---
Author Organization [facility] Address [address] [place] [address] Care Team Providers Care Chronometer Tester Name Role Phone Vitor Angel MD Primary Care Provider [phone] Allergies Active Allergy Reactions Criticality Noted Date [...] Zoster (Shingles) Vaccine (1 of 2) 2004 RSV Vaccine 60 years and older and Patients (1 - Risk 60-74 years 1-dose series) 2014 DXA Bone Density (Females,Ages 65 and older) 09/26/2019 Influenza Vaccine 11/08/2024 01/14/2019, 01/23/2018 COVID-19 Vaccine ( - 2023-2 5 season) 2024 Hepatitis B Vaccines Aged Out No long er eligible based on patient's age to complete this topic Insurance [facility] MEDICARE PART A & B Care Teams Chronometer Tester Relationship Specialty Start Date End Date Vitor Angel MD [address] [place] [address] PCP - General Psychiatry, General 12/26/18
--- OUTSIDE RECORDS SUMMARY | 2025-01-03 08:18 | XMS_ITS | Encounter Summary ---
Author Organization [facility] Address [address] [place] [address] Phone Care Team Providers Care Distribution Engineer Name Role Phone Dorene June MD Unavailable [phone] Vitor Angel MD Unavailable [phone] Enrike Vela MD Unavailable Deysi Nuñez MD Unavailable [phone] Luz Osman PA-C Primary Care Provider [phone] Jeremy Torres MD Primary Care Provider Victoria Alvarado Primary Care Provider [phone] Carolina Garcia MD Primary Care Provider Lisa Padilla Primary Care Provide r Encounter Details Date Type Department Care Team (Late st Contact Info) Description 05/16/2018 Procedure Pass [facility], [address] [address] Social History Tobacco Use Types Packs/Day Years [...] on filedocumented in this encounter Care Teams Distribution Engineer Relationship Specialty Start Date End Date Luz Osman PA-C [address] [place] [address] [place] [address] PCP - General Unknown Provider Specialty 01/08/18 09/20/18 Jeremy Torres MD [address] [place] [address], [address] [place] [address] PCP - General Internal Medicine 09/21/18 09/30/18 Christiano Victoria [address] [place] [address] PCP - General 10/01/18 04/24/19 Carolina Garcia MD [address] [place] [address] PCP - General Internal Medicine 04/25/19 12/18/22 Lisa Padilla PA [address] [place] [address] PCP - General Physician Finance Lecturer 12/19/22 Dorene June MD [address] [place] [address] Historical LMR Provider 01/23/1709/20 Vitor Angel MD [address] [place] [address] Historical LMR Provider 01/23/17 Enrike Vela MD [address] [place] [address], [facility] [address] [place] [address] [email or web address] Historical LMR Provider 01/23/17 04/17/21 Deysi Nuñez MD [address] [place] [address] [email or web address] Historical LMR Provider 01/23/1704/17 documented as of this encounter Additional Source Comments The information contained in this document represents components of the legal health record. It is not the complete legal health record.[facility]
--- OUTSIDE RECORDS SUMMARY | 2025-01-03 08:18 | XMS_ITS | Encounter Summary ---
Author Organization [facility] Address [address] [place] [address] Care Team Providers Care Tier Lift Truck Operator Name Role Phone Vitor Angel MD Primary Care Provider [phone] Encounter Details Date Type Department Care Team (Late st Contact Info) Description 02/15/2022 Scanned Document [facility] Neurosurgery [address] [phone] Neurosurgery, Scan Social History Tobacco Use Types [...] on filedocumented in this encounter Care Teams Tier Lift Truck Operator Relationship Specialty Start Date End Date Vitor Angel MD [address] [place] [address] PCP - General Psychiatry, General 12/26/18 documented as of this encounter
--- OUTSIDE RECORDS SUMMARY | 2025-01-03 08:18 | XMS_ITS | Encounter Summary ---
Author Organization [facility] Address [address] [place] [address] Care Team Providers Care Depot Manager Name Role Phone Vitor Angel MD Primary Care Provider [phone] Encounter Details Date Type Department Care Team (Late st Contact Info) Description 05/21/2019 Scanned Document [facility] Neurosurgery [address] [phone] Social History Tobacco Use Types Packs/Day Years [...] on filedocumented in this encounter Care Teams Depot Manager Relationship Specialty Start Date End Date Vitor Angel MD [address] [place] [address] PCP - General Psychiatry, General 12/26/18 documented as of this encounter
[2025-01-03 12:05] LABS: Alanine Aminotransferase 22 U/L (0-31); Albumin Level 4.1 g/dL (3.5-5.0); Alkaline Phosphatase 56 U/L (39-117); Anion Gap 8 (12-20); Aspartate Amino Transferase 32 U/L (5-31); Blood Urea Nitrogen 7 mg/dL (9-16); Calcium 9.1 mg/dL (8.4-10.2); Carbon Dioxide 27 mmol/L (22-29); Chloride 108 mmol/L (96-108); Cholesterol 197 mg/dL (<200); Estimated Glomerular Filt Rate > 60; HDL Cholesterol 67 mg/dL (>40); Potassium 4.0 mmol/L (3.3-5.1); Sodium 139 mmol/L (135-145); Total Protein 6.7 g/dL (6.5-8.0); Triglycerides 74 mg/dL (<150)
== END 2025-01-03 08:08 | disposition home or self-care (01) ==
LOC: HO.WFDLDS 08:07
PROVIDERS: Visit Provider Internal Medicine
DX: K21.9 Gastro-esophageal reflux disease without esophagitis (principal); K22.70 Barrett's esophagus without dysplasia; R74.8 Abnormal levels of other serum enzymes
CPT/HCPCS: 36415; 80053; 80061; 82550

== ENCOUNTER 2025-01-31 10:30 | Outpatient (AMB) | payer MEDICARE, OTHER, SELFPAY ==
--- NOTE | 2025-01-31 10:32 | MHC.PC.OV ---
Vital Signs 01/31/25 10:39 Height 5 ft 6 in Weight 138 lb 4 oz BMI 22.3 BP 130/72 Blood Pressure Location Rt brachial Position Sitting Respiration 18 Pulse 54 Pulse Source Pulse Oximeter Temp 98.2 F Temp Source Oral Pulse Oximetry (%) 97 Oxygen Delivery Method Room Air Intake Visit Reasons: Cataract surgery for her left eye on February 17 Intake Note: cataract surgery for her left eye on February 17 Workforce Investment Act Career Manager Required: No Allergies cefaclor (From CECLOR) Allergy (Severe, Verified 01/31/25 10:36) RASH,THROAT SWELLING Penicillins Allergy (Mild, Verified 01/31/25 10:36) MASSIVE WHELTS From BuSpar Allergy (Intermediate, Uncoded 12/13/24 11:23) CONFUSION, HALLUCINATIONS Tobacco use date assessed: 01/31/25 Fall risk assessment: 1 Fall in past year Last assessed Fall Risk: 01/31/25 Dental Screening Dental Screen Date: 01/31/25 Did you have a dental visit in the last 12 months?: Yes Did you have a dental problem in the last 6 months where you did not have access to dental care?: No Was dental information given to patient?: Patient has dentist HPI HPI Comments History of Present Illness Details This is a 68 year old female with a past medical history of OA, chronic low back pain, muscle pain, hypertension, GERD, barretts, migraines presenting for preop cataract, left February 17 Patient denies CP, dyspnea. No DM. Gets nauseous with anesthesia but otherwise no h/o issues. EKG normal today. Chronic pain- - CCP elevated. CK slight elevation. Has severe flares of deep muscle and bone pain every 2-3 months, lasts 1-3 weeks. Feet, Legs, arms, hands, tips of the fingers. Muscles hurt and she has deep bone pain. Saw rheumatology -clinical exam with osteoarthritic changes without evidence of autoimmune rheumatologic disease. Following with rheumatology -OA: On oxycodone, morphine ER. s/p SI joint fusion with Dr Kent 04/2023. Active caring for her grandchild. CV: on amlodipine, spironolactone. Following with nephrology for BP management. Denies chest pain, exertional dyspnea. Heart rate still dropping frequently into the low 50s mostly during sleep but she awakens with fluttering, palptiations MSK: On oxycodone, morphine ER-transitioned from xtampza. s/p SI joint fusion with Dr Kent 04/2023. Active caring for her grandchild. She continues to have suboptimal pain control Neuro: Follows with Dr Elder, neurology for migraines. On ubrelvy. stable. History of aneurysm repair. Had MRA neck. MR head. She has recently developed some eye fatigue, cross eyed vision and feels like she is falling asleep. She get 6-8 hours of sleep with temazepam but says it is not deep sleep. previously tried trazodone, ambien, belsomra without success. She saw the sleep specialist who reviewed no apnea but hasnt followed with them specifically for sleep issues GI: Follows with Dr Arenas. Danii. UTD with upper and lower endoscopy She was seen by Dr Mcgovern-uroadenike for multidrug resistant UTI. ROS see HPI PHYSICAL EXAM: GENERAL: Alert and oriented x 3. NAD EYES: EOMI. Anicteric. HENT: Moist mucous membranes. No scleral icterus. No cervical lymphadenopathy. LUNGS: Clear to auscultation bilaterally. CARDIOVASCULAR: Regular rate and rhythm.No JVD. ABDOMEN: Soft, non-tender +bs EXTREMITIES: No edema. Non-tender. SKIN: No rashes or lesions. Warm. NEUROLOGIC: No focal neurological deficits. CN II-XII grossly intact PSYCHIATRIC: Cooperative. Appropriate mood and affect [facility] Medical History Bowel obstruction Reflex sympathetic dystrophy Back pain COPD (chronic obstructive pulmonary disease) Migraine HTN (hypertension) Carotid artery aneurysm Fibromyalgia IBS (irritable bowel syndrome) Lares esophagus GERD (gastroesophageal reflux disease) Surgical History Hx of fusion of cervical spine H/O carpal tunnel repair S/P surgery on nasal septum History of ankle surgery History of appendectomy Family History Sister Alcoholism Mother Breast cancer HTN (hypertension) Hypercholesteremia Maternal Aunt Breast cancer Maternal Uncle Colon cancer Father HTN (hypertension) Asthma Hypercholesteremia Maternal Grandfather Pacemaker Other Substance use Social History (Updated 01/31/25 @ 10:38 by Baudilio Mclean MA) Housing: House Alcohol intake: current Patient Tobacco Use Status: Former Tobacco user Tobacco use type: Cigarette Cigarettes Per Day: 10 Years Smoked: 50 e-Cigarette/Vaping Use: Never Used Second Hand Smoke Exposure: No service: No Current occupational status: retired Cognitive needs: No Hearing needs: No Vision needs: Yes (floater in eyes, and possible glaucoma) Questionnaire Thrive Questionnaire Date Thrive assessed: 05/29/24 I am a: Patient What is your living situation today?: I have a steady place to live Within the past 12 months, did the food you bought not last and you didn't have the money to get more?: Never true Within the past 12 months, did you worry whether your food would run out before you got money to buy more?: Never true Do you have trouble paying for medicines?: No Do you have trouble getting transportation to medical appointments?: No Do you have trouble paying your heating and electricity bill?: No Do you have trouble taking care of your child, family member or friend?: No Do you have trouble with day-to-day activities such as bathing, preparing meals, shopping, managing finances, etc.?: No Are you currently unemployed and looking for a job?: No Are you interested in more education?: No Please select the resources that you would like help with: None Currently or been in a relationship where the following occur: No concerns reported THRIVE Score: 0 SISSY-7 AMB Questionnaire SISSY-7 Date SISSY - 7 assessed: 06/04/24 Source: Developed by Drs. Gabriel Amaya, Anni Campbell, Franco Solano and colleagues, with an educational alyce from [employer]. Physical exam (Primary Care) Vital Signs: Last Vital Signs Temp 98.2 F 01/31/25 10:39 Pulse 54 01/31/25 10:39 Resp 18 01/31/25 10:39 BP 130/72 01/31/25 10:39 Pulse Ox 97 01/31/25 10:39 Oxygen Delivery Method Room Air 01/31/25 10:39 BMI result Body Mass Index 22.3 Tobacco/Smoking Status: Tobacco use Status Tobacco use date assessed 01/31/25 01/31/25 10:41 Patient Tobacco Use Status Former Tobacco user 01/31/25 10:38 Tobacco use type Cigarette 01/31/25 10:38 e-Cigarette/Vaping Use Never Used 01/31/25 10:38 Thrive Assessment: Date of Thrive Assessment Date Thrive assessed 05/29/24 01/31/25 10:33 Currently or been in a relationship where the following occur: No concerns reported Coding Level of Care Code Est Pt Level 4 (95828) Diagnoses Preop cardiovascular exam Z01.810 Primary hypertension I10 Hypertension type: primary hypertension Cataract of right eye, unspecified cataract type H26.9 Cataract type: unspecified Laterality: right Sleep disorder G47.9 Visual changes H53.9 Assessment & Plan Assessment & Plan (1) Preop cardiovascular exam: Code(s): Z01.810 - Encounter for preprocedural cardiovascular examination (2) HTN (hypertension): Comment: controlled on current medication Code(s): I10 - Essential (primary) hypertension Category: Medical Qualifiers: Hypertension type: primary hypertension Qualified Code(s): I10 - Essential (primary) hypertension (3) Cataract: Code(s): H26.9 - Unspecified cataract Category: Medical Qualifiers: Cataract type: unspecified Laterality: right Qualified Code(s): H26.9 - Unspecified cataract (4) Sleep disorder: Code(s): G47.9 - Sleep disorder, unspecified Category: Medical (5) Visual changes: Code(s): H53.9 - Unspecified visual disturbance Category: Medical Plan 69 year old female for preop clearance She has no significant surgical risk factors Her METS>4. EKG is normal She can proceed with planned procedure without further cardiac testing Visual changes-suspect secondary to sleep issues She should see neurology and MRI with contrast may be helpful Orders: Orders MR head/brain wo/w con 01/31/25 H53.9 - Unspecified visual disturbance, I72.0 - Aneurysm of carotid artery Referrals Neurology Referral G47.9 - Sleep disorder, unspecified, H53.9 - Unspecified visual disturbance, I72.0 - Aneurysm of carotid artery Medications: Refilled morphine ER Partial Fill upon patient request. 50 mg PO Q12H 60 caps 0RF M35.3 - Polymyalgia rheumatica
[2025-01-31 10:39] VITALS: BP 130/72; PULSE 54; RESP 18; TEMP 36.8; O2SAT 97; BMI 22.3
--- OUTSIDE RECORDS SUMMARY | 2025-01-31 12:05 | XMS_ITS | Encounter Summary ---
Author Organization [facility] Address [address] [place] [address] Care Team Providers Care Gender Studies Professor Name Role Phone Vitor Angel MD Primary Care Provider Encounter Details Date Type Department Care Team (Late st Contact Info) Description 01/21/2022 Scanned Document [facility] Neurosurgery [address] [phone] Social History Tobacco Use Types Packs/Day Years [...] on filedocumented in this encounter Care Teams Gender Studies Professor Relationship Specialty Start Date End Date Vitor Angel MD [address] [place] [address] PCP - General Psychiatry, General 12/26/18 documented as of this encounter
--- OUTSIDE RECORDS SUMMARY | 2025-01-31 12:05 | XMS_ITS | Clinical Summary ---
Author Organization [employer] Address [address] [place] [address] 7t [place] [address] Care Team Providers Care Acidizer Name Role Phone Lucila CannonSW Unavailable Allergies Active Allergy Reactions Criticality Noted [...] Active beta carotene (vitamin A) 3 MG (19873 UT) capsule daily. Active Specialty Vitamins Products [...] episode of recurren t major depressive disorder ([facility]) 03/14/2022 10/10/2022 Immunizations Immunization Administration Dates Next [...] Completed 01/19/2024, 03/09/2022, 01/04/2021, Additional history exists Influenza Vaccine Completed 01/02/2025, , 01/01/2024, Additional history exists COVID-19 Vaccine Completed 01/16/2025, , 03/17/2023, Additional history exists HIB Vaccines Aged Out [...] EDT) LDL CHOLESTEROL, CALCULATED 112 (0-130) MG/DL [facility] CHOLESTEROL, TOTAL 186 (<200) MG/DL [facility] HDL CHOL 63 (>39) MG/DL [facility] NON HDL CHOLESTEROL (CALC) 123 (<160) MG/DL [facility] TRIGLYCERIDE 54 (<150) MG/DL [facility] 07/23/2021 9:06 AM EDT Claudia Gamez RAG SORTER AND CUTTER LAB BLOOD ORDERABLES Final Re sult [facility] [address] [place] [address], * Mammography (01/19/2021) Mammogram BI RADS one negative Anatomical Region Laterality Modality Other us Historical Provider HEALTH MAINTENANCE Final Result * Colonoscopy (10/14/2009) Colonoscopy Diverticulosis of the sigmoid colon, internal and external hemrrhoids. follow up the biopsy results us Historical Provider HEALTH MAINTENANCE Final Result from Last 3 Months or Most Recently Relevant to Health Maintenance Insurance MEDICARE UNICARE MEDICARE EXTENSION Care Teams Acidizer Relationship Specialty Start Date End Date Lucila Cannon LICSW [address] [place] [address] Aircraft General Repair Mechanic Behavioral Health 03/14/22 provider unknown Primary Care Provider 02/02/23
--- OUTSIDE RECORDS SUMMARY | 2025-01-31 12:05 | XMS_ITS | Encounter Summary ---
Author Organization [facility] Address [address] [place] [address] Care Team Providers Care Welding Equipment Repairer Supervisor Name Role Phone Vitor Angel MD Primary Care Provider [phone] Encounter Details Date Type Department Care Team (Late st Contact Info) Description 02/15/2022 Scanned Document [facility] Neurosurgery [address] [phone] Neurosurgery, Scan Social History Tobacco Use Types [...] on filedocumented in this encounter Care Teams Welding Equipment Repairer Supervisor Relationship Specialty Start Date End Date Vitor Angel MD [address] [place] [address] PCP - General Psychiatry, General 12/26/18 documented as of this encounter
--- OUTSIDE RECORDS SUMMARY | 2025-01-31 12:05 | XMS_ITS | Encounter Summary ---
Author Organization [employer] Address [address] [facility] 7t [place] [address] Care Team Providers Care Manufacturing Job Titles Name Role Phone Lucila CannonSW Unavailable [phone] Claudia Gamez CNP Primary Care Provider [phone] Reason for Visit * Reason Comments Med Refill Encounter Details Date Type Department Care Team (Late st Contact Info) Description 05/16/2022 Refill [facility] MEDICAL [address] [place] [address] Claudia Gamez CNP [address] [place] [address] Primary insomnia (Primary Dx) Social History Tobacco [...] Larson - 05/19/2022 2:45 PM EST Scheduled [id number] w/BC OV * Telephone Encounter - Claudia Gamez CNP - 05/16/2022 4:28 PM EST Due OV; please coordinate with pt; thanks documented in this encounter Plan of Treatment Not on file documented as of this encounter Visit Diagnoses Diagnosis Primary insomnia- Primary Persistent disorder of initiating or maintaining sleep documented in this encounter Care Teams Manufacturing Job Titles Relationship Specialty Start Date End Date Claudia Gamez CNP [address] [place] [address] PCP - General Family Medicine 05/03/22 02/01/23 Lucila Cannon LICSW [address] [place] [address] Battalion Chief Behavioral Health 03/14/22 provider unknown Primary Care Provider 02/02/23 documented as of this encounter
--- OUTSIDE RECORDS SUMMARY | 2025-01-31 12:05 | XMS_ITS | Encounter Summary ---
Author Organization [employer] Address [address] [facility] 7t [place] [address] Care Team Providers Care Sign Carpenter Name Role Phone Lucila Cannon Unavailable [phone] Claudia Gamez CNP Primary Care Provider [phone] Encounter Details Date Type Department Care Team (Late st Contact Info) Description 04/28/2022 Abstract Carolin [facility] MEDICAL [address] [place] [address] Provider, Chris, Social History Tobacco Use Types [...] on filedocumented in this encounter Care Teams Sign Carpenter Relationship Specialty Start Date End Date Claudia Gamez CNP [address] [place] [address] PCP - General Family Medicine 05/03/22 02/01/23 Lucila Cannon LICSW [address] [place] [address] Compliance Counsel Behavioral Health 03/14/22 provider unknown Primary Care Provider 02/02/23 documented as of this encounter
--- OUTSIDE RECORDS SUMMARY | 2025-01-31 12:05 | XMS_ITS | Encounter Summary ---
Author Organization [employer] Address [address] [place] [address] 7 [place] [address] Care Team Providers Care Movie Producer Name Role Phone Lucila Cannon Unavailable [phone] Claudia Gamez CNP Primary Care Provider [phone] Encounter Details Date Type Department Care Team (Late st Contact Info) Description 04/27/2022 Abstract Carolin [facility] MEDICAL [address] [place] [address] Claudia Gamez CNP [address] [place] [address] Social History Tobacco Use Types Packs/Day Years [...] on filedocumented in this encounter Care Teams Movie Producer Relationship Specialty Start Date End Date Claudia Gamez CNP [address] [place] [address] PCP - General Family Medicine 05/03/22 02/01/23 Lucila Cannon LICSW [address] [place] [address] Tourist Camp Attendant Behavioral Health 03/14/22 provider unknown Primary Care Provider 02/02/23 documented as of this encounter
--- OUTSIDE RECORDS SUMMARY | 2025-01-31 12:05 | XMS_ITS | Encounter Summary ---
Author Organization [employer] Address [address] [facility] 7t [place] [address] Care Team Providers Care Ornamental Machine Operator Name Role Phone Lucila CannonSW Unavailable [phone] Claudia Gamez CNP Primary Care Provider [phone] Reason for Visit * Reason Comments Med Refill Encounter Details Date Type Department Care Team (Late st Contact Info) Description 09/07/2022 Refill Carolin [facility] MEDICAL [address] [place] [address] Cassandra Long FNP [address] [place] [address] Primary insomnia Social History Tobacco Use Types [...] believe she is seeing anew PCP in [place] documented in this encounter Plan of Treatment Not on file documented as of this encounter Visit Diagnoses Diagnosis Primary insomnia Persistent disorder of initiating or maintaining sleep documented in this encounter Care Teams Ornamental Machine Operator Relationship Specialty Start Date End Date Claudia Gamez CNP 73 [facility] [place] [address] PCP - General Family Medicine 05/03/22 02/01/23 Lucila Cannon LICSW 9 [facility] [place] [address] Hog Confinement System Manager Behavioral Health 03/14/22 provider unknown Primary Care Provider 02/02/23 documented as of this encounter
--- OUTSIDE RECORDS SUMMARY | 2025-01-31 12:05 | XMS_ITS | Clinical Summary ---
Author Organization [facility] Address [address] [place] [address] Phone Care Team Providers Care Nanny Babysitter Name Role Phone Vitor Angel MD Unavailable [phone] Lisa Padilla Primary Care Provide r Allergies [...] Breast mass 09/21/2018 Overview (09/21/2018): Followed at 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 [...] Worst in allergy season. Saw neuro at [facility]. She reports triptans and antidepressants had side [...] Basic metabolic panel (09/30/2018 6:28 PM EDT) [facility] SODIUM 140 133 - 146 mmol/L [facility] CHLORIDE 103 96 - 108 mmol/L [facility] POTASSIUM 3.3 3.3 - 5.1 mmol/L [facility] CO2 22 21 - 35 mmol/L [facility] BUN 9 6 - 19 mg/dL [facility] CREATININE 0.50 0.5 - 1.5 mg/dL [facility] GLUCOSE 100(H) 70 - 99 mg/dL [facility] CALCIUM 9.4 8.4 - 10.3 mg/dL [facility] EGFR 102 >59 mL/min/1.7 3m2 [facility] Comment:If patient is black, multiply result by 1.159. Estimated glomerular filtration rate calculated using the CKD-EPI equation. ANION GAP 18 10 - 20 mmol/L [facility] Blood 09/30/2018 6:28 PM EDT 09/30/2018 6:35 PM EDT Kim [facility] BLOOD ORDERABLES Final Result Performing Organization Address City/State/[facility] Co de Phone Number [facility] [address] [place] [address] * COLONOSCOPY FOR RESULT ENTRY ONLY (09/07/2018) [facility] Colonoscopy ..... Historical Provider HEALTH MAINTENANCE Final Result * MAMMOGRAPHY FOR RESULT ENTRY ONLY (12/28/2017) [facility] Mammogram .... Historical Provider HEALTH MAINTENANCE Final Result from Last 3 Months or Most Recently Relevant to Health Maintenance Insurance [facility] EXTENSION MEDICARE SUPPLEMENT MEDICARE PART A & B [facility] MEDICARE SUPPLEMENT MEDICARE PART A & B [employer] EXTENSION MEDICARE SUPPLEMENT [employer] EXTENSION MEDICARE SUPPLEMENT [employer] EXTENSION MEDICARE SUPPLEMENT MEDICARE PART A & B [facility] EXTENSION MEDICARE SUPPLEMENT MEDICARE PART A & B [employer] EXTENSION MEDICARE SUPPLEMENT MEDICARE PART A & B [employer] EXTENSION MEDICARE SUPPLEMENT [facility] EXTENSION MEDICARE SUPPLEMENT MEDICARE PART A & B Care Teams Nanny Babysitter Relationship Specialty Start Date End Date Lisa Padilla PA [address] [place] [address] PCP - General Physician Transformer Inspector 12/19/22 Vitor Angel MD [address] [place] [address] [email or web address] Historical LMR Provider 01/23/17 Additional Source Comments The information contained in this document represents components of the legal health record. It is not the complete legal health record.[facility]
--- OUTSIDE RECORDS SUMMARY | 2025-01-31 12:05 | XMS_ITS | Encounter Summary ---
Author Organization [facility] Address [address] [place] [address] Care Team Providers Care Insurance Claims Clerk Name Role Phone Vitor Angel MD Primary Care Provider [phone] Encounter Details Date Type Department Care Team (Late st Contact Info) Description 12/17/2021 Telephone [facility] Neurosurgery [address] [phone] Trino Humphrey MD [address] [place] [address] 5 [place] [address] Social History Tobacco Use Types Packs/Day Years [...] filedocumented in this encounter Care Teams Insurance Claims Clerk Relationship Specialty Start Date End Date Vitor Angel MD [address] [place] [address] PCP - General Psychiatry, General 12/26/18 documented as of this encounter
--- OUTSIDE RECORDS SUMMARY | 2025-01-31 12:05 | XMS_ITS | Encounter Summary ---
Author Organization [facility] Address [address] [place], [place] [address] Care Team Providers Care Fine Sander Name Role Phone Vitor Angel MD Primary Care Provider [phone] Reason for Visit * Reason Comments Advice Only Encounter Details Date Type Department Care Team (Late st Contact Info) Description 05/11/2022 Telephone [facility] Neurosurgery [address] [phone] Nestor Cummings PA-C [address] [place] [address] Advice Only Social History Tobacco Use [...] on filedocumented in this encounter Care Teams Fine Sander Relationship Specialty Start Date End Date Vitor Angel MD [address] [place] [address] PCP - General Psychiatry, General 12/26/18 documented as of this encounter
--- OUTSIDE RECORDS SUMMARY | 2025-01-31 12:05 | XMS_ITS | Encounter Summary ---
Author Organization [facility] Address [address] [place] [address] Care Team Providers Care Matlab Developer Name Role Phone Vitor Angel MD Primary Care Provider [phone] Encounter Details Date Type Department Care Team (Late st Contact Info) Description 04/13/2022 Scanned Document [facility] Neurosurgery [address] [phone] Neurosurgery, Scan Social History Tobacco Use Types [...] on filedocumented in this encounter Care Teams Matlab Developer Relationship Specialty Start Date End Date Vitor Angel MD [address] [place] [address] PCP - General Psychiatry, General 12/26/18 documented as of this encounter
--- OUTSIDE RECORDS SUMMARY | 2025-01-31 12:05 | XMS_ITS | Clinical Summary ---
Author Organization [facility] Address [address] [place] [address] Care Team Providers Care Customer Records Division Supervisor Name Role Phone Vitor Angel MD Primary Care Provider Allergies Active Allergy [...] - PCV) 1973 Mammogram 1994 Colonoscopy 09/26/1999 RSV Vaccine 50 years and older and Patients (1 - Risk 50-74 years 1-dose series) 2004 Zoster (Shingles) Vaccine (1 of 2) 2004 DXA Bone Density (Females,Ages 65 and older) 09/26/2019 Influenza Vaccine 11/08/2024 01/14/2019, 01/23/2018 COVID-19 Vaccine ( - 2023-2 5 season) 2024 Hepatitis B Vaccines Aged Out No long er eligible based on patient's age to complete this topic Insurance [facility] MEDIC[facility] PART A & B Care Teams Customer Records Division Supervisor Relationship Specialty Start Date End Date Vitor Angel MD [address] [place] [address] PCP - General Psychiatry, General 12/26/18
--- OUTSIDE RECORDS SUMMARY | 2025-01-31 12:05 | XMS_ITS | Patient Health Record ---
Author Organization [facility] Address [address] [place] [phone] Care Team Providers Care Plaster Model And Mold Maker Name Role Phone Jacey Lora M.D. Primary Care Provider Unavail Lonnie Treviño Jr Unavailable Allergies Allergen (clinical drug ingredient) Drug/Non Drug Allergy documented on EMR Reaction Allergy Type Onset Date Status Information temporarily unavailable Penicillin Unknown Drug Allergy Active Information temporarily unavailable Benadryl Unknown Drug Allergy Active Information temporarily unavailable ceclor (uncoded) Unknown Allergy Active Reason For Referral No Information Medications Medication SIG (Take, Route, Frequency, Duration) Notes Start Date End Date Status Methocarbamol 500 MG TAKE 1 TABLET BY MOUTH AT BEDTIME Oral; Duration: 30 Unknown Pantoprazole Sodium 40 MG TAKE 1 TABLET BY MOUTH EVERY DAY; Duration: 90 days Active amLODIPine Besylate 5 MG TAKE 1 TABLET B Y MOUTH EVERY DAY Oral; Duration: 90 Days Active Baclofen 20 MG Oral; Duration: 90 Days Active Spironolactone 25 MG TAKE 1 TABLET BY MOUTH EVERY DAY Oral; Duration: 90 Days Active Chlorhexidine Gluconate 0.12 % RINSE CALISTA TH WITH 1/2 OUNCE TWICE A DAY SPIT DO NOT SWALLOW Mouth/Throat; Duration: 30 Days Active hydroCHLOROthiazide 50 MG TAKE 1 TABLET BY MOUTH EVERY DAY Oral Once a day Active Metoclopramide HCl 5 MG TAKE 1 TABLET BY MOUTH FOUR TIMES A DAY BEFORE EACH MEAL AND BED Oral; Duration: 30 Days Active Morphine Sulfate ER 30 MG Oral; Duration : 30 Days Active oxyCODONE HCl 10 MG Oral; Duration: 30 Days Active Latanoprost 0.005 % INSTILL 1 DROP INTO BOTH EYES AT BEDTIME Ophthalmic; Duration: 90 Days Active Estradiol 0.1 MG/GM Vaginal; Duration: 9 0 Days Active Multi Vitamin/Minerals - as directed Ora lly once a day Active Albuterol Sulfate HFA 108 (9 0 Base) MCG/ACT INHALE 2 PUFFS BY MOUTH EVERY 4 HOURS NEEDED Inhalation; Duration: 25 Days Active Linzess 290 MCG TAKE 1 CAPSULE ORALL Y AT LEAST 30MIN. BEFORE THE FIRST MEAL OF THE DAY ON AN EMPTY STOMACH X90 DAYS; Duration: 90 Active Immunizations Vaccine Route Administration Date Status [...] Problem Status W/U Status Risk Notes Problem Information temporarily unavailable Colon cancer screening (Z12.11) Active confirmed Problem Information temporarily unavailable Lares's esophagus without dysplasia (K22.70) Active confirmed Problem Information temporarily unavailable Nausea (R11.0) Active confirmed Problem Information temporarily unavailable Dysphagia (R13.10) Active confirmed Problem Information temporarily unavailable Diverticulitis (K57.92) Active confirmed Problem Information temporarily unavailable Esophageal spasm (K22.4) Active confirmed Problem Information temporarily unavailable Dysphagia, unspecified type (R13.10) Active confirmed Problem Information temporarily unavailable Lares esophagus (K22.70) Active confirmed Problem Information temporarily unavailable Abnormal barium swallow (R93.3) Active confirmed Problem Information temporarily unavailable Irritable bowel syndrome with constipation (K58.1) Active confirmed Vital Signs Temperature 97.5 degrees Fahrenheit 07/17/2024 Blood pressure diastolic 01 mm Hg 07/17/2024 Height 65.5 in 07/17/2024 Blood pressure systolic 001 mm Hg 07/17/2024 Weight 138.2 lbs 07/17/2024 BMI 22.65 kg/m2 07/17/2024 Encounters Encounter Location Date Provider Diagnosis [facility] [address] [place] [address] 07/17/2024 Lonnie Arenas Jr Lares's esophagus without [...] End Date MEDICARE OF [place] [address] [place] [address] [id number] RAMON WHALEY Self - patient is the insured [employer] ([employer]) [address] [place] [address] [id number] RAMON WHALEY Self - patient is [...]
--- OUTSIDE RECORDS SUMMARY | 2025-01-31 12:05 | XMS_ITS | Encounter Summary ---
Author Organization [facility] Address [address] [place], [place] [address] Care Team Providers Care Lead Manufacturing Technician Name Role Phone Vitor nAgel MD Primary Care Provider [phone] Reason for Visit * Reason Comments Referral Pain Management Encounter Details Date Type Department Care Team (Late st Contact Info) Description 04/05/2022 Telephone [facility] Neurosurgery [address] [phone] Nestor Cummings PA-C [address] [place] [address] Referral (Pain Management) Social History Tobacco [...] on filedocumented in this encounter Care Teams Lead Manufacturing Technician Relationship Specialty Start Date End Date Vitor Angel MD [address] [place] [address] PCP - General Psychiatry, General 12/26/18 documented as of this encounter
--- OUTSIDE RECORDS SUMMARY | 2025-01-31 12:06 | XMS_ITS | Clinical Summary ---
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
--- OUTSIDE RECORDS SUMMARY | 2025-01-31 12:06 | XMS_ITS | Encounter Summary ---
Author Organization [facility] Address [address] [place] [address] Phone Care Team Providers Care Bee Farmer Name Role Phone Dorene June MD Unavailable [phone] Vitor Angel MD Unavailable [phone] Enrike Vela MD Unavailable Deysi Nuñez MD Unavailable [phone] Luz Osman PA-C Primary Care Provider [phone] Jeremy Torres MD Primary Care Provider Victoria Alvarado Primary Care Provider Carolina Garcia MD Primary Care Provider [phone] Lisa Padilla Primary Care Provide r Encounter Details Date Type Department Care Team (Late st Contact Info) Description 05/16/2018 Procedure Pass [facility], [address] [address] Social History Tobacco Use Types Packs/Day Years [...] on filedocumented in this encounter Care Teams Bee Farmer Relationship Specialty Start Date End Date Luz Osman PA-C [address] [place] [address] [place] [address] PCP - General Unknown Provider Specialty 01/08/18 09/20/18 Jeremy Torres MD [address] [place] [address], [address] [place] [address] PCP - General Internal Medicine 09/21/18 09/30/18 Christiano Victoria [address] [place] [address] PCP - General 10/01/18 04/24/19 Carolina Garcia MD [address] [place] [address] PCP - General Internal Medicine 04/25/19 12/18/22 Lisa Padilla PA [address] [place] [address] PCP - General Physician Private Branch Exchange Operator 12/19/22 Dorene June MD [address] [place] [address] Historical LMR Provider 01/23/1709/20 Vitor Angel MD [address] [place] [address] Historical LMR Provider 01/23/17 Enrike Vela MD [address] [place] [address], [facility] [address] [place] [address] [email or web address] Historical LMR Provider 01/23/17 04/17/21 Deysi Nuñez MD [address] [place] [address] [email or web address] Historical LMR Provider 01/23/1704/17 documented as of this encounter Additional Source Comments The information contained in this document represents components of the legal health record. It is not the complete legal health record.[facility]
--- OUTSIDE RECORDS SUMMARY | 2025-01-31 12:06 | XMS_ITS | Encounter Summary ---
Author Organization [facility] Address [address] [place] [address] Care Team Providers Care German Instructor Name Role Phone Vitor Angel MD Primary Care Provider [phone] Encounter Details Date Type Department Care Team (Late st Contact Info) Description 05/21/2019 Scanned Document [facility] Neurosurgery [address] [phone] Social History Tobacco Use Types Packs/Day Years [...] on filedocumented in this encounter Care Teams German Instructor Relationship Specialty Start Date End Date Vitor Angel MD [address] [place] [address] PCP - General Psychiatry, General 12/26/18 documented as of this encounter
== END 2025-01-31 11:27 | disposition home or self-care (01) ==
LOC: HO.HMCFM 10:31
PROVIDERS: PCP Internal Medicine; Visit Provider Internal Medicine
DX: Z01.810 Encounter for preprocedural cardiovascular examination (principal); I10 Essential (primary) hypertension; H26.9 Unspecified cataract; G47.9 Sleep disorder, unspecified; H53.9 Unspecified visual disturbance

== ENCOUNTER → 2025-01-31 10:30 | Outpatient (BNVA) | payer MEDICARE, OTHER, SELFPAY | PROVIDERS: PCP Internal Medicine; Visit Provider Internal Medicine | DX: Z01.810 Encounter for preprocedural cardiovascular examination (principal); H26.9 Unspecified cataract; I10 Essential (primary) hypertension; G47.9 Sleep disorder, unspecified; H53.9 Unspecified visual disturbance; I72.0 Aneurysm of carotid artery; M35.3 Polymyalgia rheumatica; Z79.891 Long term (current) use of opiate analgesic; Z79.899 Other long term (current) drug therapy | CPT/HCPCS: 99212 ==

== ENCOUNTER 2025-02-20 10:03 | Outpatient (AMB) | payer MEDICARE, OTHER, SELFPAY ==
--- NOTE | 2025-02-20 10:10 | MHC.OFFVIS ---
Vital Signs 02/20/25 10:11 Height 5 ft 6 in Weight 136 lb 10.986 oz BMI 22.1 BP 138/68 Blood Pressure Location Lt brachial Position Sitting Pulse 54 Pulse Source Pulse Oximeter Intake Visit Reasons: [employer]/O'Marcus/Bradycardia/Palpitions Allergies cefaclor (From CECLOR) Allergy (Severe, Verified 01/31/25 10:36) RASH,THROAT SWELLING Penicillins Allergy (Mild, Verified 01/31/25 10:36) MASSIVE WHELTS From BuSpar Allergy (Intermediate, Uncoded 12/13/24 11:23) CONFUSION, HALLUCINATIONS Medication List - Last Reconciled 02/20/25 by Ar Kilpatrick MD amlodipine 2.5 mg PO DAILY 90 days baclofen 20 mg PO BEDTIME PRN metoclopramide HCl (Reglan) 10 mg PO Q6H PRN morphine ER 50 mg PO Q12H oxycodone 10 mg PO TID PRN 30 days pantoprazole 1 tab PO BID spironolactone 25 mg PO DAILY temazepam 15 mg PO BEDTIME PRN ubrogepant (Ubrelvy) mg PO HPI Comments Details: Dolores is here for consultation regarding palpitations. She states that she has had palpitations for the last several months. She feels heart racing at different times including lying down at nighttime. On some occasions, her smart watch his giving alerts that her heart rate is in the 40s and that panic start. She feels some shortness of breath with activity. However, not consistent. No anginal-type symptoms. No syncope. No previous cardiovascular issues. [facility] Medical History Bowel obstruction Reflex sympathetic dystrophy Back pain COPD (chronic obstructive pulmonary disease) Migraine HTN (hypertension) Carotid artery aneurysm Fibromyalgia IBS (irritable bowel syndrome) Lares esophagus GERD (gastroesophageal reflux disease) Surgical History Hx of fusion of cervical spine H/O carpal tunnel repair S/P surgery on nasal septum History of ankle surgery History of appendectomy Family History Sister Alcoholism Mother Breast cancer HTN (hypertension) Hypercholesteremia Maternal Aunt Breast cancer Maternal Uncle Colon cancer Father HTN (hypertension) Asthma Hypercholesteremia Maternal Grandfather Pacemaker Other Substance use Social History (Updated 02/20/25 @ 10:16 by Alisia Beckham) Housing: House Alcohol intake: never Patient Tobacco Use Status: Former Tobacco user Tobacco use type: Cigarette Cigarettes Per Day: 10 Years Smoked: 50 e-Cigarette/Vaping Use: Never Used Second Hand Smoke Exposure: No service: No Current occupational status: retired Cognitive needs: No Hearing needs: No Vision needs: Yes (floater in eyes, and possible glaucoma) Review of Systems Const Denies weakness Card Denies chest pain, Denies chest pain with activity, Denies syncope, Denies rapid heart rate, Denies pedal edema, Denies edema, Denies leg edema, Denies lightheadedness, Denies palpitations, Reports dyspnea, Denies dyspnea on exertion and Denies orthopnea Resp Denies cough, Reports dyspnea and Denies dyspnea on exertion GI Denies hematochezia and Denies change in stool character Musc Denies abnormal gait, Denies muscle cramps, Denies muscle weakness, Denies numbness, Denies radiating pain into limb and Denies tingling Neuro Denies abnormal gait, Denies syncope, Denies numbness, Denies tingling and Denies weakness Endo Denies palpitations Physical Exam Vital Signs: Last Vital Signs Pulse 54 02/20/25 10:11 BP 138/68 02/20/25 10:11 BMI result Body Mass Index 22.1 Const General: comfortable and no acute distress Orientation/consciousness: patient oriented x3 HEENT Other: Unremarkable Head: Yes normal to inspection Neck Neck: Yes normal visual inspection Chest Chest palpation & inspection: normal inspection of the chest Resp Auscultation: clear to auscultation bilaterally Cardio Palpation: normal PMI Heart sounds: S1 normal heart sound present, S2 normal heart sound present, no gallops, no murmurs and no rubs GI Palpation (GI): Soft to palpation Back/Spine/Pelvis Other: unremarkable Skin General skin exam: no rashes or lesions noted Neuro General: patient oriented x3 Extrem General: Yes normal to inspection Psych Mental Status: mental status grossly normal Assessment & Plan Assessment & Plan (1) PVC (premature ventricular contraction): Code(s): I49.3 - Ventricular premature depolarization Category: Medical Plan In the recent EKG, underlying rhythm is sinus at 61/Min; no ischemic changes; normal NV and corrected QT. Previous EKGs are also unremarkable. In the Holter monitor, underlying rhythm is sinus with an average rate of 70/Min. Rare supraventricular ectopy. Ventricular ectopy with a burden of 3.4%, rare couplets/triplets. No significant runs. Patient markers correlated with ventricular ectopy. Findings on Holter, pathophysiology of PVCs, further testing, treatment options discussed. We will schedule an echocardiogram and stress perfusion imaging study. Trial of beta-blockers. We will follow up with the above. Discussion Notes I discussed with the patient the presence of premature ventricular contractions (PVCs) and explained that these are extra beats originating from the heart's lower chambers. I reassured her that these are not dangerous but recommended further testing, including a heart ultrasound and stress test. We also discussed her shortness of breath, and I recommended an echocardiogram to evaluate any potential cardiac causes. I advised starting a new medication to manage the extra beats, with the possibility of adjusting the dosage as needed. Patient was informed and verbally consented to the use of an ambient scribe for clinic note documentation during this visit. Medications: New metoprolol succinate ER (Toprol XL) 25 mg PO DAILY 90 tabs 1RF Patient Instructions: - Follow up with the echocardiogram and heart ultrasound as scheduled. - Start the new medication as prescribed and monitor for any changes in symptoms. - Report any new or worsening symptoms to the healthcare provider immediately. Coding Level of Care Code New Pt Level 4 (91820) Complex EM visit Add On G2211 Diagnoses PVC (premature ventricular contraction) I49.3
[2025-02-20 10:11] VITALS: BP 138/68; PULSE 54; BMI 22.1
--- OUTSIDE RECORDS SUMMARY | 2025-02-20 12:02 | XMS_ITS | Encounter Summary ---
Author Organization [facility] Address [address] [place] [address] Care Team Providers Care Open Hearth Furnace Operator Name Role Phone Vitor Angel MD Primary Care Provider [phone] Encounter Details Date Type Department Care Team (Late st Contact Info) Description 02/15/[address] [facility] Neurosurgery [address] [phone] Neurosurgery, Scan Social History Tobacco Use Types [...] on filedocumented in this encounter Care Teams Open Hearth Furnace Operator Relationship Specialty Start Date End Date Vitor Angel MD [address] [place] [address] PCP - General Psychiatry, General 12/26/18 documented as of this encounter
--- OUTSIDE RECORDS SUMMARY | 2025-02-20 12:02 | XMS_ITS | Encounter Summary ---
Author Organization [facility] Address [address] [place] [address] Care Team Providers Care Sales Recruiter Name Role Phone Vitor Angel MD Primary Care Provider [phone] Encounter Details Date Type Department Care Team (Late st Contact Info) Description 01/21/2022 Scanned Document [facility] Neurosurgery [address] [phone] Social History Tobacco Use Types Packs/Day Years [...] on filedocumented in this encounter Care Teams Sales Recruiter Relationship Specialty Start Date End Date Vitor Angel MD [address] [place] [address] PCP - General Psychiatry, General 12/26/18 documented as of this encounter
--- OUTSIDE RECORDS SUMMARY | 2025-02-20 12:02 | XMS_ITS | Encounter Summary ---
Author Organization [facility] Address [address] [place] [address] Care Team Providers Care Firer Diesel Locomotive Name Role Phone Vitor Angel MD Primary Care Provider [phone] Encounter Details Date Type Department Care Team (Late st Contact Info) Description 04/13/[address] [facility] Neurosurgery [address] [phone] Neurosurgery, Scan Social History Tobacco Use Types [...] on filedocumented in this encounter Care Teams Firer Diesel Locomotive Relationship Specialty Start Date End Date Vitor Angel MD [address] [place] [address] PCP - General Psychiatry, General 12/26/18 documented as of this encounter
--- OUTSIDE RECORDS SUMMARY | 2025-02-20 12:02 | XMS_ITS | Patient Health Record ---
Author Organization [facility] Address [address] [place] [phone] Care Team Providers Care Critical Care Clinical Nurse Specialist Name Role Phone Jacey Lora M.D. Primary Care Provider Unavail Lonnie Treviño Jr Unavailable Allergies Allergen (clinical drug ingredient) Drug/Non Drug Allergy documented on EMR Reaction Allergy Type Onset Date Status cefaclor ceclor (uncoded) Unknown Allergy Act louis Penicillin Unknown Drug Allergy Active diphenhydramine Benadryl Unknown Drug Allergy A ctive Reason For Referral No Information Medications Medication [...] Problem Status W/U Status Risk Notes Problem Colon cancer screening (811506942) Colon cancer screening (Z12.11) Active confirmed Problem Lares's esophagus (064294318) Lares's esophagus without dysplasia (K22.70) Active confirmed Problem Nausea (489309989) Nausea (R11.0) Active confirmed Problem Dysphagia (08112189) Dysphagia (R13.10) Active confirmed Problem Diverticulitis (42092407) Diverticulitis (K57.92) Active confirmed Problem Esophageal spasm (97592042) Esophageal spasm (K22.4) Active confirmed Problem Dysphagia (66585176) Dysphagia, unspecified type (R13.10) Active confirmed Problem Lares esophagus (166663054) Lares esophagus (K22.70) Active confirmed Problem Barium swallow abnormal (507147777) Abnormal barium swallow (R93.3) Active confirmed Problem Irritable bowel syndrome characterized by constipation (847295529) Irritable bowel syndrome with constipation (K58.1) Active confirmed Vital Signs Temperature 97.5 degrees Fahrenheit 07/17/2024 Blood pressure diastolic 01 mm Hg 07/17/2024 Height 65.5 in 07/17/2024 Blood pressure systolic 001 mm Hg 07/17/2024 Weight 138.2 lbs 07/17/2024 BMI 22.65 kg/m2 07/17/2024 Encounters Encounter Location Date Provider Diagnosis [facility] [address] [place] [phone] 07/17/2024 Lonnie Arenas Jr Lares's esophagus without dysplasia K22.70 and Colon cancer screening Z12.11 [facility] [address] [place] [address] 07/17/2024 Lonnie Arenas Jr Assessments Encounter Date Diagnosis [...] Start Date Coverage End Date MEDICARE OF [place] [address] [facility] [place] [address] [id number] RAMON WHALEY Self - patient is the insured [employer] ([employer]) [address] [place] [address] [id number] RAMON WHALEY Self - patient is [...]
--- OUTSIDE RECORDS SUMMARY | 2025-02-20 12:02 | XMS_ITS | Encounter Summary ---
Author Organization [employer] Address [address] [facility] 7t [place] [address] Care Team Providers Care Rod Mill Tender Name Role Phone Lucila Cannon Unavailable [phone] Claudia Gamez CNP Primary Care Provider [phone] Encounter Details Date Type Department Care Team (Late st Contact Info) Description 04/28/2022 Abstract [place] [facility] [address] [place] [address] Provider, Chris, Social History Tobacco Use Types [...] on filedocumented in this encounter Care Teams Rod Mill Tender Relationship Specialty Start Date End Date Claudia Gamez CNP [address] [place] [address] PCP - General Family Medicine 05/03/22 02/01/23 Lucila Cannon LICSW [address] [place] [address] Damper Worker Behavioral Health 03/14/22 provider unknown Primary Care Provider 02/02/23 documented as of this encounter
--- OUTSIDE RECORDS SUMMARY | 2025-02-20 12:02 | XMS_ITS | Encounter Summary ---
Author Organization [employer] Address [address] [place] [address] 7 [place] [address] Care Team Providers Care Cupola Man Name Role Phone Lucila Cannon Unavailable [phone] Claudia Gamez CNP Primary Care Provider [phone] Encounter Details Date Type Department Care Team (Late st Contact Info) Description 04/27/2022 Abstract [place] [facility] [address] [place] [address] Claudia Gamez CNP [address] [place] [address] Social History Tobacco Use Types Packs/Day Years [...] on filedocumented in this encounter Care Teams Cupola Man Relationship Specialty Start Date End Date Claudia Gamez CNP [address] [place] [address] PCP - General Family Medicine 05/03/22 02/01/23 Lucila Cannon LICSW [address] [place] [address] Doctor Of Podiatry Behavioral Health 03/14/22 provider unknown Primary Care Provider 02/02/23 documented as of this encounter
--- OUTSIDE RECORDS SUMMARY | 2025-02-20 12:02 | XMS_ITS | Encounter Summary ---
Author Organization [employer] Address [address] [facility] 7t [place] [address] Care Team Providers Care Frame Bender Name Role Phone Lucila CannonSW Unavailable [phone] Claudia Gamez CNP Primary Care Provider [phone] Reason for Visit * Reason Comments Med Refill Encounter Details Date Type Department Care Team (Late st Contact Info) Description 05/16/[address] [facility] [address] [place] [address] Claudia Gamez CNP [address] [place] [address] Primary insomnia (Primary Dx) Social History Tobacco [...] Larson - 05/19/2022 2:45 PM EST Scheduled [id number] w/BC OV * Telephone Encounter - Claudia Gamez CNP - 05/16/2022 4:28 PM EST Due OV; please coordinate with pt; thanks documented in this encounter Plan of Treatment Not on file documented as of this encounter Visit Diagnoses Diagnosis Primary insomnia- Primary Persistent disorder of initiating or maintaining sleep documented in this encounter Care Teams Frame Bender Relationship Specialty Start Date End Date Claudia Gamez CNP [address] [place] [address] PCP - General Family Medicine 05/03/22 02/01/23 Lucila Cannon LICSW 9 [place] [address] Home Health Billing Specialist Behavioral Health 03/14/22 provider unknown Primary Care Provider 02/02/23 documented as of this encounter
--- OUTSIDE RECORDS SUMMARY | 2025-02-20 12:03 | XMS_ITS | Encounter Summary ---
Author Organization [facility] Address [address] [place] [address] Phone Care Team Providers Care Building Performance Specialist Name Role Phone Dorene June MD Unavailable [phone] Vitor Angel MD Unavailable [phone] Enrike Vela MD Unavailable Deysi Nuñez MD Unavailable [phone] Luz Osman Primary Care Provider Jeremy Torres MD Primary Care Provider Victoria Alvarado Primary Care Provider Carolina Garcia MD Primary Care Provider Lisa Padilla Primary Care Provide r Encounter Details Date Type Department Care Team (Late st Contact Info) Description 05/16/2018 Procedure Pass [facility], [address] [address] Social History Tobacco Use Types Packs/Day Years [...] on filedocumented in this encounter Care Teams Building Performance Specialist Relationship Specialty Start Date End Date Luz Osman PA [address] [place] [address] [place] [address] PCP - General Unknown Provider Specialty 01/08/18 09/20/18 Jeremy Torres MD [address] [place] [address], [address] [place] [address] PCP - General Internal Medicine 09/21/18 09/30/[address] [address] PCP - General 10/01/18 04/24/19 Carolina Garcia MD [address] [place] [address] PCP - General Internal Medicine 04/25/19 12/18/22 Lisa Padilla PA [address] [place] [address] PCP - General Physician Computer Aided Design Drafter 12/19/22 Dorene June MD [address] [place] [address] Historical LMR Provider 01/23/1709/20 Vitor Angel MD [address] [place] [address] Historical LMR Provider 01/23/17 Enrike Vela MD [address] [place] [address], [facility] [address] [place] [address] [email or web address] Historical LMR Provider 01/23/17 04/17/21 Deysi Nuñez MD [address] [place] [address] [email or web address] Historical LMR Provider 01/23/1704/17 documented as of this encounter Additional Source Comments The information contained in this document represents components of the legal health record. It is not the complete legal health record.[facility]
--- OUTSIDE RECORDS SUMMARY | 2025-02-20 12:03 | XMS_ITS | Clinical Summary ---
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 Family History Medical History Relation Comments Emphysema Father Hypertension Father Cancer Mother Breast Hypertension Mother Relation Status Comments Father Mother Social History Tobacco Use Types Packs/Day Years Used Date Smoking Tobacco: Former Cigarettes 0 Q uit: 12/2022 Smokeless Tobacco: Never Comments [...] age to complete this topic Insurance Medicare [facility] Medicare Unicare Care Teams Property Manager Relationship Specialty Start Date End Date Jacey Lora MD [address] [place] [address], [address] [place] [address] PCP - General Internal Medicine 10/03/23
--- OUTSIDE RECORDS SUMMARY | 2025-02-20 12:03 | XMS_ITS | Encounter Summary ---
Author Organization [employer] Address [address] [facility] 7 [place] [address] Care Team Providers Care Plate Glass Polisher Name Role Phone Lucila CannonSW Unavailable [phone] Claudia Gamez CNP Primary Care Provider [phone] Reason for Visit * Reason Comments Med Refill Encounter Details Date Type Department Care Team (Late st Contact Info) Description 09/07/[address] [facility] [address] [place] [address] Cassandra Long NP Primary insomnia Social History Tobacco Use Types [...] believe she is seeing anew PCP in [place] documented in this encounter Plan of Treatment Not on file documented as of this encounter Visit Diagnoses Diagnosis Primary insomnia Persistent disorder of initiating or maintaining sleep documented in this encounter Care Teams Plate Glass Polisher Relationship Specialty Start Date End Date Claudia Gamez CNP [address] [place] [address] PCP - General Family Medicine 05/03/22 02/01/23 Lucila Cannon, MATTIE [address] [place] [address] Corpsman Behavioral Health 03/14/22 provider unknown Primary Care Provider 02/02/23 documented as of this encounter
--- OUTSIDE RECORDS SUMMARY | 2025-02-20 12:03 | XMS_ITS | Clinical Summary ---
Author Organization [employer] Address [address] [place] [address] 7t [place] [address] Care Team Providers Care Healthcare Administration Intern Name Role Phone Lucila CannonSW Unavailable [phone] Allergies Active Allergy Reactions Criticality Noted Date [...] Active beta carotene (vitamin A) 3 MG (98890 UT) capsule daily. Active Specialty Vitamins Products [...] episode of recurren t major depressive disorder ([facility]) 03/14/2022 10/10/2022 Immunizations Immunization Administration Dates Next [...] Additional history exists COVID-19 Vaccine ( season) 2025 01/16/2025, 05/30/2024, 03/17/2023, Additional history exists Lipid Panel 07/23/2026 07/23/2021, 04/10, 01/31/2020 DTaP/Tdap/Td Vaccines (4 - Td or Tdap) 10/12/2032 10/12/2022, 04/21/2021, 04/21/2021, Additional history exists Zoster Vaccines Completed 12/06/2017, 07/28/2017 RSV Patients and Patients Aged 60 years or older Completed 01/01/2024, 12/14/2022 Pneumococcal Vaccine: 50+ Years Completed 01/19/2024, 03/09/2022, 01/04/2021, Additional history exists Influenza Vaccine Completed 01/02/2025, , 01/01/2024, Additional history exists HIB Vaccines Aged Out [...] LAB SYSTEM HDL CHOL 63 (>39) MG/DL [facility] NON HDL CHOLESTEROL (CALC) 123 (<160) MG/DL [facility] TRIGLYCERIDE 54 (<150) MG/DL [facility] 07/23/2021 9:06 AM EDT Claudia Gamez INTEGRATION SPECIALIST LAB BLOOD ORDERABLES Final Re sult [facility] [address] * Mammography (01/19/2021) Mammogram BI RADS one negative Anatomical Region Laterality Modality Other us Historical Provider HEALTH MAINTENANCE Final Result * Colonoscopy (10/14/2009) Colonoscopy Diverticulosis of the sigmoid colon, internal and external hemrrhoids. follow up the biopsy results Historical Provider HEALTH MAINTENANCE Final Result from Last 3 Months or Most Recently Relevant to Health Maintenance Insurance MEDICARE UNICARE MEDICARE EXTENSION Member Subscriber Plan / Payer (Ef fective 2019-Present) Name:DOLORES PHAM Relation to Subscriber:Spouse Name:Ramon Pham Date of :1958 (Home) Address: [address] [place] [id number] Payer ID:Not on file Type:Supplement Address[facility] [address] [place] [address] [place] [address] Care Teams Healthcare Administration Intern Relationship Specialty Start Date End Date Lucila Cannon LICSW [address] [place] [address] Wildlife Protector Behavioral Health 03/14/22 provider unknown Primary Care Provider 02/02/23
--- OUTSIDE RECORDS SUMMARY | 2025-02-20 12:03 | XMS_ITS | Clinical Summary ---
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 [...] Worst in allergy season. Saw neuro at [facility]. She reports triptans and antidepressants had [...] patient's age to complete this topic IPV VACCINES Aged Out No longer eligi ble [...] Date/Time Associated Diagnosis Comments BASIC METABOLIC PANEL (BMP) STAT 09/30/2018 6:28 PM EDT COLONOSCOPY FOR RESULT ENTRY ONLY Routine 09/07/2018 MAMMOGRAPHY Routine 12/28/2017 from Last 3 Months or Most Recently Relevant to Health Maintenance Results * (ABNORMAL) Basic metabolic panel (09/30/2018 6:28 PM EDT) Pathologist [facility] SODIUM 140 133 - 146 mmol/L [facility] CHLORIDE 103 96 - 108 mmol/L [facility] POTASSIUM 3.3 3.3 - 5.1 mmol/L [facility] CO2 22 21 - 35 mmol/L [facility] BUN 9 6 - 19 mg/dL [facility] CREATININE 0.50 0.5 - 1.5 mg/dL [facility] GLUCOSE 100(H) 70 - 99 mg/dL [facility] CALCIUM 9.4 8.4 - 10.3 mg/dL [facility] EGFR 102 >59 mL/min/1.7 3m2 [facility] Comment:If patient is black, multiply result by 1.159. Estimated glomerular filtration rate calculated using the CKD-EPI equation. ANION GAP 18 10 - 20 mmol/L [facility] Blood 09/30/2018 6:28 PM EDT 09/30/2018 6:35 PM EDT [facility] BLOOD BKR ORDERAB LES Final Result Performing Organization Address City/State/[facility] Co de Phone Number [address] [address] * COLONOSCOPY FOR RESULT ENTRY ONLY (09/07/2018) Pathologist [facility] Colonoscopy ..... Historical Provider HEALTH MAINTENANCE Final Result * MAMMOGRAPHY FOR RESULT ENTRY ONLY (12/28/2017) Pathologist [facility] Mammogram .... Historical Provider HEALTH MAINTENANCE Final Result from Last 3 Months or Most Recently Relevant to Health Maintenance Insurance [employer] [facility] EXTENSION MEDICARE SUPPLEMENT MEDICARE PART A & B [facility] EXTENSION MEDICARE SUPPLEMENT MEDICARE PART A & B MEDICARE SUPPLEMENT [facility] MEDICARE SUPPLEMENT [facility] EXTENSION MEDICARE SUPPLEMENT MEDICARE PART A & B [facility] EXTENSION MEDICARE SUPPLEMENT MEDICARE PART A & B [place] [employer]ION MEDICARE SUPPLEMENT MEDICARE PART A & B [place] EX[employer]ION MEDICARE SUPPLEMENT [facility] EXTENSION MEDICARE SUPPLEMENT MEDICARE PART A & B Care Teams Emissions Repair Technician Relationship Specialty Start Date End Date Lisa Padilla PA [address] [place] [address], [address] [place] [address] PCP - General Physician Stitcher Utility 12/19/22 Vitor Angel MD [address] [address] [email or web address] Historical LMR Provider 01/23/17 Additional Source Comments The information contained in this document represents components of the legal health record. It is not the complete legal health record.[facility]
--- OUTSIDE RECORDS SUMMARY | 2025-02-20 12:03 | XMS_ITS | Encounter Summary ---
Author Organization [facility] Address [address] [place] [address] Care Team Providers Care Last Sorter Name Role Phone Vitor Angel MD Primary Care Provider [phone] Encounter Details Date Type Department Care Team (Late st Contact Info) Description 05/21/2019 Scanned Document [facility] Neurosurgery [address] [phone] Social History Tobacco Use Types Packs/Day Years [...] on filedocumented in this encounter Care Teams Last Sorter Relationship Specialty Start Date End Date Vitor Anegl MD [address] [place] [address] PCP - General Psychiatry, General 12/26/18 documented as of this encounter
--- OUTSIDE RECORDS SUMMARY | 2025-02-20 12:03 | XMS_ITS | Clinical Summary ---
Author Organization [facility] Address [address] [place] [address] Care Team Providers Care Erp Programmer Name Role Phone Vitor Angel MD Primary Care Provider [phone] Allergies Active Allergy Reactions Criticality Noted Date [...] 1954 DTaP/Tdap/Td Vaccines (1 - Tdap) 1973 Mammogram 1994 Colonoscopy 09/26/1999 Pneumococcal Vaccines 50+ (1 of 1 - PCV) 2004 RSV Vaccine 50 years and older and Patients (1 - Risk 50-74 years 1-dose series) 2004 Zoster (Shingles) Vaccine (1 of 2) 2004 DXA Bone Density (Females,Ages 65 and older) 09/26/2019 Influenza Vaccine 11/08/2024 01/14/2019, 01/23/2018 COVID-19 Vaccine ( - 2023-2 5 season) 2024 Hepatitis B Vaccines Aged Out No long er eligible based on patient's age to complete this topic Insurance [facility] [employer] MEDICARE PART A & B Care Teams Erp Programmer Relationship Specialty Start Date End Date Vitor Angel MD [address] [place] [address] PCP - General Psychiatry, General 12/26/18
== END 2025-02-20 10:33 | disposition home or self-care (01) ==
LOC: HO.HCS 10:04
PROVIDERS: PCP Internal Medicine; Visit Provider Internal Medicine
DX: I49.3 Ventricular premature depolarization (principal)
CPT/HCPCS: 99214; G2211

== ENCOUNTER → 2025-02-20 10:03 | Outpatient (BNVA) | payer MEDICARE, OTHER, SELFPAY | PROVIDERS: PCP Internal Medicine; Visit Provider Internal Medicine | DX: R00.2 Palpitations (principal); I49.3 Ventricular premature depolarization; Z87.891 Personal history of nicotine dependence; R06.02 Shortness of breath; I10 Essential (primary) hypertension | CPT/HCPCS: 99212 ==

== ENCOUNTER 2025-02-26 10:14 | Outpatient (REF) | payer MEDICARE, OTHER, SELFPAY ==
--- NOTE | ~2025-02-26 | MR_ITS ---
EXAMINATION: MRI ORBITS WITHOUT AND WITH CONTRAST CLINICAL INFORMATION: H43.399. Vitreous opacities, unspecified eye, basal changes. Aneurysm repair, carotid stenosis. COMPARISON: MRI brain dated June 14, 2024. TECHNIQUE: MRI of the orbits was obtained using routine sequences without and with contrast. Intravenous contrast: Gadolinium based (Gadavist) 6.0 mL. No reported immediate complications. FINDINGS: Paramagnetic field distortion at the flow-void signal abnormalities in the medial aspect of the cavernous supracavernous segments of the ICAs, bilaterally. No restricted diffusion. The eyeballs are intact. Status post intraocular lens surgery, bilaterally. No abnormal enhancement within the eyeballs. The extraocular muscles demonstrate normal morphology and enhancement pattern. The intraconal, intracanalicular, prechiasmatic/cisternal segments of the optic nerves demonstrated no signal abnormality or enhancing lesion. No abnormal enhancement within the intraconal or the extraconal compartments of the orbits. The lacrimal glands are normal. There is a left midline deviation of pituitary stalk without abnormal enhancement. No abnormal enhancing lesion in the sellar suprasellar region. The flow-void signal within the main vessels is present. There is no abnormal enhancement within the intra-axial or the extra-axial compartments of the cranium based upon axial T1 postcontrast sequence. Craniocervical junction demonstrates normal position of the cerebellar tonsils. There is white matter disease. There is prominence of the extra-axial CSF spaces cerebral sulci involving the bifrontal and biparietal lobes.. MR/MR orbits face neck wo/w con IMPRESSION: No signal abnormality or abnormal enhancement within the orbits. Nonenhancing cerebral aneurysm, cavernous supracavernous segments. Electronically signed by: Bryant Bonilla MD 02/26/2025 11:29 AM EST
== END 2025-02-26 10:15 | disposition home or self-care (01) ==
LOC: HO.MRI 10:14
PROVIDERS: PCP Internal Medicine; Visit Provider Internal Medicine
DX: I72.0 Aneurysm of carotid artery (principal); H43.399 Other vitreous opacities, unspecified eye; H53.9 Unspecified visual disturbance
CPT/HCPCS: 70543; A9585

== ENCOUNTER → 2025-02-26 10:14 | Outpatient (BNV) | payer MEDICARE, OTHER, SELFPAY | PROVIDERS: PCP Internal Medicine; Visit Provider Radiology Diagnostic Radiology | DX: H43.399 Other vitreous opacities, unspecified eye (principal); H53.9 Unspecified visual disturbance | CPT/HCPCS: 70543 ==

== ENCOUNTER 2025-03-03 09:08 | Outpatient (AMB) | payer MEDICARE, OTHER, SELFPAY ==
--- NOTE | 2025-03-03 09:20 | A.OFFPC_ITS ---
Vital Signs 03/03/25 09:23 Height 5 ft 6 in Weight 136 lb 8 oz BMI 22.0 BP 120/72 Blood Pressure Location Rt brachial Position Sitting Respiration 16 Pulse 57 Pulse Source Pulse Oximeter Temp 98.2 F Temp Source Temporal Artery Scan Pulse Oximetry (%) 95 Oxygen Delivery Method Room Air Intake Visit Reasons: 4mos Intake Note: Dolores presents in the office today for a 4 month follow up. Medication Check and BP Check. Patient is not taking Metoprolol. Allergies cefaclor (From CECLOR) Allergy (Severe, Verified 03/03/25 09:21) RASH,THROAT SWELLING Penicillins Allergy (Mild, Verified 03/03/25 09:21) MASSIVE WHELTS From BuSpar Allergy (Intermediate, Uncoded 03/03/25 09:21) CONFUSION, HALLUCINATIONS Tobacco use date assessed: 03/03/25 Fall risk assessment: No Falls in past year Last assessed Fall Risk: 03/03/25 Dental Screening Dental Screen Date: 03/03/25 Did you have a dental visit in the last 12 months?: Yes Did you have a dental problem in the last 6 months where you did not have access to dental care?: No Was dental information given to patient?: Patient has dentist HPI HPI Comments History of Present Illness Details This is a 69 year old female with a past medical history of OA, chronic low back pain, muscle pain, hypertension, GERD, barretts, migraines presenting for follow up Chronic pain-stable on current medications - CCP elevated. CK slight elevation. Has severe flares of deep muscle and bone pain every 2-3 months, lasts 1-3 weeks. Feet, Legs, arms, hands, tips of the fingers. Muscles hurt and she has deep bone pain. Saw rheumatology -clinical exam with osteoarthritic changes without evidence of autoimmune rheumatologic disease. Following with rheumatology -OA: On oxycodone, morphine ER. s/p SI j oint fusion with Dr Kent 04/2023. Active caring for her grandchild. CV: on amlodipine, spironolactone. Following with nephrology for BP management. Denies chest pain, exertional dyspnea. Heart rate still dropping frequently into the low 50s mostly during sleep but she awakens with fluttering, palptiations MSK: On oxycodone, morphine ER-transitioned from xtampza. s/p SI joint fusion with Dr Kent 04/2023. Active caring for her grandchild. She continues to have suboptimal pain control Neuro: She continues to have excessive fatigue, eyelid fatigue, exhaustion. Some cross eyed vision. Recent MR martin wnl. Historically has followed with Dr Elder, neurology for migraines. On ubrelvy. Migraines stable. History of aneurysm repair. Had MRA neck. MR head. BH/Neuro She get 6-8 hours of sleep with temazepam but says it is not deep sleep. Her pharmacy is giving her a difficult time filling though she has been using goodrx. Previously tried trazodone, ambien, belsomra without success. She saw the sleep specialist who reviewed no apnea. She is and has been stressed. She spends hours per day helping to care for her autistic grandchild. Her daughter has been out of work this year for anxiety and panic disorder. For the past 2-3 months has had increased hair loss. It is falling out in clumps when she bathes. GI: Follows with Dr Arenas. Danii. UTD with upper and lower endoscopy She was seen by Dr Mcgovern-uroadenike for multidrug resistant UTI. ROS see HPI PHYSICAL EXAM: GENERAL: Alert and oriented x 3. NAD EYES: EOMI. Anicteric. HENT: Moist mucous membranes. No scleral icterus. No cervical lymphadenopathy. LUNGS: Clear to auscultation bilaterally. CARDIOVASCULAR: Regular rate and rhythm.No JVD. ABDOMEN: Soft, non-tender +bs EXTREMITIES: No edema. Non-tender. SKIN: No rashes or lesions. Warm. NEUROLOGIC: No focal neurological deficits. CN II-XII grossly intact PSYCHIATRIC: Cooperative. Appropriate mood and affect [facility] Medical History Bowel obstruction Reflex sympathetic dystrophy Back pain COPD (chronic obstructive pulmonary disease) Migraine HTN (hypertension) Carotid artery aneurysm Fibromyalgia IBS (irritable bowel syndrome) Lares esophagus GERD (gastroesophageal reflux disease) Surgical History Hx of fusion of cervical spine H/O carpal tunnel repair S/P surgery on nasal septum History of ankle surgery History of appendectomy Family History Sister Alcoholism Mother Breast cancer HTN (hypertension) Hypercholesteremia Maternal Aunt Breast cancer Maternal Uncle Colon cancer Father HTN (hypertension) Asthma Hypercholesteremia Maternal Grandfather Pacemaker Other Substance use Social History Housing: House Alcohol intake: never Patient Tobacco Use Status: Former Tobacco user Tobacco use type: Cigarette Cigarettes Per Day: 10 Years Smoked: 50 e-Cigarette/Vaping Use: Never Used Second Hand Smoke Exposure: No service: No Current occupational status: retired Cognitive needs: No Hearing needs: No Vision needs: Yes (floater in eyes, and possible glaucoma) Questionnaire Thrive Questionnaire Date Thrive assessed: 05/29/24 I am a: Patient What is your living situation today?: I have a steady place to live Within the past 12 months, did the food you bought not last and you didn't have the money to get more?: Never true Within the past 12 months, did you worry whether your food would run out before you got money to buy more?: Never true Do you have trouble paying for medicines?: No Do you have trouble getting transportation to medical appointments?: No Do you have trouble paying your heating and electricity bill?: No Do you have trouble taking care of your child, family member or friend?: No Do you have trouble with day-to-day activities such as bathing, preparing meals, shopping, managing finances, etc.?: No Are you currently unemployed and looking for a job?: No Are you interested in more education?: No Please select the resources that you would like help with: None Currently or been in a relationship where the following occur: No concerns reported THRIVE Score: 0 SISSY-7 AMB Questionnaire SISSY-7 Date SISSY - 7 assessed: 06/04/24 Source: Developed by Drs. Gabriel Amaya, Anni Campbell, Franco Solano and colleagues, with an educational alyce from [employer]. Physical exam (Primary Care) Vital Signs: Last Vital Signs Temp 98.2 F 03/03/25 09:23 Pulse 57 03/03/25 09:23 Resp 16 03/03/25 09:23 BP 120/72 03/03/25 09:23 Pulse Ox 95 03/03/25 09:23 Oxygen Delivery Method Room Air 03/03/25 09:23 BMI result Body Mass Index 22.0 Tobacco/Smoking Status: Tobacco use Status Tobacco use date assessed 03/03/25 03/03/25 09:26 Patient Tobacco Use Status Former Tobacco user 03/03/25 09:26 Tobacco use type Cigarette 03/03/25 09:26 e-Cigarette/Vaping Use Never Used 03/03/25 09:26 Thrive Assessment: Date of Thrive Assessment Date Thrive assessed 05/29/24 03/03/25 09:26 Currently or been in a relationship where the following occur: No concerns reported Coding Level of Care Code Est Pt Level 4 (57323) Diagnoses Primary hypertension I10 Hypertension type: primary hypertension Bradycardia R00.1 Palpitations R00.2 Gastroesophageal reflux disease, unspecified whether esophagitis present K21.9 Esophagitis presence: esophagitis presence not specified Assessment & Plan Assessment & Plan (1) HTN (hypertension): Comment: controlled on current medication Code(s): I10 - Essential (primary) hypertension Category: Medical Qualifiers: Hypertension type: primary hypertension Qualified Code(s): I10 - Essential (primary) hypertension (2) Bradycardia: Code(s): R00.1 - Bradycardia, unspecified Category: Medical (3) Palpitations: Code(s): R00.2 - Palpitations Category: Medical (4) GERD (gastroesophageal reflux disease): Code(s): K21.9 - Gastro-esophageal reflux disease without esophagitis Category: Medical Qualifiers: Esophagitis presence: esophagitis presence not specified Qualified Code(s): K21.9 - Gastro-esophageal reflux disease without esophagitis Plan 69 year old for follow up Fatigue, drowsiness-MR normal Hair loss-Increase aldactone. stop norvasc. Saw cardiology for palpitations. continues work up. Considering metoprolol Chronic pain is stable on oxycodone Orders: Referrals Dermatology Referral L65.9 - Nonscarring hair loss, unspecified Medications: Changed From spironolactone 25 mg PO DAILY 90 tabs 3RF To spironolactone 25 mg PO BID 180 tabs 3RF Refilled temazepam GOOD RX [id number] [facility] [id number] Member [id number] 15 mg PO BEDTIME PRN 30 caps 1RF sleep Discontinued amlodipine and take one additional tab as needed for blood pressure >150/90 Discontinued Reason: Doctor's Order 2.5 mg PO DAILY 90 days 120 tabs 0RF
[2025-03-03 09:23] VITALS: BP 120/72; PULSE 57; RESP 16; TEMP 36.8; O2SAT 95; BMI 22.0
== END 2025-03-03 11:18 | disposition home or self-care (01) ==
LOC: HO.HMCFM 09:08
PROVIDERS: PCP Internal Medicine; Visit Provider Internal Medicine
DX: I10 Essential (primary) hypertension (principal); R00.1 Bradycardia, unspecified; R00.2 Palpitations; K21.9 Gastro-esophageal reflux disease without esophagitis

== ENCOUNTER → 2025-03-03 09:08 | Outpatient (BNVA) | payer MEDICARE, OTHER, SELFPAY | PROVIDERS: PCP Internal Medicine; Visit Provider Internal Medicine | DX: I10 Essential (primary) hypertension (principal); R00.1 Bradycardia, unspecified; R00.2 Palpitations; K21.9 Gastro-esophageal reflux disease without esophagitis; L65.9 Nonscarring hair loss, unspecified; Z79.899 Other long term (current) drug therapy; M19.90 Unspecified osteoarthritis, unspecified site; G89.29 Other chronic pain | CPT/HCPCS: 99212 ==

== ENCOUNTER → 2025-04-08 08:34 | Outpatient (REF) | payer MEDICARE, OTHER, SELFPAY ==
--- NOTE | 2025-04-08 08:38 | CA_ITS ---
Acquisition Time: 2025-04-08 09:33:35 Total Exercise Time: 00:05:15 Test Indications: palpitations, htn Medications: see h&p Protocol: ARI Max HR: 133 BPM 88% of Pred: 150 BPM Max BP: 190/80 mmHG Max Work Load: 7.0 METS Exercise stress test with exercise 5 mins 15 secs of Ari Protocol, achieving 88% MPHR, with reports of SOB, no chest pain, with frequent PVCs- couplets and triplets, with normotensive response to exercise. Without any EKG changes meeting criteria for ischemia. In recovery, breathing improved and pt feeling back to baseline. Nuclear images pending. Test reviewed with Dr. Kilpatrick. Referred By: Ar Kilpatrick Electronically Signed By: Nir Burnett
--- OUTSIDE RECORDS SUMMARY | 2025-04-08 10:15 | XMS_ITS | Clinical Summary ---
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
--- OUTSIDE RECORDS SUMMARY | 2025-04-08 10:15 | XMS_ITS | Patient Health Record ---
Author Organization [facility] Address [address] [place] [phone] Care Team Providers Care Child Welfare Manager Name Role Phone Jacey Lora M.D. Primary Care Provider Unavail Lonnie Treviño Jr Unavailable Allergies Allergen (clinical drug ingredient) Drug/Non Drug Allergy documented on EMR Reaction Allergy Type Onset Date Status cefaclor ceclor (uncoded) Unknown Allergy Act louis diphenhydramine Benadryl Unknown Drug Allergy A ctive Penicillin Unknown Drug Allergy Active Reason For Referral No Information Medications Medication SIG (Take, Route, Frequency, Duration) Notes Start Date End Date Status hydroCHLOROthiazide 50 MG Tablet TAKE 1 TABLET BY MOUTH EVERY DAY Oral Once a day Unknown Amphetamine-Dextroamphetamin e 30 MG Tablet 1 tablet Orally once a day Unknown Pantoprazole Sodium 40 MG Tablet Delayed Release TAKE 1 TABLET twice a day; Duration: 90 days Active amLODIPine Besylate 5 MG Tablet TAKE 1 TABLET BY MOUTH EVERY DAY Oral; Duration: 90 Days Active Linzess 145 MCG Capsule TAKE 1 CAPSULE B Y MOUTH AT LEAST 30 MIN BEFORE THE FIRST MEAL OF THE DAY ON AN EMPTY STOMACH.; Duration: 30 Unknown Baclofen 20 MG Tablet Oral; Duration: 90 Days Active oxyCODONE HCl 15 MG Tablet 1 tablet Oral ly 2-3 times a day/prn Unknown Methocarbamol 500 MG Tablet TAKE 1 TABLE T BY MOUTH AT BEDTIME Oral; Duration: 30 Unknown Spironolactone 25 MG Tablet TAKE 1 TABLE T BY MOUTH EVERY DAY Oral; Duration: 90 Days Active Chlorhexidine Gluconate 0.12 % Solution RINSE MOUTH WITH 1/2 OUNCE TWICE A DAY SPIT DO NOT SWALLOW Mouth/Throat; Duration: 30 Days Active Multi Vitamin/Minerals - Tablet as directed Orally once a day Unknown Metoclopramide HCl 5 MG Tablet TAKE 1 TA BLET BY MOUTH FOUR TIMES A DAY BEFORE EACH MEAL AND BED Oral; Duration: 30 Days Active Levsin 0.125 MG Tablet 1 tablet as neede d Orally three x a day 08/10/2016 Unknown Morphine Sulfate ER 30 MG Tablet Extended Release Oral; Duration: 30 Days Active Nitroglycerin 0.3 MG Tablet Sublingual as directed Sublingual for cjest pain, may repeat X1 in 5 min if no relief; Duration: 30 days 06/07/2019 Unknown oxyCODONE HCl 10 MG Tablet Oral; Duratio n: 30 Days Active OsmoPrep 1.102-0.398 GM Tablet 32 tablet s Orally over two days as directed; Duration: 2 day(s) 05/25/2018 Unknown Latanoprost 0.005 % Solution INSTILL 1 D ROP INTO BOTH EYES AT BEDTIME Ophthalmic; Duration: 90 Days Active Estradiol 0.1 MG/GM Cream Vaginal; Durat ion: 90 Days Active Albuterol Sulfate HFA 108 (9 0 Base) MCG/ACT Aerosol Solution INHALE 2 PUFFS BY MOUTH EVERY 4 HOURS NEEDED Inhalation; Duration: 25 Days Active Osphena 60 MG Tablet TAKE 1 TABLET BY MOUTH DAILY WITH FOOD Oral Once a day Unknown Linzess 290 MCG Capsule TAKE 1 CAPSULE O RALLY AT LEAST 30MIN. BEFORE THE FIRST MEAL OF THE DAY ON AN EMPTY STOMACH X90 DAYS; Duration: 90 Active Immunizations Vaccine Route Administration Date Status Comme nts Influenza Unknown 01/23/2018 Administered Influenza Unknown 01/31/2023 Administered Influenza Unknown 01/24/2024 Administered Social History Tobacco Use: Social History Observation Description Date Details (start date - stop date) Former Smoker NA - NA Social History Tobacco Use: Social Info Question Answer Notes Tobacco Use/Smoking Patient is a former smoker Additional Details Category Social Info Options Details Miscellaneous: Marital status: Occupation: retired/ disabil ity Problems Problem Type SNOMED Code ICD Code Onset Dates Problem Status W/U Status Risk Notes Problem Colon cancer screening (948074051) Colon cancer screening (Z12.11) Active confirmed Problem Lares's esophagus (356025151) Lares's esophagus without dysplasia (K22.70) Active confirmed Problem Nausea (918656388) Nausea (R11.0) Active confirmed Problem Dysphagia (76624649) Dysphagia (R13.10) Active confirmed Problem Diverticulitis (00190070) Diverticulitis (K57.92) Active confirmed Problem Esophageal spasm (26920350) Esophageal spasm (K22.4) Active confirmed Problem Dysphagia (61202514) Dysphagia, unspecified type (R13.10) Active confirmed Problem Lares esophagus (205386196) Lares esophagus (K22.70) Active confirmed Problem Barium swallow abnormal (717727927) Abnormal barium swallow (R93.3) Active confirmed Problem Irritable bowel syndrome characterized by constipation (119412863) Irritable bowel syndrome with constipation (K58.1) Active confirmed Vital Signs Temperature 97.5 degrees Fahrenheit 07/17/2024 Blood pressure diastolic 01 mm Hg 07/17/2024 Height 65.5 in 07/17/2024 Blood pressure systolic 001 mm Hg 07/17/2024 Weight 138.2 lbs 07/17/2024 BMI 22.65 kg/m2 07/17/2024 Encounters Encounter Location Date Provider Diagnosis [facility] [address] [place] [phone] 07/17/2024 Lonnie Arenas Jr Lares's esophagus without dysplasia K22.70 and Colon cancer screening Z12.11 [facility] [address] [place] [phone] 07/17/2024 Lonnie Arenas Jr [facility] [address] [place] [phone] 03/12/2025 Lonnie Arenas Jr Assessments Encounter Date Diagnosis [...] GI ENDOSCOPY 03/02/2022 UPPER GI ENDOSCOPY 07/17/2024 Next Appt Details Provider Name:Lonniemarie rossi Jr, 04/22/2025 07:30:00 AM, [address] [place] [address] , [place], [place], [phone], Insurance Providers Payer Name Payer Address Payer Phone Subscriber Number Group Number Insured Name Patient Relationship to Insured Coverage Start Date Coverage End Date MEDICARE OF [place] [address] [place] [address] [id number] RAMON WHALEY Self - patient is the insured [employer] ([id number]) [address] [place] [address] [id number] RAMON WHALEY Self - patient is [...]
--- OUTSIDE RECORDS SUMMARY | 2025-04-08 10:15 | XMS_ITS | Encounter Summary ---
Author Organization [email or web address] Address [address] [place] [address] 7 [place] [address] Care Team Providers Care Reed Fixer Name Role Phone Lucila Cannon Unavailable [phone] Claudia Gamez CNP Primary Care Provider [phone] Encounter Details Date Type Department Care Team (Late st Contact Info) Description 04/27/2022 Abstract Carolin [facility] MEDICAL [address] [place] [address] Claudia Gamez CNP [address] [place] [address] Social History Tobacco Use Types Packs/Day Years [...] on filedocumented in this encounter Care Teams Reed Fixer Relationship Specialty Start Date End Date Claudia Gamez CNP [address] [place] [address] PCP - General Family Medicine 05/03/22 02/01/23 Lucila Cannon LICSW 9 [place] [address] Casket Assembler Metal Behavioral Health 03/14/22 provider unknown Primary Care Provider 02/02/23 documented as of this encounter
--- OUTSIDE RECORDS SUMMARY | 2025-04-08 10:15 | XMS_ITS | Encounter Summary ---
Author Organization [facility] Address [address] [place] [address] Care Team Providers Care Manager Steel Name Role Phone Vitor Angel MD Primary Care Provider [phone] Encounter Details Date Type Department Care Team (Late st Contact Info) Description 04/13/2022 Scanned Document [facility] Neurosurgery [address] [address] Neurosurgery, Scan Social History Tobacco Use Types [...] filedocumented in this encounter Care Teams Manager Steel Relationship Specialty Start Date End Date Vitor Angel MD [address] [place] [address] PCP - General Psychiatry, General 12/26/18 documented as of this encounter
--- OUTSIDE RECORDS SUMMARY | 2025-04-08 10:15 | XMS_ITS | Encounter Summary ---
Author Organization [employer] Address 75 [facility] 7t [place] [address] Care Team Providers Care Senior Master Scheduler Name Role Phone Lucila CannonSW Unavailable [phone] Claudia Gamez CNP Primary Care Provider [phone] Reason for Visit * Reason Comments Med Refill Encounter Details Date Type Department Care Team (Late st Contact Info) Description 05/16/2022 Refill [facility] MEDICAL [address] [place] [address] Claudia Gamez CNP [address] [place] [address] Primary insomnia (Primary Dx) Social History Tobacco [...] Larson - 05/19/2022 2:45 PM EST Scheduled [id number] w/BC OV * Telephone Encounter - Claudia Gamez CNP - 05/16/2022 4:28 PM EST Due OV; please coordinate with pt; thanks documented in this encounter Plan of Treatment Not on file documented as of this encounter Visit Diagnoses Diagnosis Primary insomnia- Primary Persistent disorder of initiating or maintaining sleep documented in this encounter Care Teams Senior Master Scheduler Relationship Specialty Start Date End Date Claudia Gamez CNP 73 [place] [address] PCP - General Family Medicine 05/03/22 02/01/23 Lucila Cannon LICSW 9 [place] [address] Safety Pin Assembling Machine Operator Behavioral Health 03/14/22 provider unknown Primary Care Provider 02/02/23 documented as of this encounter
--- OUTSIDE RECORDS SUMMARY | 2025-04-08 10:15 | XMS_ITS | Encounter Summary ---
Author Organization [facility] Address [address] [place] [address] Care Team Providers Care Senior Cytogenetics Laboratory Director Name Role Phone Vitor Angel MD Primary Care Provider [phone] Encounter Details Date Type Department Care Team (Late st Contact Info) Description 02/15/2022 Scanned Document [facility] Neurosurgery [address] [phone] Neurosurgery, Scan Social History Tobacco Use Types [...] on filedocumented in this encounter Care Teams Senior Cytogenetics Laboratory Director Relationship Specialty Start Date End Date Vitor Angel MD [address] [place] [address] PCP - General Psychiatry, General 12/26/18 documented as of this encounter
--- OUTSIDE RECORDS SUMMARY | 2025-04-08 10:15 | XMS_ITS | Clinical Summary ---
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 [...] Worst in allergy season. Saw neuro at [facility]. She reports triptans and antidepressants had [...] metabolic panel (09/30/2018 6:28 PM EDT) Pathologist [facility] SODIUM 140 133 - 146 mmol/L [facility] CHLORIDE 103 96 - 108 mmol/L [facility] POTASSIUM 3.3 3.3 - 5.1 mmol/L [facility] CO2 22 21 - 35 mmol/L [facility] BUN 9 6 - 19 mg/dL [facility] CREATININE 0.50 0.5 - 1.5 mg/dL [facility] GLUCOSE 100(H) 70 - 99 mg/dL [facility] CALCIUM 9.4 8.4 - 10.3 mg/dL [facility] EGFR 102 >59 mL/min/1.7 3m2 [facility] Comment:If patient is black, multiply result by 1.159. Estimated glomerular filtration rate calculated using the CKD-EPI equation. ANION GAP 18 10 - 20 mmol/L [facility] Blood 09/30/2018 6:28 PM EDT 09/30/2018 6:35 PM EDT Kim [facility] BLOOD BKR ORDERAB LES Final Result Performing Organization Address City/State/[facility] Co de Phone Number [address] [address] * COLONOSCOPY FOR RESULT ENTRY ONLY (09/07/2018) Pathologist Count includes the [facility] Colonoscopy ..... Historical Provider HEALTH MAINTENANCE Final Result * MAMMOGRAPHY FOR RESULT ENTRY ONLY (12/28/2017) Pathologist Count includes the [facility] Mammogram .... Historical Provider HEALTH MAINTENANCE Final Result from Last 3 Months or Most Recently Relevant to Health Maintenance [facility] SUPPLEMENT MEDICARE PART A & B [facility] MEDICARE SUPPLEMENT MEDICARE PART A & B [facility] MEDICARE SUPPLEMENT [facility] MEDICARE SUPPLEMENT [facility] MEDICARE SUPPLEMENT MEDICARE PART A & B [facility] MEDICARE SUPPLEMENT MEDICARE PART A & B [facility] MEDIC[employer] SUPPLEMENT MEDICARE PART A & B [facility] MEDICARE SUPPLEMENT [facility] MEDICARE SUPPLEMENT MEDICARE PART A & B Care Teams Mink Farmer Relationship Specialty Start Date End Date Lisa Padilla PA [address] [place] [address] PCP - General Physician Scene And Lighting Design Lecturer 12/19/22 Vitor Angel MD [address] [place] [address] [email or web address] Historical LMR Provider 01/23/17 Additional Source Comments The information contained in this document represents components of the legal health record. It is not the complete legal health record.[facility]
--- OUTSIDE RECORDS SUMMARY | 2025-04-08 10:15 | XMS_ITS | Clinical Summary ---
Author Organization [facility] Address [address] [place] [address] Care Team Providers Care Shook Machine Operator Name Role Phone Deysi Nuñez MD MPH Primary Care Provider + Allergies Active Allergy Reactions Criticality Noted Date Comments Cefaclor Hives 01/05/2018 Diphenhydramine Itching Medium 01/07/2013 Penicillins Hives,Itching High 01/07/2013 Medications gabapentin (NEURONTIN) 300 MG capsule Take 300 mg by mouth 3 times a day. Active eletriptan (RELPAX) 20 MG tablet Take 20 mg by mouth as needed for migraine. may repeat in 2 hours if necessary Active diltiazem (CARDIZEM) 30 MG tablet Take 30 mg by mouth 4 times a day. Active pantoprazole (PROTONIX) 40 MG EC tablet Take 40 mg by mouth every morning & every evening. Active diclofenac (VOLTAREN) 75 MG EC tablet Take 75 mg by mouth 2 times a day as needed. Active medroxyPROGESTE Yovany (PROVERA) 10 MG tablet Take 10 mg by mouth daily. Active hydroCHLOROthia zide (HYDRODIURIL) 50 MG tablet Take 50 mg by mouth daily. Active metoprolol ER (TOPROL-XL) 25 MG 24 hr tablet Take 25 mg by mouth daily. Active ospemifene (OSPHENA) 60 mg Tab tablet Take 60 mg by mouth daily. Active carisoprodol (SOMA) 350 MG tablet Take 350 mg by mouth 3 times a day as needed for muscle spasms. Active oxyCODONE ER (OxyCONTIN) 20 MG TR12 12 hr tablet Take 20 mg by mouth every 12 hours as needed. Active promethazine (PHENERGAN) 25 MG tablet Take 25 mg by mouth every 6 hours as needed (for nausea with oxycodone). Active clobetasol (TEMOVATE) 0.05 % ointment Apply topically every morning & every evening. Active dextroamphetami ne-amphetamine (ADDERALL) 30 mg tablet Take 30 mg by mouth daily. Active Active Problems Problem Noted Date Diagnosed Date Gastroesophageal reflux disease without esophagi tis 11/30/2018 Vertigo 11/30/2018 Overview (11/30/2018): Per pt, managed with hydrochlorothiazide. Family History Medical History Relation Comments Emphysema Father Hypertension Father Other Father Breast cancer Mother Hypertension Mother Relation Status Comments Father Mother Social History Tobacco Use Types Packs/Day Years Used Date Smoking Tobacco: Every Day Cigarettes 0.5 50 Tobacco Cessation:Ready to Q uit: No; Counseling Given: Yes Comments Unknown Sex and Gender Information Value Date Recorded Sex Assigned at Not on file Legal Sex Female 8:25 PM EST Gender Identity Not on file Sexual Orientation Not on file Plan of Treatment Not on file [facility] Care Teams Shook Machine Operator Relationship Specialty Start Date End Date Deysi Nuñez MD MPH [address] [place] [address] PCP - General 05/18/15
--- OUTSIDE RECORDS SUMMARY | 2025-04-08 10:15 | XMS_ITS | Encounter Summary ---
Author Organization [employer] Address 75 [facility] 7t [place] [address] Care Team Providers Care Reservoir Engineering Manager Name Role Phone Lucila Cannon Unavailable [phone] Claudia Gamez CNP Primary Care Provider [phone] Encounter Details Date Type Department Care Team (Late st Contact Info) Description 04/28/2022 Abstract Carolin [facility] MEDICAL [address] [place] [address] Provider, Chris, Social History Tobacco Use Types [...] on filedocumented in this encounter Care Teams Reservoir Engineering Manager Relationship Specialty Start Date End Date Claudia Gamez CNP [address] [place] [address] PCP - General Family Medicine 05/03/22 02/01/23 Lucila Cannon LICSW 9 [place] [address] Sleeve Bottom [facility]eller [facility] 03/14/22 provider unknown Primary Care Provider 02/02/23 documented as of this encounter
--- OUTSIDE RECORDS SUMMARY | 2025-04-08 10:15 | XMS_ITS | Encounter Summary ---
Author Organization [facility] Address [address] [place] [address] Phone Care Team Providers Care Insurance Underwriter Name Role Phone Dorene June MD Unavailable [phone] Vitor Angel MD Unavailable [phone] Enrike Vela MD Unavailable Deysi Nuñez MD Unavailable [phone] Luz Osman PA-C Primary Care Provider [phone] Jeremy Torres MD Primary Care Provider Victoria Alvarado Primary Care Provider [phone] Carolina Garcia MD Primary Care Provider Lisa Padilla Primary Care Provide r Encounter Details Date Type Department Care Team (Late st Contact Info) Description 05/16/2018 Procedure [facility], [address] [address] Social History Tobacco Use Types Packs/Day Years [...] filedocumented in this encounter Care Teams Insurance Underwriter Relationship Specialty Start Date End Date Luz Osman PA-C [address] [place] [address] [place] [address] PCP - General Unknown Provider Specialty 01/08/18 09/20/18 Jeremy Torres MD [address] [place] [address], [address] [place] [address] PCP - General Internal Medicine 09/21/18 09/30/18 Christiano Victoria [address] [place] [address] PCP - General 10/01/18 04/24/19 Carolina Garcia MD [address] [place] [address] PCP - General Internal Medicine 04/25/19 12/18/22 Lisa Padilla PA [address] [place] [address] PCP - General Physician Noodle Maker 12/19/22 Dorene June MD [address] [place] [address] Historical LMR Provider 01/23/1709/20 Vitor Angel MD [address] [place] [address] Historical LMR Provider 01/23/17 Enrike Vela MD [address] [place] [address], [facility] [address] [place] [address] [email or web address] Historical LMR Provider 01/23/17 04/17/21 Deysi Nuñez MD [address] [place] [address] [email or web address] Historical LMR Provider 01/23/1704/17 documented as of this encounter Additional Source Comments The information contained in this document represents components of the legal health record. It is not the complete legal health record.[facility]
--- OUTSIDE RECORDS SUMMARY | 2025-04-08 10:15 | XMS_ITS | Encounter Summary ---
Author Organization [facility] Address [address] [place] [address] Care Team Providers Care Discharge Planner Name Role Phone Vitor Angel MD Primary Care Provider [phone] Encounter Details Date Type Department Care Team (Late st Contact Info) Description 05/21/2019 Scanned Document [facility] Neurosurgery [address] [phone] Social History Tobacco Use Types Packs/Day Years [...] on filedocumented in this encounter Care Teams Discharge Planner Relationship Specialty Start Date End Date Vitor Angel MD [address] [place] [address] PCP - General Psychiatry, General 12/26/18 documented as of this encounter
--- OUTSIDE RECORDS SUMMARY | 2025-04-08 10:15 | XMS_ITS | Clinical Summary ---
Author Organization [facility] [employer] Address [address] [place] [address] 7t [place] [address] Care Team Providers Care House Wirer Helper Name Role Phone Lucila CannonSW Unavailable [phone] Allergies Active Allergy Reactions Criticality Noted Date [...] Active beta carotene (vitamin A) 3 MG (33644 UT) capsule daily. Active Specialty Vitamins Products [...] Problems Problem Noted Date Diagnosed Date Complex posttraumatic stress disorder 10/10/2022 Primary insomnia 05/16/2022 Nausea 05/16/2022 Resolved Problems Problem Noted Date Diagnosed Date Resolved Date Moderate episode of recurren t major depressive disorder ([facility]) 03/14/2022 10/10/2022 Immunizations Immunization Administration Dates [...] [facility] 07/23/2021 9:06 AM EDT us Claudia Chaloux METEOROLOGY PROFESSOR LAB BLOOD ORDERABLES Final Re sult [facility] [address] * Mammography (01/19/2021) Mammogram BI RADS one negative Anatomical Region Laterality Modality Other Historical Provider HEALTH MAINTENANCE Final Result * Colonoscopy (10/14/2009) Colonoscopy Diverticulosis of the sigmoid colon, internal and external hemrrhoids. follow up the biopsy results Historical Provider HEALTH MAINTENANCE Final Result from Last 3 Months or Most Recently Relevant [place] [id number] MEDICARE UNICARE MEDICARE [employer] [place] [id number] Care Teams House Wirer Helper Relationship Specialty Start Date End Date Lucila Cannon LICSW [address] [place] [address] Bark Press Operator Behavioral Health 03/14/22 provider unknown Primary Care Provider 02/02/23
--- OUTSIDE RECORDS SUMMARY | 2025-04-08 10:15 | XMS_ITS | Clinical Summary ---
Author Organization [facility] Address [address] [place] [address] Care Team Providers Care Instructional Systems Designer Name Role Phone Vitor Angel MD Primary Care Provider [phone] Allergies Active Allergy Reactions Criticality Noted Date [...] 11/08/2024 01/14/2019, 01/23/2018 COVID-19 Vaccine ( - 2024-2 6 season) 2024 Hepatitis B Vaccines Aged Out No long er eligible based on patient's age to complete this topic Insurance [facility] [place] PART A & B Care Teams Instructional Systems Designer Relationship Specialty Start Date End Date Vitor Angel MD [address] [place] [address] PCP - General Psychiatry, General 12/26/18
--- OUTSIDE RECORDS SUMMARY | 2025-04-08 10:15 | XMS_ITS | Encounter Summary ---
Author Organization [employer] Address 75 [facility] 7 [place] [address] Care Team Providers Care Administration Assistant Name Role Phone Lucila CannonSW Unavailable [phone] Claudia Gamez CNP Primary Care Provider [phone] Reason for Visit * Reason Comments Med Refill Encounter Details Date Type Department Care Team (Late st Contact Info) Description 09/07/2022 Refill [facility] MEDICAL [address] [place] [address] Cassandra Long NP Primary insomnia Social History [...] believe she is seeing anew PCP in [place] documented in this encounter Plan of Treatment Not on file documented as of this encounter Visit Diagnoses Diagnosis Primary insomnia Persistent disorder of initiating or maintaining sleep documented in this encounter Care Teams Administration Assistant Relationship Specialty Start Date End Date Claudia Gamez CNP [address] [place] [address] PCP - General Family Medicine 05/03/22 02/01/23 Lucila Cannon, MATTIE [address] [place] [address] Stakeholder Manager Behavioral Health 03/14/22 provider unknown Primary Care Provider 02/02/23 documented as of this encounter
--- OUTSIDE RECORDS SUMMARY | 2025-04-08 10:15 | XMS_ITS | Encounter Summary ---
Author Organization [facility] Address [address] [place] [address] Care Team Providers Care Shoemaking Finisher Name Role Phone Vitor Angel MD Primary Care Provider [phone] Encounter Details Date Type Department Care Team (Late st Contact Info) Description 01/21/2022 Scanned Document [facility] Neurosurgery [address] [phone] Social History Tobacco Use Types Packs/Day Years [...] Finisher Relationship Specialty Start Date End Date Vitor Angel MD [address] [place] [address] PCP - General Psychiatry, General 12/26/18 documented as of this encounter
== END ==
LOC: HO.CARD 08:34
PROVIDERS: PCP Internal Medicine; Visit Provider Internal Medicine
DX: R07.2 Precordial pain (principal); I49.3 Ventricular premature depolarization
CPT/HCPCS: 93017; 93306

== ENCOUNTER → 2025-04-08 08:38 | Outpatient (BNV) | payer MEDICARE, OTHER, SELFPAY | PROVIDERS: PCP Internal Medicine | DX: I49.3 Ventricular premature depolarization (principal); R06.02 Shortness of breath | CPT/HCPCS: 93016; 93018 ==